=== PATIENT | male | born 1975 | race Caucasian/White ===

== ENCOUNTER 2024-12-04 11:08 | Emergency (ER) | payer OTHER, SELFPAY ==
[2024-12-04 11:09] VITALS: BP 130/118; PULSE 98; RESP 18; TEMP 36.8; O2SAT 98; BMI 34.1
--- NOTE | 2024-12-04 11:21 | CT_ITS ---
PROCEDURE: ABDOMEN/PELVIS W IV CONT ONLY 12/04/2024 REASON FOR EXAM: N/V GETTING WORSE LAST 3 WKS TECHNIQUE: Abdomen and pelvis CT with intravenous contrast. Coronal and Sagittal reconstruction series were provided. PATIENT PREPARATION: Per protocol ORAL CONTRAST TYPE: None. AMOUNT: mL CONTRAST: Omnipaque 350 VOLUME: 100 mL Not Provided Gauge IV One or more dose reduction techniques were used (e.g., Automated exposure control, adjustment of the mA and/or kV according to patient size, use of iterative reconstruction technique. COMPARISON: None FINDINGS: Lung bases: Please see the same-day CT of the abdomen and pelvis report. Liver: Normal size. No mass. Gallbladder: Unremarkable. Spleen: Splenomegaly, craniocaudal length 14.4 cm. 4 x 3.2 cm enhancing mass within the upper pole, (series 610 image 96, series 7 image 38). Pancreas: Normal size without evidence of mass surrounding inflammation or ductal dilation. Adrenals: Unremarkable. Kidneys: Delete bilateral nephrogram. Findings slightly worse on the right. Bilateral hydroureteronephrosis. Limited visualization of the distal ureter due to confluence with retroperitoneal mass. Bladder: Urinary bladder is unremarkable. Reproductive Organs: No pelvic mass. Bowel: No bowel dilation. Appendix: The appendix is not identified. There is no inflammatory process identified in the right lower quadrant to suggest appendicitis. Lymph nodes: Extensive retroperitoneal adenopathy, with areas of confluence masslike lymph nodes. For example (series 7, image 71). There is a 5.2 x 3.3 cm left para-aortic node and a 5.3 x 2.9 cm aortocaval node (series 7, image 70). Confluent soft-tissue mass nearly completely encases the IVC and aorta as well as bilateral common iliac arteries. Extensive adenopathy is noted throughout the abdomen and bilateral external iliac chains. Findings are highly suggestive of a lymphoproliferative process. Vasculature: Mild diffuse atherosclerotic calcifications are noted. Peritoneum / Retroperitoneum: Diffuse mesenteric soft tissue stranding and nodularity. No pneumoperitoneum. No ascites. Bones: No suspicious osseous lesions. Soft tissue: Diffuse subcutaneous soft tissue stranding. CT/Abdomen/Pelvis W IV Cont ONLY IMPRESSION: 1. Extensive and confluence retroperitoneal soft tissue mass as well as mesente madison adenopathy as described above, highly concerning for lymphoproliferative process, such as lymphoma. 2. Delayed bilateral nephrograms and bilateral hydroureteronephrosis secondary to obstruction of the distal ureters from mass effect of the retroperitoneal mass/node 3. Splenomegaly and a 4 x 3.2 cm upper pole enhancing mass, also likely seconda ry to lymphomatous involvement. Reading Location: [facility]
--- NOTE | 2024-12-04 11:21 | CT_ITS ---
PROCEDURE: SOFT TISSUE NECK WITH CONTRAST 12/04/2024 REASON FOR EXAM: LEFT NECK MASS TECHNIQUE: CT of the soft tissues of the neck from the orbits to the upper mediastinum with intravenous contrast. CONTRAST: Omnipaque 350 VOLUME: 100 mL Not Provided Gauge IV One or more dose reduction techniques were used (e.g., Automated exposure control, adjustment of the mA and/or kV according to patient size, use of iterative reconstruction technique). COMPARISON: None FINDINGS: Lymph nodes: Multiple prominent-mildly enlarged bilateral jugulodigastric, level 3-level 5 lymph nodes. For example 2.0 left and 2.1 cm right level 2A node. Multiple other enlarged nodes are noted within the neck. small nonspecific lymph nodes are scattered throughout the neck. Soft tissue: Within the left lower neck, at the level of the carotid space, there is a 5.5 x 7.7 x 7.3 cm soft tissue mass (series 6, image 35, series 608, image 55). The mass splays the left common carotid and the left ventricle retromandibular vein. There is mass effect on the adjacent internal jugular vein and left common carotid artery. The mass also anteriorly displaced the sternocleidomastoid muscle. Aerodigestive tract: The oral cavity is partially obscured by artifact from dental amalgam. The nasal cavities, naso-oropharynx, pharyngeal mucosal space, laryngeal structures and infraglottic trachea are within normal limits. Major salivary glands: Within normal limits. Thyroid gland: Within normal limits. Carotid space: Patent bilateral extracranial carotid and jugular systems. Intracranial contents: Imaged portions within normal limits. Paranasal sinuses, middle ears, mastoids: Clear. Orbits: Within normal limits. Bones: No suspicious osseous lesions in the imaged calvarium, skull base and spine. Normal cervicothoracic alignment. No significant spondylotic changes. Temporomandibular joints are maintained. Lungs: Partially imaged large right pleural effusion.. CT/Soft Tissue Neck WITH Contrast IMPRESSION: 5.5 x 7.7 x 7.3 cm left carotid space and inferior neck soft tissue mass spleen the left IJ, retromandibular vein as well as the common carotid artery, with mass effect as described above. Differential consi derations for this mass include a paraganglioma, metastatic mass or large adenopathy. Multiple prominent-mildly enlarged neck nodes, suspicious for metastasis. Reading Location: [facility]
--- NOTE | 2024-12-04 11:21 | CT_ITS ---
PROCEDURE: CHEST WITH CONTRAST 12/04/2024 REASON FOR EXAM: NECK MASS, N/V TECHNIQUE: Prone and supine chest CT with intravenous contrast, high resolution CT (HRCT) protocol. Coronal and Sagittal reconstruction series were provided. CONTRAST: Omnipaque 350 VOLUME: 100 mL Not Provided Gauge IV One or more dose reduction techniques were used (e.g., Automated exposure control, adjustment of the mA and/or kV according to patient size, use of iterative reconstruction technique). COMPARISON: None FINDINGS: Hardware: None Lymph nodes: Multiple enlarged predominantly mediastinal lymph nodes are noted. For example a 16 mm right upper paratracheal lymph node (series 5 image 43); multiple cluster of subcarinal node, with the largest measuring 16 mm. Heart and Vasculature: Normal heart size. No pericardial effusion. Thoracic aorta and pulmonary arteries are unremarkable. Lungs and Airways: Trachea is patent. There is abrupt cutoff of the right lower lobe bronchus, with resultant right lower lobe atelectasis. Large right pleural effusion. Scattered ground-glass opacities right upper lobe, likely infectious/inflammatory etiology. No suspicious pulmonary nodule. No pneumothorax. Upper Abdomen: Please see the same-day CT abdomen and pelvis. Bones: Bone windows are unremarkable. Chest wall and mediastinum: Thyroid gland is unremarkable. Partially imaged soft tissue mass left lower neck. Please see the same day CT neck report. Esophagus is nondilated. CT/Chest WITH Contrast IMPRESSION: Occlusion of the right lower lobe bronchus, suggestive of an underlying mass or mucous plugging. Evaluation is limited by large right pleural effusion. Recommend repeat CT after resolution/thoracentesis of the effusion. PET-CT may also be considered. Multiple enlarged mediastinal lymph nodes. Findings suggestive of a lymphoprol iferative process, or metastasis, given the partially imaged left lower neck soft tissue mass. Reading Location: [facility]
--- NOTE | 2024-12-04 11:23 | CT_ITS ---
PROCEDURE: BRAIN/HEAD WITHOUT CONTRAST 12/04/2024 REASON FOR EXAM: NECK MASS/ N/V TECHNIQUE: Head CT without intravenous contrast. Coronal and Sagittal reconstruction series were provided. One or more dose reduction techniques were used (e.g., Automated exposure control, adjustment of the mA and/or kV according to patient size, use of iterative reconstruction technique. RADIATION DOSE SUMMARY: DLP: 830 mGycm COMPARISON: none FINDINGS: There is no acute infarct, intracranial hemorrhage, or mass effect. There is no hydrocephalus or significant midline shift. No acute, depressed calvarial fractures. No large scalp hematomas. Retention cyst within the right maxillary sinus. CT/Brain/Head without Contrast IMPRESSION: No acute intracranial process. Reading Location: [id number]
--- NOTE | 2024-12-04 11:23 | EX.ED.DYSGE1 ---
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 Patient states that for the last 3 weeks she has had nausea vomiting and had been difficulty keeping food down. He states that he will eat and then few hours later he will immediately vomits. Patient denies any weight loss. He does complain of a lump on the left side of his neck he states that it has been there for a few weeks he states that originally was so small he followed up with a doctor and noted that this was likely a lymph node at that point in time. Patient states that he has not seen physician since it has increased in size. Patient's family member at bedside states that he has been extremely sleepy lately as well which is abnormal for him. Patient also noted that he is unsure of why he exactly developed blood clots in his legs and he states that he was seen at an outside facility for this. [facility] Medical History HTN (hypertension) DVT (deep venous thrombosis) Home Medications ?Medication ?Instructions ?Recorded ?Last Taken ?Type apixaban 5 mg tablet (Eliquis) 5 mg PO BID 12/04/24 12/04/24 History lisinopril 20 mg tablet 20 mg PO DAILY 12/04/24 12/04/24 History Allergy/AdvReac Type Severity Reaction Status Date / Time No Known Allergies Allergy Verified 12/04/24 11:11 Social History Smoking Status: Former smoker ROS ROS ED ROS Narrative Constitutional: Denies headache, lightness, disease confusion, chills Eyes: Denies change in vision double vision blurry vision Neck: Complains of masses noted above Cardiovascular: Denies chest pain or palpitations Respiratory: Denies cough wheezing shortness of breath Abdomen: Complains of nausea and vomiting : Denies urinary symptoms Neurological: Denies numbness, weakness, tingling Musculoskeletal: Denies back pain Skin: Denies rashes or lesions EXAM Physical Exam Narrative Exam Narrative: General: Patient lying in bed rest comfortably did not appear to be acute distress Head: Atraumatic, normocephalic Eyes: PERRL bilaterally, EOMI bilaterally, no conjunctival injection noted Neck: Soft, supple, trachea midline, patient does have a soft tissue mass noted just above his clavicle/lower neck region Cardiovascular: Regular rate and rhythm Respiratory: Clear to auscultation bilaterally Abdomen: Soft, nondistended, nontender to palpation Extremities: +5/5 strength noted in the bilateral upper and lower extremities Neurological: Patient following commands knew that he was at [facility] year is 2024 Skin: Warm, dry, intact no rashes or lesions noted Const Vital Signs: 12/04/24 11:09 12/04/24 13:09 12/04/24 15:00 Temperature 98.3 F Temperature Source Oral Pulse Rate 98 85 86 Respiratory Rate 18 14 14 Blood Pressure 130/118 H 150/78 H 157/88 H Blood Pressure Mean 122 102 111 Pulse Ox 98 94 96 Oxygen Delivery Method Room Air MDM MDM MDM Narrative Medical decision making narrative: Patient is a 49-year-old male who presented to the emergency department the chief complaint of nausea vomiting, soft tissue mass in the left side of his lower neck. On the differential diagnosis includes but not limited to hypothyroidism, thyroid cancer, cancer with metastases. Once workup is obtained reviewed he will be reevaluated. Patient be given Zofran for nausea. Patient's CBC was reviewed and showed a white blood count of 6.8, hemoglobin stable at 11, platelet count was noted to be 285. Patient sodium normal 133, potassium normal at 5, creatinine was elevated 2.27 indicating acute kidney injury, calcium elevated at 13.9 patient was given IV fluids. Patient TSH normal at 1.97, free T4 and T3 normal at 1.40 [address] head and brain without contrast was reviewed and showed no acute intracranial processes. Patient's CT soft tissue neck reviewed and showed a 5.5 x 7.7 x 7.3 cm left carotid space and inferior neck soft tissue mass. The mass encases the left common carotid and the left ventricle retromandibular vein. Mass effect on the adjacent internal jugular vein and the left common carotid artery. The mass also anteriorly displaced the sternocleidomastoid muscle. Multiple prominent mildly enlarged neck node suspicious for metastases noted. Patient CT chest was reviewed and showed occlusion of the right lower lobe bronchus suggestive of underlying mass or mucous plugging. Evaluation is limited by large right pleural effusion recommending repeat CT after resolution/thoracentesis of the effusion. PET?CT may also be considered. Multiple enlarged mediastinal lymph nodes. Patient CT abdomen pelvis with IV contrast showed extensive and confluence retroperitoneal soft tissue mass as well as mesenteric adenopathy highly concerning for a lymphoproliferative process such as lymphoma. Delayed bilateral nephrograms and bilateral hydroureteronephrosis secondary to obstruction of the distal ureters from mass effect of the retroperitoneal mass/node. Soft tissue mass nearly completely encases the IVC and aorta as well as bilateral common iliac arteries. Extensive adenopathy is noted throughout the abdomen and bilateral external iliac chains. Findings highly suggestive of lymphoproliferative process. At this point in time do not have urology on-call and do believe the patient will benefit from transfer. Patient would prefer to go to [facility]. Discussed the case with Dr. Perez from [facility] who accept patient for transfer admission. Patient and for members at bedside were notified are agreeable this plan all question concerns answered. He will be transferred in stable condition Lab Data Labs: Laboratory Results - last 24 hr 12/04/24 11:35 WBC 6.8 RBC 3.69 L Hgb 11.0 L Hct 33.5 L MCV 90.8 MCH 29.8 MCHC 32.8 RDW Std Deviation 47.6 H RDW Coeff of Sunil 14.3 Plt Count 285 MPV 9.5 Immature Gran % (Auto) 0.700 Neut % (Auto) 73.3 H Lymph % (Auto) 9.0 L Mcpherson % (Auto) 14.1 H Eos % (Auto) 1.9 Baso % (Auto) 1.0 Absolute Neuts (auto) 5.0 Absolute Lymphs (auto) 0.61 L Nucleated RBC % 0 Sodium 133 Potassium 5.0 Chloride 96 L Carbon Dioxide 23.7 Anion Gap 13 BUN 32 H Creatinine 2.27 H Estim Creat Clear Calc 54.57 Est GFR (MDRD) Non-Af 34 L BUN/Creatinine Ratio 14.3 Glucose 114 H Calcium 13.9 H* Total Bilirubin 0.85 AST 44 H ALT 26 Alkaline Phosphatase 65 Total Protein 6.7 Albumin 3.6 Globulin 3.1 Albumin/Globulin Ratio 1.1 Lipase 25 TSH 1.970 Free T4 1.40 Free T3 pg/dL 2.2 Radiography Diagnostic Testing: Clinical Impression(s) from Imaging Studies Abdomen/Pelvis CT 12/04/24 11:21 IMPRESSION: 1. Extensive and confluence retroperitoneal soft tissue mass as well as mesenteric adenopathy as described above, highly concerning for lymphoproliferative process, such as lymphoma. 2. Delayed bilateral nephrograms and bilateral hydroureteronephrosis secondary to obstruction of the distal ureters from mass effect of the retroperitoneal mass/node 3. Splenomegaly and a 4 x 3.2 cm upper pole enhancing mass, also likely secondary to lymphomatous involvement. Reading Location: [facility] Chest CT 12/04/24 11:21 IMPRESSION: Occlusion of the right lower lobe bronchus, suggestive of an underlying mass or mucous plugging. Evaluation is limited by large right pleural effusion. Recommend repeat CT after resolution/thoracentesis of the effusion. PET-CT may also be considered. Multiple enlarged mediastinal lymph nodes. Findings suggestive of a lymphoproliferative process, or metastasis, given the partially imaged left lower neck soft tissue mass. Reading Location: [facility] Soft Tissue Neck CT 12/04/24 11:21 IMPRESSION: 5.5 x 7.7 x 7.3 cm left carotid space and inferior neck soft tissue mass spleen the left IJ, retromandibular vein as well as the common carotid artery, with mass effect as described above. Differential considerations for this mass include a paraganglioma, metastatic mass or large adenopathy. Multiple prominent-mildly enlarged neck nodes, suspicious for metastasis. Reading Location: [facility] Brain CT 12/04/24 11:23 IMPRESSION: No acute intracranial process. Reading Location: [id number] Discharge Plan Triage Chief Complaint: Nausea/Vomiting ED Provider: Hayden Dutta Dx/Rx/DC Orders Clinical Impression: Pleural effusion, right, Mass in neck, Nausea & vomiting, Acute kidney injury, Abnormal computed tomography of abdomen and pelvis Prescriptions: No Action Eliquis 5 mg tablet 5 mg PO BID lisinopril 20 mg tablet 20 mg PO DAILY Primary Care Provider: CAM WEST Referrals: Bk Raphael MD [Med Staff - Active Staff] - Print Language: Sinhala Disposition Disposition: DC/Tx to Another Type of HCF
[2024-12-04 11:42] LABS: Absolute Lymphocyte Count 0.61 X10^3/uL (0.83-4.51); Basophil# 0.07 X10^3/uL; Eosinophil# 0.13 X10^3/uL; Eosinophils% 1.9 % (0-5); Hematocrit 33.5 % (40-54); Lymphocyte # 0.61 X10^3/ul (0.83-4.51); Mean Corp Hgb Conc 32.8 g/dL (32-36); Mean Corpuscular Hgb 29.8 pg (27.0-32.0); Mean Corpuscular Volume 90.8 fL (80-94); Mean Platelet Vol. 9.5 fl (6.2-12.0); Monocyte# 0.96 X10^3/uL; Monocyte% 14.1 % (0-10); NRBC Flagged by Analyzer 0 % (0-5); Neutrophil # 4.97 X10^3/uL (2.7-7.7); Neutrophil % 73.3 % (47-70); Platelet Count 285 K/mm3 (150-450); RBC Distribution Width CV 14.3 % (11.6-14.6); RBC Distribution Width SD 47.6 fl (35.1-43.9); Red Blood Count 3.69 M/mm3 (4.6-6.2); White Blood Count 6.8 K/mm3 (4.4-11.0)
[2024-12-04] MEDS: Ondansetron 4 MG/2 ML Vial IV (11:42)
[2024-12-04] MEDS: 0.9% Normal Saline (1000mL) 1,000 ML 999 ML IV (11:43)
[2024-12-04 12:11] LABS: Free T3 2.2 pg/mL (2.18-3.98); Lipase 25 U/L (13-75)
[2024-12-04 12:14] LABS: ALB/GLOB Ratio 1.1 RATIO (0.9-2.4); AST(SGOT) 44 U/L (<=37); Alanine Aminotransfer ALT/SGPT 26 U/L (<=46); Albumin, Serum 3.6 g/dL (3.5-5.0); Alkaline Phosphatase 65 U/L (40-129); Anion Gap 13 (5-15); BUN 32 mg/dL (4-19); BUN/Creat Ratio 14.3 RATIO (10-20); Calcium,Total 13.9 mg/dL (7.6-11.0); Carbon Dioxide 23.7 mmol/L (21.0-32.0); Chloride 96 mmol/L (98-108); Creatinine, Serum 2.27 mg/dL (0.70-1.20); EST Glomerular Filtration Rate 34 (>60); Estimated Creatinine Clearance 54.57 ml/min (50-250); Globulin 3.1 g/dL (2.2-4.2); Glucose 114 mg/dL (70-99); Protein, Total 6.7 g/dL (5.9-8.4); Sodium Level 133 mmol/L (133-145); Total Bilirubin 0.85 mg/dL (0.00-1.30)
[2024-12-04 13:09] VITALS: BP 150/78; PULSE 85; RESP 14; O2SAT 94
[2024-12-04 15:00] VITALS: BP 157/88; PULSE 86; RESP 14; O2SAT 96
--- NOTE | 2024-12-04 16:35 | PCA ---
CALLED [facility] @ [phone] SENT OVER FACE SHEET AND PUSHED IMAGES
[2024-12-04 17:00] VITALS: BP 151/77; PULSE 95; RESP 18; O2SAT 92
--- NOTE | 2024-12-04 17:14 | PCA ---
[facility] CALLED AT 1705. THEY HAD AN ACCEPTING DR AND SAID THERE SHOULD BE A BED TONIGHT.
--- NOTE | 2024-12-04 18:16 | PCA ---
AJITH CALLED @ 1806 WITH A BED. H5 RM 109 THE ETA IS 1999.
[2024-12-04 18:44] VITALS: BP 151/77; PULSE 95; RESP 18; O2SAT 92
== END 2024-12-04 19:03 | disposition other institution (70) ==
PROVIDERS: Emergency Provider Emergency Medicine; Visit Provider Emergency Medicine
DX: J90 Pleural effusion, not elsewhere classified (principal); N17.9 Acute kidney failure, unspecified; I10 Essential (primary) hypertension; R11.2 Nausea with vomiting, unspecified; Z87.891 Personal history of nicotine dependence; R19.09 Other intra-abdominal and pelvic swelling, mass and lump; Z86.718 Personal history of other venous thrombosis and embolism; Z79.01 Long term (current) use of anticoagulants; Z79.899 Other long term (current) drug therapy; N13.1 Hydronephrosis with ureteral stricture, not elsewhere classified
CPT/HCPCS: 70450; 70491; 71260; 74177; 80053; 83690; 84439; 84443; 84481; 85025; 96361; 96374; 99285; Q9967; A4216; J2405

== ENCOUNTER 2024-12-26 16:51 | Emergency (ER) | payer OTHER, SELFPAY ==
[2024-12-26 16:53] VITALS: BP 120/60; PULSE 77; RESP 18; TEMP 36.6; O2SAT 98
[2024-12-26 18:22] VITALS: RESP 22; O2SAT 100
[2024-12-26 18:23] VITALS: BP 101/84; PULSE 77; RESP 22; TEMP 36.6; O2SAT 100
[2024-12-26 18:24] VITALS: O2SAT 100
[2024-12-26 18:34] LABS: Hematocrit 27.7 % (40-54); Hemoglobin 9.3 g/dL (13.0-16.5); Mean Corp Hgb Conc 33.6 g/dL (32-36); Mean Corpuscular Hgb 29.2 pg (27.0-32.0); Mean Corpuscular Volume 87.1 fL (80-94); Mean Platelet Vol. 8.5 fl (6.2-12.0); POSITIVE COUNT YES; POSITIVE MORPHOLOGY YES; Platelet Count 477 K/mm3 (150-450); RBC Distribution Width CV 15.5 % (11.6-14.6); RBC Distribution Width SD 47.7 fl (35.1-43.9); Red Blood Count 3.18 M/mm3 (4.6-6.2); White Blood Count 16.4 K/mm3 (4.4-11.0)
--- NOTE | 2024-12-26 18:40 | RAD_ITS ---
PROCEDURE: CHEST 1 VIEW (PORTABLE) 12/26/2024 REASON FOR EXAM: SOB TECHNIQUE: Frontal view of the chest. COMPARISON: CT chest 12/04/2024 FINDINGS: Hardware: None Heart: Cardiac and mediastinal contours are stable. Lungs: Moderate to large right pleural effusion, similar to CT on 12/04/2024. Lung volumes are low and otherwise predominantly clear. Bones: The bones are unchanged. RAD/Chest 1 View (Portable) IMPRESSION: [id number] right pleural effusion, similar to recent CT. Reading Location: [id number]
--- NOTE | 2024-12-26 18:52 | EX.ED.DYSGE1 ---
HPI History of Present Illness Chief Complaint: Shortness of Breath Narrative Narrative: 49-year-old male presents with his mother because of drainage around the Pleurx catheter in his right posterior back. He relates history that around Mother's Day, approximately 3 to 4 weeks ago, he was at [facility] admitted for 11 days. He has history of blood clots on apixaban, he states he had a mass on his neck and they found a nodule or mass in his left lung, and he was found to have fluid on his right lung as well. Initially they drained his right blood which I assume was from thoracentesis and he states they got a liter off. They initially inserted tube, and reportedly were able to get 3 L of fluid off his lung. They put in a small catheter which they could draw fluid off of every so often. He states he last had it drained last Thursday where they only took 50 mL. The home health nurse was supposed to drain it again today, but she noticed purulent drainage on the dressing surrounding the catheter. Of note, he also has bilateral nephrostomy tubes. He and his mother states that he is supposed to be at [facility] tomorrow to get a Mediport placed. [facility] Medical History HTN (hypertension) DVT (deep venous thrombosis) Home Medications ?Medication ?Instructions ?Recorded ?Last Taken ?Type apixaban 5 mg tablet (Eliquis) 5 mg PO BID 12/04/24 12/04/24 History lisinopril 20 mg tablet 20 mg PO DAILY 12/04/24 12/04/24 History allopurinol 300 mg tablet PO 12/26/24 Unknown History prednisone 50 mg tablet PO 12/26/24 Unknown History Allergy/AdvReac Type Severity Reaction Status Date / Time No Known Allergies Allergy Verified 12/26/24 18:26 Social History Smoking Status: Former smoker ROS ROS ED ROS Narrative Review of systems positive for drainage around Pleurx catheter, purulent. No fevers or chills, no nausea or vomiting, no shortness of breath. EXAM Physical Exam Narrative Exam Narrative: Afebrile. Vital signs noted. Nontoxic-appearing. Cardiovascular examination reveals a regular rate and rhythm. Lungs are clear to auscultation bilaterally. The abdomen is soft and nontender with positive bowel sounds. Inspection of the nephrostomy tubes shows no evidence of surrounding erythema. There is a scant amount of purulent drainage around the right posterior Pleurx catheter. There is a larger lump more caudal to this which is the area he states he had prior drainage of the prior tube. Const Vital Signs: 12/26/24 16:53 12/26/24 16:53 12/26/24 18:22 Temperature 98 F Temperature Source Oral Oral Pulse Rate 77 Respiratory Rate 18 22 H Respiratory Effort Respiratory Depth Respiratory Pattern Blood Pressure 120/60 Blood Pressure Mean 80 Pulse Ox 98 100 Oxygen Delivery Method Room Air 12/26/24 18:23 12/26/24 18:24 12/26/24 19:08 Temperature 98 F Temperature Source Temporal Pulse Rate 77 98 Respiratory Rate 22 H 19 H Respiratory Effort Non-Labored Respiratory Depth Normal Respiratory Pattern Normal Blood Pressure 101/84 H Blood Pressure Mean 89 Pulse Ox 100 99 Oxygen Delivery Method Room Air 12/26/24 21:00 Temperature Temperature Source Pulse Rate 93 Respiratory Rate 21 H Respiratory Effort Respiratory Depth Respiratory Pattern Blood Pressure 116/72 Blood Pressure Mean 86 Pulse Ox 100 Oxygen Delivery Method MDM MDM MDM Narrative Medical decision making narrative: Differential diagnosis includes but not limited to infection of Pleurx catheter versus pneumonia versus lung abscess versus subcutaneous abscess with tracking. Initial laboratories have been entered per protocol. Although chest x-ray was obtained per protocol, I do feel he needs a CT of the chest with IV contrast. I reviewed his laboratory work and he has elevated white count of 16.4 with hemoglobin 9.3, platelet count slightly elevated at 477. Sodium is low at 131 with chloride 97, potassium 3.9. Glucose low at 122, lactic acid less than 1.0. I doubt sepsis. On my independent interpretation of the protocol of chest x-ray, there is a moderate to large pleural effusion on the right. Reviewed the radiology report of the CT of the chest with IV contrast and although it is decreased, there is a loculated pleural effusion, and there is a right lower lobe density noted as well. Concern would be for infectious process versus neoplastic. Given the amount of purulent drainage around the catheter on his Pleurx catheter, he was started on vancomycin and Zosyn because of the elevated white count as well. I do feel that he will require transfer. Patient initially discussed with the [facility] transfer [facility] and is pending acceptance and further discussion with the provider. If needed, patient will be signed out to the oncoming physician to ensure transfer. Patient is in stable condition. History & Record Review Discussion w/independent historian: Patient and Family (Mother) Lab Data Attestation: I reviewed the patient's lab results. Labs: Laboratory Results - last 24 hr 12/26/24 12/26/24 18:16 19:24 WBC 16.4 H RBC 3.18 L Hgb 9.3 L Hct 27.7 L MCV 87.1 MCH 29.2 MCHC 33.6 RDW Std Deviation 47.7 H RDW Coeff of Sunil 15.5 H Plt Count 477 H MPV 8.5 Neut % (Auto) Not Reportable Absolute Neuts (auto) 12.8 H Absolute Lymphs (auto) 0.49 L Total Counted 100 Neutrophils % (Manual) 77 H Band Neutrophils % 1 Lymphocytes % (Manual) 3 L Monocytes % (Manual) 5 Eosinophils % (Manual) 2 Metamyelocytes % 3 H Myelocytes % 5 H Promyelocytes % 1 H Blast Cells % 3 H* Diff Path Review May foll Platelet Estimate SLT INC Polychromasia 1+ Sodium 131 L Potassium 3.9 Chloride 97 L Carbon Dioxide 21.4 Anion Gap 13 BUN 12 Creatinine 1.05 Est GFR (MDRD) Non-Af 86 BUN/Creatinine Ratio 11.7 Glucose 122 H Lactic Acid < 1.0 Calcium 8.6 Radiography Chest X-Ray - ED: 1 View, Read by ED Physician and Read by Radiologist Diagnostic Testing: Clinical Impression(s) from Imaging Studies Chest X-Ray 12/26/24 18:40 IMPRESSION: [id number] right pleural effusion, similar to recent CT. Reading Location: [id number] Chest CT 12/26/24 19:15 IMPRESSION: Decreased right pleural effusion which is now loculated. Right lower lobe density likely representing some component of atelectasis but superimposed infection or neoplastic process can not be excluded. Decreased mediastinal lymphadenopathy. Reading Location: [id number] Discharge Plan Triage Chief Complaint: Shortness of Breath ED Provider: Alejandro Wilde Dx/Rx/DC Orders Clinical Impression: Infection associated with catheter, Pleural effusion, Large B-cell lymphoma Prescriptions: No Action Eliquis 5 mg tablet 5 mg PO BID lisinopril 20 mg tablet 20 mg PO DAILY prednisone 50 mg tablet PO allopurinol 300 mg tablet PO Primary Care Provider: Care Physician,Karla Primary Referrals: [facility] [Other] Print Language: Kinyarwanda Disposition Disposition: Acute Care Hospital Discharge Location: [facility]
[2024-12-26 18:57] LABS: Anion Gap 13 (5-15); BUN 12 mg/dL (4-19); BUN/Creat Ratio 11.7 RATIO (10-20); Calcium,Total 8.6 mg/dL (7.6-11.0); Carbon Dioxide 21.4 mmol/L (21.0-32.0); Chloride 97 mmol/L (98-108); Creatinine, Serum 1.05 mg/dL (0.70-1.20); EST Glomerular Filtration Rate 86 (>60); Glucose 122 mg/dL (70-99); Potassium 3.9 mmol/L (3.3-5.1); Sodium Level 131 mmol/L (133-145)
[2024-12-26] MEDS: 0.9% Normal Saline (1000mL) 1,000 ML 1000 ML IV (18:59)
[2024-12-26 19:08] VITALS: PULSE 98; RESP 19; O2SAT 99
[2024-12-26 19:15] LABS: Differential Indicated MANUAL DIFF
--- NOTE | 2024-12-26 19:15 | CT_ITS ---
PROCEDURE: CHEST WITH CONTRAST 12/26/2024 REASON FOR EXAM: ABSCESS, DRAINAGE AROUND PLEURX CATHETER, RIGHT TECHNIQUE: Prone and supine chest CT with intravenous contrast, high resolution CT (HRCT) protocol. Coronal and Sagittal reconstruction series were provided. CONTRAST: Isovue 370 VOLUME: 98 mL. One or more dose reduction techniques were used (e.g., Automated exposure control, adjustment of the mA and/or kV according to patient size, use of iterative reconstruction technique). RADIATION DOSE SUMMARY: CTDlvol: 13.30+ 17.90 mGy DLP: 570.33 mGycm COMPARISON: 12/04/2024. FINDINGS: Loculated right pleural fluid which is markedly decreased in size since the prior CT. Right lower lobe density with attenuation similar to paraspinal muscular some of which may represent atelectasis but the attenuation suggests some may be infected or represent a neoplastic process. Left lower lobe linear atelectasis. Intervally decreased size of mediastinal lymph nodes. Left lower neck soft tissue mass is not included in the volume of these images. Coronary artery calcifications. The peripheral soft tissues are unremarkable. No acute osseous abnormalities. CT/Chest WITH Contrast IMPRESSION: Decreased right pleural effusion which is now loculated. Right lower lobe density likely representing some component of atelectasis but superimposed infection or neoplastic process can not be excluded. Decreased mediastinal lymphadenopathy. Reading Location: [place] [id number]
[2024-12-26 19:25] LABS: Blast 3 % (0-0); Eosinophil 2 % (0-5); Lymphocyte 3 % (19-41); Metamyelocyte 3 % (0-1); Monocyte 5 % (0-10); Myelocyte 5 % (0-0); Neutrophil-Band 1 % (0-5); Neutrophil-Segmented 77 % (47-70); Promyelocyte 1 % (0-0); Total Cells Counted 100 (MANUAL DIFF)
[2024-12-26 19:28] LABS: Platelet Estimate SLT INC (ADEQ); Polychromasia 1+
[2024-12-26 19:29] LABS: Pathologist Review May foll
[2024-12-26 19:30] LABS: Absolute Lymphocyte Count 0.49 X10^3/uL (0.83-4.51); Absolute Neutrophil Count 12.8 X10^3/uL (2.0-7.7)
[2024-12-26 19:57] LABS: Lactic Acid < 1.0 mmol/L (0.0-2.0)
[2024-12-26 21:00] VITALS: BP 116/72; PULSE 93; RESP 21; O2SAT 100
[2024-12-26 23:00] VITALS: BMI 31.4
[2024-12-26] MEDS: fentaNYL 100 MCG/2 ML Ampul 50 MCG IV (23:11)
[2024-12-26] MEDS: Piperacil/Tazobactam 3.375 GM in 0.9% Normal Saline (50mL MB+) 50 ML IV (23:11)
[2024-12-27 00:30] VITALS: BP 104/63; PULSE 76; RESP 28; O2SAT 94
[2024-12-27] MEDS: Vancomycin HCl 1,750 MG in 0.9% Normal Saline (500mL Bag) 500 ML 250 MG IV (00:30)
[2024-12-27 02:00] VITALS: BP 126/71; PULSE 88; RESP 35; O2SAT 95
[2024-12-27 02:01] VITALS: BP 126/71; PULSE 86; RESP 35; TEMP 36.6; O2SAT 95
== END 2024-12-27 02:58 | disposition short-term general hospital (02) ==
PROVIDERS: Emergency Provider Emergency Medicine; Visit Provider Emergency Medicine
DX: T80.212A Local infection due to central venous catheter, initial encounter (principal); C85.10 Unspecified B-cell lymphoma, unspecified site; J90 Pleural effusion, not elsewhere classified; Z95.828 Presence of other vascular implants and grafts; I10 Essential (primary) hypertension; Z87.891 Personal history of nicotine dependence; Z86.718 Personal history of other venous thrombosis and embolism
CPT/HCPCS: 71045; 71260; 80048; 83605; 85025; 87040; 94760; 96361; 96365; 96366; 96367; 96375; 99285; Q9967; A4216

== ENCOUNTER 2025-01-10 23:58 | Emergency (ER) | payer OTHER, SELFPAY ==
[2025-01-11] VITALS (11 sets, daily range): BP systolic 85–128; BP diastolic 54–85; PULSE 67–118; RESP 18–24; TEMP 36.4–39.4; O2SAT 97–100; BMI 28.4
--- NOTE | 2025-01-11 00:08 | EKG12_ITS ---
Test Reason : NAUSEA N VOMIT Blood Pressure : */* mmHG Vent. Rate : 109 BPM Atrial Rate : 109 BPM P-R Int : 124 ms QRS Dur : 74 ms QT Int : 312 ms P-R-T Axes : 47 -1 37 degrees QTcB Int : 420 ms Sinus tachycardia Otherwise normal ECG Confirmed by JAMAAL VARGAS, HUSAM ([id number]), marketing editor ERIN MOSQUERA ([id number]) on 01/11/2025 8:30:06 AM Referred By: GERALD Confirmed By: HUSAM HINTON MD
--- NOTE | 2025-01-11 00:28 | CT_ITS ---
PROCEDURE: ABDOMEN/PELVIS W IV CONT ONLY 01/11/2025 REASON FOR EXAM: VOMITING TECHNIQUE: ABDOMEN/PELVIS W IV CONT ONLY. Coronal and Sagittal reconstruction series were provided. ORAL CONTRAST TYPE: None. AMOUNT: mL CONTRAST: Isovue-300 50 VOLUME: 100 mL One or more dose reduction techniques were used (e.g., Automated exposure control, adjustment of the mA and/or kV according to patient size, use of iterative reconstruction technique. RADIATION DOSE SUMMARY: CTDlvol: 19.9 mGy DLP: 1330 mGycm COMPARISON: 12/04/2024. FINDINGS: Significant decrease in right pleural effusion. Minimal residual right pleural effusion with passive atelectatic airspace disease of the right lower lobe. Mild residual atelectatic airspace disease of the left lower lobe. Diffuse thickening of the fluid-filled stomach suggestive of gastritis. Moderate amount of fecal residue in the large bowels suggestive of constipation. Left percutaneous nephrostomy tube is in good position with its tip in the left renal pelvis. The tip of the right percutaneous nephrostomy tube is in the right renal parenchyma. It needs to be advanced 2 cm. Decreased bilateral hydroureteronephrosis which remains slightly mild on the right side. Bilateral urothelial thickening suggestive of an ascending urinary tract infection. Diffusely thickened bladder suggestive of cystitis. Significant decrease of the previously described retroperitoneal lymphadenopathy. The largest lymph node on the current exam is a necrotic lymph node in the right iliac chain measuring 2.5 cm in its short axis. Decrease in the size of the previously described splenic mass measuring 1.5 cm. Decreased hepatomegaly. Improved compression of the right iliac vein. Fluid-filled proximal colon, probably secondary to diarrhea/enterocolitis. Normal gallbladder and extrahepatic biliary system. Normal pancreas. Normal bilateral adrenal glands. Normal size of the right kidney. There is no right renal mass. There are no right renal calculi. Normal size of the left kidney. There is no left renal mass. There are no left renal calculi. Normal small intestine. Normal abdominal aorta. Normal inferior vena cava. Moderate diffuse spondylosis. CT/Abdomen/Pelvis W IV Cont ONLY IMPRESSION: 1. Significant decrease in right pleural effusion. 2. Minimal residual right pleural effusion with passive atelectatic airspace di sease of the right lower lobe. 3. Mild residual atelectatic airspace disease of the left lower lobe. 4. Diffuse thickening of the fluid-filled stomach suggestive of gastritis. 5. Moderate amount of fecal residue in the large bowels suggestive of constipat ion. 6. Left percutaneous nephrostomy tube is in good position with its tip in the l eft renal pelvis. 7. The tip of the right percutaneous nephrostomy tube is in the right renal par enchyma. It needs to be advanced 2 cm. 8. Decreased bilateral hydroureteronephrosis which remains slightly mild on the right side. 9. Bilateral urothelial thickening suggestive of an ascending urinary tract inf ection. 10. Diffusely thickened bladder suggestive of cystitis. 11. Significant decrease of the previously described retroperitoneal lymphadeno francheska. 12. The largest lymph node on the current exam is a necrotic lymph node in the right iliac chain measuring 2.5 cm in its short axis. 13. Decrease in the size of the previously described splenic mass measuring 1.5 cm. 14. Decreased hepatomegaly. 15. Improved compression of the right iliac vein. 16. Fluid-filled proximal colon, probably secondary to diarrhea/enterocolitis. Reading Location: [facility]
[2025-01-11] MEDS: 0.9% Normal Saline (1000mL) 1,000 ML 999 ML IV (00:47)
[2025-01-11] MEDS: Metoclopramide 10 MG/2 ML Vial 5 MG IV (00:47)
[2025-01-11 00:49] LABS: Absolute Lymphocyte Count 0.06 X10^3/uL (0.83-4.51); Absolute Neutrophil Count 0.1 X10^3/uL (2.0-7.7); Basophil# 0.01 X10^3/uL; Basophil% 1.8 % (0-1); Hemoglobin 6.4 g/dL (13.0-16.5); Lymphocyte # 0.06 X10^3/ul (0.83-4.51); Lymphocyte % 10.9 % (19-41); Mean Corp Hgb Conc 35.6 g/dL (32-36); Mean Corpuscular Volume 81.4 fL (80-94); Mean Platelet Vol. 9.7 fl (6.2-12.0); Monocyte# 0.35 X10^3/uL; Monocyte% 63.6 % (0-10); NRBC Flagged by Analyzer 0 % (0-5); Neutrophil # 0.13 X10^3/uL (2.7-7.7); Neutrophil % 23.7 % (47-70); POSITIVE COUNT YES; POSITIVE DIFFERENTIAL YES; POSITIVE MORPHOLOGY YES; Platelet Count 126 K/mm3 (150-450); RBC Distribution Width CV 15.5 % (11.6-14.6); RBC Distribution Width SD 44.9 fl (35.1-43.9); Red Blood Count 2.21 M/mm3 (4.6-6.2)
--- OUTSIDE RECORDS SUMMARY | 2025-01-11 00:53 | XMS RPT_ITS | CCD ---
Author Organization [facility] Care Team Providers Care Manager [employer] Name Role Phone None Primary Care Physician Unavailab Dr. Hayden Russell DO Emergency Provider RODOLFO SMITH Primary Care Provider [phone] Gary uLcio MD Unavailable Lenora Chua RN Unavailable Dr. Hayden Doan DO Attending Provider [phone] Bernardino Burnette MD Emergency Provider Care Physician, No Primary Primary Care Provider Unavailable Gary Lucio MD Unavailable Cisco Garza Attending Unavailable Reji Oshea Attending Unavailable Cisco Garza Attending Unavailable Rodolfo Smith Attending Unavailable Cisco Garza Attending Unavailable Rodolfo Smith Attending Unavailable Bernardino Burnette Attending Unavailable Care Physician, No Primary Primary Care Unava ilable Hayden Dutta Attending Unavailable WILLIAM LOPEZ Primary Care Unavailable YUMIKO CASON Attending UnavailOUMOU Schuster Admitting Unavailable BERNARDINO BURNETTE Referring Unavailable HARINDER NEGRON Attending Unavailable HARDIK NOBLES Consulting Unavailable YUMIKO CASON Attending UnavailSHRUTHI Butler Admitting Unavailable GARY LUCIO Referring Unavailable LETICIA NAIDU Attending Unavailable GARY LUCIO Attending Unavailable GARY LUCIO Referring Unavailable GARY LUCIO Attending Unavailable GARY LUCIO Referring Unavailable GARY LUCIO Attending Unavailable Colten VARGAS, Gary Ray Unavailable Medications Current Medications Medication Drug Class(es) Dates Sig (Normalized) Sig (Original) ceFAZolin (6 sources) Cephalosporin Antibacterial Start: 12-30-2024 End: 01-24-2025 take 2 g intravenously every eight hours CEFAZOLIN SODIUM IV Infuse 2 g into a venous catheter every 8 hours. 12/30/2024 01/24/2025 Active Chlorhexidine (2 sources) Start: 12-31-2024 End: 12-30-2024 apply 1 dose topically once daily Topical, Daily, First dose on 12/31/24 at 1400 docusate sodium 50 mg / sennosides, halfway 8.6 mg oral tablet (16 sources) Start: 12-15-2024 End: 01-14-2025 take 1 tablet by mouth once daily in the evening senna-docusate sodium (Senokot-S) 8.6-50 MG tablet Take 1 tablet by mouth daily. 30 tablet 12/15/2024 4:52 PM EDT 12/15/2024 01/14/2025 Active lisinopril 20 mg oral tablet (4 sources) Angiotensin Converting Enzyme Inhibitor Start: 12-04-2024 take 1 tablet by mouth once daily Lisinopril 20 mg tablet Active 20 mg PO DAILY December 04, 2024 12:00am Start: 11-08-2024 take 1 tablet by vinicius th once daily for hypertension LISINOPRIL (ZESTRIL5 MG) 5 MG TAB Active 5 MG PO DAILY for Hypertension November 08, 2024 4:20pm ondansetron 8 mg oral tablet (14 sources) Serotonin-3 Receptor Antagonist Start: 12-15-2024 End: 01-14-2025 take 1 tablet by mouth twice daily as needed for nausea ondansetron (Zofran) 8 MG tablet Indications: 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 Maximum dose of acetaminophen is 4000 mg from all sources in 24 hours. 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 13 tablet 12/15/2024 4:52 PM EDT 12/16/2024 01/10/2025 Active apixaban 5 mg oral tablet (20 sources) Factor Xa Inhibitor Start: 12-04-2024 End: 12-30-2024 take 5 mg by mouth twice daily 5 mg, Oral, 2 times daily, First dose on Thu12/27/24 at 0900, Anticoagulant Start: 11-08-2024 Apixaban Base (ELIQUIS STARTER5 MG) 5 MG Tab Ther Pack Active 5 MG PO TWICE A DAY for DVT 56 November 08, 2024 4:16pm Take 10mg morning and evening for one week, then 5mg morning and evening ceFAZolin (Ancef) 2,000 mg in sodium chloride 0.9 % 100 mL IVPB (2 sources) Start: 12-30-2024 End: 12-30-2024 take 2000 mg intravenously every eight hours 2,000 mg, IntraVENous, at 200 mL/hr, Administer over 30 Minutes, Every 8 hours, First dose on Thu12/30/24 at 1400, Mini-Bag Plus bag, Suspected Indication (Select all that apply): Pneumonia (CAP) cyclophosphamide (Cytoxan) 1,800 mg in sodium chloride 0.9 % 250 mL chemo IVPB (2 sources) Start: 01-02-2025 End: 01-02-2025 1,800 mg (rounded from 1,807.5 mg = 750 mg/m2 2.41 m2 Treatment Plan BSA from Recorded weight), IntraVENous, at 518 mL/hr, Administer over 30 Minutes, Once, On Thu01/02/25 at 1215, For 1 dose, Hazardous Medication -- Refer to facility policy for handling and disposal. Dexamethasone (2 sources) Corticosteroid Start: 01-02-2025 End: 01-02-2025 12 mg, IntraVENous, at 150 mL/hr, Administer over 20 Minutes, Once, On Thu01/02/25 at 1115, For 1 dose, In sodium chloride 0.9% 50 ml IVPB. Over 20 minutes. premix bag diphenhydrAMINE (BENADryl) 50 mg, famotidine (Pepcid) 20 mg in sodium chloride 0.9 % 50 mL IVPB (2 sources) Start: 01-02-2025 End: 01-02-2025 IntraVENous, at 150 mL/hr, Administer over 20 Minutes, Once, On Thu01/02/25 at 1115, For 1 dose, Administer 30 minutes prior to treatment. 25 ml DOXOrubicin hydrochloride 2 mg/ml injection (2 sources) Anthracycline Topoisomerase Inhibitor Start: 01-02-2025 End: 01-02-2025 take 1 dose intravenously once 120 mg (rounded from 120.5 mg = 50 mg/m2 2.41 m2 Treatment Plan BSA from Recorded weight), IntraVENous, Administer over 5 Minutes, Once, On Thu01/02/25 at 1245, For 1 dose, Protect from light. Chemotherapy. Protect from light. VESICANT -administer IV push through side port of a freely flowing IV. Central venous access is preferred 2 ml fentaNYL 0.05 mg/ml injection (2 sources) Opioid Agonist Start: 12-28-2024 End: 12-28-2024 IntraVENous, As needed, Starting on Thu12/28/24 at 0830, Intraprocedure fosaprepitant (Emend) 150 mg in sodium chloride 0.9 % 250 mL IVPB (2 sources) Start: 01-02-2025 End: 01-02-2025 150 mg, IntraVENous, at 500 mL/hr, Administer over 30 Minutes, Once, On Thu01/02/25 at 1115, For 1 dose, Administer 30 minutes prior to chemotherapy. 3 ml heparin sodium, porcine 100 unt/ml prefilled syringe (2 sources) Unfractionated Heparin, Anti-coagulant Start: 01-02-2025 End: 01-02-2025 500 Units, IntraCATHeter, Once, On Thu01/02/25 at 1015, For 1 dose 1 ml HYDROmorphone hydrochloride 1 mg/ml cartridge (2 sources) Opioid Agonist Start: 12-27-2024 End: 12-30-2024 take 0.5 mg intravenously every four hours as needed for pain 0.5 mg, IntraVENous, Every 4 hours PRN, severe pain (7-10), 2nd line for breakthrough pain, Starting on Thu12/27/24 at 1340, If oral and IV narcotics ordered, use oral first and only use IV if oral is ineffective or cannot take oral. Do Not give oral and IV within 1 hour of each other unless specifically ordered. iopamidol (Isovue-370) 76 % injection 75 mL (2 sources) Start: 12-27-2024 End: 12-27-2024 take 75 mL intravenously once as needed 75 mL, IntraVENous, IMG once PRN, contrast, Starting on Thu12/27/24 at 1011, For 1 dose melatonin 3 mg oral tablet (2 sources) Start: 12-27-2024 End: 12-30-2024 1 ml midazolam 5 mg/ml cartridge (2 sources) Benzodiazepine Start: 12-28-2024 End: 12-28-2024 IntraVENous, As needed, Starting on Thu12/28/24 at 0830, Intraprocedure 1 ml naloxone hydrochloride 0.4 mg/ml injection (2 sources) Opioid Antagonist Start: 12-27-2024 End: 12-30-2024 0.4 mg, IntraVENous, Every 5 min PRN, opioid reversal, respiratory depression, Starting on Thu12/27/24 at 0546, +++ For RR ondansetron ODT (Zofran-ODT) disintegrating tablet 4 mg (2 sources) Start: 12-27-2024 End: 12-30-2024 take 1 tablet by mouth every eight hours as needed for nausea and vomiting ondansetron ODT (Zofran-ODT) disintegrating tablet 4 mg oxyCODONE (2 sources) Opioid Agonist Start: 12-27-2024 End: 12-30-2024 take 1 tablet by mouth every four hours as needed for pain oxyCODONE (Roxicodone) immediate release tablet 5 mg 5 ml palonosetron 0.05 mg/ml injection (2 sources) Serotonin-3 Receptor Antagonist Start: 01-02-2025 End: 01-02-2025 0.25 mg, IntraVENous, Once, On Thu01/02/25 at 1115, For 1 dose pegfilgrastim-apgf (Nyvepria) injection 6 mg (2 sources) Start: 01-03-2025 End: 01-03-2025 inject 6 mg by subcutaneous injection once 6 mg, SubCUTAneous, Once, On Thu01/03/25 at 1100, For 1 dose piperacillin-tazobac nicholson (Zosyn) 4,500 mg in sodium chloride 0.9 % 100 mL IVPB Mini-Bag Plus (2 sources) Start: 12-27-2024 End: 12-30-2024 take 4500 mg intravenously every six hours 4,500 mg, IntraVENous, at 33.3 mL/hr, Administer over 3 Hours, Every 6 hours, First dose on Thu12/27/24 at 0600, Mini-Bag Plus bag, Suspected Indication (Select all that apply): Pneumonia (HAP) polyethylene glycol 3350 89248 mg powder for oral solution (2 sources) Osmotic Laxative Start: 12-27-2024 End: 12-30-2024 take 17 g by mouth every twenty-four hours as needed for constipation riTUXimab-pvvr (Ruxience) 900 mg in sodium chloride 0.9 % 500 mL chemo IVPB (2 sources) Start: 01-02-2025 End: 01-02-2025 900 mg (rounded from 903.75 mg = 375 mg/m2 2.41 m2 Treatment Plan BSA from Recorded weight), IntraVENous, Once, On Thu01/02/25 at 1315, For 1 dose, Initial infusion: Start an infusion dose of 50 mg/hour; if there is no infusion reaction, increase the dose by 50 mg/hour increments every 30 minutes, to a maximum dose of 400 mg/hour. Subsequent infusions: If patient tolerated initial infusion, start at 100 mg/hour; if there is no infusion reaction, increase the dose by 100 mg/hour increments every 30 minutes, to a maximum dose of 400 mg/hour. Hazardous medication -- Refer to facility policy for handling and disposal. 5 ml sodium chloride 9 mg/ml injection (14 sources) Start: 01-02-2025 End: 01-02-2025 take 100 mL intravenously every hour, then take 20 mL intravenously every hour 5-250 mL/hr, IntraVENous, Once PRN, KVO, Starting on Thu01/02/25 at 1002, If patient receiving piggyback infusions and maintenance fluids are not ordered OR KVO fluids to protect IV site/ prevent frequent line interruptions/ long duration For piggyback infusion, administer at same rate as piggyback for a total of 25 mL. Enter 25 mL into dose field and piggyback rate into rate field of order. If piggyback is infusing at a rate less than 100 mL/hr, enter 25 mL into dose field and 100 mL/hr into rate field of order. For KVO fluids, enter rate of 20 mL/hr or less into rate field of order. Start: 01-02-2025 End: 01-02-2025 5-40 mL, IntraVENous, Once P RN, line care, Starting on Thu01/02/25 at 1002, If following IV push medication, administer flush at same rate as the IV push. Flush volume is determined by type of infusion therapy being given. For non-viscous solutions use: Peripheral IV = 5 mL Midline or Central Line = 10 mL/lumen For viscous solutions (i.e. blood components, parenteral nutrition, contrast media, or after obtaining blood sample) use: Peripheral IV = 10 mL Midline or Central Line = 20 mL/lumen Start: 12-30-2024 End: 12-30-2024 take 10 mL intraluminal route every twelve hours 10 mL, IntraCATHeter, Every 12 hours, First dose on Thu12/30/24 at 1300, Administer to each lumen. Line Care. Use 10 mL or larger syringe. Start: 12-30-2024 End: 12-30-2024 10 mL, IntraCATHeter, PRN, l ine care, before blood draws, before and after infusion or medication administration, Starting on Thu12/30/24 at 1258, Use 10 mL or larger syringe. Start: 12-27-2024 End: 12-30-2024 take 5-40 mL intravenously every twelve hours 5-40 mL, IntraVENous, Every 12 hours, First dose on Thu12/27/24 at 0600, For Line Patency: Peripheral IV = 5 mL; Midline or Central Line = 10 mL/lumen. If following IV push medication, administer flush at same rate as the IV push. Flush volume is determined by type of infusion therapy being given. For non-viscous solutions use: Peripheral IV = 5 mL Midline or Central Line = 10 mL/lumen For viscous solutions (i.e. blood components, parenteral nutrition, contrast media, or after obtaining blood sample) use: Peripheral IV = 10 mL Midline or Central Line = 20 mL/lumen Start: 12-27-2024 End: 12-30-2024 Start: 12-27-2024 End: 12-30-2024 vinCRIStine (Oncovin) 2 mg i n sodium chloride 0.9 % 50 mL chemo IVPB (2 sources) Start: 01-02-2025 End: 01-02-2025 2 mg, IntraVENous, at 312 mL /hr, Administer over 10 Minutes, Once, On Thu01/02/25 at 1315, For 1 dose Problems Problem Classification Problem Date Documented Da te Episodic/Chronic Acute and unspecified renal failure (2 sources) Acute renal failure syndrome; Translations: [Acute kidney failure, unspecified] 12-04-2024 Episodic Complication of device; implant or graft (1 source) Infection associated with catheter 12-26-2024 Episodic Essential hypertension (1 source) Essential (primary) hypertension; Translations: [ESSENTIAL (PRIMARY) HYPERTENSION] Onset: 11-29-2024 Chronic Nausea and vomiting (3 sources) Nausea and vomiting; Translations: [Nausea with vomiting, unspecified] Onset: 12-26-2024 12-04-2024 Episodic Non-Hodgkin`s lymphoma (20 sources) Diffuse non-Hodgkin's lymphoma, large cell (clinical); Translations: [Diffuse large B-cell lymphoma, lymph nodes of head, face, and neck] Onset: 12-04-2024 12-10-2024 Chronic Other aftercare (3 sources) Long-term current use of antibiotic; Translations: [senior living (current) use of antibiotics] Onset: 12-27-2024 12-30-2024 Episodic Other aftercare (1 source) senior living (current) use of anticoagulants; Translations: [LONG-TERM (CURRENT) USE OF ANTICOAGULANTS] Onset: 11-29-2024 Episodic Other aftercare (1 source) Other director long term care (current) drug therapy; Translations: [OTHER LONG-TERM (CURRENT) DRUG THERAPY] Onset: 11-08-2024 Episodic Other aftercare (1 source) intermediate frame tender (current) use of antibiotics; Translations: [senior living (current) use of antibiotics] Onset: 12-27-2024 Episodic Other connective tissue disease (1 source) Pain in right leg; Translations: [PAIN IN RIGHT LEG] Onset: 11-08-2024 Episodic Other liver diseases (1 source) Abnormal levels of other serum enzymes; Translations: [ABNORMAL LEVELS OF OTHER SERUM ENZYMES] Onset: 11-29-2024 Episodic Other lower respiratory disease (3 sources) Shortness of breath; Translations: [Shortness of breath] Onset: 12-04-2024 Episodic Other nutritional; endocrine; and metabolic disorders (14 sources) Hypercalcemia; Translations: [Hypercalcemia] Onset: 12-06-2024 12-06-2024 Chronic Other nutritional; endocrine; and metabolic disorders (1 source) Body mass index (BMI) 33.0-33.9, adult; Translations: [BODY MASS INDEX [BMI] 33.0-33.9, ADULT] Onset: 11-24-2024 Chronic Other nutritional; endocrine; and metabolic disorders (2 sources) Hypercalcemia; Translations: [Hypercalcemia] Onset: 12-04-2024 Chronic Other screening for suspected conditions (not mental disorders or infectious disease) (3 sources) CT of abdomen abnormal; Translations: [Abnormal findings on diagnostic imaging of other abdominal regions, including retroperitoneum] Onset: 11-29-2024 12-04-2024 Episodic Other skin disorders (16 sources) Mass of neck; Translations: [Localized swelling, mass and lump, neck] Onset: 12-04-2024 12-04-2024 Episodic Other skin disorders (3 sources) Localized swelling, mass and lump, neck; Translations: [LOCALIZED SWELLING, MASS AND LUMP, NECK] Onset: 12-04-2024 Episodic Phlebitis; thrombophlebitis and thromboembolism (6 sources) Acute embolism and thrombosis of unspecified deep veins of lower extremity, bilateral; Translations: [Acute embolism and thrombosis of left femoral vein] Onset: 11-08-2024 Episodic Pleurisy; pneumothorax; pulmonary collapse (9 sources) Pleural effusion; Translations: [Pleural effusion, not elsewhere classified] Onset: 12-27-2024 12-04-2024 Episodic Pneumonia (except that caused by tuberculosis or sexually transmitted disease) (18 sources) Disorder of thorax; Translations: [Pneumonia, unspecified organism] Onset: 12-27-2024 12-30-2024 Episodic Residual codes; unclassified (1 source) Localized edema; Translations: [LOCALIZED EDEMA] Onset: 11-29-2024 Episodic Residual codes; unclassified (1 source) Acquired absence of other specified parts of digestive tract; Translations: [ACQUIRED ABSENCE OF OTHER SPECIFIED PARTS OF DIGES] Onset: 11-08-2024 Episodic Residual codes; unclassified (2 sources) Other specified personal risk factors, not elsewhere classified; Translations: [Other specified personal risk factors, not elsewhere classified] Onset: 12-04-2024 Episodic Screening and history of mental health and substance abuse codes (1 source) Personal history of nicotine dependence; Translations: [PERSONAL HISTORY OF NICOTINE DEPENDENCE] Onset: 11-08-2024 Episodic Results Test Name Value Interpretation Reference Range Facility CBC W Auto Differential pane l (Bld)on 01-10-2025 Basophils (Bld) [#/Vol] 64 10*3/uL [facility] Basophils/100 WBC (Bld) 8 % [facility] Eosinophils (Bld) [#/Vol] 160 10*3/uL [facility] Eosinophils/100 WBC (Bld) 20 % [facility] Erythrocyte distribution width (RBC) [Ratio] 15.6 % High 11.0 - 15.0 % [facility] Hematocrit (Bld) [Volume fraction] 24.6 % Low 38.5 - 50.0 % [facility] Hemoglobin (Bld) [Mass/Vol] 8.1 g/dL Low 13.2 - 17.1 g/dL [facility] Lymphocytes (Bld) [#/Vol] 336 10*3/uL Low [facility] Lymphocytes/100 WBC (Bld) 42 % [facility] MCH (RBC) [Entitic mass] 28.3 pg 27.0 - 33.[address] [facility] MCHC (RBC) [Mass/Vol] 32.9 g/dL 32.0 - 36.0 g/dL [facility] Comment on above: For adults, a slight decrease in the calculated MCHC value (in the range of 30 to 32 g/dL) is most likely not clinically significant; however, it should be interpreted with caution in correlation with other red cell parameters and the patient's clinical condition. MCV (RBC) [Entitic vol] 86 fL 80.0 - 100.[address] [facility] Monocytes (Bld) [#/Vol] 96 10*3/uL Low [facility] Monocytes/100 WBC (Bld) 12 % [facility] Neutrophils (Bld) [#/Vol] 144 10*3/uL Critically low [facility] Neutrophils/100 WBC (Bld) 18 % [facility] Platelet mean volume (Bld) [Entitic vol] 9.9 fL 7.5 - 12.[address] [facility] Platelets (Bld) [#/Vol] 224 10*3/uL [facility] RBC (Bld) [#/Vol] 2.86 10*6/uL Low [facility] comment (Unsp spec) [Interp] [facility] Comment on above: Hypochromasia 2 + Polychromasia 1 + Elliptocytes 2 + The smear has been manually reviewed and the manual differential has been reported. Your request to have a duplicate copy faxed has been acknowledged. Queued to: [id number] Queued to: [id number] Queued to: [id number] WBC (Bld) [#/Vol] 0.8 10*3/uL Low [facility] Comment on above: Verified by repeat a nalysis. Comprehensive metabolic 1998 panelon 01-10-2025 Albumin [Mass/Vol] 3.3 g/dL Low 3.6 - 5.1 g/dL [facility] Albumin/Globulin [Mass ratio] 1.3 {ratio} [facility] ALP [Catalytic activity/Vol] 137 U/L 35 - 144 U/L [facility] ALT [Catalytic activity/Vol] U/L Low 9 - 46 U/L [facility] AST [Catalytic activity/Vol] 10 U/L 10 - 35 U/L [facility] Bilirubin [Mass/Vol] 0.3 mg/dL 0.2 - 1 .2 mg/dL [facility] Calcium [Mass/Vol] 7.5 mg/dL Low 8.6 - 10. 3 mg/dL [facility] Chloride [Moles/Vol] 98 mmol/L 98 - 11 0 mmol/L [facility] CO2 [Moles/Vol] 23 mmol/L 20 - 32 mmol/L [facility] Creatinine [Mass/Vol] 0.98 mg/dL 0.70 - 1.30 mg/dL [facility] GFR/1.73 sq M.predicted among non-blacks MDRD (S/P/Bld) [Vol rate/Area] 93 mL/min/{1.73_m2} > OR = 60 mL/min/1.7 3m2 [facility] Globulin (S) [Mass/Vol] 2.6 g/dL [facility] Glucose [Mass/Vol] 106 mg/dL High 65 - 99 mg/dL [facility] Comment on above: Fasting reference interval For someone without known diabetes, a glucose value between 100 and 125 mg/dL is consistent with prediabetes and should be confirmed with a follow-up test. Potassium [Moles/Vol] 4.9 mmol/L 3.5 - 5.3 mmol/L [facility] Protein [Mass/Vol] 5.9 g/dL Low 6.1 - 8.1 g/dL [facility] Sodium [Moles/Vol] 131 mmol/L Low 135 - 146 mmol/L [facility] Urea nitrogen [Mass/Vol] 16 mg/dL 7 - 25 mg/dL [facility] Urea nitrogen/Creatinine [Mass ratio] SEE NOTE: [facility] Comment on above: Not Reported: BUN an d Creatinine are within reference range. No Panel Informationon 01-10 Interpretation and review of laboratory results Abnormal [facility] 36on 01-09-2025 36 Patient appointment has been made with patient for 01/24/25 at 11:00 am Normal [facility] 36 Normal [facility] CBC W/Diff, Automatedon 12-25 PATH REV Reviewed Normal [facility] Comment on above: Result Comment: SEE REPORT IN PATIENT'S EMR AMENDED REPORT 01/06/25 [id number] PATH REV previously reported as: November Performed By: #### L 500.2500, L100.0100 ####[facility] [id number] [place], [address] 36on 01-05-2025 36 Normal [facility] Progress Noteon 01-05-2025 Progress Note Normal [facility] 36on 01-04-2025 36 Normal [facility] 36on 01-03-2025 36 Normal [facility] Progress Noteon 01-03-2025 Progress Note Normal [facility] 36on 01-02-2025 36 Patient discharged h ome with [facility]/gilda HUNT faxed to [facility], no follow up need by ID picc can be removed. Spoke to Sherrell at [facility] to verify all orders. Normal [facility] 36 Per , verify pt has prednisone 100mg PO daily, days 1-5 at home for each remaining treatment cycle. Attempted to call rehabilitation aide Dory, no answer. Secure chat sent to Dory JOY. 1345-Per Dory JOY pt is taking prednisone as ordered. Normal [facility] CBC W Auto Differential pane l (Bld)Ordered By: Alexandra Prado on 01-02-2025 Erythrocyte distribution width (RBC) [Ratio] 16.2 % High 11.5 - 15.0 % [facility] Hematocrit (Bld) [Volume fraction] 30.7 % Low 40.0 - 52.0 % [facility] Hemoglobin (Bld) [Mass/Vol] 10.1 g/dL Low 13.0 - 18.0 g/dL [facility] Interpretation and review of laboratory results Abnormal [facility] MCH (RBC) [Entitic mass] 28.8 pg 26.0 - 34.[address] [facility] MCHC (RBC) [Mass/Vol] 32.9 % 30.5 - 36.0 % [facility] MCV (RBC) [Entitic vol] 87.5 fL 77.0 - 99.[address] [facility] Platelet mean volume (Bld) [Entitic vol] 8.6 fL Low 9.0 - 12.[address] [facility] Platelets (Bld) [#/Vol] 679 10*3/uL High 140 - 440 10*3/uL [facility] RBC (Bld) [#/Vol] 3.51 10*6/uL Low 4.40 - 5.90 10*6/uL [facility] WBC (Bld) [#/Vol] 26.8 10*3/uL High 3.6 - 10.7 10*3/uL [facility] CBC WITH AUTO DIFFERENTIALon 01-02-2025 Erythrocyte distribution width (RBC) [Ratio] 16.2 % High 11.5-15.[address] [facility] Comment on above: Performed By: #### L [id number], [id number] ####Navy Diver: ROS JIMENEZ ([phone])[address] Hematocrit (Bld) [Volume fraction] 30.7 % Low 40.0-52.[address] [facility] Comment on above: Performed By: #### L [id number], [id number] ####Navy Diver: ROS JIMENEZ ([phone])[facility] ([facility])[address] [place] [address] Hemoglobin (Bld) [Mass/Vol] 10.1 g/dL Low 13.0-18.[address] [facility] Comment on above: Performed By: #### L [id number], [id number] ####Navy Diver: ROS JIMENEZ ([phone])[facility])[address] [place] [address] MCH (RBC) [Entitic mass] 28.8 pg Normal 26.0-34.[address] [facility] Comment on above: Performed By: #### L [id number], [id number] ####Navy Diver: ROS JIMENEZ ([phone])[facility])[address] [place] [address] MCHC 32.9 % Normal 30.5-36.[address] [facility] Comment on above: Performed By: #### L [id number], [id number] ####Navy Diver: ROS JIMENEZ ([phone])[facility])[address] [place] [address] MCV (RBC) [Entitic vol] 87.5 fL Normal 77.0-99.[address] [facility] Comment on above: Performed By: #### L [id number], [id number] ####Navy Diver: ROS JIMENEZ ([phone])[facility])[address] [place] [address] Platelet mean volume (Bld) [Entitic vol] 8.6 fL Low 9.0-12.[address] [facility] Comment on above: Performed By: #### L [id number], [id number] ####Navy Diver: ROS JIMENEZ ([phone])[facility])[address] [place] [address] Platelets (Bld) [#/Vol] 679 10*3/uL High 140-[address] [facility] Comment on above: Performed By: #### L [id number], [id number] ####Navy Diver: ROS JIMENEZ ([phone])[facility])[address] [place] [address] RBC (Bld) [#/Vol] 3.51 10*6/uL Low 4.40-5.[address] [facility] Comment on above: Performed By: #### L [id number], [id number] ####Navy Diver: ROS JIMENEZ ([phone])[facility])[address] [place] [address] WBC (Bld) [#/Vol] 26.8 10*3/uL High 3.6-10.[address] [facility] Comment on above: Performed By: #### L [id number], [id number] ####Navy Diver: ROS JIMENEZ ([phone])[facility])[address] [place] [address] COMPREHENSIVE METABOLIC PANE Tree 01-02-2025 Albumin [Mass/Vol] 2.7 g/dL Low 3.5-5.[address] [facility] Comment on above: Performed By: #### L [id number] ####Navy Diver: ROS JIMENEZ ([phone])[facility] ([facility])[address] [place] [address] ALP [Catalytic activity/Vol] 111 U/L Normal 40-[address] [facility] Comment on above: Performed By: #### L AB17 ####Navy Diver: ROS JIMENEZ ([phone])[facility] ([facility])[address] [place] [address] ALT [Catalytic activity/Vol] U/L Normal <[address] [facility] Comment on above: Performed By: #### L AB17 ####Navy Diver: ROS JIMENEZ ([phone])[facility] ([facility])[address] [place] [address] Anion gap [Moles/Vol] 7 mmol/L Normal 3-13 [facility] Comment on above: Performed By: #### L [id number] ####Navy Diver: ROS JIMENEZ ([phone])[facility] ([facility])[address] [place] [address] AST [Catalytic activity/Vol] 17 U/L Normal <[address] [facility] Comment on above: Performed By: #### L [id number] ####Navy Diver: ROS JIMENEZ ([phone])[facility])[address] [place] [address] Bilirubin [Mass/Vol] 0.2 mg/dL Normal <1.2 [facility] Comment on above: Performed By: #### L [id number] ####Navy Diver: ROS JIMENEZ ([phone])[facility])[address] [place] [address] [place] Calcium [Mass/Vol] 8.1 mg/dL Low 8.4-10.2 [facility] Comment on above: Performed By: #### L [id number] ####Navy Diver: ROS JIMENEZ ([phone])[facility] [place] [address] Chloride [Moles/Vol] 105 mmol/L Normal 98-107 [facility] Comment on above: Performed By: #### L [id number] ####Navy Diver: ROS JIMENEZ ([phone])[facility] [place] [address] CO2 [Moles/Vol] 24 mmol/L Normal 22-29 [facility] Comment on above: Performed By: #### L [id number] ####Navy Diver: ROS JIMENEZ ([phone])[facility] ([facility])[address] [place] [address] Creatinine [Mass/Vol] 0.89 mg/dL Normal 0.72-1.25 [facility] Comment on above: Performed By: #### L AB17 ####Navy Diver: ROS JIMENEZ ([phone])[facility] ([facility])[address] [place] [address] GLOMERULAR FILTRATION RATE ML/MIN/1.73 SQ M.PREDICTED >90.0 Normal >60.0 [facility] Comment on above: Result Comment: Calc ulation based on the Chronic Kidney Disease Epidemiology Collaboration (CKD-EPI) equation refit without adjustment for race Performed By: #### L [id number] ####Navy Diver: ROS JIMENEZ ([phone])[facility] ([facility])[address] [place] [address] [place] Glucose [Mass/Vol] 103 mg/dL High 74-100 [facility] Comment on above: Performed By: #### L [id number] ####Navy Diver: ROS JIMENEZ ([phone])[facility] ([facility])[address] [place] [address] Potassium [Moles/Vol] 3.8 mmol/L Normal 3.5-5.1 [facility] Comment on above: Result Comment: [facility] potassium values may be up to 0.5 mmol/L lower than serum values. Performed By: #### L AB17 ####Navy Diver: ROS JIMENEZ ([phone])[facility] ([facility])[address] [place] [address] Protein [Mass/Vol] 6.6 g/dL Normal 6.4-8.3 [facility] Comment on above: Performed By: #### L [id number] ####Navy Diver: ROS JIMENEZ ([phone])[facility] ([facility])[address] [place] [address] Sodium [Moles/Vol] 136 mmol/L Normal 136-145 [facility] Comment on above: Performed By: #### L [id number] ####Navy Diver: ROS JIMENEZ ([phone])[facility] ([facility])[address] [place] [address] Urea nitrogen [Mass/Vol] 9 mg/dL Normal 9-23 [facility] Comment on above: Performed By: #### L [id number] ####Navy Diver: ROS JIMENEZ ([phone])[facility])[address] [place] [address] Comprehensive metabolic 1998 panelon 01-02-2025 Albumin [Mass/Vol] 2.7 g/dL Low 3.5 - 5.0 g/dL [facility] ALP [Catalytic activity/Vol] 111 U/L 40 - 150 U/L [facility] ALT [Catalytic activity/Vol] U/L NINF - 40 U/L [facility] Anion gap [Moles/Vol] 7 mmol/L 3 - 13 mmol/L [facility] AST [Catalytic activity/Vol] 17 U/L NINF - 34 U/L [facility] Bilirubin [Mass/Vol] 0.2 mg/dL NINF - 1.2 mg/dL [facility] Calcium [Mass/Vol] 8.1 mg/dL Low 8.4 - 10. 2 mg/dL [facility] Chloride [Moles/Vol] 105 mmol/L 98 - 10 7 mmol/L [facility] CO2 [Moles/Vol] 24 mmol/L 22 - 29 mmol/L [facility] Creatinine [Mass/Vol] 0.89 mg/dL 0.72 - 1.25 mg/dL [facility] GFR/1.73 sq M.predicted (S/P/Bld) [Vol rate/Area] - PINF [facility] Comment on above: Calculation based on the Chronic Kidney Disease Epidemiology Collaboration (CKD-EPI) equation refit without adjustment for race Glucose [Mass/Vol] 103 mg/dL High 74 - 100 mg/dL [facility] Interpretation and review of laboratory results Abnormal [facility] Potassium [Moles/Vol] 3.8 mmol/L 3.5 - 5.1 mmol/L [facility] Comment on above: Plasma potassium ulises ues may be up to 0.5 mmol/L lower than serum values. Protein [Mass/Vol] 6.6 g/dL 6.4 - 8.3 g/dL [facility] Sodium [Moles/Vol] 136 mmol/L 136 - 145 mmol/L [facility] Urea nitrogen [Mass/Vol] 9 mg/dL 9 - 23 mg/dL [facility] Laboratory - Hematology and Cell countson 01-02-2025 Anisocytosis Ql (Bld) Slight Abnormal (none) [facility] Band form neutrophils (Bld) [#/Vol] 1.3 10*3/uL High NINF - 0.0 10*3/uL [facility] Band form neutrophils/100 WBC (Bld) 5 % High NINF - 0 % [facility] Basophils (Bld) [#/Vol] 0.3 10*3/uL High 0.0 - 0.2 10*3/uL [facility] Basophils/100 WBC (Bld) 1 % 0 - 2 % [facility] [place] cells LM Ql (Bld) Slight Abnormal (none) [facility] Eosinophils (Bld) [#/Vol] 1.1 10*3/uL High 0.0 - 0.5 10*3/uL [facility] Eosinophils/100 WBC (Bld) 4 % 0 - 6 % [facility] Lymphocytes (Bld) [#/Vol] 0.8 10*3/uL Low 1.0 - 4.3 10*3/uL [facility] Lymphocytes/100 WBC (Bld) 3 % Low 15 - 45 % [facility] Macrocytes Ql (Bld) Slight Abnormal (none) [facility] Monocytes (Bld) [#/Vol] 0.5 10*3/uL 0.0 - 0.9 10*3/uL [facility] Monocytes/100 WBC (Bld) 2 % Low 5 - 13 % [facility] Neutrophils (Bld) [#/Vol] 23.9 10*3/uL High 1.8 - 7.5 10*3/uL [facility] Poikilocytosis LM Ql (Bld) Slight Abnormal (none) [facility] Polychromasia LM Ql (Bld) Slight Abnormal (none) [facility] RBC morphology finding Nom (Bld) abnormal [facility] Segmented neutrophils/100 WBC (Bld) 84 % High 38 - 82 % [facility] Variant lymphocytes (Bld) [#/Vol] 0.3 10*3/uL High NINF - 0.0 10*3/uL [facility] Variant lymphocytes/100 WBC (Bld) 1 % High NINF - 0 % [facility] MANUAL DIFFERENTIAL (CELLAVI MISSAEL)on 01-02-2025 ANISOCYTOSIS PRESENCE IN BLOOD BY LIGHT MICROSCOPY Slight Abnormal (none) [facility] Comment on above: Performed By: #### Kayla [id number], [id number] ####Navy Diver: ROS [id number])[address] BAND NEUTROPHILS TOTAL PER COUNTED LEUKOCYTES BY MANUAL COUNT [address] [facility] Comment on above: Performed By: #### Kayla [id number], [id number] ####Navy Diver: ROS JIMENEZ ([phone])[facility])[address] [place] [address] [place] BANDS (10*3/UL) IN BLOOD-CELLAVISION 1.3 10*3/uL High <=0.[address] [facility] Comment on above: Performed By: #### L [id number], [id number] ####Navy Diver: ROS JIMENEZ ([phone])[facility])[address] [place] [address] [place] BASOPHILS (10*3/UL) IN BLOOD-CELLAVISION 0.3 10*3/uL High 0.0-0.[address] [facility] Comment on above: Performed By: #### L [id number], [id number] ####Navy Diver: ROS JIMENEZ ([phone])[facility] ([facility])[address] [place] [address] [place] BASOPHILS TOTAL PER COUNTED LEUKOCYTES BY MANUAL COUNT [address] [facility] Comment on above: Performed By: #### L [id number], [id number] ####Navy Diver: ROS JIMENEZ ([phone])[facility] ([facility])[address] [place] [address] [place] BASOPHILS/100 LEUKOCYTES IN BLOOD-CELLAVISION 1 % Normal 0-[address] [facility] Comment on above: Performed By: #### L [id number], [id number] ####Navy Diver: ROS JIMENEZ ([phone])[facility] ([facility])[address] [place] [address] [place] BLASTS TOTAL PER COUNTED LEUKOCYTES BY MANUAL COUNT Normal [facility] Comment on above: Performed By: #### L [id number], [id number] ####Navy Diver: ROS JIMENEZ ([phone])[facility] ([facility])[address] [place] [address] [place] JANES CELLS PRESENCE IN BLOOD BY LIGHT MICROSCOPY Slight Abnormal (none) [facility] Comment on above: Performed By: #### L [id number], [id number] ####Navy Diver: ROS JIMENEZ ([phone])[facility] ([facility])[address] [place] [address] [place] EOSINOPHILS (10*3/UL) IN BLOOD-CELLAVISION 1.1 10*3/uL High 0.0-0.5 [facility] Comment on above: Performed By: #### L [id number], [id number] ####Navy Diver: ROS JIMENEZ ([phone])[facility] ([facility])[address] [place] [address] [place] EOSINOPHILS TOTAL PER COUNTED LEUKOCYTES BY MANUAL COUNT 4 High 0-[address] [facility] Comment on above: Performed By: #### L [id number], [id number] ####Navy Diver: ROS JIMENEZ ([phone])[facility] ([facility])[address] [place] [address] [place] EOSINOPHILS/100 LEUKOCYTES IN BLOOD-CELLAVISION 4 % Normal 0-[address] [facility] Comment on above: Performed By: #### L [id number], [id number] ####Navy Diver: ROS JIMENEZ ([phone])[facility] ([facility])[address] [place] [address] [place] LYMPHOCYTE VARIANT/100 LEUKOCYTES IN BLOOD- CELLAVISION 1 % High <=[address] [facility] Comment on above: Performed By: #### Kayla [id number], [id number] ####Navy Diver: ROS JIMENEZ ([phone])[facility] ([facility])[address] [place] [address] [place] LYMPHOCYTES (10*3/UL) IN BLOOD-CELLAVISION 0.8 10*3/uL Low 1.0-4.3 [facility] Comment on above: Performed By: #### Kayla [id number], [id number] ####Navy Diver: ROS JIMENEZ ([phone])[facility] ([facility])[address] [place] [address] [place] LYMPHOCYTES TOTAL PER COUNTED LEUKOCYTES BY MANUAL COUNT [address] [facility] Comment on above: Performed By: #### Kayla [id number], [id number] ####Navy Diver: ROS JIMENEZ ([phone])[facility] ([facility])[address] [place] [address] [place] LYMPHOCYTES/100 LEUKOCYTES IN BLOOD-CELLAVISION 3 % Low 15-[address] [facility] Comment on above: Performed By: #### Kayla [id number], [id number] ####Navy Diver: ROS JIMENEZ ([phone])[facility])[address] [place] [address] [place] MACROCYTES (PRESENCE) IN BLOOD BY LIGHT MICROSCOPY Slight Abnormal (none) [facility] Comment on above: Performed By: #### L [id number], [id number] ####Navy Diver: ROS [id number])[facility] ([facility])[address] [place] [address] [place] METAMYELOCYTES TOTAL PER COUNTED LEUKOCYTES BY MANUAL COUNT Normal [facility] Comment on above: Performed By: #### L [id number], [id number] ####Navy Diver: ROS JIMENEZ ([phone])[facility] [place] [address] [place] MONOCYTES (10*3/UL) IN BLOOD-CELLAVISION 0.5 10*3/uL Normal 0.0-0.[address] [facility] Comment on above: Performed By: #### L [id number], [id number] ####Navy Diver: ROS JIMENEZ ([phone])[facility] ([facility])[address] [place] [address] [place] MONOCYTES TOTAL PER COUNTED LEUKOCYTES BY MANUAL COUNT [address] [facility] Comment on above: Performed By: #### L [id number], [id number] ####Navy Diver: ROS JIMENEZ ([phone])[facility] [place] [address] [place] MONOCYTES/100 LEUKOCYTES IN BLOOD-EDUARDO 2 % Low 5-[address] [facility] Comment on above: Performed By: #### L [id number], [id number] ####Navy Diver: ROS JIMENEZ ([phone])[facility] ([facility])[address] [place] [address] [place] MYELOCYTES COUNTED BY MANUAL COUNT Normal [facility] Comment on above: Performed By: #### L [id number], [id number] ####Navy Diver: ROS JIMENEZ ([phone])[facility] ([facility])[address] [place] [address] [place] NEUTROPHILS BAND FORM/100 LEUKOCYTES IN BLOOD-CELLAVISI 5 % High <=[address] [facility] Comment on above: Performed By: #### L [id number], [id number] ####Navy Diver: ROS JIMENEZ ([phone])[facility] ([facility])[address] [place] [address] [place] NEUTROPHILS TOTAL PER COUNTED LEUKOCYTES BY MANUAL COUNT [address] [facility] Comment on above: Performed By: #### L [id number], [id number] ####Navy Diver: ROS JIMENEZ ([phone])[facility] ([facility])[address] [place] [address] POIKILOCYTOSIS (PRESENCE) IN BLOOD BY LIGHT MICROSCOPY Slight Abnormal (none) [facility] Comment on above: Performed By: #### L [id number], [id number] ####Navy Diver: ROS JIMENEZ ([phone])[facility] ([facility])[address] [place] [address] POLYCHROMASIA IN BLOOD BY LIGHT MICROSCOPY Slight Abnormal (none) [facility] Comment on above: Performed By: #### L [id number], [id number] ####Navy Diver: ROS JIMENEZ ([phone])[facility] ([facility])[address] [place] [address] PROMYELOCYTES TOTAL PER COUNTED LEUKOCYTES BY MANUAL COUNT Normal [facility] Comment on above: Performed By: #### L [id number], [id number] ####Navy Diver: ROS JIMENEZ ([phone])[facility] ([facility])[address] [place] [address] RBC MORPHOLOGY IN BLOOD abnormal Normal [facility] Comment on above: Performed By: #### L [id number], [id number] ####Navy Diver: ROS JIMENEZ ([phone])[facility] ([facility])[address] [place] [address] [place] SEGMENTED NEUTROPHILS (10*3/UL) IN BLOOD-CELLAVISION 23.9 10*3/uL High 1.8-7.[address] [facility] Comment on above: Performed By: #### L [id number], [id number] ####Navy Diver: ROS JIMENEZ ([phone])[facility] ([facility])[address] [place] [address] [place] SEGMENTED NEUTROPHILS/100 LEUKOCYTES-CE 84 % High 38-[address] [facility] Comment on above: Performed By: #### L [id number], [id number] ####Navy Diver: ROS JIMENEZ ([phone])[facility] ([facility])[address] [place] [address] UNCLASSIFIED CELLS TOTAL PER COUNTED LEUKOCYTES BY MANUAL COUNT Normal [facility] Comment on above: Performed By: #### L [id number], [id number] ####Navy Diver: ROS JIMENEZ ([phone])[facility] ([facility])[address] [place] [address] VARIANT LYMPHOCYTES (10*3/UL) IN BLOOD-CELLAVISION 0.3 10*3/uL High <=0.0 [facility] Comment on above: Performed By: #### L [id number], [id number] ####Navy Diver: ROS JIMENEZ ([phone])[facility] [place] [address] VARIANT LYMPHOCYTES TOTAL PER COUNTED LEUKOCYTES BY MANUAL COUNT 1 Normal [facility] Comment on above: Performed By: #### L [id number], [id number] ####Navy Diver: ROS JIMENEZ ([phone])[facility] ([facility])[address] [place] [address] No Panel Informationon 01-02 Atypical Lymphocytes Manual 1 [facility] Bands Manual 5 [facility] Bas[facility] 1 [facility] Blasts [facility] Eosinophils Manual 4 High 0 - 1 [facility] Interpretation and review of laboratory results Abnormal [facility] Lymphocytes Manual 3 [facility] Metamyelocytes Manual [facility] Monocytes Manual 2 [facility] Myelocytes Manual [facility] Neutrophils Manual 84 [facility] Promyelocytes Manual [facility] Unclassified Cells, Manual [facility] Progress Noteon 01-02-2025 Progress Note Normal [facility] Progress Note [facility] Progress Note Body surface area is 2.[address]. [address] [facility] System [facility] Progress Note [facility] Progress Note Message received per to add polatuzumab vedotin 1.8mg/kg to treatment and pt will receive polatuzumab vedotin-RCHP (vincristine d/c'd). Montz sheet updated. Message sent to Nina Hammond and [employer] in billing. Normal [facility] Culture, Blood (WB)on 2024 CUB Blood cultures x2, f rom two different sites No growth in 5 days. Normal [facility] Comment on above: Performed By: #### M 200.1000 #### [facility] [address] [place], [address] 30on 12-30-2024 30 OPAT on epic Planned for discharged today or tomorrow ID will sign off Please reconsult with questions Hardik Nobles MD 12/30/2024 1:52 PM Normal [facility] 30 [facility] 30 [facility] [id number] 12-30-2024 [id number] Normal [facility] [id number] [facility] Bacteria identified Cx Nom ( Catheter tip)Ordered By: Adeel Richey on 12-30-2024 Interpretation and review of laboratory results Abnormal [facility] PBP2A Negative [facility] - Drug toxicology on 12-30-2024 Vancomycin [Mass/Vol] 21.5 ug/mL [facility] - Microbiology an d Antimicrobial susceptibilityOrdered By: Adeel Richey on 12-30-2024 Bacteria identified Cx Nom (Catheter tip) >15 CFU Staphylococcus aureus Abnormal [facility] No Panel Informationon 12-30 Robson Burch MD 12/30/2024 12:58 PM PICC Insertion/Replacement Date/Time: 12/30/2024 12:04 PM Performed by: Sharlene Perry MD Authorized by: Sharlene Perry MD Consent: The indications, risks, benefits, alternatives to the procedure were explained to the patient/surrogate decision maker and their questions answered. Consent was obtained to proceed with the procedure. Timeout: Completed immediately prior to the start of the procedure which included verification of the correct patient, correct site and agreement on the procedure to be done. Indications: Indications: Long-term antibiotics and other (see comment) Indications comment: Infected pleural fluid Anesthetic: Local anesthetic used: lidocaine without epinephrine Procedure details: Preparation: Skin prepped with chlorhexidine Skin prep agent dried: Skin prep agent completely dried prior to procedure Sterile barriers: All five maximal sterile barriers used - gloves, gown, cap, mask and large sterile sheet Hand hygiene: Hand hygiene performed prior to central venous catheter insertion Sterile technique: Sterile technique maintained throughout procedure. Site prior to insertion: Benign Procedure type: Insertion Orientation: left Location: Brachial Catheter type: Double lumen Catheter size: 5 Fr Lot #: [id number] Trimmed at (cm): 49 Inserted at (cm): 49 Ultrasound guidance: Yes Post-procedure: Post-procedure: Antimicrobial dressing applied and securement device Description/Findings: Flushes easily and blood returned Estimated blood loss: < 5 mL Specify complication(s): No apparent complications Follow-up chest x-ray: Ordered General Comments: Mild rash, BUE, see photo - no evidence infectious component [facility] Toxicity is seen at concentrations >80-100 ug/mL Therapeutic (Peak) range: 20-40 Therapeutic (Trough) range: 5-10 [facility] No Panel InformationOrdered By: Robson Burch on 12-30-2024 [facility] Work Phone: Nursing Noteon 12-30-2024 Nursing Note Normal [facility] Progress Noteon 12-30-2024 Progress Note Vancomycin therapy h as been discontinued by Hardik Nobles MD on 12/30/24. Thank you for the consult. Pharmacy signing off for vancomycin dosing. Gabriela Shannon, PharmD Date: 12/30/24 Time: 1:42 PM Normal [facility] Progress Note Normal [facility] Progress Note Normal [facility] Progress [facility] Progress Note Normal [facility] VANCOMYCIN, RANDOMon 025 VANCOMYCIN 21.5 ug/mL Normal [facility] Comment on above: Result Comment: ORDE R COMMENTS:@@ With morning labs, can be drawn anytime EXCEPT within 2 hours of completed dose. @@Toxicity is seen at concentrations >80-100 ug/mLTherapeutic (Peak) range: 20-40Therapeutic (Trough) range: 5-10 Performed By: #### L AB40 ####Navy Diver: ROS JIMENEZ ([id number])[facility] ([address] XR CHEST 1 VIEWon 12-30-2024 XR CHEST 1 VIEW Normal [facility] XR Chest Single viewon 12-30 Satisfactory PICC li ne position. Increased right basilar consolidation compared with the prior chest x-ray. Small pleural effusion. Report Dictated on Electronically Signed By: Oumou Stapleton MD Electronically Signed Date/Time: 12/30/2024 12:[address] [facility] Name[facility]ISCO PHAM [facility] 1975 [id number] Exam Date/Time: 12/30/2024 12:14 Procedure: XR CHEST 1 VIEW Ordering Provider: PERRY GWENDOLYN Reason For Exam: LUE PICC placement AP CHEST X-RAY CLINICAL INDICATION: LUE PICC placement TECHNIQUE: AP portable x-ray of the chest. COMPARISON: 12/15/2024 FINDINGS: Lines/Devices: Left upper extremity PICC line with tip at the level of the SVC/right atrial junction. Previous right chest tube and right IJ central line have been removed. Heart/Mediastinum: Cardiac silhouette is prominent, similar in size to the prior study. Lungs: Reduced lung volumes. Increased right basilar airspace opacities. Streaky opacities in the left lung base are unchanged. There is no pneumothorax. Small right pleural effusion. Bones: Unremarkable [facility] Oumou Stapleton M D - 12/30/2024 Patient Name: CISCO CARPENTER : 1975 [id number] Exam Date/Time: 12/30/2024 12:14 Procedure: XR CHEST 1 VIEW Ordering Provider: PERRY GWENDOLYN Reason For Exam: LUE PICC placement AP CHEST X-RAY CLINICAL INDICATION: LUE PICC placement TECHNIQUE: AP portable x-ray of the chest. COMPARISON: 12/15/2024 FINDINGS: Lines/Devices: Left upper extremity PICC line with tip at the level of the SVC/right atrial junction. Previous right chest tube and right IJ central line have been removed. Heart/Mediastinum: Cardiac silhouette is prominent, similar in size to the prior study. Lungs: Reduced lung volumes. Increased right basilar airspace opacities. Streaky opacities in the left lung base are unchanged. There is no pneumothorax. Small right pleural effusion. Bones: Unremarkable IMPRESSION: Satisfactory PICC line position. Increased right basilar consolidation compared with the prior chest x-ray. Small pleural effusion. Report Dictated on Electronically Signed By: Oumou Stapleton MD Electronically Signed Date/Time: 12/30/2024 12:[address] [facility] Radiology Study observation (narrative) [facility] XR Chest Single viewOrdered By: Oumou Stapleton on 12-30-2024 [facility] Work Phone: 30on 12-29-2024 30 Normal [facility] 30 Normal [facility] [id number] 12-29-2024 [id number] Patient Choice Patient Name: CISCO CARPENTER Date of : 1975 Normal [facility] CBC (HEMOGRAM)on 12-29-2024 Erythrocyte distribution width (RBC) [Ratio] 15.9 % High 11.5-15.0 [facility] Comment on above: Performed By: #### L [id number] ####Navy Diver: ROS JIMENEZ ([id number])[address] Hematocrit (Bld) [Volume fraction] 22.3 % Low 40.0-52.0 [facility] Comment on above: Performed By: #### L [id number] ####Navy Diver: ROS JIMENEZ ([id number])[facility])[address] [place] [address] Hemoglobin (Bld) [Mass/Vol] 7.7 g/dL Low 13.0-18.0 [facility] Comment on above: Performed By: #### L [id number] ####Navy Diver: ROS JIMENEZ ([id number])[facility])[address] [place] [address] MCH (RBC) [Entitic mass] 29.4 pg Normal 26.0-34.[address] [facility] Comment on above: Performed By: #### L [id number] ####Navy Diver: ROS JIMENEZ ([id number])[facility])[address] [place] [address] MCHC 34.5 % Normal 30.5-36.[address] [facility] Comment on above: Performed By: #### L [id number] ####Navy Diver: ROS JIMENEZ ([id number])[facility])[address] [place] [address] MCV (RBC) [Entitic vol] 85.1 fL Normal 77.0-99.[address] [facility] Comment on above: Performed By: #### L [id number] ####Navy Diver: ROS JIMENEZ ([id number])[facility])[address] [place] [address] Platelet mean volume (Bld) [Entitic vol] 8.5 fL Low 9.0-12.[address] [facility] Comment on above: Performed By: #### L [id number] ####Navy Diver: ROS JIMENEZ ([id number])[facility])[address] [place] [address] Platelets (Bld) [#/Vol] 450 10*3/uL High 140-[address] [facility] Comment on above: Performed By: #### L [id number] ####Navy Diver: ROS JIMENEZ ([id number])[facility])[address] [place] [address] RBC (Bld) [#/Vol] 2.62 10*6/uL Low 4.40-5.[address] [facility] Comment on above: Performed By: #### L [id number] ####Navy Diver: ROS JIMENEZ ([id number])[facility])[address] [place] [address] WBC (Bld) [#/Vol] 14.8 10*3/uL High 3.6-10.[address] [facility] Comment on above: Performed By: #### L [id number] ####Navy Diver: ROS JIMENEZ ([id number])[facility] ([facility])[address] [place] [address] CBC panel Auto (Bld)on 12-29 Erythrocyte distribution width (RBC) [Ratio] 15.9 % High 11.5 - 15.0 % [facility] Hematocrit (Bld) [Volume fraction] 22.3 % Low 40.0 - 52.0 % [facility] Hemoglobin (Bld) [Mass/Vol] 7.7 g/dL Low 13.0 - 18.0 g/dL [facility] Interpretation and review of laboratory results Abnormal [facility] MCH (RBC) [Entitic mass] 29.4 pg 26.0 - 34.[address] [facility] MCHC (RBC) [Mass/Vol] 34.5 % 30.5 - 36.0 % [facility] MCV (RBC) [Entitic vol] 85.1 fL 77.0 - 99.[address] [facility] Platelet mean volume (Bld) [Entitic vol] 8.5 fL Low 9.0 - 12.[address] [facility] Platelets (Bld) [#/Vol] 450 10*3/uL High 140 - 440 10*3/uL [facility] RBC (Bld) [#/Vol] 2.62 10*6/uL Low 4.40 - 5.90 10*6/uL [facility] WBC (Bld) [#/Vol] 14.8 10*3/uL High 3.6 - 10.7 10*3/uL [facility] COMPREHENSIVE METABOLIC PANE Tree 12-29-2024 Albumin [Mass/Vol] 2.0 g/dL Low 3.5-5.0 [facility] Comment on above: Performed By: #### L [id number] ####Navy Diver: ROS JIMENEZ ([id number])[facility] ([facility])[address] [place] [address] ALP [Catalytic activity/Vol] 92 U/L Normal 40-[address] [facility] Comment on above: Performed By: #### L AB17 ####Navy Diver: ROS JIMENEZ ([id number])[facility] ([facility])[address] [place] [address] ALT [Catalytic activity/Vol] U/L Normal <[address] [facility] Comment on above: Performed By: #### L AB17 ####Navy Diver: ROS JIMENEZ ([id number])[facility] ([facility])[address] [place] [address] Anion gap [Moles/Vol] 6 mmol/L Normal 3-13 [facility] Comment on above: Performed By: #### L AB17 ####Navy Diver: ROS JIMENEZ ([id number])[facility] ([facility])[address] [place] [address] AST [Catalytic activity/Vol] 13 U/L Normal <[address] [facility] Comment on above: Performed By: #### L AB17 ####Navy Diver: ROS JIMENEZ ([id number])[facility] ([facility])[address] [place] [address] Bilirubin [Mass/Vol] 0.3 mg/dL Normal <1.2 [facility] Comment on above: Performed By: #### L [id number] ####Navy Diver: ROS JIMENEZ ([id number])[facility] ([facility])[address] [place] [address] Calcium [Mass/Vol] 7.6 mg/dL Low 8.4-10.[address] [facility] Comment on above: Performed By: #### L [id number] ####Navy Diver: ROS JIMENEZ ([id number])[facility] ([facility])[address] [place] [address] [place] Chloride [Moles/Vol] 105 mmol/L Normal 98-107 [facility] Comment on above: Performed By: #### L AB17 ####Navy Diver: ROS JIMENEZ ([id number])[facility] ([facility])[address] [place] [address] [place] CO2 [Moles/Vol] 21 mmol/L Low 22-29 [facility] Comment on above: Performed By: #### L AB17 ####Navy Diver: ROS JIMENEZ ([id number])[facility])[address] [place] [address] Creatinine [Mass/Vol] 0.93 mg/dL Normal 0.72-1.25 [facility] Comment on above: Performed By: #### L AB17 ####Navy Diver: ROS JIMENEZ ([id number])[facility] ([facility])[address] [place] [address] GLOMERULAR FILTRATION RATE ML/MIN/1.73 SQ M.PREDICTED >90.0 Normal >60.0 [facility] Comment on above: Result Comment: Calc ulation based on the Chronic Kidney Disease Epidemiology Collaboration (CKD-EPI) equation refit without adjustment for race Performed By: #### L AB17 ####Navy Diver: ROS JIMENEZ ([id number])[facility])[address] [place] [address] Glucose [Mass/Vol] 114 mg/dL High 74-100 [facility] Comment on above: Performed By: #### L AB17 ####Navy Diver: ROS JIMENEZ ([id number])[facility])[address] [place] [address] Potassium [Moles/Vol] 3.6 mmol/L Normal 3.5-5.1 [facility] Comment on above: Result Comment: [facility] potassium values may be up to 0.5 mmol/L lower than serum values. Performed By: #### L AB17 ####Navy Diver: ROS JIMENEZ ([id number])[facility] ([facility])[address] [place] [address] Protein [Mass/Vol] 5.6 g/dL Low 6.4-8.3 [facility] Comment on above: Performed By: #### L AB17 ####Navy Diver: ROS [id number])[facility])[address] [place] [address] Sodium [Moles/Vol] 132 mmol/L Low 136-145 [facility] Comment on above: Performed By: #### L AB17 ####Navy Diver: ROS [id number])[facility] [place] [address] Urea nitrogen [Mass/Vol] 7 mg/dL Low 9-23 [facility] Comment on above: Performed By: #### L AB17 ####Navy Diver: ROS JIMENEZ ([id number])[facility] [place] [address] Comprehensive metabolic 1998 panelon 12-29-2024 Albumin [Mass/Vol] 2 g/dL Low 3.5 - 5.0 g/dL [facility] ALP [Catalytic activity/Vol] 92 U/L 40 - 150 U/L [facility] ALT [Catalytic activity/Vol] U/L NINF - 40 U/L [facility] Anion gap [Moles/Vol] 6 mmol/L 3 - 13 mmol/L [facility] AST [Catalytic activity/Vol] 13 U/L NINF - 34 U/L [facility] Bilirubin [Mass/Vol] 0.3 mg/dL NINF - 1.2 mg/dL [facility] Calcium [Mass/Vol] 7.6 mg/dL Low 8.4 - 10. 2 mg/dL [facility] Chloride [Moles/Vol] 105 mmol/L 98 - 10 7 mmol/L [facility] CO2 [Moles/Vol] 21 mmol/L Low 22 - 29 mmol/L [facility] Creatinine [Mass/Vol] 0.93 mg/dL 0.72 - 1.25 mg/dL [facility] GFR/1.73 sq M.predicted (S/P/Bld) [Vol rate/Area] - PINF [facility] Comment on above: Calculation based on the Chronic Kidney Disease Epidemiology Collaboration (CKD-EPI) equation refit without adjustment for race Glucose [Mass/Vol] 114 mg/dL High 74 - 100 mg/dL [facility] Interpretation and review of laboratory results Abnormal [facility] Potassium [Moles/Vol] 3.6 mmol/L 3.5 - 5.1 mmol/L [facility] Comment on above: Plasma potassium ulises ues may be up to 0.5 mmol/L lower than serum values. Protein [Mass/Vol] 5.6 g/dL Low 6.4 - 8.3 g/dL [facility] Sodium [Moles/Vol] 132 mmol/L Low 136 - 145 mmol/L [facility] Urea nitrogen [Mass/Vol] 7 mg/dL Low 9 - 23 mg/dL [facility] Progress Noteon 12-29-2024 Progress Note Nutrition rescreen completed. Chart reviewed. Patient to be monitored and followed by the diet hydroelectric production technician. YUE Hendrix Normal [facility] Progress Note Normal [facility] Note Normal [facility] Progress Note Normal [facility] Progress Note Normal [facility] 30on 12-28-2024 30 Normal [facility] CBC (HEMOGRAM)on 12-28-2024 Erythrocyte distribution width (RBC) [Ratio] 15.9 % High 11.5-15.0 [facility] Comment on above: Performed By: #### L [id number] ####Navy Diver: ROS JIMENEZ ([id number])[address] Hematocrit (Bld) [Volume fraction] 22.8 % Low 40.0-52.0 [facility] Comment on above: Performed By: #### L [id number] ####Navy Diver: ROS JIMENEZ ([id number])[address] Hemoglobin (Bld) [Mass/Vol] 7.9 g/dL Low 13.0-18.0 [facility] Comment on above: Performed By: #### L [id number] ####Navy Diver: ROS JIMENEZ ([id number])[address] MCH (RBC) [Entitic mass] 29.5 pg Normal 26.0-34.0 [facility] Comment on above: Performed By: #### L [id number] ####Navy Diver: ROS JIMENEZ ([id number])[address] MCHC 34.6 % Normal 30.5-36.0 [facility] Comment on above: Performed By: #### L [id number] ####Navy Diver: ROS [id number])[facility] ([facility])[address] [place] [address] MCV (RBC) [Entitic vol] 85.1 fL Normal 77.0-99.0 [facility] Comment on above: Performed By: #### L [id number] ####Navy Diver: ROS JIMENEZ ([id number])[facility])[address] [place] [address] Platelet mean volume (Bld) [Entitic vol] 8.4 fL Low 9.0-12.7 [facility] Comment on above: Performed By: #### L [id number] ####Navy Diver: ROS JIMENEZ ([id number])[facility])[address] [place] [address] Platelets (Bld) [#/Vol] 390 10*3/uL Normal 140-440 [facility] Comment on above: Performed By: #### L [id number] ####Navy Diver: ROS JIMENEZ ([id number])[facility])[address] [place] [address] RBC (Bld) [#/Vol] 2.68 10*6/uL Low 4.40-5.90 [facility] Comment on above: Performed By: #### L [id number] ####Navy Diver: ROS JIMENEZ ([id number])[facility])[address] [place] [address] WBC (Bld) [#/Vol] 12.2 10*3/uL High 3.6-10.7 [facility] Comment on above: Performed By: #### L [id number] ####Navy Diver: ROS JIMENEZ ([id number])[facility])[address] [place] [address] CBC panel Auto (Bld)on 12-28 Erythrocyte distribution width (RBC) [Ratio] 15.9 % High 11.5 - 15.0 % [facility] Hematocrit (Bld) [Volume fraction] 22.8 % Low 40.0 - 52.0 % [facility] Hemoglobin (Bld) [Mass/Vol] 7.9 g/dL Low 13.0 - 18.0 g/dL [facility] Interpretation and review of laboratory results Abnormal [facility] MCH (RBC) [Entitic mass] 29.5 pg 26.0 - 34.[address] [facility] MCHC (RBC) [Mass/Vol] 34.6 % 30.5 - 36.0 % [facility] MCV (RBC) [Entitic vol] 85.1 fL 77.0 - 99.[address] [facility] Platelet mean volume (Bld) [Entitic vol] 8.4 fL Low 9.0 - 12.[address] [facility] Platelets (Bld) [#/Vol] 390 10*3/uL 140 - 440 10*3/uL [facility] RBC (Bld) [#/Vol] 2.68 10*6/uL Low 4.40 - 5.90 10*6/uL [facility] WBC (Bld) [#/Vol] 12.2 10*3/uL High 3.6 - 10.7 10*3/uL [facility] COMPREHENSIVE METABOLIC PANE Tree 12-28-2024 Albumin [Mass/Vol] 2.1 g/dL Low 3.5-5.[address] [facility] Comment on above: Performed By: #### L AB17 ####Navy Diver: ROS JIMENEZ ([id number])[address] ALP [Catalytic activity/Vol] 99 U/L Normal 40-150 [facility] Comment on above: Performed By: #### L AB17 ####Navy Diver: ROS JIMENEZ ([id number])[facility] ([facility])[address] [place] [address] ALT [Catalytic activity/Vol] 7 U/L Normal <40 [facility] Comment on above: Performed By: #### L AB17 ####Navy Diver: ROS JIMENEZ ([id number])[facility])[address] [place] [address] Anion gap [Moles/Vol] 4 mmol/L Normal 3-13 [facility] Comment on above: Performed By: #### L AB17 ####Navy Diver: ROS JIMENEZ ([id number])[facility] ([facility])[address] [place] [address] AST [Catalytic activity/Vol] 15 U/L Normal <34 [facility] Comment on above: Performed By: #### L AB17 ####Navy Diver: ROS JIMENEZ ([id number])[facility] [place] [address] Bilirubin [Mass/Vol] 0.3 mg/dL Normal <1.2 [facility] Comment on above: Performed By: #### L AB17 ####Navy Diver: ROS JIMENEZ ([id number])[facility] ([facility])[address] [place] [address] Calcium [Mass/Vol] 7.8 mg/dL Low 8.4-10.2 [facility] Comment on above: Performed By: #### L AB17 ####Navy Diver: ROS JIMENEZ ([id number])[facility] [place] [address] [place] Chloride [Moles/Vol] 105 mmol/L Normal 98-107 [facility] Comment on above: Performed By: #### L AB17 ####Navy Diver: ROS JIMENEZ ([id number])[facility] ([facility])[address] [place] [address] [place] CO2 [Moles/Vol] 23 mmol/L Normal 22-29 [facility] Comment on above: Performed By: #### L AB17 ####Navy Diver: ROS JIMENEZ ([id number])[facility] ([facility])[address] [place] [address] [place] Creatinine [Mass/Vol] 0.93 mg/dL Normal 0.72-1.25 [facility] Comment on above: Performed By: #### L AB17 ####Navy Diver: ROS JIMENEZ ([phone])[facility] ([facility])[address] [place] [address] [place] GLOMERULAR FILTRATION RATE ML/MIN/1.73 SQ M.PREDICTED >90.0 Normal >60.0 [facility] Comment on above: Result Comment: Calc ulation based on the Chronic Kidney Disease Epidemiology Collaboration (CKD-EPI) equation refit without adjustment for race Performed By: #### L AB17 ####Navy Diver: ROS JIMENEZ ([id number])[facility])[address] [place] [address] Glucose [Mass/Vol] 99 mg/dL Normal 74-100 [facility] Comment on above: Performed By: #### L AB17 ####Navy Diver: ROS JIMENEZ ([id number])[facility])[address] [place] [address] Potassium [Moles/Vol] 3.6 mmol/L Normal 3.5-5.1 [facility] Comment on above: Result Comment: [facility] potassium values may be up to 0.5 mmol/L lower than serum values. Performed By: #### L AB17 ####Navy Diver: ROS JIMENEZ ([id number])[facility])[address] [place] [address] [place] Protein [Mass/Vol] 5.7 g/dL Low 6.4-8.3 [facility] Comment on above: Performed By: #### L AB17 ####Navy Diver: ROS JIMENEZ ([id number])[facility])[address] [place] [address] [place] Sodium [Moles/Vol] 132 mmol/L Low 136-145 [facility] Comment on above: Performed By: #### L AB17 ####Navy Diver: ROS JIMENEZ ([id number])[facility])[address] [place] [address] [place] Urea nitrogen [Mass/Vol] 8 mg/dL Low 9-23 [facility] Comment on above: Performed By: #### L AB17 ####Navy Diver: ROS JIMENEZ ([id number])[facility])[address] [place] [address] [place] CULTURE, CATH TIPon 06-04-20 25 CULTURE, CATH TIP Normal [facility] Comment on above: Performed By: #### L [id number] ####Navy Diver: ROS JIMENEZ ([id number])[facility] ([facility])[address] [place] [address] Comprehensive metabolic 1998 panelon 12-28-2024 Albumin [Mass/Vol] 2.1 g/dL Low 3.5 - 5.0 g/dL [facility] ALP [Catalytic activity/Vol] 99 U/L 40 - 150 U/L [facility] ALT [Catalytic activity/Vol] 7 U/L NINF - 40 U/L [facility] Anion gap [Moles/Vol] 4 mmol/L 3 - 13 mmol/L [facility] AST [Catalytic activity/Vol] 15 U/L NINF - 34 U/L [facility] Bilirubin [Mass/Vol] 0.3 mg/dL NINF - 1.2 mg/dL [facility] Calcium [Mass/Vol] 7.8 mg/dL Low 8.4 - 10. 2 mg/dL [facility] Chloride [Moles/Vol] 105 mmol/L 98 - 10 7 mmol/L [facility] CO2 [Moles/Vol] 23 mmol/L 22 - 29 mmol/L [facility] Creatinine [Mass/Vol] 0.93 mg/dL 0.72 - 1.25 mg/dL [facility] GFR/1.73 sq M.predicted (S/P/Bld) [Vol rate/Area] - PINF [facility] Comment on above: Calculation based on the Chronic Kidney Disease Epidemiology Collaboration (CKD-EPI) equation refit without adjustment for race Glucose [Mass/Vol] 99 mg/dL 74 - 100 mg/dL [facility] Interpretation and review of laboratory results Abnormal [facility] Potassium [Moles/Vol] 3.6 mmol/L 3.5 - 5.1 mmol/L [facility] Comment on above: Plasma potassium ulises ues may be up to 0.5 mmol/L lower than serum values. Protein [Mass/Vol] 5.7 g/dL Low 6.4 - 8.3 g/dL [facility] Sodium [Moles/Vol] 132 mmol/L Low 136 - 145 mmol/L [facility] Urea nitrogen [Mass/Vol] 8 mg/dL Low 9 - 23 mg/dL [facility] Consulton 12-28-2024 Consult Normal [facility] Consult Normal [facility] - Coagulationon 0 12-28-2024 PT Coag (Bld) [Time] 11.5 s 9.0 - [address] [facility] - Drug toxicology on 12-28-2024 Vancomycin trough [Mass/Vol] 25.4 ug/mL [facility] No Panel Informationon 12-28 Successful removal of an intact right-sided Pleurx catheter. Report Dictated on Electronically Signed By: Gary Figueroa MD Electronically Signed Date/Time: 12/28/2024 10:54 AM [facility] Patient Name: CISCO PHAM : 1975 [id number] Exam Date/Time: 12/28/2024 08:30 Procedure: IR BODY DRAIN REMOVAL Ordering Provider: NEGRON STEPHEN Reason For Exam: likely infected catheter, purulence around insertion, overlying fluid collection CLINICAL HISTORY: Concern for infected Pleurx catheter PROCEDURES: 1. Right Pleurx catheter removal. PHYSICIAN: Dr. Figueroa MEDICATIONS: Local lidocaine EBL: Minimal. CONTRAST: None SPECIMEN SENT: Pleurx catheter tip COMPLICATIONS: None FLUOROSCOPY TIME: Less than 0.1 minutes. ANGIOGRAPHIC RUNS: 0 FLUOROSCOPIC SPOT IMAGES: 0 Fluoroscopy dose: Ka,r = 1.58 mGy Fluoroscopic saved images were obtained. These images do NOT add additional exposure to ionizing radiation and were captured electronically from the imaging chain. PROCEDURAL DETAILS: Prior to the procedure red rules were performed which included patient name, date of , and procedure type. All of the risk, benefits, and alternative treatments were explained to the patient and informed consent was obtained and documented. The patient was brought into the angiography placed in the supine position. A forestry worker image was obtained, showing residual pleural effusion. The patient's indwelling tube and surrounding skin was prepped and draped with Betadine. Local lidocaine was administered. Using blunt dissection, the catheter cuff was liberated from the skin. The catheter was then removed upon full inspiration and Xeroform occlusive dressing was applied. A post removal fluoroscopic image was saved. The patient tolerated the procedure well without immediate complication. FINDINGS: Supervisor Compressed Yeast imaging of the chest shows loculated pleural effusion with indwelling right-sided Pleurx catheter at the base. Successful removal of an intact right-sided Pleurx catheter. [facility] aGry Figueroa MD - 12/28/2024 Patient Name: CISCO CARPENTER : 1975 Exam Date/Time: 12/28/2024 08:30 Procedure: IR BODY DRAIN REMOVAL Ordering Provider: NEGRON STEPHEN Reason For Exam: likely infected catheter, purulence around insertion, overlying fluid collection CLINICAL HISTORY: Concern for infected Pleurx catheter PROCEDURES: 1. Right Pleurx catheter removal. PHYSICIAN: Dr. Figueroa MEDICATIONS: Local lidocaine EBL: Minimal. CONTRAST: None SPECIMEN SENT: Pleurx catheter tip COMPLICATIONS: None FLUOROSCOPY TIME: Less than 0.1 minutes. ANGIOGRAPHIC RUNS: 0 FLUOROSCOPIC SPOT IMAGES: 0 Fluoroscopy dose: Ka,r = 1.58 mGy Fluoroscopic saved images were obtained. These images do NOT add additional exposure to ionizing radiation and were captured electronically from the imaging chain. PROCEDURAL DETAILS: Prior to the procedure red rules were performed which included patient name, date of , and procedure type. All of the risk, benefits, and alternative treatments were explained to the patient and informed consent was obtained and documented. The patient was brought into the angiography placed in the supine position. A forestry worker image was obtained, showing residual pleural effusion. The patient's indwelling tube and surrounding skin was prepped and draped with Betadine. Local lidocaine was administered. Using blunt dissection, the catheter cuff was liberated from the skin. The catheter was then removed upon full inspiration and Xeroform occlusive dressing was applied. A post removal fluoroscopic image was saved. The patient tolerated the procedure well without immediate complication. FINDINGS: Supervisor Compressed Yeast imaging of the chest shows loculated pleural effusion with indwelling right-sided Pleurx catheter at the base. Successful removal of an intact right-sided Pleurx catheter. IMPRESSION: Successful removal of an intact right-sided Pleurx catheter. Report Dictated on Electronically Signed By: Gary Figueroa MD Electronically Signed Date/Time: 12/28/2024 10:[address] [facility] There is no interpretation needed for this exam. IMAGING Radiology Study observation (narrative) [facility] No Panel InformationOrdered By: Gary Figueroa on 12-28-2024 [facility] Work Phone: Nursing Noteon 12-28-2024 Nursing Note Normal [facility] Nursing Note Bilateral nephrostom y dressings changed per order. Sites benign. Transfer pt to H6. Normal [facility] Nursing Note Normal [facility] PROTHROMBIN TIMEon INR Coag (PPP) [Relative time] 1.1 {INR} Normal 0.9-1.1 [facility] Comment on above: Result Comment: Fernando mmended Anticoagulant Therapy: SEE BELOW----- INR of 2.0 - 3.0 : - Prophylaxis of Venous Thrombosis (high-risk surgery) - Treatment of Venous Thrombosis - Treatment of Pulmonary Embolism (Includes tissue heart valves, Acute Myocardial Infarction to prevent systemic embolism, Valvular Heart Disease, and Atrial Fibrillation)----- INR of 2.5 - 3.5 : - Mechanical Prosthetic Valves (high risk) - If oral anticoagulant therapy is used to prevent Myocardial Infarction Performed By: #### Kayla [id number] ####Navy Diver: ROS JIMENEZ ([id number])[address] PT Coag (PPP) [Time] 11.5 s Normal 9.0-12.0 [facility] Comment on above: Performed By: #### L [id number] ####Navy Diver: ROS JIMENEZ ([phone])[address] PT Coag (Bld) [Time]on 12-28 INR Coag (PPP) [Relative time] 1.1 {INR} 0.9 - 1.1 [facility] Comment on above: Recommended Anticoag ulant Therapy: SEE BELOW ----- INR of 2.0 - 3.0 : - Prophylaxis of Venous Thrombosis (high-risk surgery) - Treatment of Venous Thrombosis - Treatment of Pulmonary Embolism (Includes tissue heart valves, Acute Myocardial Infarction to prevent systemic embolism, Valvular Heart Disease, and Atrial Fibrillation) ----- INR of 2.5 - 3.5 : - Mechanical Prosthetic Valves (high risk) - If oral anticoagulant therapy is used to prevent Myocardial Infarction Interpretation and review of laboratory results Normal [facility] Progress Noteon 12-28-2024 Progress Note Normal [facility] Progress Note Normal [facility] Progress Note Normal [facility] US GUIDED PUNCTURE ASPIRATIO N OF ABSCESS, HEMATOMA, CYSTon 12-28-2024 US GUIDED PUNCTURE ASPIRATION OF ABSCESS, HEMATOMA, CYST Normal [facility] US Guidance for fluid aspira tion of Unspecified body regionon 12-28-2024 Percutaneous aspiration of right posterior chest. Small area of hypoechogenicity was accessed via needle, however no fluid was able to be aspirated. No large or obvious fluid collections under the area of concern. PROCEDURE SUMMARY: - Aspiration of right posterior chest under ultrasound guidance - Additional procedure(s): None PROCEDURE DETAILS: Pre-procedure Consent: Informed consent for the procedure including risks, benefits and alternatives was obtained and time-out was performed prior to the procedure. Preparation: The site was prepared and draped using maximal sterile barrier technique including cutaneous antisepsis. Anesthesia/sedation Level of anesthesia/sedation: No sedation Fluid collection aspiration The patient was positioned left lateral decubitus. Initial imaging was performed. Local anesthesia was administered. The suspected fluid collection was accessed using a 20-gauge spinal needle. Position within the fluid collection was confirmed, and aspiration was performed, yielding no fluid. All instruments were then removed. - Initial imaging findings: Area of hypoechogenicity in the prior Pleurx catheter tract. No large or significant fluid collections. - Aspiration needle/catheter: 20-gauge spinal needle - Post-aspiration imaging findings: No change Contrast Contrast agent: None Contrast volume (mL): 0 Additional Details Additional description of procedure: None Equipment details: None Specimens removed: None Estimated blood loss (mL): Less than 10 Report Dictated on Electronically Signed By: Lavon Gibson MD Electronically Signed Date/Time: 12/28/2024 12:23 PM EDT [facility] Patient Name: CISCO PHAM : 1975 Exam Date/Time: 12/28/2024 10:57 Procedure: US GUIDED PUNCTURE ASPIRATION OF ABSCESS, HEMATOMA, CYST Ordering Provider: NEGRON STEPHEN Reason For Exam: fluctuance and fluid collection above pleurx catheter insertion site, R side PROCEDURE: Fluid collection aspiration Procedural Personnel Physician Head Stock Transfer Clerk: Susanne Santos PA-C Attending physician(s): Lavon Gibson M.D. Attending physician was available in the department if needed. Indication: Suspected fluid collection status post right Pleurx catheter removal Additional clinical history: None Complications: No immediate complications. [facility] Lavon Gibson MD - 12/28/2024 Patient Name: CISCO CARPENTER : 1975 Exam Date/Time: 12/28/2024 10:57 Procedure: US GUIDED PUNCTURE ASPIRATION OF ABSCESS, HEMATOMA, CYST Ordering Provider: NEGRON STEPHEN Reason For Exam: fluctuance and fluid collection above pleurx catheter insertion site, R side PROCEDURE: Fluid collection aspiration Procedural Personnel Physician Head Stock Transfer Clerk: Susanne Santos PA-C Attending physician(s): Lavon Gibson M.D. Attending physician was available in the department if needed. Indication: Suspected fluid collection status post right Pleurx catheter removal Additional clinical history: None Complications: No immediate complications. IMPRESSION: Percutaneous aspiration of right posterior chest. Small area of hypoechogenicity was accessed via needle, however no fluid was able to be aspirated. No large or obvious fluid collections under the area of concern. PROCEDURE SUMMARY: - Aspiration of right posterior chest under ultrasound guidance - Additional procedure(s): None PROCEDURE DETAILS: Pre-procedure Consent: Informed consent for the procedure including risks, benefits and alternatives was obtained and time-out was performed prior to the procedure. Preparation: The site was prepared and draped using maximal sterile barrier technique including cutaneous antisepsis. Anesthesia/sedation Level of anesthesia/sedation: No sedation Fluid collection aspiration The patient was positioned left lateral decubitus. Initial imaging was performed. Local anesthesia was administered. The suspected fluid collection was accessed using a 20-gauge spinal needle. Position within the fluid collection was confirmed, and aspiration was performed, yielding no fluid. All instruments were then removed. - Initial imaging findings: Area of hypoechogenicity in the prior Pleurx catheter tract. No large or significant fluid collections. - Aspiration needle/catheter: 20-gauge spinal needle - Post-aspiration imaging findings: No change Contrast Contrast agent: None Contrast volume (mL): 0 Additional Details Additional description of procedure: None Equipment details: None Specimens removed: None Estimated blood loss (mL): Less than 10 Report Dictated on Electronically Signed By: Lavon Gibson MD Electronically Signed Date/Time: 12/28/2024 12:[address] [facility] Radiology Study observation (narrative) [facility] US Guidance for fluid aspira tion of Unspecified body regionOrdered By: Lavon Gibson on 12-28-2024 [facility] Work Phone: VANCOMYCIN, AUC TIMED DOSING on 12-28-2024 VANCOMYCIN, AUC 25.4 ug/mL Normal [facility] Comment on above: Result Comment: EDUARDO Streeter COMMENTS:Please draw random level at least >2 hours after the end of the last vancomycin infusion, or 30-minutes before next infusion.Toxicity is seen at concentrations >80-100 ug/mLTherapeutic (Peak) range: 20-40Therapeutic (Trough) range: 5-10 Performed By: #### L AB39 ####Navy Diver: ROS JIMENEZ ([phone])[facility] ([facility])[address] [place] [address] Vancomycin trough [Mass/Vol] on 12-28-2024 Toxicity is seen at concentrations >80-100 ug/mL Therapeutic (Peak) range: 20-40 Therapeutic (Trough) range: 5-10 [facility] 30on 12-27-2024 30 Fluid sent to lab fr om Pleural tube. ID being consulted. More labs and test ordered. Possible may need a new chest tube. Normal [facility] [id number] 12-27-2024 [id number] Normal [facility] CBC (HEMOGRAM)on 12-27-2024 Erythrocyte distribution width (RBC) [Ratio] 15.8 % High 11.5-15.0 [facility] Comment on above: Performed By: #### L [id number] ####Navy Diver: ROS JIMENEZ ([phone])[facility])[address] [place] [address] Hematocrit (Bld) [Volume fraction] 22.8 % Low 40.0-52.0 [facility] Comment on above: Performed By: #### L AB294 ####Navy Diver: ROS JIMENEZ ([id number])[facility])[address] [place] [address] Hemoglobin (Bld) [Mass/Vol] 7.7 g/dL Low 13.0-18.0 [facility] Comment on above: Performed By: #### L AB294 ####Navy Diver: ROS JIMENEZ ([id number])[facility])[address] [place] [address] MCH (RBC) [Entitic mass] 29.1 pg Normal 26.0-34.0 [facility] Comment on above: Performed By: #### L AB294 ####Navy Diver: ROS JIMENEZ ([id number])[facility])[address] [place] [address] MCHC 33.8 % Normal 30.5-36.0 [facility] Comment on above: Performed By: #### L AB294 ####Navy Diver: ROS JIMENEZ ([phone])[facility])[address] [place] [address] MCV (RBC) [Entitic vol] 86.0 fL Normal 77.0-99.0 [facility] Comment on above: Performed By: #### L AB294 ####Navy Diver: ROS JIMENEZ ([phone])[facility])[address] [place] [address] Platelet mean volume (Bld) [Entitic vol] 8.6 fL Low 9.0-12.7 [facility] Comment on above: Performed By: #### L [id number] ####Navy Diver: ROS JIMENEZ ([id number])[facility] ([facility])[address] [place] [address] Platelets (Bld) [#/Vol] 402 10*3/uL Normal 140-440 [facility] Comment on above: Performed By: #### L AB294 ####Navy Diver: ROS JIMENEZ ([id number])[facility] ([facility])[address] [place] [address] RBC (Bld) [#/Vol] 2.65 10*6/uL Low 4.40-5.90 [facility] Comment on above: Performed By: #### L AB294 ####Navy Diver: ROS JIMENEZ ([id number])[facility])[address] [place] [address] WBC (Bld) [#/Vol] 14.4 10*3/uL High 3.6-10.7 [facility] Comment on above: Performed By: #### L [id number] ####Navy Diver: ROS JIMENEZ ([id number])[facility])[address] [place] [address] CBC panel Auto (Bld)on 12-27 Erythrocyte distribution width (RBC) [Ratio] 15.8 % High 11.5 - 15.0 % [facility] Hematocrit (Bld) [Volume fraction] 22.8 % Low 40.0 - 52.0 % [facility] Hemoglobin (Bld) [Mass/Vol] 7.7 g/dL Low 13.0 - 18.0 g/dL [facility] Interpretation and review of laboratory results Abnormal [facility] MCH (RBC) [Entitic mass] 29.1 pg 26.0 - 34.[address] [facility] MCHC (RBC) [Mass/Vol] 33.8 % 30.5 - 36.0 % [facility] MCV (RBC) [Entitic vol] 86 fL 77.0 - 99.[address] [facility] Platelet mean volume (Bld) [Entitic vol] 8.6 fL Low 9.0 - 12.[address] [facility] Platelets (Bld) [#/Vol] 402 10*3/uL 140 - 440 10*3/uL [facility] RBC (Bld) [#/Vol] 2.65 10*6/uL Low 4.40 - 5.90 10*6/uL [facility] WBC (Bld) [#/Vol] 14.4 10*3/uL High 3.6 - 10.7 10*3/uL [facility] COMPREHENSIVE METABOLIC PANE Tree 12-27-2024 Albumin [Mass/Vol] 2.2 g/dL Low 3.5-5.[address] [facility] Comment on above: Performed By: #### L AB17, [id number] ####Navy Diver: ROS JIMENEZ ([id number])[facility] ([facility])[address] [place] [address] ALP [Catalytic activity/Vol] 91 U/L Normal 40-[address] [facility] Comment on above: Performed By: #### L AB17, [id number] ####Navy Diver: ROS JIMENEZ ([id number])[facility] ([facility])[address] [place] [address] ALT [Catalytic activity/Vol] 7 U/L Normal <[address] [facility] Comment on above: Performed By: #### L AB17, [id number] ####Navy Diver: ROS JIMENEZ ([id number])[facility] ([facility])[address] [place] [address] Anion gap [Moles/Vol] 6 mmol/L Normal 3-13 [facility] Comment on above: Performed By: #### L AB17, [id number] ####Navy Diver: ROS JIMENEZ ([id number])[facility] ([facility])[address] [place] [address] [place] AST [Catalytic activity/Vol] 17 U/L Normal <34 [facility] Comment on above: Performed By: #### L AB17, [id number] ####Navy Diver: ROS JIMENEZ ([id number])[facility])[address] [place] [address] Bilirubin [Mass/Vol] 0.3 mg/dL Normal <1.2 [facility] Comment on above: Performed By: #### L AB17, [id number] ####Navy Diver: ROS JIMENEZ ([phone])[facility])[address] [place] [address] Calcium [Mass/Vol] 7.6 mg/dL Low 8.4-10.2 [facility] Comment on above: Performed By: #### L AB17, [id number] ####Navy Diver: ROS JIMENEZ ([id number])[facility])[address] [place] [address] [place] Chloride [Moles/Vol] 104 mmol/L Normal 98-107 [facility] Comment on above: Performed By: #### L AB17, [id number] ####Navy Diver: ROS JIMENEZ ([id number])[facility] ([facility])[address] [place] [address] [place] CO2 [Moles/Vol] 22 mmol/L Normal 22-29 [facility] Comment on above: Performed By: #### L AB17, [id number] ####Navy Diver: ROS JIMENEZ ([id number])[facility])[address] [place] [address] [place] Creatinine [Mass/Vol] 0.84 mg/dL Normal 0.72-1.25 [facility] Comment on above: Performed By: #### L AB17, [id number] ####Navy Diver: ROS JIMENEZ ([id number])[facility])[address] [place] [address] [place] GLOMERULAR FILTRATION RATE ML/MIN/1.73 SQ M.PREDICTED >90.0 Normal >60.0 [facility] Comment on above: Result Comment: Calc ulation based on the Chronic Kidney Disease Epidemiology Collaboration (CKD-EPI) equation refit without adjustment for race Performed By: #### L AB17, [id number] ####Navy Diver: ROS JIMENEZ ([id number])[facility])[address] [place] [address] Glucose [Mass/Vol] 112 mg/dL High 74-100 [facility] Comment on above: Performed By: #### L AB17, [id number] ####Navy Diver: ROS JIMENEZ ([id number])[facility])[address] [place] [address] Potassium [Moles/Vol] 3.7 mmol/L Normal 3.5-5.1 [facility] Comment on above: Result Comment: [facility] potassium values may be up to 0.5 mmol/L lower than serum values. Performed By: #### L AB17, [id number] ####Navy Diver: ROS JIMENEZ ([id number])[facility])[address] [place] [address] Protein [Mass/Vol] 5.4 g/dL Low 6.4-8.3 [facility] Comment on above: Performed By: #### L AB17, [id number] ####Navy Diver: ROS JIMENEZ ([id number])[facility])[address] [place] [address] Sodium [Moles/Vol] 132 mmol/L Low 136-145 [facility] Comment on above: Performed By: #### L AB17, [id number] ####Navy Diver: ROS JIMENEZ ([id number])[facility])[address] [place] [address] Urea nitrogen [Mass/Vol] 10 mg/dL Normal 9-23 [facility] Comment on above: Performed By: #### L AB17, [id number] ####Navy Diver: ROS JIMENEZ ([id number])[facility])[address] [place] [address] CT CHEST W IV CONTRASTon CT CHEST W IV CONTRAST Normal [facility] CT Chest W contrast Sylvia Patient Name: CISCO PHAM : 1975 Exam Date/Time: 12/27/2024 10:10 Procedure: CT CHEST W IV CONTRAST Ordering Provider: NEGRON STEPHEN Reason For Exam: c/f pleurx infection, fluid collection Examination: CT chest with contrast Indication: c/f pleur infection, fluid collection Technique: Axial CT images of the chest were obtained from the thoracic inlet through the lung bases at 1 mm intervals with IV contrast (75 mL Isovue-370). Dose reduction was employed with automatic exposure control. Coronal and sagittal reconstructions were also provided for review. Findings: The aorta and pulmonary artery are grossly of normal caliber. Moderate to severe diffuse coronary artery calcification present left greater than right. Heart size is borderline. No significant adenopathy is demonstrated. Moderate size right-sided pleural effusion present with consolidation/infiltrate of the right mid and lower lung. Atelectasis and/or infiltrate present within the left lower lung. Mild to moderate emphysematous changes of the right midlung there is a small caliber chest tube within the right lower hemithorax. There is a hypodense lesion within the midportion of the spleen measuring 2.5 cm and 53 Hounsfield units The bones are grossly unremarkable. Impression Consolidation/infiltrate of the right lung with right-sided pleural effusion and small caliber chest tube on the right. Left basilar atelectasis and/or mild infiltrate. Diffuse coronary artery disease. Indeterminate low-attenuation lesion, centrally within the spleen, described on prior CT abdomen Report Dictated on Electronically Signed By: Noe Kraft MD Electronically Signed Date/Time: 12/27/2024 10:30 AM [facility] Noe Kraft MD - 12/27/2024 Patient Name: CISCO CARPENTER : 1975 Exam Date/Time: 12/27/2024 10:10 Procedure: CT CHEST W IV CONTRAST Ordering Provider: NEGRON STEPHEN Reason For Exam: c/f pleurx infection, fluid collection Examination: CT chest with contrast Indication: c/f pleur infection, fluid collection Technique: Axial CT images of the chest were obtained from the thoracic inlet through the lung bases at 1 mm intervals with IV contrast (75 mL Isovue-370). Dose reduction was employed with automatic exposure control. Coronal and sagittal reconstructions were also provided for review. Findings: The aorta and pulmonary artery are grossly of normal caliber. Moderate to severe diffuse coronary artery calcification present left greater than right. Heart size is borderline. No significant adenopathy is demonstrated. Moderate size right-sided pleural effusion present with consolidation/infiltrate of the right mid and lower lung. Atelectasis and/or infiltrate present within the left lower lung. Mild to moderate emphysematous changes of the right midlung there is a small caliber chest tube within the right lower hemithorax. There is a hypodense lesion within the midportion of the spleen measuring 2.5 cm and 53 Hounsfield units The bones are grossly unremarkable. Impression Consolidation/infiltrate of the right lung with right-sided pleural effusion and small caliber chest tube on the right. Left basilar atelectasis and/or mild infiltrate. Diffuse coronary artery disease. Indeterminate low-attenuation lesion, centrally within the spleen, described on prior CT abdomen Report Dictated on Electronically Signed By: Noe Kraft MD Electronically Signed Date/Time: 12/27/2024 10:[address] [facility] Radiology Study observation (narrative) [facility] CT Chest W contrast IVOrdere d By: Noe Kraft on 12-27-2024 [facility] [employer] Work Phone: CULTURE ANAEROBICon 12-28-19 25 CULTURE ANAEROBIC Normal [facility] Comment on above: Order Comment: Drain age via Pleurx Performed By: #### L [id number] ####Navy Diver: ROS JIMENEZ ([id number])[facility] ([address] CULTURE, AEROBIC BACTERIA WI TH GRAM STAINon 12-27-2024 CULTURE, AEROBIC BACTERIA WITH GRAM STAIN Normal [facility] Comment on above: Order Comment: Drain age via Pleurx Performed By: #### L [id number] ####Navy Diver: ROS JIMENEZ ([phone])[facility] ([facility])[address] [place] [address] Comprehensive metabolic 1998 panelon 12-27-2024 Albumin [Mass/Vol] 2.2 g/dL Low 3.5 - 5.0 g/dL [facility] ALP [Catalytic activity/Vol] 91 U/L 40 - 150 U/L [facility] ALT [Catalytic activity/Vol] 7 U/L NINF - 40 U/L [facility] Anion gap [Moles/Vol] 6 mmol/L 3 - 13 mmol/L [facility] AST [Catalytic activity/Vol] 17 [facility] Bilirubin [Mass/Vol] 0.3 mg/dL NINF - 1.2 mg/dL [facility] Calcium [Mass/Vol] 7.6 mg/dL Low 8.4 - 10. 2 mg/dL [facility] Chloride [Moles/Vol] 104 mmol/L 98 - 10 7 mmol/L [facility] CO2 [Moles/Vol] 22 mmol/L 22 - 29 mmol/L [facility] Creatinine [Mass/Vol] 0.84 mg/dL 0.72 - 1.25 mg/dL [facility] GFR/1.73 sq M.predicted (S/P/Bld) [Vol rate/Area] - PINF [facility] Comment on above: Calculation based on the Chronic Kidney Disease Epidemiology Collaboration (CKD-EPI) equation refit without adjustment for race Glucose [Mass/Vol] 112 mg/dL High 74 - 100 mg/dL [facility] Interpretation and review of laboratory results Abnormal [facility] Potassium [Moles/Vol] 3.7 mmol/L 3.5 - 5.1 mmol/L [facility] Comment on above: Plasma potassium ulises ues may be up to 0.5 mmol/L lower than serum values. Protein [Mass/Vol] 5.4 g/dL Low 6.4 - 8.3 g/dL [facility] Sodium [Moles/Vol] 132 mmol/L Low 136 - 145 mmol/L [facility] Urea nitrogen [Mass/Vol] 10 mg/dL 9 - 23 mg/dL [facility] Consulton 12-27-2024 Consult Normal [facility] LACTATE DEHYDROGENASE, BODY FLUIDon 12-27-2024 LACTATE DEHYDROGENASE, BODY FLUID BY LAC->PYR 444 U/L Normal [facility] Comment on above: Performed By: #### L AB188 ####Navy Diver: ROS JIMENEZ ([phone])[facility] [place] [address] TYPE OF BODY FLUID Pleural Fluid Normal [facility] Comment on above: Result Comment: EDUARDO Streeter COMMENTS:This test was developed and its performance characteristics determined by [employer]. It has not been cleared or approved by the US Food and Drug Administration. This test was performed in a CLIA certified laboratory and is intended for clinical purposes.Exudates are defined as meeting one of the following criteria: (a) Pleural yqxzp-dp-dwagj protein ratio of >0.5, (b) pleural acaji-cm-itmtl LDH ratio of >0.6, or (c)a pleural fluid LDH activity that is >2/3 the upper limit of a normal serum LDH activity (Light???s criteria). Performed By: #### L AB188 ####Navy Diver: ROS JIMENEZ ([phone])[facility] [place] [address] LaboratoryOrdered By: Shelly velazquez on 12-27-2024 Fluid Nom (Body fld) Pleural Fluid S [facility] Laboratoryon 12-27-2024 Fluid Nom (Body fld) Pleural Fluid S [facility] Laboratory - Chemistry and C hemistry - challengeOrdered By: Shelly Manzano on 12-27-2024 LDH (Body fld) [Catalytic activity/Vol] 444 U/L [facility] Laboratory - Chemistry and C hemistry - challengeon 12-27-2024 Protein (Body fld) [Mass/Vol] 3.5 g/dL [facility] Magnesium [Mass/Vol] 1.7 mg/dL 1.6 - 2 .6 mg/dL [facility] MAGNESIUMon 12-27-2024 Magnesium [Mass/Vol] 1.7 mg/dL Normal 1.6-2.6 [facility] Comment on above: Result Comment: EDUARDO Streeter COMMENTS:Higher values can be expected in females during menses. Performed By: #### L AB17, [id number] ####Navy Diver: ROS JIMENEZ ([phone])[facility] ([facility])[address] [place] [address] [place] Magnesium [Mass/Vol]on 12-27 Interpretation and review of laboratory results Normal [facility] Higher values can be expected in females during menses. [facility] No Panel InformationOrdered By: Shelly Manzano on 12-27-2024 This test was develo ped and its performance characteristics determined by [employer]. It has not been cleared or approved by the US Food and Drug Administration. This test was performed in a CLIA certified laboratory and is intended for clinical purposes. Exudates are defined as meeting one of the following criteria: (a) Pleural jwrpy-lq-zdzdt protein ratio of >0.5, (b) pleural foijw-ur-qjenn LDH ratio of >0.6, or (c)a pleural fluid LDH activity that is >2/3 the upper limit of a normal serum LDH activity (Light s criteria). [facility] [employer] No Panel Informationon 12-27 This test was develo ped and its performance characteristics determined by [employer]. It has not been cleared or approved by the US Food and Drug Administration. This test was performed in a CLIA certified laboratory and is intended for clinical purposes. Pleural pyyxw-yj-qgarq protein ratio of >0.5 is one of Light s criteria for an exudate. Heart failure associated misclassifications (by Light s criteria) may be differentiated as transudative effusions by subsequently evaluating a skebp-up-ozfqhhk albumin gradient (>1.2 g/dL) and/or a tbdyr-ky-daxho protein gradient (>3.1 g/dL). [facility] [employer] PROTEIN BODY FLUIDon 025 PROTEIN, BODY FLUID 3.5 g/dL Normal [facility] Comment on above: Performed By: #### L AB196 ####Navy Diver: ROS JIMENEZ ([phone])[facility] ([facility])[address] [place] [address] TYPE OF BODY FLUID Pleural Fluid Normal [facility] Comment on above: Result Comment: EDUARDO Streeter COMMENTS:This test was developed and its performance characteristics determined by [employer]. It has not been cleared or approved by the US Food and Drug Administration. This test was performed in a CLIA certified laboratory and is intended for clinical purposes.Pleural vipwq-he-ukuov protein ratio of >0.5 is one of Light???s criteria for an exudate. Heart failure associated misclassifications (by Light???s criteria) may be differentiated as transudative effusions by subsequently evaluating a vquwz-zc-wxxgovg albumin gradient (>1.2 g/dL) and/or a ebfdz-jq-pulqp protein gradient (>3.1 g/dL). Performed By: #### L AB196 ####Navy Diver: ROS JIMENEZ ([phone])[address] Progress Noteon 12-27-2024 Progress Note [facility] Progress [facility] Normal [facility] Progress Note Normal [facility] Absolute lymphocyte countOrd ered By: Bernardino Burnette on 12-26-2024 Lymphocytes Auto (Unsp spec) [#/Vol] 0.49 10*3/uL Low 0.83-4.51 [facility] Absolute neutrophil countOrd ered By: Bernardino Burnette on 12-26-2024 Neutrophils (Bld) [#/Vol] 12.8 10*3/uL High 2.0-7.7 [facility] Anion gap in Serum or Plasma Ordered By: Bernardino Burnette on 12-26-2024 Anion gap [Moles/Vol] 13 mmol/L - [facility] BUN/creatinine ratioOrdered By: Bernardino Burnette on 12-26-2024 Urea nitrogen/Creatinine [Mass ratio] 11.7 mg/mg - [facility] Basic Metabolic Profile (BMP )on 12-26-2024 BUN/CRE 11.7 RATIO Normal - [facility] Comment on above: Performed By: #### L 500.2500, L100.0100 ####[facility] [address] [place], [place], [id number] Calcium [Mass/Vol] 8.6 mg/dL Normal 7.6-11.0 [facility] Comment on above: Performed By: #### L 500.2500, L100.0100 ####[facility] [address] [place], [address] Chloride [Moles/Vol] 97 mmol/L Low 98-108 [facility] Comment on above: Performed By: #### L 500.2500, L100.0100 ####[facility] [address] [place], [address] CO2 [Moles/Vol] 21.4 mmol/L Normal 21.0-32.0 [facility] Comment on above: Performed By: #### L 500.2500, L100.0100 ####[facility] [address] [place], [address] Creatinine [Mass/Vol] 1.05 mg/dL Normal 0.70-1.20 [facility] Comment on above: Performed By: #### L 500.2500, L100.0100 ####[facility] [address] [place], [address] GAP 13 Normal 5-15 [facility] Comment on above: Performed By: #### L 500.2500, L100.0100 ####[facility] [address] [place], [address] GFR/1.73 sq M.predicted among non-blacks MDRD (S/P/Bld) [Vol rate/Area] 86 mL/min/{1.73_m2} Normal >60 [facility] Comment on above: Result Comment: mL/m in/1.73m2 CKD-EPI Creatinine Equation (2020) Performed By: #### L 500.2500, L100.0100 ####[facility] [address] [place], [address] Glucose [Mass/Vol] 122 mg/dL High 70-99 [facility] Comment on above: Performed By: #### L 500.2500, L100.0100 ####[facility] [address] [place], [address] Potassium [Moles/Vol] 3.9 mmol/L Normal 3.3-5.1 [facility] Comment on above: Performed By: #### L 500.2500, L100.0100 ####[facility] [address] [place], [address] Sodium [Moles/Vol] 131 mmol/L Low 133-145 [facility] Comment on above: Performed By: #### L 500.2500, L100.0100 ####[facility] [address] [place], [address] Urea nitrogen [Mass/Vol] 12 mg/dL Normal 4-19 [facility] Comment on above: Performed By: #### L 500.2500, L100.0100 ####[facility] [address] [place], [address] Blood band neutrophil count as percentage of total leukocytesOrdered By: Bernardino Remarilyna on 12-26-2024 Band form neutrophils/100 WBC (Bld) 1 % 0-5 [facility] Blood blasts/100 leukocytesO rdered By: Bernardino Reodica on 12-26-2024 Blasts/100 WBC (Bld) 3 % High 0-0 [facility] Blood eosinophils/100 leukoc ytesOrdered By: Bernardino Reodica on 12-26-2024 Eosinophils/100 WBC (Bld) 2 % 0-5 [facility] Blood lymphocytes/100 leukoc ytesOrdered By: Bernardino Reodica on 12-26-2024 Lymphocytes/100 WBC (Bld) 3 % Low 19-41 [facility] Blood metamyelocytes/100 walker kocytesOrdered By: Bernardino Reodica on 12-26-2024 Metamyelocytes/100 WBC (Bld) 3 % High 0-1 [facility] Blood monocytes/100 leukocyt esOrdered By: Bernardino Reodica on 12-26-2024 Monocytes/100 WBC (Bld) 5 % 0-10 [facility] Blood polychromasia detectio n by light microscopyOrdered By: Bernardino Burnette on 12-26-2024 Polychromasia LM Ql (Bld) 1+ [facility] Blood promyelocytes/100 leuk ocytesOrdered By: Bernardino Burnette on 12-26-2024 Promyelocytes/100 WBC (Bld) 1 % High 0-0 [facility] Blood segmented neutrophils/ 100 leukocytesOrdered By: Bernardino Burnette on 12-26-2024 Segmented neutrophils/100 WBC (Bld) 77 % High 47-70 [facility] CBC W/Diff, Automatedon Absolute Neut Normal 2.0-7.7 [facility] Comment on above: Result Comment: Canc elled via OM: MD Ordered Performed By: #### L 500.4050, L503.6005, L100.0100 ####[facility] [address] [place], [address] HCT Normal 40-54 [facility] Comment on above: Result Comment: Canc elled via OM: MD Ordered Performed By: #### L 500.4050, L503.6005, L100.0100 ####[facility] [address] [place], [address] HGB Normal 13.0-16.5 [facility] Comment on above: Result Comment: Canc elled via OM: MD Ordered Performed By: #### L 500.4050, L503.6005, L100.0100 ####[facility] [address] [place], [address] MCH Normal 27.0-32.0 [facility] Comment on above: Result Comment: Canc elled via OM: MD Ordered Performed By: #### L 500.4050, L503.6005, L100.0100 ####[facility] [address] [place], [address] MCHC Normal 32-36 [facility] Comment on above: Result Comment: Canc elled via OM: MD Ordered Performed By: #### L 500.4050, L503.6005, L100.0100 ####[facility] [address] [place], [address] MCV Normal 80-94 [facility] Comment on above: Result Comment: Canc elled via OM: MD Ordered Performed By: #### L 500.4050, L503.6005, L100.0100 ####[facility] [address] [place], [address] NEUT% Normal 47-70 [facility] Comment on above: Result Comment: Canc elled via OM: MD Ordered Performed By: #### L 500.4050, L503.6005, L100.0100 ####[facility] [address] [place], [address] PLT Normal 150-450 [facility] Comment on above: Result Comment: Canc elled via OM: MD Ordered Performed By: #### L 500.4050, L503.6005, L100.0100 ####[facility] [address] [place], [address] RBC Normal 4.6-6.2 [facility] Comment on above: Result Comment: Canc elled via OM: MD Ordered Performed By: #### L 500.4050, L503.6005, L100.0100 ####[facility] [address] [place], [address] RDW CV Normal 11.6-14.6 [facility] Comment on above: Result Comment: Canc elled via OM: MD Ordered Performed By: #### L 500.4050, L503.6005, L100.0100 ####[facility] [address] [place], [address] RDW SD Normal 35.1-43.9 [facility] Comment on above: Result Comment: Canc elled via OM: MD Ordered Performed By: #### L 500.4050, L503.6005, L100.0100 ####[facility] [address] [place], [address] WBC Normal 4.4-11.0 [facility] Comment on above: Result Comment: Canc elled via OM: MD Ordered Performed By: #### L 500.4050, L503.6005, L100.0100 ####[facility] [address] [place], [address] Carbon dioxide, total [Moles /volume] in Central venous bloodOrdered By: Bernardino Burnette on 12-26-2024 CO2 [Moles/Vol] 21.4 mmol/L 21.0-32.0 [facility] Chest 1 View (Portable)on Chest 1 View (Portable) [facility] [address] [place] [address] Chest 1 View (Portable) MR#: [id number] Acct: [id number] Name: CISCO CARPENTER Rep #: [id number] : 1975 M 49 From: Zaki Sanchez MD PCP: Care Physician,No Primary Status: REG ER Study: Chest 1 View (Portable) Date of Exam: 12/26/24 Exam# [id number] Ordering Dr: Bernardino Burnette MD PROCEDURE: CHEST 1 VIEW (PORTABLE) 12/26/2024 REASON FOR EXAM: SOB TECHNIQUE: Frontal view of the chest. COMPARISON: CT chest 12/04/2024 FINDINGS: Hardware: None Heart: Cardiac and mediastinal contours are stable. Lungs: Moderate to large right pleural effusion, similar to CT on 12/04/2024. Lung volumes are low and otherwise predominantly clear. Bones: The bones are unchanged. RAD/Chest 1 View (Portable) IMPRESSION: Jbmvrewe-ci-bikvq right pleural effusion, similar to recent CT. Reading Location: [id number] CC: Dr. Bernardino Burnette MD; No Primary Care Physician Level Vial Marker: Signed Normal [facility] Chest WITH Contraston 2024 Chest WITH Contrast [facility] [address] [place] [address] Chest WITH Contrast MR#: [id number] Acct: [id number] Name: CISCO CARPENTER Rep #: [id number] : 1975 M 49 From: Shan Ko MD PCP: Care Physician,No Primary Status: REG ER Study: Chest WITH Contrast Date of Exam: 12/26/24 Exam# [id number] Ordering Dr: Bernardino Burnette MD PROCEDURE: CHEST WITH CONTRAST 12/26/2024 REASON FOR EXAM: ABSCESS, DRAINAGE AROUND PLEURX CATHETER, RIGHT TECHNIQUE: Prone and supine chest CT with intravenous contrast, high resolution CT (HRCT) protocol. Coronal and Sagittal reconstruction series were provided. CONTRAST: Isovue 370 VOLUME: 98 mL. One or more dose reduction techniques were used (e.g., Automated exposure control, adjustment of the mA and/or kV according to patient size, use of iterative reconstruction technique). RADIATION DOSE SUMMARY: CTDlvol: 13.30+ 17.90 mGy DLP: 570.33 mGycm COMPARISON: 12/04/2024. FINDINGS: Loculated right pleural fluid which is markedly decreased in size since the prior CT. Right lower lobe density with attenuation similar to paraspinal muscular some of which may represent atelectasis but the attenuation suggests some may be infected or represent a neoplastic process. Left lower lobe linear atelectasis. Intervally decreased size of mediastinal lymph nodes. Left lower neck soft tissue mass is not included in the volume of these images. Coronary artery calcifications. The peripheral soft tissues are unremarkable. No acute osseous abnormalities. CT/Chest WITH Contrast IMPRESSION: Decreased right pleural effusion which is now loculated. Right lower lobe density likely representing some component of atelectasis but superimposed infection or neoplastic process can not be excluded. Decreased mediastinal lymphadenopathy. Reading Location: [place] [address] CC: Dr. Bernardino Burnette MD; No Primary Care Physician Level Vial Marker: Signed Normal [facility] Chloride assayOrdered By: Robert Burnette on 12-26-2024 Chloride [Moles/Vol] 97 mmol/L Low 98-108 [facility] Comprehensive Metabolic Prof ilon 12-26-2024 ALB Normal 3.5-5.0 [facility] Comment on above: Result Comment: Canc elled via OM: MD Ordered Performed By: #### L 500.4050, L503.6005, L100.0100 ####[facility] [address] [place], [address] ALK PHOS Normal 40-129 [facility] Comment on above: Result Comment: Canc elled via OM: MD Ordered Performed By: #### L 500.4050, L503.6005, L100.0100 ####[facility] [address] [place], [address] ALT Normal <=46 [facility] Comment on above: Result Comment: Canc elled via OM: MD Ordered Performed By: #### L 500.4050, L503.6005, L100.0100 ####[facility] [address] [place], [address] AST Normal <=37 [facility] Comment on above: Result Comment: Canc elled via OM: MD Ordered Performed By: #### L 500.4050, L503.6005, L100.0100 ####[facility] [address] [place], [address] BUN Normal 4-19 [facility] Comment on above: Result Comment: Canc elled via OM: MD Ordered Performed By: #### L 500.4050, L503.6005, L100.0100 ####[facility] [address] [place], [address] BUN/CRE Normal 10-20 [facility] Comment on above: Result Comment: Canc elled via OM: MD Ordered Performed By: #### L 500.4050, L503.6005, L100.0100 ####[facility] [address] [place], [address] Calcium Normal 7.6-11.0 [facility] Comment on above: Result Comment: Canc elled via OM: MD Ordered Performed By: #### L 500.4050, L503.6005, L100.0100 ####[facility] [address] [place], [address] CL Normal 98-108 [facility] Comment on above: Result Comment: Canc elled via OM: MD Ordered Performed By: #### L 500.4050, L503.6005, L100.0100 ####[facility] [address] [place], [address] CO2 Normal 21.0-32.0 [facility] Comment on above: Result Comment: Canc elled via OM: MD Ordered Performed By: #### L 500.4050, L503.6005, L100.0100 ####[facility] [address] [place], [address] CREAT,SERUM Normal 0.70-1.20 [facility] Comment on above: Result Comment: Canc elled via OM: MD Ordered Performed By: #### L 500.4050, L503.6005, L100.0100 ####[facility] [address] [place], [address] eGFR Normal >60 [facility] Comment on above: Result Comment: Canc elled via OM: MD Ordered Performed By: #### L 500.4050, L503.6005, L100.0100 ####[facility] [address] [place], [address] GAP Normal 5-15 [facility] Comment on above: Result Comment: Canc elled via OM: MD Ordered Performed By: #### L 500.4050, L503.6005, L100.0100 ####[facility] [address] [place], [address] GLU Normal 70-99 [facility] Comment on above: Result Comment: Canc elled via OM: MD Ordered Performed By: #### L 500.4050, L503.6005, L100.0100 ####[facility] [address] [place], [address] Potassium Normal 3.3-5.1 [facility] Comment on above: Result Comment: Canc elled via OM: MD Ordered Performed By: #### L 500.4050, L503.6005, L100.0100 ####[facility] [address] [place], [address] T BILI Normal 0.00-1.30 [facility] Comment on above: Result Comment: Canc elled via OM: MD Ordered Performed By: #### L 500.4050, L503.6005, L100.0100 ####[facility] [address] [place], [address] T PROT Normal 5.9-8.4 [facility] Comment on above: Result Comment: Canc elled via OM: MD Ordered Performed By: #### L 500.4050, L503.6005, L100.0100 ####[facility] [address] [place], [address] Comprehensive Metabolic Profil Normal 133-145 [facility] Comment on above: Result Comment: Canc elled via OM: MD Ordered Performed By: #### L 500.4050, L503.6005, L100.0100 ####[facility] [address] [place], [address] Emergency Department Summary on 12-26-2024 Emergency Department Summary [facility] Medical Records Department [address] [place] [address] Emergency Department Summary 12/26/24 MR#: [id number] Acct: [id number] Name: CISCO CARPENTER Rep #: [id number] : 1975 49 From: Bernardino Burnette MD PCP: Care Physician,No Primary Status:REG ER Location: ED HPI History of Present Illness Chief Complaint: Shortness of Breath Narrative Narrative: 49-year-old male presents with his mother because of drainage around the Pleurx catheter in his right posterior back. He relates history that around Mother's Day, approximately 3 to 4 weeks ago, he was at [facility] admitted for 11 days. He has history of blood clots on apixaban, he states he had a mass on his neck and they found a nodule or mass in his left lung, and he was found to have fluid on his right lung as well. Initially they drained his right blood which I assume was from thoracentesis and he states they got a liter off. They initially inserted tube, and reportedly were able to get 3 L of fluid off his lung. They put in a small catheter which they could draw fluid off of every so often. He states he last had it drained last Thursday where they only took 50 mL. The home health nurse was supposed to drain it again today, but she noticed purulent drainage on the dressing surrounding the catheter. Of note, he also has bilateral nephrostomy tubes. He and his mother states that he is supposed to be at [facility] tomorrow to get a Mediport placed. [facility] Medical History HTN (hypertension) DVT (deep venous thrombosis) Home Medications ???Medication ???Instructions ???Recorded ???Last Taken ???Type apixaban 5 mg tablet (Eliquis) 5 mg PO BID 12/04/24 12/04/24 Hist ory lisinopril 20 mg tablet 20 mg PO DAILY 12/04/24 12/04/24 H istory allopurinol 300 mg tablet PO 12/26/24 Unknown History prednisone 50 mg tablet PO 12/26/24 Unknown History Allergy/AdvReac Type Severity Reaction Status Date / Time No Known Allergies Allergy Verified 12/26/24 18:26 Social History Smoking Status: Former smoker ROS ROS ED ROS Narrative Review of systems positive for drainage around Pleurx catheter, purulent. No fevers or chills, no nausea or vomiting, no shortness of breath. EXAM Physical Exam Narrative Exam Narrative: Afebrile. Vital signs noted. Nontoxic-appearing. Cardiovascular examination reveals a regular rate and rhythm. Lungs are clear to auscultation bilaterally. The abdomen is soft and nontender with positive bowel sounds. Inspection of the nephrostomy tubes shows no evidence of surrounding erythema. There is a scant amount of purulent drainage around the right posterior Pleurx catheter. There is a larger lump more caudal to this which is the area he states he had prior drainage of the prior tube. Const Vital Signs: 12/26/24 16:53 12/26/24 16:53 12/26/24 18:22 Temperature 98 F Temperature Source Oral Oral Pulse Rate 77 Respiratory Rate 18 22 H Respiratory Effort Respiratory Depth Respiratory Pattern Blood Pressure 120/60 Blood Pressure Mean 80 Pulse Ox 98 100 Oxygen Delivery Method Room Air 12/26/24 18:23 12/26/24 18:24 12/26/24 19:08 Temperature 98 F Temperature Source Temporal Pulse Rate 77 98 Respiratory Rate 22 H 19 H Respiratory Effort Non-Labored Respiratory Depth Normal Respiratory Pattern Normal Blood Pressure 101/84 H Blood Pressure Mean 89 Pulse Ox 100 99 Oxygen Delivery Method Room Air 12/26/24 21:00 Temperature Temperature Source Pulse Rate 93 Respiratory Rate 21 H Respiratory Effort Respiratory Depth Respiratory Pattern Blood Pressure 116/72 Blood Pressure Mean 86 Pulse Ox 100 Oxygen Delivery Method MDM MDM MDM Narrative Medical decision making narrative: Differential diagnosis includes but not limited to infection of Pleurx catheter versus pneumonia versus lung abscess versus subcutaneous abscess with tracking. Initial laboratories have been entered per protocol. Although chest x-ray was obtained per protocol, I do feel he needs a CT of the chest with IV contrast. I reviewed his laboratory work and he has elevated white count of 16.4 with hemoglobin 9.3, platelet count slightly elevated at 477. Sodium is low at 131 with chloride 97, potassium 3.9. Glucose low at 122, lactic acid less than 1.0. I doubt sepsis. On my independent interpretation of the protocol of chest x-ray, there is a moderate to large pleural effusion on the right. Reviewed the radiology report of the CT of the chest with IV contrast and although it is decreased, there is a loculated pleural effusion, and there is a right lower lo (more content not included)... Normal [facility] Erythrocyte distribution wid th ratioOrdered By: Bernardino Burnette on 12-26-2024 Erythrocyte distribution width (RBC) [Ratio] 15.5 % High 11.6-14.6 [facility] Erythrocyte distribution wid th standard deviationOrdered By: Bernardino Burnette on 12-26-2024 Erythrocyte distribution width (RBC) [Ratio] 47.7 fl High 35.1-43.9 [facility] Glomerular filtration rate ( GFR) estimation/1.73 sq m using serum, plasma, or whole bOrdered By: Bernardino Burnette on 12-26-2024 GFR/1.73 sq M.predicted among non-blacks MDRD (S/P/Bld) [Vol rate/Area] 86 mL/min/{1.73_m2} >60 [facility] Comment on above: mL/min/1.73m2 CKD-EP I Creatinine Equation (2020) Hematocrit Auto (Bld) [Volum e fraction]Ordered By: Bernardino Burnette on 12-26-2024 Hematocrit (Bld) [Volume fraction] 27.7 % Low 40-54 [facility] Hemoglobin measurementOrdere d By: Bernardino Burnette on 12-26-2024 Hemoglobin (Bld) [Mass/Vol] 9.3 g/dL Low 13.0-16.5 [facility] Lactic Acidon 12-26-2024 Lactate [Moles/Vol] mmol/L Normal 0.0-2.0 [facility] Comment on above: Order Comment: Y Performed By: #### L 500.4050, L503.6005, L100.0100 ####[facility] [id number] [place], [address] Lactic acid measurementOrder ed By: Bernardino Burnette on 12-26-2024 Lactate [Moles/Vol] mmol/L 0.0-2.0 [facility] MCV (mean corpuscular volume ) determinationOrdered By: Bernardino Burnette on 12-26-2024 MCV (RBC) [Entitic vol] 87.1 fL 80-94 [facility] Mean corpuscular hemoglobin (MCH) determinationOrdered By: Bernardino Burnette on 12-26-2024 MCH (RBC) [Entitic mass] 29.2 pg 27.0-32.0 [facility] Mean corpuscular hemoglobin concentration (MCHC) determinationOrdered By: Bernardino Burnette on 12-26-2024 MCHC (RBC) [Mass/Vol] 33.6 g/dL 32-36 [facility] Mean platelet volume determi nationOrdered By: Bernardino Burnette on 12-26-2024 Platelet mean volume (Bld) [Entitic vol] 8.5 fL 6.2-12.0 [facility] Myelocyte %Ordered By: Bernardino Burnette on 12-26-2024 Myelocytes/100 WBC (Bld) 5 % High 0-0 [facility] Platelet countOrdered By: Robert Burnette on 12-26-2024 Platelets (Bld) [#/Vol] 477 10*3/uL High 150-450 [facility] Platelet estimateOrdered By: Bernardino Burnette on 12-26-2024 Platelets LM Ql (Bld) SLT INC ADEQ [facility] Potassium measurement (mass/ volume)Ordered By: Bernardino Burnette on 12-26-2024 Potassium (Unsp spec) [Mass/Vol] 3.9 mmol/L 3.3-5.1 [facility] RBC Auto (Bld) [#/Vol]Ordere d By: Bernardino Burnette on 12-26-2024 RBC (Bld) [#/Vol] 3.18 10*6/uL Low 4.6-6.2 [facility] Review by pathologistOrdered By: Bernardino Burnette on 12-26-2024 Pathologist review Marino (Unsp spec) [Interp] May foll [facility] Serum creatinine measurement (mass/volume)Ordered By: Bernardino Burnette on 12-26-2024 Creatinine [Mass/Vol] 1.05 mg/dL 0.70-1.20 [facility] Serum glucose measurement (m ass/volume)Ordered By: Bernardino Burnette on 12-26-2024 Glucose [Mass/Vol] 122 mg/dL High 70-99 [facility] Serum or plasma calcium kamron urement (mass/volume)Ordered By: Bernardino Burnette on 12-26-2024 Calcium [Mass/Vol] 8.6 mg/dL 7.6-11.0 [facility] Serum or plasma urea nitroge n measurement (mass/volume)Ordered By: Bernardino Burnette on 12-26-2024 Urea nitrogen [Mass/Vol] 12 mg/dL 4-19 [facility] Sodium levelOrdered By: Bernardino Burnette on 12-26-2024 Sodium [Moles/Vol] 131 mmol/L Low 133-145 [facility] Total cell countOrdered By: Bernardino Burnette on 12-26-2024 Cells counted Molgen (Bld/Tiss) [#] 100 MANUAL DIFF [facility] White blood cell (WBC) count Ordered By: Bernardino Burnette on 12-26-2024 WBC (Bld) [#/Vol] 16.4 10*3/uL High 4.4-11.0 [facility] Progress Noteon 12-22-2024 Progress Note Normal [facility] 3612-21-2024 36 Normal [facility] Progress Noteon 12-21-2024 Progress Note Normal [facility] 36on 12-20-2024 36 Normal [facility] [id number] 12-16-2024 [id number] [facility] 30on 12-15-2024 30 Normal [facility] [id number] 12-15-2024 [id number] [facility] scheduled fo r 12/27. Follow up with Dr. Lucio will be that same day at 1PM. Provided the mother and patient with an updated treatment calendar. Roxane Grajeda, BILLET CHECKER - AUTOMOTIVE SERVICE TECHNICIAN [facility] [phone] [facility] CALCIUM, IONIZEDon CALCIUM IONIZED 4.30 mg/dL Normal 4.30-5.20 [facility] Comment on above: Performed By: #### L [id number] ####[employer]y Diver: ROS JIMENEZ ([phone])[facility] ([address] PH, IONIZED CALCIUM 7.39 Normal 7.31-7.46 [facility] Comment on above: Performed By: #### L [id number] ####[employer]y Diver: ROS JIMENEZ ([phone])[facility])[address] [place] [address] CBC WITH AUTO DIFFERENTIALon 12-15-2024 Erythrocyte distribution width (RBC) [Ratio] 15.3 % High 11.5-15.[address] [facility] Comment on above: Performed By: #### L [id number], [id number] ####[employer] Diver: ROS JIMENEZ ([phone])[facility])[address] [place] [address] Hematocrit (Bld) [Volume fraction] 24.3 % Low 40.0-52.[address] [facility] Comment on above: Performed By: #### L [id number], [id number] ####[employer]: ROS JIMENEZ ([id number])[address] Hemoglobin (Bld) [Mass/Vol] 7.9 g/dL Low 13.0-18.[address] [facility] Comment on above: Performed By: #### L [id number], [id number] ####[employer] Diver: ROS JIMENEZ ([id number])[address] MCH (RBC) [Entitic mass] 29.8 pg Normal 26.0-34.[address] [facility] Comment on above: Performed By: #### L [id number], [id number] ####[employer] Diver: ROS JIMENEZ ([id number])[address] MCHC 32.5 % Normal 30.5-36.[address] [facility] Comment on above: Performed By: #### L [id number], [id number] ####[employer] Diver: ROS JIMENEZ ([phone])[address] MCV (RBC) [Entitic vol] 91.7 fL Normal 77.0-99.[address] [facility] Comment on above: Performed By: #### L [id number], [id number] ####Nav[employer] Diver: ROS JIMENEZ ([phone])[facility] ([facility])[address] [place] [address] Platelet mean volume (Bld) [Entitic vol] 9.4 fL Normal 9.0-12.7 [facility] Comment on above: Performed By: #### L [id number], [id number] ####Nav[employer] Diver: ROS JIMENEZ ([id number])[facility] ([facility])[address] [place] [address] Platelets (Bld) [#/Vol] 237 10*3/uL Normal 140-440 [facility] Comment on above: Performed By: #### L [id number], [id number] ####Nav[employer] Diver: ROS JIMENEZ ([phone])[facility] ([facility])[address] [place] [address] RBC (Bld) [#/Vol] 2.65 10*6/uL Low 4.40-5.90 [facility] Comment on above: Performed By: #### L [id number], [id number] ####Nav[employer] Diver: ROS JIMENEZ ([phone])[facility])[address] [place] [address] WBC (Bld) [#/Vol] 24.3 10*3/uL High 3.6-10.7 [facility] Comment on above: Performed By: #### L [id number], [id number] ####Nav[employer] Diver: ROS JIMENEZ ([phone])[facility] ([facility])[address] [place] [address] Consulton 12-15-2024 Consult Normal [facility] LACTATE DEHYDROGENASEon 11-25 LDH [Catalytic activity/Vol] 278 U/L High 125-220 [facility] Comment on above: Performed By: #### L AB103, LAB96, [id number], LAB19 ####Nav[employer] Diver: ROS JIMENEZ ([phone])[facility] ([facility])[address] [place] [address] MAGNESIUMon 12-15-2024 Magnesium [Mass/Vol] 1.9 mg/dL Normal 1.6-2.6 [facility] Comment on above: Result Comment: EDUARDO R COMMENTS:Higher values can be expected in females during menses. Performed By: #### L AB103, LAB96, [id number], LAB19 ####Nav[employer] Diver: ROS JIMENEZ ([phone])[facility] ([facility])[address] [place] [address] MANUAL DIFFERENTIAL (CELLAVI MISSAEL)on 12-15-2024 BAND NEUTROPHILS TOTAL PER COUNTED LEUKOCYTES BY MANUAL COUNT 1 Normal [facility] Comment on above: Performed By: #### L [id number], [id number] ####Nav[employer] Diver: ROS JIMENEZ ([phone])[facility] ([facility])[address] [place] [address] BANDS (10*3/UL) IN BLOOD-CELLAVISION 0.2 10*3/uL High <=0.0 [facility] Comment on above: Performed By: #### L [id number], [id number] ####Nav[employer] Diver: ROS JIMENEZ ([phone])[facility])[address] [place] [address] BASOPHILS TOTAL PER COUNTED LEUKOCYTES BY MANUAL COUNT Normal [facility] Comment on above: Performed By: #### L [id number], [id number] ####Navy Diver: ROS JIMENEZ ([phone])[facility])[address] [place] [address] BLASTS TOTAL PER COUNTED LEUKOCYTES BY MANUAL COUNT [facility] Comment on above: Performed By: #### L [id number], [id number] ####Nav[employer] Diver: ROS JIMENEZ ([phone])[facility])[address] [place] [address] [place] EOSINOPHILS (10*3/UL) IN BLOOD-CELLAVISION 0.2 10*3/uL Normal 0.0-0.5 [facility] Comment on above: Performed By: #### L [id number], [id number] ####Nav[employer] Diver: ROS JIMENEZ ([phone])[facility] ([facility])[address] [place] [address] [place] EOSINOPHILS TOTAL PER COUNTED LEUKOCYTES BY MANUAL COUNT 1 Normal 0-[address] [facility] Comment on above: Performed By: #### L [id number], [id number] ####Nav[employer] Diver: ROS JIMENEZ ([phone])[facility] [place] [address] [place] EOSINOPHILS/100 LEUKOCYTES IN BLOOD-CELLAVISION 1 % Normal 0-[address] [facility] Comment on above: Performed By: #### L [id number], [id number] ####Nav[employer] Diver: ROS JIMENEZ ([phone])[facility])[address] [place] [address] [place] LYMPHOCYTES (10*3/UL) IN BLOOD-CELLAVISION 0.2 10*3/uL Low 1.0-4.3 [facility] Comment on above: Performed By: #### L [id number], [id number] ####Nav[employer] Diver: ROS JIMENEZ ([phone])[facility] [place] [address] [place] LYMPHOCYTES TOTAL PER COUNTED LEUKOCYTES BY MANUAL COUNT [address] [facility] Comment on above: Performed By: #### L [id number], [id number] ####Nav[employer] Diver: ROS JIMENEZ ([phone])[facility])[address] [place] [address] [place] LYMPHOCYTES/100 LEUKOCYTES IN BLOOD-CELLAVISION 1 % Low 15-[address] [facility] Comment on above: Performed By: #### L [id number], [id number] ####Nav[employer] Diver: ROS JIMENEZ ([phone])[facility] ([facility])[address] [place] [address] [place] METAMYELOCYTES TOTAL PER COUNTED LEUKOCYTES BY MANUAL COUNT Normal [facility] Comment on above: Performed By: #### L [id number], [id number] ####Nav[employer] Diver: ROS JIMENEZ ([id number])[facility] ([facility])[address] [place] [address] [place] MONOCYTES (10*3/UL) IN BLOOD-CELLAVISION 0.0 10*3/uL Normal 0.0-0.[address] [facility] Comment on above: Performed By: #### L [id number], [id number] ####Nav[employer] Diver: ROS JIMENEZ ([id number])[facility] [place] [address] [place] MONOCYTES TOTAL PER COUNTED LEUKOCYTES BY MANUAL COUNT [address] [facility] Comment on above: Performed By: #### L [id number], [id number] ####Nav[employer] Diver: ROS JIMENEZ ([id number])[facility] ([facility])[address] [place] [address] [place] MONOCYTES/100 LEUKOCYTES IN BLOOD-EDUARDO 0 % Low 5-[address] [facility] Comment on above: Performed By: #### L [id number], [id number] ####Nav[employer] Diver: ROS JIMENEZ ([phone])[facility] ([facility])[address] [place] [address] [place] MYELOCYTES COUNTED BY MANUAL COUNT Normal [facility] Comment on above: Performed By: #### L [id number], [id number] ####Nav[employer] Diver: ROS JIMENEZ ([phone])[facility] ([facility])[address] [place] [address] [place] NEUTROPHILS BAND FORM/100 LEUKOCYTES IN BLOOD-CELLAVISI 1 % High <=[address] [facility] Comment on above: Performed By: #### L [id number], [id number] ####Navy Diver: ROS JIMENEZ ([phone])[facility] ([facility])[address] [place] [address] [place] NEUTROPHILS TOTAL PER COUNTED LEUKOCYTES BY MANUAL COUNT [address] [facility] Comment on above: Performed By: #### L [id number], [id number] ####Navy Diver: ROS JIMENEZ ([id number])[facility] ([facility])[address] [place] [address] [place] PROMYELOCYTES TOTAL PER COUNTED LEUKOCYTES BY MANUAL COUNT Normal [facility] Comment on above: Performed By: #### L [id number], [id number] ####Navy Diver: ROS JIMENEZ ([phone])[facility])[address] [place] [address] RBC MORPHOLOGY IN BLOOD Normal Normal [facility] Comment on above: Performed By: #### L [id number], [id number] ####Navy Diver: ROS JIMENEZ ([id number])[facility] ([facility])[address] [place] [address] SEGMENTED NEUTROPHILS (10*3/UL) IN BLOOD-CELLAVISION 23.8 10*3/uL High 1.8-7.5 [facility] Comment on above: Performed By: #### L [id number], [id number] ####Navy Diver: ROS JIMENEZ ([phone])[facility] ([facility])[address] [place] [address] SEGMENTED NEUTROPHILS/100 LEUKOCYTES-CE 97 % High 38-82 [facility] Comment on above: Performed By: #### L [id number], [id number] ####Navy Diver: ROS JIMENEZ ([phone])[facility] ([facility])[address] [place] [address] UNCLASSIFIED CELLS TOTAL PER COUNTED LEUKOCYTES BY MANUAL COUNT [facility] Comment on above: Performed By: #### L [id number], [id number] ####Navy Diver: ROS JIMENEZ ([id number])[facility])[address] [place] [address] VARIANT LYMPHOCYTES TOTAL PER COUNTED LEUKOCYTES BY MANUAL COUNT Normal [facility] Comment on above: Performed By: #### L [id number], [id number] ####Navy Diver: ROS JIMENEZ ([phone])[facility])[address] [place] [address] Progress Noteon 12-15-2024 Progress Note [facility] Progress [facility] RENAL FUNCTION PANELon 12-15 Albumin [Mass/Vol] 2.1 g/dL Low 3.5-5.0 [facility] Comment on above: Performed By: #### L AB103, LAB96, [id number], LAB19 ####Navy Diver: ROS JIMENEZ ([phone])[facility] ([facility])[address] [place] [address] Anion gap [Moles/Vol] 5 mmol/L Normal 3-13 [facility] Comment on above: Performed By: #### L AB103, LAB96, [id number], LAB19 ####Navy Diver: ROS JIMENEZ ([phone])[facility] [place] [address] Calcium [Mass/Vol] 7.6 mg/dL Low 8.4-10.2 [facility] Comment on above: Performed By: #### L AB103, LAB96, [id number], LAB19 ####Navy Diver: ROS JIMENEZ ([phone])[facility] ([facility])[address] [place] [address] Chloride [Moles/Vol] 107 mmol/L Normal 98-107 [facility] Comment on above: Performed By: #### L AB103, LAB96, [id number], LAB19 ####Navy Diver: ROS JIMENEZ ([phone])[facility] [place] [address] CO2 [Moles/Vol] 22 mmol/L Normal 22-29 [facility] Comment on above: Performed By: #### L AB103, LAB96, [id number], LAB19 ####Navy Diver: ROS JIMENEZ ([phone])[facility] [place] [address] Creatinine [Mass/Vol] 0.79 mg/dL Normal 0.72-1.25 [facility] Comment on above: Performed By: #### L AB103, LAB96, [id number], LAB19 ####Navy Diver: ROS JIMENEZ ([phone])[facility] ([facility])[address] [place] [address] GLOMERULAR FILTRATION RATE ML/MIN/1.73 SQ M.PREDICTED >90.0 Normal >60.0 [facility] Comment on above: Result Comment: Calc ulation based on the Chronic Kidney Disease Epidemiology Collaboration (CKD-EPI) equation refit without adjustment for race Performed By: #### L AB103, LAB96, [id number], LAB19 ####Navy Diver: ROS JIMENEZ ([id number])[facility] ([facility])[address] [place] [address] Glucose [Mass/Vol] 88 mg/dL Normal 74-100 [facility] Comment on above: Performed By: #### L AB103, LAB96, [id number], LAB19 ####Navy Diver: ROS JIMENEZ ([phone])[facility])[address] [place] [address] Phosphate [Mass/Vol] 2.6 mg/dL Normal 2.3-4.7 [facility] Comment on above: Performed By: #### L AB103, LAB96, [id number], LAB19 ####Navy Diver: ROS JIMENEZ ([id number])[facility] ([facility])[address] [place] [address] Potassium [Moles/Vol] 3.9 mmol/L Normal 3.5-5.1 [facility] Comment on above: Result Comment: [facility] potassium values may be up to 0.5 mmol/L lower than serum values. Performed By: #### L AB103, LAB96, [id number], LAB19 ####Navy Diver: ROS JIMENEZ ([phone])[facility] ([facility])[address] [place] [address] [place] Sodium [Moles/Vol] 134 mmol/L Low 136-145 [facility] Comment on above: Performed By: #### L AB103, LAB96, [id number], LAB19 ####Navy Diver: ROS JIMENEZ ([phone])[facility])[address] [place] [address] [place] Urea nitrogen [Mass/Vol] 19 mg/dL Normal 9-23 [facility] Comment on above: Performed By: #### L AB103, LAB96, [id number], LAB19 ####Navy Diver: ROS JIMENEZ ([id number])[facility] ([facility])[address] [place] [address] URIC ACIDon 12-15-2024 Urate [Mass/Vol] 2.0 mg/dL Low 3.7-7.7 [facility] Comment on above: Performed By: #### L AB103, LAB96, [id number], LAB19 ####Navy Diver: ROS JIMENEZ ([phone])[facility] ([facility])[address] [place] [address] XR CHEST 1 VIEWon 12-15-2024 XR CHEST 1 VIEW Normal [facility] 30on 12-14-2024 30 Normal [facility] [id number] 12-14-2024 [id number] Spoke with PT, johnny davies from past few days, plan to change CT out for plurex drain today. Home care is on board to care for drains while he is at his mothers at [place]. Normal [facility] CBC WITH AUTO DIFFERENTIALon 12-14-2024 Erythrocyte distribution width (RBC) [Ratio] 15.4 % High 11.5-15.0 [facility] Comment on above: Performed By: #### L [id number], [id number] ####Navy Diver: ROS JIMENEZ ([phone])[facility] ([facility])[address] [place] [address] Hematocrit (Bld) [Volume fraction] 25.4 % Low 40.0-52.0 [facility] Comment on above: Performed By: #### L [id number], [id number] ####Navy Diver: ROS JIMENEZ ([phone])[facility])[address] [place] [address] Hemoglobin (Bld) [Mass/Vol] 8.3 g/dL Low 13.0-18.0 [facility] Comment on above: Performed By: #### L [id number], [id number] ####Navy Diver: ROS JIMENEZ ([phone])[facility] ([facility])[address] [place] [address] MCH (RBC) [Entitic mass] 29.7 pg Normal 26.0-34.[address] [facility] Comment on above: Performed By: #### L [id number], [id number] ####Navy Diver: ROS JIMENEZ ([id number])[facility])[address] [place] [address] MCHC 32.7 % Normal 30.5-36.[address] [facility] Comment on above: Performed By: #### L [id number], [id number] ####Navy Diver: ROS JIMENEZ ([phone])[facility])[address] [place] [address] MCV (RBC) [Entitic vol] 91.0 fL Normal 77.0-99.[address] [facility] Comment on above: Performed By: #### L [id number], [id number] ####Navy Diver: ROS JIMENEZ ([phone])[facility] ([facility])[address] [place] [address] Platelet mean volume (Bld) [Entitic vol] 9.5 fL Normal 9.0-12.[address] [facility] Comment on above: Performed By: #### L [id number], [id number] ####Navy Diver: ROS JIMENEZ ([phone])[facility])[address] [place] [address] Platelets (Bld) [#/Vol] 246 10*3/uL Normal 140-[address] [facility] Comment on above: Performed By: #### L [id number], [id number] ####[employer] D[employer]: ROS JIMENEZ ([id number])[facility])[address] [place] [address] RBC (Bld) [#/Vol] 2.79 10*6/uL Low 4.40-5.[address] [facility] Comment on above: Performed By: #### L [id number], [id number] ####[employer]: ROS JIMENEZ ([phone])[facility] ([facility])[address] [place] [address] WBC (Bld) [#/Vol] 26.5 10*3/uL High 3.6-10.7 [facility] Comment on above: Performed By: #### L [id number], [id number] ####Navy Diver: ROS JIMENEZ ([phone])[facility])[address] [place] [address] LACTATE DEHYDROGENASEon - LDH [Catalytic activity/Vol] 325 U/L High 125-220 [facility] Comment on above: Performed By: #### L AB96, LAB19, [id number], [id number] ####Navy Diver: ROS JIMENEZ ([phone])[facility])[address] [place] [address] MAGNESIUMon 12-14-2024 Magnesium [Mass/Vol] 2.0 mg/dL Normal 1.6-2.6 [facility] Comment on above: Result Comment: EDUARDO Streeter COMMENTS:Higher values can be expected in females during menses. Performed By: #### L AB96, LAB19, [id number], [id number] ####Navy Diver: ROS JIMENEZ ([phone])[facility] ([facility])[address] [place] [address] MANUAL DIFFERENTIAL (CELLAVI MISSAEL)on 12-14-2024 ANISOCYTOSIS PRESENCE IN BLOOD BY LIGHT MICROSCOPY Slight Abnormal (none) [facility] Comment on above: Performed By: #### L [id number], [id number] ####Navy Diver: ROS JIMENEZ ([phone])[facility])[address] [place] [address] BAND NEUTROPHILS TOTAL PER COUNTED LEUKOCYTES BY MANUAL COUNT 4 Normal [facility] Comment on above: Performed By: #### L [id number], [id number] ####Navy Diver: ROS JIMENEZ ([phone])[facility])[address] [place] [address] BANDS (10*3/UL) IN BLOOD-CELLAVISION 1.1 10*3/uL High <=0.[address] [facility] Comment on above: Performed By: #### L [id number], [id number] ####Navy Diver: ROS JIMENEZ ([phone])[facility] [place] [address] [place] BASOPHILS TOTAL PER COUNTED LEUKOCYTES BY MANUAL COUNT Normal [facility] Comment on above: Performed By: #### L [id number], [id number] ####Navy Diver: ROS JIMENEZ ([phone])[facility] [place] [address] [place] BLASTS TOTAL PER COUNTED LEUKOCYTES BY MANUAL COUNT [facility] Comment on above: Performed By: #### L [id number], [id number] ####Navy Diver: ROS JIMENEZ ([phone])[facility] [place] [address] [place] EOSINOPHILS TOTAL PER COUNTED LEUKOCYTES BY MANUAL COUNT [facility] Comment on above: Performed By: #### L [id number], [id number] ####Navy Diver: ROS JIMENEZ ([phone])[facility] [place] [address] [place] LYMPHOCYTES (10*3/UL) IN BLOOD-CELLAVISION 0.5 10*3/uL Low 1.0-4.3 [facility] Comment on above: Performed By: #### L [id number], [id number] ####Navy Diver: ROS JIMENEZ ([phone])[facility] [place] [address] [place] LYMPHOCYTES TOTAL PER COUNTED LEUKOCYTES BY MANUAL COUNT 2 [facility] Comment on above: Performed By: #### L [id number], [id number] ####Navy Diver: ROS JIMENEZ ([phone])[facility])[address] [place] [address] [place] LYMPHOCYTES/100 LEUKOCYTES IN BLOOD-CELLAVISION 2 % Low 15-[address] [facility] Comment on above: Performed By: #### L [id number], [id number] ####Navy Diver: ROS JIMENEZ ([phone])[facility] ([facility])[address] [place] [address] MACROCYTES (PRESENCE) IN BLOOD BY LIGHT MICROSCOPY Slight Abnormal (none) [facility] Comment on above: Performed By: #### L [id number], [id number] ####Navy Diver: ROS JIMENEZ ([phone])[facility] ([facility])[address] [place] [address] METAMYELOCYTES TOTAL PER COUNTED LEUKOCYTES BY MANUAL COUNT Normal [facility] Comment on above: Performed By: #### L [id number], [id number] ####Navy Diver: ROS JIMENEZ ([phone])[facility])[address] [place] [address] MONOCYTES (10*3/UL) IN BLOOD-CELLAVISION 0.5 10*3/uL Normal 0.0-0.[address] [facility] Comment on above: Performed By: #### L [id number], [id number] ####Navy Diver: ROS JIMENEZ ([phone])[facility] ([facility])[address] [place] [address] [place] MONOCYTES TOTAL PER COUNTED LEUKOCYTES BY MANUAL COUNT [address] [facility] Comment on above: Performed By: #### L [id number], [id number] ####Navy Diver: ROS JIMENEZ ([phone])[facility] ([facility])[address] [place] [address] [place] MONOCYTES/100 LEUKOCYTES IN BLOOD-EDUARDO 2 % Low 5-[address] [facility] Comment on above: Performed By: #### L [id number], [id number] ####Navy Diver: ROS JIMENEZ ([phone])[facility])[address] [place] [address] [place] MYELOCYTES COUNTED BY MANUAL COUNT Normal [facility] Comment on above: Performed By: #### L [id number], [id number] ####Navy Diver: ROS JIMENEZ ([phone])[facility])[address] [place] [address] [place] NEUTROPHILS BAND FORM/100 LEUKOCYTES IN BLOOD-CELLAVISI 4 % High <=[address] [facility] Comment on above: Performed By: #### L [id number], [id number] ####Navy Diver: ROS JIMENEZ ([phone])[facility])[address] [place] [address] [place] NEUTROPHILS TOTAL PER COUNTED LEUKOCYTES BY MANUAL COUNT [address] [facility] Comment on above: Performed By: #### L [id number], [id number] ####Navy Diver: ROS JIMENEZ ([phone])[facility] ([facility])[address] [place] [address] [place] PROMYELOCYTES TOTAL PER COUNTED LEUKOCYTES BY MANUAL COUNT Normal [facility] Comment on above: Performed By: #### L [id number], [id number] ####Navy Diver: ROS JIMENEZ ([phone])[facility] ([facility])[address] [place] [address] [place] RBC MORPHOLOGY IN BLOOD abnormal Normal [facility] Comment on above: Performed By: #### L [id number], [id number] ####Navy Diver: ROS JIMENEZ ([phone])[facility] ([facility])[address] [place] [address] [place] SEGMENTED NEUTROPHILS (10*3/UL) IN BLOOD-CELLAVISION 25.4 10*3/uL High 1.8-7.[address] [facility] Comment on above: Performed By: #### L [id number], [id number] ####Navy Diver: ROS JIMENEZ ([phone])[facility])[address] [place] [address] [place] SEGMENTED NEUTROPHILS/100 LEUKOCYTES-CE 92 % High 38-[address] [facility] Comment on above: Performed By: #### L [id number], [id number] ####Navy Diver: ROS JIMENEZ ([phone])[facility] ([facility])[address] [place] [address] [place] UNCLASSIFIED CELLS TOTAL PER COUNTED LEUKOCYTES BY MANUAL COUNT Normal [facility] Comment on above: Performed By: #### L [id number], [id number] ####Navy Diver: ROS JIMENEZ ([phone])[facility])[address] [place] [address] VARIANT LYMPHOCYTES TOTAL PER COUNTED LEUKOCYTES BY MANUAL COUNT Normal [facility] Comment on above: Performed By: #### L [id number], [id number] ####Navy Diver: ROS JIMENEZ ([phone])[facility])[address] [place] [address] Nursing Noteon 12-14-2024 Nursing Note Normal [facility] Progress Noteon 12-14-2024 Progress Note Normal [facility] Progress Note Normal [facility] RENAL FUNCTION PANELon 12-14 Albumin [Mass/Vol] 2.3 g/dL Low 3.5-5.0 [facility] Comment on above: Performed By: #### L AB96, LAB19, KGP237, LVY135 ####Navy Diver: ROS JIMENEZ ([phone])[facility] ([facility])[address] [place] [address] Anion gap [Moles/Vol] 5 mmol/L Normal 3-13 [facility] Comment on above: Performed By: #### L AB96, LAB19, BAW550, ZUW549 ####Navy Diver: ROS JIMENEZ ([phone])[address] Calcium [Mass/Vol] 7.8 mg/dL Low 8.4-10.2 [facility] Comment on above: Performed By: #### L AB96, LAB19, AXG100, VWA189 ####Navy Diver: ROS JIMENEZ ([phone])[facility])[address] [place] [address] Chloride [Moles/Vol] 108 mmol/L High 98-107 [facility] Comment on above: Performed By: #### L AB96, LAB19, AIH170, WLP404 ####Navy Diver: ROS JIMENEZ ([phone])[facility])[address] [place] [address] [place] CO2 [Moles/Vol] 22 mmol/L Normal 22-29 [facility] Comment on above: Performed By: #### L AB96, LAB19, BXI105, ECV038 ####Navy Diver: ORS JIMENEZ ([phone])[facility] ([facility])[address] [place] [address] Creatinine [Mass/Vol] 0.88 mg/dL Normal 0.72-1.25 [facility] Comment on above: Performed By: #### L AB96, LAB19, GHW494, UIS195 ####Navy Diver: ROS JIMENEZ ([phone])[facility])[address] [place] [address] GLOMERULAR FILTRATION RATE ML/MIN/1.73 SQ M.PREDICTED >90.0 Normal >60.0 [facility] Comment on above: Result Comment: Calc ulation based on the Chronic Kidney Disease Epidemiology Collaboration (CKD-EPI) equation refit without adjustment for race Performed By: #### L AB96, LAB19, WIC801, YOH756 ####Navy Diver: ROS JIMENEZ ([phone])[facility] ([facility])[address] [place] [address] Glucose [Mass/Vol] 91 mg/dL Normal 74-100 [facility] Comment on above: Performed By: #### L AB96, LAB19, BCR843, RIW286 ####Navy Diver: ROS JIMENEZ ([phone])[facility] ([facility])[address] [place] [address] [place] Phosphate [Mass/Vol] 3.0 mg/dL Normal 2.3-4.7 [facility] Comment on above: Performed By: #### L AB96, LAB19, RRK131, TFV762 ####Navy Diver: ROS JIMENEZ ([phone])[facility])[address] [place] [address] [place] Potassium [Moles/Vol] 3.9 mmol/L Normal 3.5-5.1 [facility] Comment on above: Result Comment: Plas ma potassium values may be up to 0.5 mmol/L lower than serum values. Performed By: #### L AB96, LAB19, BDE585, [id number] ####Navy Diver: ROS JIMENEZ ([phone])[facility] ([facility])[address] [place] [address] Sodium [Moles/Vol] 135 mmol/L Low 136-145 [facility] Comment on above: Performed By: #### L AB96, LAB19, GHV797, WQM360 ####Navy Diver: ROS JIMENEZ ([phone])[facility] ([facility])[address] [place] [address] Urea nitrogen [Mass/Vol] 23 mg/dL Normal - [facility] Comment on above: Performed By: #### L AB96, LAB19, XSA693, COZ169 ####Navy Diver: ROS JIMENEZ ([phone])[facility] ([facility])[address] [place] [address] URIC ACIDon 12-14-2024 Urate [Mass/Vol] 2.0 mg/dL Low 3.7-7.7 [facility] Comment on above: Performed By: #### L AB96, LAB19, MLV475, IDI304 ####Navy Diver: ROS JIMENEZ ([phone])[facility])[address] [place] [address] XR CHEST 1 VIEWon 12-14-2024 XR CHEST 1 VIEW Normal [facility] 30on 12-13-2024 30 Normal [facility] 30 Continue to assess p ain, chest tube, neph tubes. Normal [facility] [id number] 12-13-2024 [id number] [facility] paperwork fille d out and faxed to the patient's employer. Forms returned to the patient. Will provide calendar with upcoming appointments. Roxane Grajeda, BILLET CHECKER - AUTOMOTIVE SERVICE TECHNICIAN Normal [facility] [phone] Normal [facility] CBC WITH AUTO DIFFERENTIALon 12-13-2024 Erythrocyte distribution width (RBC) [Ratio] 15.7 % High 11.5-15.[address] [facility] Comment on above: Performed By: #### L [id number], [id number] ####Navy Diver: ROS JIMENEZ ([phone])[facility])[address] [place] [address] Hematocrit (Bld) [Volume fraction] 26.0 % Low 40.0-52.0 [facility] Comment on above: Performed By: #### Kayla [id number], [id number] ####Navy Diver: ROS JIMENEZ ([phone])[facility] ([facility])[address] [place] [address] Hemoglobin (Bld) [Mass/Vol] 8.6 g/dL Low 13.0-18.0 [facility] Comment on above: Performed By: #### Kayla [id number], [id number] ####Navy Diver: ROS JIMENEZ ([phone])[facility] ([facility])[address] [place] [address] MCH (RBC) [Entitic mass] 29.9 pg Normal 26.0-34.[address] [facility] Comment on above: Performed By: #### Kayla TYLER, [id number] ####Navy Diver: ROS JIMENEZ ([phone])[facility])[address] [place] [address] MCHC 33.1 % Normal 30.5-36.[address] [facility] Comment on above: Performed By: #### Kayla [id number], [id number] ####Navy Diver: ROS JIMENEZ ([phone])[facility] ([facility])[address] [place] [address] MCV (RBC) [Entitic vol] 90.3 fL Normal 77.0-99.[address] [facility] Comment on above: Performed By: #### L [id number], [id number] ####Navy Diver: ROS JIMENEZ ([id number])[facility])[address] [place] [address] Platelet mean volume (Bld) [Entitic vol] 9.7 fL Normal 9.0-12.7 [facility] Comment on above: Performed By: #### L KA2751, [id number] ####Navy Diver: ROS JIMENEZ ([phone])[facility])[address] [place] [address] Platelets (Bld) [#/Vol] 263 10*3/uL Normal 140-440 [facility] Comment on above: Performed By: #### Kayla HZ2414, [id number] ####Navy Diver: ROS JIMENEZ ([phone])[facility] ([facility])[address] [place] [address] RBC (Bld) [#/Vol] 2.88 10*6/uL Low 4.40-5.90 [facility] Comment on above: Performed By: #### Kayla GH6995, [id number] ####Navy Diver: ROS JIMENEZ ([phone])[facility])[address] [place] [address] WBC (Bld) [#/Vol] 23.9 10*3/uL High 3.6-10.7 [facility] Comment on above: Performed By: #### Kayla [id number], [id number] ####Navy Diver: ROS JIMENEZ ([phone])[facility])[address] [place] [address] LACTATE DEHYDROGENASEon 11-25 0 LDH [Catalytic activity/Vol] 429 U/L High 125-220 [facility] Comment on above: Performed By: #### L AB103, LAB96, LAB19, [id number] ####Navy Diver: ROS JIMENEZ ([phone])[facility])[address] [place] [address] MAGNESIUMon 12-13-2024 Magnesium [Mass/Vol] 2.1 mg/dL Normal 1.6-2.6 [facility] Comment on above: Result Comment: EDUARDO R COMMENTS:Higher values can be expected in females during menses. Performed By: #### L AB103, LAB96, LAB19, UDT225 ####Navy Diver: ROS JIMENEZ ([phone])[facility])[address] [place] [address] MANUAL DIFFERENTIAL (CELLAVI MISSAEL)on 12-13-2024 BAND NEUTROPHILS TOTAL PER COUNTED LEUKOCYTES BY MANUAL COUNT 2 [facility] Comment on above: Performed By: #### L [id number], [id number] ####Navy Diver: ROS JIMENEZ ([phone])[facility] ([facility])[address] [place] [address] BANDS (10*3/UL) IN BLOOD-CELLAVISION 0.5 10*3/uL High <=0.[address] [facility] Comment on above: Performed By: #### L [id number], [id number] ####Navy Diver: ROS JIMENEZ ([phone])[facility] ([facility])[address] [place] [address] BASOPHILS TOTAL PER COUNTED LEUKOCYTES BY MANUAL COUNT [facility] Comment on above: Performed By: #### L [id number], [id number] ####Navy Diver: ROS JIMENEZ ([phone])[facility] ([facility])[address] [place] [address] BLASTS TOTAL PER COUNTED LEUKOCYTES BY MANUAL COUNT [facility] Comment on above: Performed By: #### L [id number], [id number] ####Navy Diver: ROS JIMENEZ ([phone])[facility] ([facility])[address] [place] [address] EOSINOPHILS TOTAL PER COUNTED LEUKOCYTES BY MANUAL COUNT [facility] Comment on above: Performed By: #### L [id number], [id number] ####Navy Diver: ROS JIMENEZ ([phone])[facility] ([facility])[address] [place] [address] [place] LYMPHOCYTES (10*3/UL) IN BLOOD-CELLAVISION 0.0 10*3/uL Low 1.0-4.3 [facility] Comment on above: Performed By: #### L [id number], [id number] ####Navy Diver: ROS JIMENEZ ([phone])[facility] ([facility])[address] [place] [address] [place] LYMPHOCYTES TOTAL PER COUNTED LEUKOCYTES BY MANUAL COUNT [address] [facility] Comment on above: Performed By: #### L [id number], [id number] ####Navy Diver: ROS JIMENEZ ([phone])[facility] [place] [address] [place] LYMPHOCYTES/100 LEUKOCYTES IN BLOOD-CELLAVISION 0 % Low 15-[address] [facility] Comment on above: Performed By: #### L [id number], [id number] ####Navy Diver: ROS JIMENEZ ([phone])[facility] ([facility])[address] [place] [address] METAMYELOCYTES TOTAL PER COUNTED LEUKOCYTES BY MANUAL COUNT Normal [facility] Comment on above: Performed By: #### L [id number], [id number] ####Navy Diver: ROS JIMENEZ ([phone])[facility] [place] [address] [place] MONOCYTES (10*3/UL) IN BLOOD-CELLAVISION 0.7 10*3/uL Normal 0.0-0.[address] [facility] Comment on above: Performed By: #### L [id number], [id number] ####Navy Diver: ROS JIMENEZ ([phone])[facility] ([facility])[address] [place] [address] [place] MONOCYTES TOTAL PER COUNTED LEUKOCYTES BY MANUAL COUNT [address] [facility] Comment on above: Performed By: #### L [id number], [id number] ####Navy Diver: ROS JIMENEZ ([phone])[facility] [place] [address] [place] MONOCYTES/100 LEUKOCYTES IN BLOOD-EDUARDO 3 % Low 5-[address] [facility] Comment on above: Performed By: #### L [id number], [id number] ####Navy Diver: ROS JIMENEZ ([phone])[facility] ([facility])[address] [place] [address] [place] MYELOCYTES COUNTED BY MANUAL COUNT Normal [facility] Comment on above: Performed By: #### L [id number], [id number] ####Navy Diver: ROS JIMENEZ ([phone])[facility])[address] [place] [address] NEUTROPHILS BAND FORM/100 LEUKOCYTES IN BLOOD-CELLAVISI 2 % High <=0 [facility] Comment on above: Performed By: #### L [id number], [id number] ####Navy Diver: ROS JIMENEZ ([phone])[facility] ([facility])[address] [place] [address] NEUTROPHILS TOTAL PER COUNTED LEUKOCYTES BY MANUAL COUNT 97 [facility] Comment on above: Performed By: #### L [id number], [id number] ####Navy Diver: ROS JIMENEZ ([phone])[facility] ([facility])[address] [place] [address] PROMYELOCYTES TOTAL PER COUNTED LEUKOCYTES BY MANUAL COUNT [facility] Comment on above: Performed By: #### L [id number], [id number] ####Navy Diver: ROS JIMENEZ ([phone])[facility] ([facility])[address] [place] [address] RBC MORPHOLOGY IN BLOOD Normal [facility] Comment on above: Performed By: #### L [id number], [id number] ####Navy Diver: ROS JIMENEZ ([phone])[facility])[address] [place] [address] [place] SEGMENTED NEUTROPHILS (10*3/UL) IN BLOOD-CELLAVISION 23.2 10*3/uL High 1.8-7.5 [facility] Comment on above: Performed By: #### L [id number], [id number] ####Navy Diver: ROS JIMENEZ ([phone])[facility])[address] [place] [address] [place] SEGMENTED NEUTROPHILS/100 LEUKOCYTES-CE 95 % High 38-82 [facility] Comment on above: Performed By: #### L [id number], [id number] ####Navy Diver: ROS JIMENEZ ([phone])[facility] ([facility])[address] [place] [address] UNCLASSIFIED CELLS TOTAL PER COUNTED LEUKOCYTES BY MANUAL COUNT [facility] Comment on above: Performed By: #### L [id number], [id number] ####Navy Diver: ROS JIMENEZ ([phone])[facility] ([facility])[address] [place] [address] VARIANT LYMPHOCYTES TOTAL PER COUNTED LEUKOCYTES BY MANUAL COUNT [facility] Comment on above: Performed By: #### L [id number], [id number] ####Navy Diver: ROS JIMENEZ ([phone])[facility] ([facility])[address] [place] [address] Progress Noteon 12-13-2024 Progress Note [facility] Progress Note [facility] Progress [facility] RENAL FUNCTION PANELon 12-13 Albumin [Mass/Vol] 2.4 g/dL Low 3.5-5.0 [facility] Comment on above: Performed By: #### L AB103, LAB96, LAB19, [id number] ####Navy Diver: ROS JIMENEZ ([id number])[facility] ([facility])[address] [place] [address] Anion gap [Moles/Vol] 7 mmol/L Normal 3-13 [facility] Comment on above: Performed By: #### L AB103, LAB96, LAB19, [id number] ####[employer] Diver: ROS JIMENEZ ([id number])[facility] ([facility])[address] [place] [address] Calcium [Mass/Vol] 7.9 mg/dL Low 8.4-10.2 [facility] Comment on above: Performed By: #### L AB103, LAB96, LAB19, [id number] ####[employer] Diver: ROS JIMENEZ ([id number])[facility] ([facility])[address] [place] [address] Chloride [Moles/Vol] 106 mmol/L Normal 98-107 [facility] Comment on above: Performed By: #### L AB103, LAB96, LAB19, [id number] ####Nav[employer] Diver: ROS JIMENEZ ([id number])[facility] ([facility])[address] [place] [address] CO2 [Moles/Vol] 21 mmol/L Low 22-29 [facility] Comment on above: Performed By: #### L AB103, LAB96, LAB19, [id number] ####Nav[employer] Diver: ROS JIMENEZ ([id number])[facility] ([facility])[address] [place] [address] Creatinine [Mass/Vol] 1.19 mg/dL Normal 0.72-1.25 [facility] Comment on above: Performed By: #### L AB103, LAB96, LAB19, [id number] ####Nav[employer] Diver: ROS JIMENEZ ([phone])[facility] ([facility])[address] [place] [address] GLOMERULAR FILTRATION RATE ML/MIN/1.73 SQ M.PREDICTED 74.0 mL/min/1.73m*2 Normal >60.0 [facility] Comment on above: Result Comment: Calc ulation based on the Chronic Kidney Disease Epidemiology Collaboration (CKD-EPI) equation refit without adjustment for race Performed By: #### L AB103, LAB96, LAB19, [id number] ####[employer]: ROS JIMENEZ ([phone])[facility] [facility])[address] [place] [address] [place] Glucose [Mass/Vol] 135 mg/dL High 74-100 [facility] Comment on above: Performed By: #### L AB103, LAB96, LAB19, ALM705 ####Navy Diver: ROS JIMENEZ ([phone])[facility])[address] [place] [address] Phosphate [Mass/Vol] 4.1 mg/dL Normal 2.3-4.7 [facility] Comment on above: Performed By: #### L AB103, LAB96, LAB19, [id number] ####Navy Diver: ROS JIMENEZ ([phone])[facility] ([facility])[address] [place] [address] Potassium [Moles/Vol] 4.0 mmol/L Normal 3.5-5.1 [facility] Comment on above: Result Comment: [facility] potassium values may be up to 0.5 mmol/L lower than serum values. Performed By: #### L AB103, LAB96, LAB19, [id number] ####Navy Diver: ROS JIMENEZ ([phone])[facility] ([facility])[address] [place] [address] Sodium [Moles/Vol] 134 mmol/L Low 136-145 [facility] Comment on above: Performed By: #### L AB103, LAB96, LAB19, [id number] ####Navy Diver: ROS JIMENEZ ([phone])[facility] ([facility])[address] [place] [address] Urea nitrogen [Mass/Vol] 30 mg/dL High 9-23 [facility] Comment on above: Performed By: #### L AB103, LAB96, LAB19, [id number] ####Navy Diver: ROS JIMENEZ ([phone])[facility] ([facility])[address] [place] [address] URIC ACIDon 12-13-2024 Urate [Mass/Vol] 5.0 mg/dL Normal 3.7-7.7 [facility] Comment on above: Performed By: #### L AB103, LAB96, LAB19, [id number] ####Navy Diver: ROS JIMENEZ ([phone])[facility] ([facility])[address] [place] [address] [place] XR CHEST 1 VIEWon 12-13-2024 XR CHEST 1 VIEW Normal [facility] [id number] 12-12-2024 [id number] Normal [facility] [id number] Normal [facility] [id number] 12-12-2024 [id number] Normal [facility] [id number] Normal [facility] CBC WITH AUTO DIFFERENTIALon 12-12-2024 Basophils (Bld) [#/Vol] 0.0 10*3/uL Normal 0.0-0.2 [facility] Comment on above: Performed By: #### L [id number] ####Navy Diver: ROS JIMENEZ ([phone])[facility])[address] [place] [address] Basophils/100 WBC (Bld) 0.2 % Normal 0.0-2.0 [facility] Comment on above: Performed By: #### L [id number] ####Navy Diver: ROS JIMENEZ ([id number])[facility])[address] [place] [address] Eosinophils (Bld) [#/Vol] 0.0 10*3/uL Normal 0.0-0.[address] [facility] Comment on above: Performed By: #### L [id number] ####Navy Diver: ROS JIMENEZ ([phone])[facility])[address] [place] [address] Eosinophils/100 WBC (Bld) 0.0 % Normal 0.0-6.[address] [facility] Comment on above: Performed By: #### L [id number] ####Navy Diver: ROS JIMENEZ ([phone])[facility])[address] [place] [address] Erythrocyte distribution width (RBC) [Ratio] 15.5 % High 11.5-15.0 [facility] Comment on above: Performed By: #### L [id number] ####Navy Diver: ROS JIMENEZ ([phone])[facility])[address] [place] [address] Hematocrit (Bld) [Volume fraction] 25.9 % Low 40.0-52.[address] [facility] Comment on above: Performed By: #### L [id number] ####Navy Diver: ROS JIMENEZ ([phone])[facility])[address] [place] [address] Hemoglobin (Bld) [Mass/Vol] 8.5 g/dL Low 13.0-18.[address] [facility] Comment on above: Performed By: #### L [id number] ####Navy Diver: ROS JIMENEZ ([phone])[facility])[address] [place] [address] IMMATURE GRANS % 1.8 % Normal 0.0-2.0 [facility] Comment on above: Performed By: #### L [id number] ####Navy Diver: ROS JIMENEZ ([id number])[facility])[address] [place] [address] IMMATURE GRANS ABSOLUTE 0.2 10*3/uL High <0.[address] [facility] Comment on above: Performed By: #### L [id number] ####Navy Diver: ROS JIMENEZ ([phone])[address] Lymphocytes (Bld) [#/Vol] 0.4 10*3/uL Low 1.0-4.[address] [facility] Comment on above: Performed By: #### L [id number] ####Navy Diver: ROS JIMENEZ ([id number])[address] Lymphocytes/100 WBC (Bld) 4.1 % Low 15.0-45.[address] [facility] Comment on above: Performed By: #### L [id number] ####Navy Diver: ROS JIMENEZ ([id number])[address] MCH (RBC) [Entitic mass] 29.5 pg Normal 26.0-34.[address] [facility] Comment on above: Performed By: #### L [id number] ####Navy Diver: ROS JIMENEZ ([phone])[address] MCHC 32.8 % Normal 30.5-36.[address] [facility] Comment on above: Performed By: #### L [id number] ####Navy Diver: ROS [id number])[facility] ([facility])[address] [place] [address] MCV (RBC) [Entitic vol] 89.9 fL Normal 77.0-99.[address] [facility] Comment on above: Performed By: #### L [id number] ####Navy Diver: ROS JIMENEZ ([phone])[facility] ([facility])[address] [place] [address] Monocytes (Bld) [#/Vol] 0.5 10*3/uL Normal 0.0-0.[address] [facility] Comment on above: Performed By: #### L [id number] ####Navy Diver: ROS JIMENEZ ([id number])[facility] ([facility])[address] [place] [address] Monocytes/100 WBC (Bld) 5.9 % Normal 5.0-13.[address] [facility] Comment on above: Performed By: #### L [id number] ####Navy Diver: ROS JIMENEZ ([phone])[facility] ([facility])[address] [place] [address] NEUTROPHILS ABSOLUTE 7.9 10*3/uL High 1.8-7.5 [facility] Comment on above: Performed By: #### L [id number] ####Navy Diver: ROS JIMENEZ ([phone])[facility] ([facility])[address] [place] [address] Neutrophils/100 WBC (Bld) 88.0 % High 38.0-82.[address] [facility] Comment on above: Performed By: #### L [id number] ####Navy Diver: ROS JIMENEZ ([phone])[facility] ([facility])[address] [place] [address] NRBC 0.0 /100 WBCs Normal 0.0-2.0 [facility] Comment on above: Performed By: #### L [id number] ####Navy Diver: ROS JIMENEZ ([phone])[facility] ([facility])[address] [place] [address] Platelet mean volume (Bld) [Entitic vol] 10.1 fL Normal 9.0-12.7 [facility] Comment on above: Performed By: #### L [id number] ####Navy Diver: ROS JIMENEZ ([id number])[facility] ([facility])[address] [place] [address] Platelets (Bld) [#/Vol] 233 10*3/uL Normal 140-440 [facility] Comment on above: Performed By: #### L [id number] ####Navy Diver: ROS JIMENEZ ([phone])[facility] ([facility])[address] [place] [address] RBC (Bld) [#/Vol] 2.88 10*6/uL Low 4.40-5.90 [facility] Comment on above: Performed By: #### L [id number] ####Navy Diver: ROS JIMENEZ ([phone])[facility] ([facility])[address] [place] [address] WBC (Bld) [#/Vol] 9.0 10*3/uL Normal 3.6-10.7 [facility] Comment on above: Performed By: #### L [id number] ####Navy Diver: ROS JIMENEZ ([id number])[facility] ([facility])[address] [place] [address] CT GUIDED CHEST TUBE PLACEME NTon 12-12-2024 CT GUIDED CHEST TUBE PLACEMENT Normal [facility] MAGNESIUMon 12-12-2024 Magnesium [Mass/Vol] 1.9 mg/dL Normal 1.6-2.6 [facility] Comment on above: Result Comment: ORDE R COMMENTS:Higher values can be expected in females during menses. Performed By: #### L AB19, SZY450, LZP504 ####Navy Diver: ROS JIMENEZ ([phone])[facility])[address] [place] [address] Nursing Noteon 12-12-2024 Nursing Note Normal [facility] Progress Noteon 12-12-2024 Progress Note Normal [facility] Progress Note Normal [facility] Progress Note Normal [facility] Progress Note Normal [facility] RENAL FUNCTION PANELon 12-12 Albumin [Mass/Vol] 2.5 g/dL Low 3.5-5.[address] [facility] Comment on above: Performed By: #### L AB19, MPV312, YGZ745 ####Navy Diver: ROS JIMENEZ ([phone])[facility] ([facility])[address] [place] [address] Anion gap [Moles/Vol] 9 mmol/L Normal 3-13 [facility] Comment on above: Performed By: #### L AB19, ASD098, JMB034 ####Navy Diver: ROS JIMENEZ ([phone])[facility] ([facility])[address] [place] [address] Calcium [Mass/Vol] 8.2 mg/dL Low 8.4-10.[address] [facility] Comment on above: Performed By: #### L AB19, UWT586, HPY442 ####Navy Diver: ROS JIMENEZ ([phone])[facility] ([facility])[address] [place] [address] Chloride [Moles/Vol] 102 mmol/L Normal 98-107 [facility] Comment on above: Performed By: #### L AB19, SRQ077, MFW686 ####Navy Diver: ROS JIMENEZ ([phone])[facility] ([facility])[address] [place] [address] [place] CO2 [Moles/Vol] 20 mmol/L Low 22-29 [facility] Comment on above: Performed By: #### L AB19, AAU205, PVZ624 ####Navy Diver: ROS JIMENEZ ([phone])[facility])[address] [place] [address] Creatinine [Mass/Vol] 1.37 mg/dL High 0.72-1.25 [facility] Comment on above: Performed By: #### L AB19, PHK290, IMJ123 ####Navy Diver: ROS JIMENEZ ([phone])[facility])[address] [place] [address] [place] GLOMERULAR FILTRATION RATE ML/MIN/1.73 SQ M.PREDICTED 62.5 mL/min/1.73m*2 Normal >60.0 [facility] Comment on above: Result Comment: Calc ulation based on the Chronic Kidney Disease Epidemiology Collaboration (CKD-EPI) equation refit without adjustment for race Performed By: #### L AB19, YMR946, ETM444 ####Navy Diver: ROS JIMENEZ ([phone])[facility] ([facility])[address] [place] [address] Glucose [Mass/Vol] 153 mg/dL High 74-100 [facility] Comment on above: Performed By: #### L AB19, NPH058, URV128 ####Navy Diver: ROS JIMENEZ ([phone])[facility])[address] [place] [address] Phosphate [Mass/Vol] 4.1 mg/dL Normal 2.3-4.7 [facility] Comment on above: Performed By: #### L AB19, YHV762, EFQ292 ####Navy Diver: ROS JIMENEZ ([phone])[facility])[address] [place] [address] Potassium [Moles/Vol] 4.3 mmol/L Normal 3.5-5.1 [facility] Comment on above: Result Comment: [facility] potassium values may be up to 0.5 mmol/L lower than serum values. Performed By: #### L AB19, BAN947, QTI637 ####Navy Diver: ROS JIMENEZ ([id number])[facility])[address] [place] [address] [place] Sodium [Moles/Vol] 131 mmol/L Low 136-145 [facility] Comment on above: Performed By: #### L AB19, LUF854, ZEM415 ####Navy Diver: ROS JIMENEZ ([phone])[facility])[address] [place] [address] [place] Urea nitrogen [Mass/Vol] 33 mg/dL High 9-23 [facility] Comment on above: Performed By: #### L AB19, FZO280, XEZ452 ####Navy Diver: ROS JIMENEZ ([phone])[facility] ([facility])[address] [place] [address] URIC ACIDon 12-12-2024 Urate [Mass/Vol] 11.0 mg/dL High 3.7-7.7 [facility] Comment on above: Performed By: #### L AB19, RZD614, HTG417 ####Navy Diver: ROS JIMENEZ ([phone])[facility] ([facility])[address] [place] [address] XR CHEST 1 VIEWon 12-12-2024 XR CHEST 1 VIEW Normal [facility] 30on 12-11-2024 30 Normal [facility] BILIRUBIN, DIRECTon 12-12-19 25 Bilirubin.indirect [Mass/Vol] 0.5 mg/dL High <0.5 [facility] Comment on above: Performed By: #### L AB141, LAB19, LAB52, YTN427 ####Navy Diver: ROS JIMENEZ ([phone])[facility] ([facility])[address] [place] [address] CBC WITH AUTO DIFFERENTIALon 12-11-2024 Basophils (Bld) [#/Vol] 0.1 10*3/uL Normal 0.0-0.2 [facility] Comment on above: Performed By: #### L [id number] ####Navy Diver: ROS JIMENEZ ([id number])[facility] ([facility])[address] [place] [address] Basophils/100 WBC (Bld) 1.1 % Normal 0.0-2.0 [facility] Comment on above: Performed By: #### L [id number] ####Navy Diver: ROS JIMENEZ ([phone])[facility])[address] [place] [address] Eosinophils (Bld) [#/Vol] 0.2 10*3/uL Normal 0.0-0.[address] [facility] Comment on above: Performed By: #### L [id number] ####Navy Diver: ROS JIMENEZ ([phone])[address] Eosinophils/100 WBC (Bld) 2.2 % Normal 0.0-6.[address] [facility] Comment on above: Performed By: #### L [id number] ####Navy Diver: ROS JIMENEZ ([phone])[facility])[address] [place] [address] Erythrocyte distribution width (RBC) [Ratio] 15.7 % High 11.5-15.[address] [facility] Comment on above: Performed By: #### L [id number] ####Navy Diver: ROS JIMENEZ ([phone])[address] Hematocrit (Bld) [Volume fraction] 28.9 % Low 40.0-52.[address] [facility] Comment on above: Performed By: #### L [id number] ####Navy Diver: ROS JIMENEZ ([phone])[address] Hemoglobin (Bld) [Mass/Vol] 9.4 g/dL Low 13.0-18.[address] [facility] Comment on above: Performed By: #### L [id number] ####Navy Diver: ROS JIMENEZ ([phone])[address] IMMATURE GRANS % 2.2 % High 0.0-2.0 [facility] Comment on above: Performed By: #### L [id number] ####Navy Diver: ROS JIMENEZ ([id number])[address] IMMATURE GRANS ABSOLUTE 0.2 10*3/uL High <0.[address] [facility] Comment on above: Performed By: #### L [id number] ####Navy Diver: ROS JIMENEZ ([phone])[facility])[address] [place] [address] Lymphocytes (Bld) [#/Vol] 0.5 10*3/uL Low 1.0-4.[address] [facility] Comment on above: Performed By: #### L [id number] ####Navy Diver: ROS JIMENEZ ([phone])[facility])[address] [place] [address] Lymphocytes/100 WBC (Bld) 5.5 % Low 15.0-45.[address] [facility] Comment on above: Performed By: #### L [id number] ####Navy Diver: ROS JIMENEZ ([id number])[facility])[address] [place] [address] MCH (RBC) [Entitic mass] 29.7 pg Normal 26.0-34.[address] [facility] Comment on above: Performed By: #### L [id number] ####Navy Diver: ROS JIMENEZ ([phone])[facility])[address] [place] [address] MCHC 32.5 % Normal 30.5-36.[address] [facility] Comment on above: Performed By: #### L [id number] ####Navy Diver: ROS JIMENEZ ([phone])[facility])[address] [place] [address] MCV (RBC) [Entitic vol] 91.2 fL Normal 77.0-99.[address] [facility] Comment on above: Performed By: #### L [id number] ####Navy Diver: ROS JIMENEZ ([phone])[facility])[address] [place] [address] Monocytes (Bld) [#/Vol] 1.1 10*3/uL High 0.0-0.[address] [facility] Comment on above: Performed By: #### L [id number] ####Navy Diver: ROS JIMENEZ ([phone])[facility])[address] [place] [address] Monocytes/100 WBC (Bld) 13.1 % High 5.0-13.0 [facility] Comment on above: Performed By: #### L [id number] ####Navy Diver: ROS JIMENEZ ([phone])[facility] ([facility])[address] [place] [address] NEUTROPHILS ABSOLUTE 6.2 10*3/uL Normal 1.8-7.5 [facility] Comment on above: Performed By: #### L [id number] ####Navy Diver: ROS JIMENEZ ([phone])[facility] ([facility])[address] [place] [address] Neutrophils/100 WBC (Bld) 75.9 % Normal 38.0-82.0 [facility] Comment on above: Performed By: #### L [id number] ####Navy Diver: ROS JIMENEZ ([phone])[facility] ([facility])[address] [place] [address] NRBC 0.0 /100 WBCs Normal 0.0-2.0 [facility] Comment on above: Performed By: #### L [id number] ####Navy Diver: ROS JIMENEZ ([id number])[facility] ([facility])[address] [place] [address] Platelet mean volume (Bld) [Entitic vol] 9.9 fL Normal 9.0-12.[address] [facility] Comment on above: Performed By: #### L [id number] ####Navy Diver: ROS JIMENEZ ([phone])[facility] ([facility])[address] [place] [address] Platelets (Bld) [#/Vol] 253 10*3/uL Normal 140-[address] [facility] Comment on above: Performed By: #### L [id number] ####Navy Diver: ROS JIMENEZ ([phone])[facility] ([facility])[address] [place] [address] RBC (Bld) [#/Vol] 3.17 10*6/uL Low 4.40-5.90 [facility] Comment on above: Performed By: #### L [id number] ####Navy Diver: ROS JIMENEZ ([phone])[facility])[address] [place] [address] WBC (Bld) [#/Vol] 8.1 10*3/uL Normal 3.6-10.7 [facility] Comment on above: Performed By: #### L [id number] ####Navy Diver: ROS JIMENEZ ([phone])[facility])[address] [place] [address] MAGNESIUMon 12-11-2024 Magnesium [Mass/Vol] 1.7 mg/dL Normal 1.6-2.6 [facility] Comment on above: Result Comment: EDUARDO R COMMENTS:Higher values can be expected in females during menses. Performed By: #### L AB141, LAB19, LAB52, VME887 ####Navy Diver: ROS JIMENEZ ([phone])[facility])[address] [place] [address] Nursing Noteon 12-11-2024 Nursing Note Normal [facility] Nursing Note Normal [facility] Progress Noteon 12-11-2024 Progress Note Normal [facility] Progress Note Normal [facility] Progress Note Normal [facility] RENAL FUNCTION PANELon 12-11 Albumin [Mass/Vol] 2.7 g/dL Low 3.5-5.0 [facility] Comment on above: Performed By: #### L AB141, LAB19, LAB52, WMD385 ####Navy Diver: ROS JIMENEZ ([phone])[facility])[address] [place] [address] Anion gap [Moles/Vol] 12 mmol/L Normal 3-13 [facility] Comment on above: Performed By: #### L AB141, LAB19, LAB52, OEO573 ####Navy Diver: ROS JIMENEZ ([phone])[facility])[address] [place] [address] Calcium [Mass/Vol] 9.2 mg/dL Normal 8.4-10.2 [facility] Comment on above: Performed By: #### L AB141, LAB19, LAB52, QHW620 ####Navy Diver: ROS JIMENEZ ([phone])[facility] ([facility])[address] [place] [address] Chloride [Moles/Vol] 99 mmol/L Normal 98-107 [facility] Comment on above: Performed By: #### L AB141, LAB19, LAB52, YJU940 ####Navy Diver: ROS JIMENEZ ([phone])[facility] ([facility])[address] [place] [address] CO2 [Moles/Vol] 20 mmol/L Low 22-29 [facility] Comment on above: Performed By: #### L AB141, LAB19, LAB52, GSM801 ####Navy Diver: ROS JIMENEZ ([id number])[facility] ([facility])[address] [place] [address] Creatinine [Mass/Vol] 1.59 mg/dL High 0.72-1.25 [facility] Comment on above: Performed By: #### L AB141, LAB19, LAB52, RYG158 ####Nav[employer] Diver: ROS JIMENEZ ([phone])[facility] ([facility])[address] [place] [address] GLOMERULAR FILTRATION RATE ML/MIN/1.73 SQ M.PREDICTED 52.2 mL/min/1.73m*2 Low >60.0 [facility] Comment on above: Result Comment: Calc ulation based on the Chronic Kidney Disease Epidemiology Collaboration (CKD-EPI) equation refit without adjustment for race Performed By: #### L AB141, LAB19, LAB52, JUB197 ####Nav[employer] Diver: ROS JIMENEZ ([id number])[facility])[address] [place] [address] Glucose [Mass/Vol] 77 mg/dL Normal 74-100 [facility] Comment on above: Performed By: #### L AB141, LAB19, LAB52, ZEC862 ####Nav[employer] Diver: ROS JIMENEZ ([id number])[facility] ([facility])[address] [place] [address] Phosphate [Mass/Vol] 2.1 mg/dL Low 2.3-4.7 [facility] Comment on above: Performed By: #### L AB141, LAB19, LAB52, OFL152 ####Navy Diver: ROS JIMENEZ ([phone])[facility])[address] [place] [address] Potassium [Moles/Vol] 4.2 mmol/L Normal 3.5-5.1 [facility] Comment on above: Result Comment: [facility] potassium values may be up to 0.5 mmol/L lower than serum values. Performed By: #### L AB141, LAB19, LAB52, [id number] ####[employer] Diver: ROS JIMENEZ ([phone])[facility] ([facility])[address] [place] [address] Sodium [Moles/Vol] 131 mmol/L Low 136-145 [facility] Comment on above: Performed By: #### L AB141, LAB19, LAB52, YES017 ####[employer] Diver: ROS JIMENEZ ([phone])[facility] ([facility])[address] [place] [address] Urea nitrogen [Mass/Vol] 26 mg/dL High 9-23 [facility] Comment on above: Performed By: #### L AB141, LAB19, LAB52, [id number] ####[employer] D[employer]: ROS JIMENEZ ([phone])[facility] ([facility])[address] [place] [address] [place] URIC ACIDon 12-11-2024 Urate [Mass/Vol] 6.0 mg/dL Normal 3.7-7.7 [facility] Comment on above: Performed By: #### L AB141, LAB19, LAB52, YES528 ####[employer] D[employer]: ROS JIMENEZ ([id number])[facility])[address] [place] [address] XR CHEST 1 VIEWon 12-11-2024 XR CHEST 1 VIEW Normal [facility] 30on 12-10-2024 [address] [facility] [address] [facility] [id number] 12-10-2024 [id number] Normal [facility] AFB CULTUREon 12-10-2024 AFB CULTURE Normal [facility] Comment on above: Performed By: #### L [id number] ####[employer] D[employer]: ROS JIMENEZ ([phone])[facility])[address] [place] [address] APTTon 12-10-2024 aPTT Coag (Bld) [Time] 47.4 s High 20.0-30.5 [facility] Comment on above: Result Comment: EDUARDO Streeter COMMENTS:NOTE: The therapeutic time for Heparin anticoagulation, based on Xa activity inhibition, is an APTT of 46-80 seconds. Performed By: #### L AB325 ####[employer]: ROS JIMENEZ ([phone])[facility])[address] [place] [address] CBC WITH AUTO DIFFERENTIALon 12-10-2024 Basophils (Bld) [#/Vol] 0.1 10*3/uL Normal 0.0-0.2 [facility] Comment on above: Performed By: #### L [id number] ####[employer] D[employer]: ROS JIMENEZ ([id number])[address] Basophils/100 WBC (Bld) 1.2 % Normal 0.0-2.0 [facility] Comment on above: Performed By: #### L [id number] ####Navy Diver: ROS JIMENEZ ([id number])[facility])[address] [place] [address] Eosinophils (Bld) [#/Vol] 0.3 10*3/uL Normal 0.0-0.5 [facility] Comment on above: Performed By: #### L [id number] ####Navy Diver: ROS [id number])[facility] [address] Eosinophils/100 WBC (Bld) 3.2 % Normal 0.0-6.[address] [facility] Comment on above: Performed By: #### L [id number] ####Navy Diver: ROS JIMENEZ ([phone])[facility])[address] [place] [address] Erythrocyte distribution width (RBC) [Ratio] 15.5 % High 11.5-15.[address] [facility] Comment on above: Performed By: #### L [id number] ####Navy Diver: ROS JIMENEZ ([phone])[facility])[address] [place] [address] Hematocrit (Bld) [Volume fraction] 31.0 % Low 40.0-52.[address] [facility] Comment on above: Performed By: #### L [id number] ####Navy Diver: ROS JIMENEZ ([phone])[facility])[address] [place] [address] Hemoglobin (Bld) [Mass/Vol] 9.8 g/dL Low 13.0-18.[address] [facility] Comment on above: Performed By: #### L [id number] ####Navy Diver: ROS JIMENEZ ([phone])[facility])[address] [place] [address] IMMATURE GRANS % 2.7 % High 0.0-2.0 [facility] Comment on above: Performed By: #### L [id number] ####Navy Diver: ROS JIMENEZ ([id number])[facility])[address] [place] [address] IMMATURE GRANS ABSOLUTE 0.2 10*3/uL High <0.[address] [facility] Comment on above: Performed By: #### L [id number] ####Navy Diver: ROS JIMENEZ ([phone])[facility])[address] [place] [address] Lymphocytes (Bld) [#/Vol] 0.7 10*3/uL Low 1.0-4.[address] [facility] Comment on above: Performed By: #### L [id number] ####Navy Diver: ROS JIMENEZ ([id number])[facility])[address] [place] [address] Lymphocytes/100 WBC (Bld) 7.3 % Low 15.0-45.[address] [facility] Comment on above: Performed By: #### L [id number] ####Navy Diver: ROS JIMENEZ ([phone])[facility])[address] [place] [address] MCH (RBC) [Entitic mass] 29.0 pg Normal 26.0-34.[address] [facility] Comment on above: Performed By: #### L [id number] ####Navy Diver: ROS JIMENEZ ([phone])[facility])[address] [place] [address] MCHC 31.6 % Normal 30.5-36.[address] [facility] Comment on above: Performed By: #### L [id number] ####Navy Diver: ROS JIMENEZ ([phone])[facility])[address] [place] [address] MCV (RBC) [Entitic vol] 91.7 fL Normal 77.0-99.[address] [facility] Comment on above: Performed By: #### L [id number] ####Navy Diver: ROS JIMENEZ ([phone])[facility])[address] [place] [address] Monocytes (Bld) [#/Vol] 0.9 10*3/uL Normal 0.0-0.[address] [facility] Comment on above: Performed By: #### L [id number] ####Navy Diver: ROS JIMENEZ ([id number])[facility])[address] [place] [address] Monocytes/100 WBC (Bld) 9.9 % Normal 5.0-13.[address] [facility] Comment on above: Performed By: #### L [id number] ####Navy Diver: ROS JIMENEZ ([id number])[facility] ([facility])[address] [place] [address] NEUTROPHILS ABSOLUTE 6.8 10*3/uL Normal 1.8-7.5 [facility] Comment on above: Performed By: #### L [id number] ####Navy Diver: ROS JIMENEZ ([id number])[facility] ([facility])[address] [place] [address] Neutrophils/100 WBC (Bld) 75.7 % Normal 38.0-82.0 [facility] Comment on above: Performed By: #### L [id number] ####Navy Diver: ROS JIMENEZ ([id number])[facility])[address] [place] [address] NRBC 0.0 /100 WBCs Normal 0.0-2.0 [facility] Comment on above: Performed By: #### L [id number] ####Navy Diver: ROS JIMENEZ ([id number])[facility] ([facility])[address] [place] [address] Platelet mean volume (Bld) [Entitic vol] 10.0 fL Normal 9.0-12.7 [facility] Comment on above: Performed By: #### L [id number] ####Navy Diver: ROS JIMENEZ ([id number])[facility] ([facility])[address] [place] [address] Platelets (Bld) [#/Vol] 275 10*3/uL Normal 140-[address] [facility] Comment on above: Performed By: #### L [id number] ####Navy Diver: ROS JIMENEZ ([phone])[facility] ([facility])[address] [place] [address] RBC (Bld) [#/Vol] 3.38 10*6/uL Low 4.40-5.[address] [facility] Comment on above: Performed By: #### L [id number] ####Navy Diver: ROS JIMENEZ ([phone])[facility] ([facility])[address] [place] [address] WBC (Bld) [#/Vol] 9.0 10*3/uL Normal 3.6-10.7 [facility] Comment on above: Performed By: #### L [id number] ####Navy Diver: ROS JIMENEZ ([phone])[facility] ([facility])[address] [place] [address] CULTURE ANAEROBICon 12-11-19 CULTURE ANAEROBIC Normal [facility] Comment on above: Performed By: #### L AB233 ####Navy Diver: ROS JIMENEZ ([id number])[facility] ([facility])[address] [place] [address] CULTURE, AEROBIC BACTERIA WI TH GRAM STAINon 12-10-2024 CULTURE, AEROBIC BACTERIA WITH GRAM STAIN Normal [facility] Comment on above: Performed By: #### L [id number] ####Navy Diver: ROS JIMENEZ ([id number])[facility] ([facility])[address] [place] [address] Consulton 12-10-2024 Consult Normal [facility] HEPATIC FUNCTION PANELon Albumin [Mass/Vol] 2.8 g/dL Low 3.5-5.0 [facility] Comment on above: Performed By: #### L AB20, LAB19, CSC820, UXK405 ####Navy Diver: ROS JIMENEZ ([phone])[facility] ([facility])[address] [place] [address] ALP [Catalytic activity/Vol] 90 U/L Normal 40-150 [facility] Comment on above: Performed By: #### L AB20, LAB19, EEL589, JKX465 ####Navy Diver: ROS JIMENEZ ([phone])[facility] ([facility])[address] [place] [address] ALT [Catalytic activity/Vol] 53 U/L High <40 [facility] Comment on above: Performed By: #### L AB20, LAB19, GSA442, XAL252 ####Navy Diver: ROS JIMENEZ ([id number])[facility])[address] [place] [address] AST [Catalytic activity/Vol] 126 U/L High <[address] [facility] Comment on above: Performed By: #### L AB20, LAB19, ZRB051, LUN287 ####Navy Diver: ROS JIMENEZ ([id number])[facility])[address] [place] [address] Bilirubin [Mass/Vol] 0.7 mg/dL Normal <1.2 [facility] Comment on above: Performed By: #### L AB20, LAB19, KLF743, QZI867 ####Navy Diver: ROS JIMENEZ ([id number])[address] Bilirubin.indirect [Mass/Vol] 0.3 mg/dL Normal <0.5 [facility] Comment on above: Performed By: #### L AB20, LAB19, JRM271, YNE744 ####Navy Diver: ROS JIMENEZ ([id number])[facility])[address] [place] [address] Protein [Mass/Vol] 5.9 g/dL Low 6.4-8.3 [facility] Comment on above: Result Comment: Seru m protein values are higher than plasma values. Samples from recumbent persons are lower by up to 0.5 g/dL as compared to ambulatory persons. After 60 years values are lower by up to 0.2 g/dL. Performed By: #### L AB20, LAB19, NCG738, ZCU663 ####Navy Diver: ROS JIMENEZ ([phone])[facility])[address] [place] [address] [place] LACTATE DEHYDROGENASE, BODY FLUIDon 12-10-2024 LACTATE DEHYDROGENASE, BODY FLUID BY LAC->PYR 626 U/L Normal [facility] Comment on above: Performed By: #### L AB110, WGF537, TZG626 ####Navy Diver: ROS JIMENEZ ([id number])[facility])[address] [place] [address] MAGNESIUMon 12-10-2024 Magnesium [Mass/Vol] 1.7 mg/dL Normal 1.6-2.6 [facility] Comment on above: Result Comment: EDUARDO Streeter COMMENTS:Higher values can be expected in females during menses. Performed By: #### L AB20, LAB19, RXA643, DYN080 ####Navy Diver: ROS JIMENEZ ([phone])[facility] ([facility])[address] [place] [address] PH, BODY FLUIDon 12-10-2024 pH (Body fld) 7.351 [pH] Normal [facility] Comment on above: Performed By: #### L AB110, FBX575, AFS239 ####Navy Diver: ROS JIMENEZ ([id number])[facility] ([facility])[address] [place] [address] TYPE OF BODY FLUID Pleural Fluid Normal [facility] Comment on above: Result Comment: EDUARDO Streeter COMMENTS:This test was developed and its performance characteristics determined by [employer]. It has not been cleared or approved by the [place] Food and Drug Administration. This test was performed in a CLIA certified laboratory and is intended for clinical purposes. Performed By: #### L AB110, VLL702, CCA009 ####Navy Diver: ROS JIMENEZ ([id number])[facility] ([facility])[address] [place] [address] Result Comment: EDUARDO Streeter COMMENTS:This test was developed and its performance characteristics determined by [employer]. It has not been cleared or approved by the [place] Food and Drug Administration. This test was performed in a CLIA certified laboratory and is intended for clinical purposes.Pleural csvhj-uk-etuqg protein ratio of >0.5 is one of Light???s criteria for an exudate. Heart failure associated misclassifications (by Light???s criteria) may be differentiated as transudative effusions by subsequently evaluating a xhuiw-mg-flpevpk albumin gradient (>1.2 g/dL) and/or a duitv-uu-srppc protein gradient (>3.1 g/dL). Result Comment: EDUARDO Streeter COMMENTS:This test was developed and its performance characteristics determined by [employer]. It has not been cleared or approved by the [place] Food and Drug Administration. This test was performed in a CLIA certified laboratory and is intended for clinical purposes.Exudates are defined as meeting one of the following criteria: (a) Pleural tsoua-pa-yclyc protein ratio of >0.5, (b) pleural kfgyk-zs-qfgga LDH ratio of >0.6, or (c)a pleural fluid LDH activity that is >2/3 the upper limit of a normal serum LDH activity (Light???s criteria). PROTEIN BODY FLUIDon 025 PROTEIN, BODY FLUID 3.6 g/dL Normal [facility] Comment on above: Performed By: #### L AB110, HOI522, IVS503 ####Navy Diver: ROS JIMENEZ ([phone])[facility])[address] [place] [address] Progress Noteon 12-10-2024 Progress Note Normal [facility] Progress Note Normal [facility] RENAL FUNCTION PANELon 12-10 Albumin [Mass/Vol] 2.6 g/dL Low 3.5-5.0 [facility] Comment on above: Performed By: #### L AB20, LAB19, LZB315, EBT122 ####Navy Diver: ROS JIMENEZ ([phone])[facility])[address] [place] [address] Anion gap [Moles/Vol] 11 mmol/L Normal 3-13 [facility] Comment on above: Performed By: #### L AB20, LAB19, JDH294, LNR514 ####Navy Diver: ROS JIMENEZ ([id number])[facility])[address] [place] [address] Calcium [Mass/Vol] 9.7 mg/dL Normal 8.4-10.2 [facility] Comment on above: Performed By: #### L AB20, LAB19, WVD703, BBI146 ####Navy Diver: ROS JIMENEZ ([id number])[facility])[address] [place] [address] Chloride [Moles/Vol] 101 mmol/L Normal 98-107 [facility] Comment on above: Performed By: #### L AB20, LAB19, TJF873, AIH225 ####Navy Diver: ROS JIMENEZ ([id number])[facility])[address] [place] [address] CO2 [Moles/Vol] 20 mmol/L Low 22-29 [facility] Comment on above: Performed By: #### L AB20, LAB19, TVG105, QGZ167 ####Navy Diver: ROS JIMENEZ ([id number])[facility])[address] [place] [address] Creatinine [Mass/Vol] 1.72 mg/dL High 0.72-1.25 [facility] Comment on above: Performed By: #### L AB20, LAB19, FLQ827, TBY104 ####Navy Diver: ROS JIMENEZ ([id number])[facility])[address] [place] [address] GLOMERULAR FILTRATION RATE ML/MIN/1.73 SQ M.PREDICTED 47.5 mL/min/1.73m*2 Low >60.0 [facility] Comment on above: Result Comment: Calc ulation based on the Chronic Kidney Disease Epidemiology Collaboration (CKD-EPI) equation refit without adjustment for race Performed By: #### L AB20, LAB19, GDU741, XHE976 ####Navy Diver: ROS JIMENEZ ([id number])[facility])[address] [place] [address] Glucose [Mass/Vol] 96 mg/dL Normal 74-100 [facility] Comment on above: Performed By: #### L AB20, LAB19, CIX033, GIK804 ####Navy Diver: ROS JIMENEZ ([id number])[facility])[address] [place] [address] Phosphate [Mass/Vol] 1.8 mg/dL Low 2.3-4.7 [facility] Comment on above: Performed By: #### L AB20, LAB19, HQN736, ILU569 ####Navy Diver: ROS [id number])[facility])[address] [place] [address] Potassium [Moles/Vol] 4.2 mmol/L Normal 3.5-5.1 [facility] Comment on above: Result Comment: [facility] potassium values may be up to 0.5 mmol/L lower than serum values. Performed By: #### L AB20, LAB19, KAJ218, CBG954 ####Navy Diver: ROS JIMENEZ ([id number])[facility] ([facility])[address] [place] [address] Sodium [Moles/Vol] 132 mmol/L Low 136-145 [facility] Comment on above: Performed By: #### L AB20, LAB19, AKS331, GOI655 ####Navy Diver: ROS JIMENEZ ([phone])[facility] ([facility])[address] [place] [address] Urea nitrogen [Mass/Vol] 27 mg/dL High 9-23 [facility] Comment on above: Performed By: #### L AB20, LAB19, KMG537, VBH690 ####Navy Diver: ROS JIMENEZ ([phone])[facility] ([facility])[address] [place] [address] URIC ACIDon 12-10-2024 Urate [Mass/Vol] 5.0 mg/dL Normal 3.7-7.7 [facility] Comment on above: Performed By: #### L AB20, LAB19, VTG038, GEB150 ####Navy Diver: ROS JIMENEZ ([id number])[facility] ([facility])[address] [place] [address] US GUIDED THORACENTESISon US GUIDED THORACENTESIS Normal [facility] XR CHEST 1 VIEWon 12-10-2024 XR CHEST 1 VIEW Normal [facility] 30on 12-09-2024 30 Normal [facility] 30 Normal [facility] [id number] 12-09-2024 [id number] Normal [facility] APTTon 12-09-2024 aPTT Coag (Bld) [Time] 60.1 s High 20.0-30.5 [facility] Comment on above: Result Comment: EDUARDO Streeter COMMENTS:NOTE: The therapeutic time for Heparin anticoagulation, based on Xa activity inhibition, is an APTT of 46-80 seconds. Performed By: #### L AB325 ####Navy Diver: ROS JIMENEZ ([phone])[facility])[address] [place] [address] aPTT Coag (Bld) [Time] 50.1 s High 20.0-30.5 [facility] Comment on above: Result Comment: EDUARDO Streeter COMMENTS:NOTE: The therapeutic time for Heparin anticoagulation, based on Xa activity inhibition, is an APTT of 46-80 seconds. Performed By: #### L AB325 ####Navy Diver: ROS JIMENEZ ([phone])[facility] ([facility])[address] [place] [address] CBC WITH AUTO DIFFERENTIALon 12-09-2024 Basophils (Bld) [#/Vol] 0.1 10*3/uL Normal 0.0-0.2 [facility] Comment on above: Performed By: #### L [id number] ####Navy Diver: ROS JIMENEZ ([phone])[facility])[address] [place] [address] Basophils/100 WBC (Bld) 0.6 % Normal 0.0-2.0 [facility] Comment on above: Performed By: #### L [id number] ####Navy Diver: ROS JIMENEZ ([id number])[facility])[address] [place] [address] Eosinophils (Bld) [#/Vol] 0.2 10*3/uL Normal 0.0-0.[address] [facility] Comment on above: Performed By: #### L [id number] ####Navy Diver: ROS JIMENEZ ([id number])[facility] ([facility])[address] [place] [address] Eosinophils/100 WBC (Bld) 2.4 % Normal 0.0-6.[address] [facility] Comment on above: Performed By: #### L [id number] ####Navy Diver: ROS JIMENEZ ([phone])[address] Erythrocyte distribution width (RBC) [Ratio] 15.2 % High 11.5-15.[address] [facility] Comment on above: Performed By: #### L [id number] ####Navy Diver: ROS JIMENEZ ([id number])[address] Hematocrit (Bld) [Volume fraction] 29.7 % Low 40.0-52.[address] [facility] Comment on above: Performed By: #### L [id number] ####Navy Diver: ROS JIMENEZ ([id number])[address] Hemoglobin (Bld) [Mass/Vol] 9.7 g/dL Low 13.0-18.[address] [facility] Comment on above: Performed By: #### L [id number] ####Navy Diver: ROS JIMENEZ ([phone])[address] IMMATURE GRANS % 1.5 % Normal 0.0-2.0 [facility] Comment on above: Performed By: #### L [id number] ####Navy Diver: ROS JIMENEZ ([id number])[address] IMMATURE GRANS ABSOLUTE 0.1 10*3/uL High <0.[address] [facility] Comment on above: Performed By: #### L [id number] ####Navy Diver: ROS JIMENEZ ([id number])[address] Lymphocytes (Bld) [#/Vol] 0.6 10*3/uL Low 1.0-4.[address] [facility] Comment on above: Performed By: #### L [id number] ####Navy Diver: ROS [id number])[facility])[address] [place] [address] Lymphocytes/100 WBC (Bld) 6.8 % Low 15.0-45.[address] [facility] Comment on above: Performed By: #### L [id number] ####Navy Diver: ROS JIMENEZ ([id number])[facility])[address] [place] [address] MCH (RBC) [Entitic mass] 30.0 pg Normal 26.0-34.[address] [facility] Comment on above: Performed By: #### L [id number] ####Navy Diver: ROS JIMENEZ ([id number])[facility])[address] [place] [address] MCHC 32.7 % Normal 30.5-36.[address] [facility] Comment on above: Performed By: #### L [id number] ####Navy Diver: ORS JIMENEZ ([phone])[facility])[address] [place] [address] MCV (RBC) [Entitic vol] 92.0 fL Normal 77.0-99.[address] [facility] Comment on above: Performed By: #### L [id number] ####Navy Diver: ROS JIMENEZ ([id number])[facility])[address] [place] [address] Monocytes (Bld) [#/Vol] 1.0 10*3/uL High 0.0-0.[address] [facility] Comment on above: Performed By: #### L [id number] ####Navy Diver: ROS JIMENEZ ([phone])[facility])[address] [place] [address] Monocytes/100 WBC (Bld) 10.2 % Normal 5.0-13.[address] [facility] Comment on above: Performed By: #### L [id number] ####Navy Diver: ROS JIMENEZ ([phone])[facility])[address] [place] [address] NEUTROPHILS ABSOLUTE 7.4 10*3/uL Normal 1.8-7.5 [facility] Comment on above: Performed By: #### L [id number] ####Navy Diver: ROS JIMENEZ ([phone])[facility] ([facility])[address] [place] [address] Neutrophils/100 WBC (Bld) 78.5 % Normal 38.0-82.0 [facility] Comment on above: Performed By: #### L [id number] ####Navy Diver: ROS JIMENEZ ([id number])[facility] ([facility])[address] [place] [address] NRBC 0.0 /100 WBCs Normal 0.0-2.0 [facility] Comment on above: Performed By: #### L [id number] ####Navy Diver: ROS JIMENEZ ([phone])[facility] ([facility])[address] [place] [address] Platelet mean volume (Bld) [Entitic vol] 9.9 fL Normal 9.0-12.7 [facility] Comment on above: Performed By: #### L [id number] ####Navy Diver: ROS JIMENEZ ([phone])[facility] ([facility])[address] [place] [address] [place] Platelets (Bld) [#/Vol] 262 10*3/uL Normal 140-440 [facility] Comment on above: Performed By: #### L [id number] ####Navy Diver: ROS JIMENEZ ([phone])[facility] ([facility])[address] [place] [address] [place] RBC (Bld) [#/Vol] 3.23 10*6/uL Low 4.40-5.90 [facility] Comment on above: Performed By: #### L [id number] ####Navy Diver: ROS JIMENEZ ([id number])[facility] ([facility])[address] [place] [address] [place] WBC (Bld) [#/Vol] 9.4 10*3/uL Normal 3.6-10.7 [facility] Comment on above: Performed By: #### L [id number] ####Navy Diver: ROS JIMENEZ ([id number])[facility])[address] [place] [address] MAGNESIUMon 12-09-2024 Magnesium [Mass/Vol] 1.7 mg/dL Normal 1.6-2.6 [facility] Comment on above: Result Comment: EDUARDO R COMMENTS:Higher values can be expected in females during menses. Performed By: #### L AB141, WPS108, LAB19 ####Navy Diver: ROS JIMENEZ ([phone])[facility] ([facility])[address] [place] [address] Progress Noteon 12-09-2024 Progress Note Normal [facility] Progress Note Normal [facility] Progress Note Normal [facility] Progress Note Normal [facility] RENAL FUNCTION PANELon 12-09 Albumin [Mass/Vol] 2.7 g/dL Low 3.5-5.0 [facility] Comment on above: Performed By: #### L AB141, UDC080, LAB19 ####Navy Diver: ROS JIMENEZ ([phone])[facility] ([facility])[address] [place] [address] Anion gap [Moles/Vol] 8 mmol/L Normal 3-13 [facility] Comment on above: Performed By: #### L AB141, WYS693, LAB19 ####Navy Diver: ROS JIMENEZ ([phone])[facility] ([facility])[address] [place] [address] Calcium [Mass/Vol] 10.1 mg/dL Normal 8.4-10.2 [facility] Comment on above: Performed By: #### L [id number], [id number], LAB19 ####[employer] Diver: ROS JIMENEZ ([id number])[facility])[address] [place] [address] Chloride [Moles/Vol] 102 mmol/L Normal 98-107 [facility] Comment on above: Performed By: #### L AB141, [id number], LAB19 ####[employer] Diver: ORS JIMENEZ ([id number])[facility] ([facility])[address] [place] [address] CO2 [Moles/Vol] 24 mmol/L Normal 22-29 [facility] Comment on above: Performed By: #### L AB141, [id number], LAB19 ####Nav[employer] Diver: ROS JIMENEZ ([phone])[facility] ([facility])[address] [place] [address] Creatinine [Mass/Vol] 1.66 mg/dL High 0.72-1.25 [facility] Comment on above: Performed By: #### L AB141, [id number], LAB19 ####Nav[employer] Diver: ROS JIMENEZ ([id number])[facility] ([facility])[address] [place] [address] GLOMERULAR FILTRATION RATE ML/MIN/1.73 SQ M.PREDICTED 49.6 mL/min/1.73m*2 Low >60.0 [facility] Comment on above: Result Comment: Calc ulation based on the Chronic Kidney Disease Epidemiology Collaboration (CKD-EPI) equation refit without adjustment for race Performed By: #### L AB141, [id number], LAB19 ####[employer]: ROS JIMENEZ ([phone])[facility] ([facility])[address] [place] [address] [place] Glucose [Mass/Vol] 94 mg/dL Normal 74-100 [facility] Comment on above: Performed By: #### L AB141, SUQ545, LAB19 ####Navy Diver: ROS JIMENEZ ([phone])[facility] ([facility])[address] [place] [address] [place] Phosphate [Mass/Vol] 2.2 mg/dL Low 2.3-4.7 [facility] Comment on above: Performed By: #### L AB141, ZFF309, LAB19 ####Navy Diver: ROS JIMENEZ ([phone])[facility] ([facility])[address] [place] [address] [place] Potassium [Moles/Vol] 4.0 mmol/L Normal 3.5-5.1 [facility] Comment on above: Result Comment: [facility] potassium values may be up to 0.5 mmol/L lower than serum values. Performed By: #### L AB141, UBC715, LAB19 ####Navy Diver: ROS JIMENEZ ([phone])[facility] ([facility])[address] [place] [address] Sodium [Moles/Vol] 134 mmol/L Low 136-145 [facility] Comment on above: Performed By: #### L AB141, THA282, LAB19 ####Navy Diver: ROS JIMENEZ ([id number])[facility] ([facility])[address] [place] [address] Urea nitrogen [Mass/Vol] 26 mg/dL High 9-23 [facility] Comment on above: Performed By: #### L AB141, KAD306, LAB19 ####Navy Diver: ROS JIMENEZ ([phone])[facility] ([facility])[address] [place] [address] URIC ACIDon 12-09-2024 Urate [Mass/Vol] 5.0 mg/dL Normal 3.7-7.7 [facility] Comment on above: Performed By: #### L AB141, HOO658, LAB19 ####Navy Diver: ROS JIMENEZ ([phone])[facility] ([facility])[address] [place] [address] [id number] 12-08-[address]24 [id number] [facility] 30on 12-08-2024 30 Normal [facility] 30 Normal [facility] APTTon 12-08-2024 aPTT Coag (Bld) [Time] 49.3 s High 20.0-30.5 [facility] Comment on above: Result Comment: EDUARDO Streeter COMMENTS:NOTE: The therapeutic time for Heparin anticoagulation, based on Xa activity inhibition, is an APTT of 46-80 seconds. Performed By: #### L AB325 ####Navy Diver: ROS JIMENEZ ([phone])[facility] [address] aPTT Coag (Bld) [Time] 53.0 s High 20.0-30.5 [facility] Comment on above: Result Comment: EDUARDO Streeter COMMENTS:NOTE: The therapeutic time for Heparin anticoagulation, based on Xa activity inhibition, is an APTT of 46-80 seconds. Performed By: #### L AB325 ####Navy Diver: ROS JIMENEZ ([phone])[facility])[address] [place] [address] Anesthesia Noteon 12-08-2024 Anesthesia Note Normal [facility] Anesthesia Note Normal [facility] MAGNESIUMon 12-08-2024 Magnesium [Mass/Vol] 1.6 mg/dL Normal 1.6-2.6 [facility] Comment on above: Result Comment: EDUARDO Streeter COMMENTS:Higher values can be expected in females during menses. Performed By: #### L AB19, UEY394, UZB165 ####Navy Diver: ROS JIMENEZ ([phone])[facility])[address] [place] [address] Op Noteon 12-08-2024 Op Note Normal [facility] Progress Noteon 12-08-2024 Progress Note Normal [facility] RENAL FUNCTION PANELon 12-08 Albumin [Mass/Vol] 2.8 g/dL Low 3.5-5.0 [facility] Comment on above: Performed By: #### L AB19, GKJ798, QGB889 ####Navy Diver: ROS JIMENEZ ([phone])[facility])[address] [place] [address] Anion gap [Moles/Vol] 10 mmol/L Normal 3-13 [facility] Comment on above: Performed By: #### L AB19, EEN500, ITV748 ####Navy Diver: ROS JIMENEZ ([phone])[address] Calcium [Mass/Vol] 11.4 mg/dL High 8.4-10.2 [facility] Comment on above: Performed By: #### L AB19, CRN662, MJP442 ####Navy Diver: ROS JIMENEZ ([phone])[facility])[address] [place] [address] Chloride [Moles/Vol] 102 mmol/L Normal 98-107 [facility] Comment on above: Performed By: #### L AB19, UVV050, WOK335 ####Navy Diver: ROS JIMENEZ ([id number])[facility] ([facility])[address] [place] [address] CO2 [Moles/Vol] 22 mmol/L Normal 22-29 [facility] Comment on above: Performed By: #### L AB19, OVL912, IXG978 ####Navy Diver: ROS JIMENEZ ([phone])[facility])[address] [place] [address] Creatinine [Mass/Vol] 1.84 mg/dL High 0.72-1.25 [facility] Comment on above: Performed By: #### L AB19, AYJ327, XUE154 ####Navy Diver: ROS JIMENEZ ([phone])[facility])[address] [place] [address] GLOMERULAR FILTRATION RATE ML/MIN/1.73 SQ M.PREDICTED 43.8 mL/min/1.73m*2 Low >60.0 [facility] Comment on above: Result Comment: Calc ulation based on the Chronic Kidney Disease Epidemiology Collaboration (CKD-EPI) equation refit without adjustment for race Performed By: #### L AB19, KLO883, PNW798 ####Navy Diver: ROS JIMENEZ ([phone])[facility] ([facility])[address] [place] [address] [place] Glucose [Mass/Vol] 93 mg/dL Normal 74-100 [facility] Comment on above: Performed By: #### L AB19, KTM990, ZAF570 ####Navy Diver: ROS JIMENEZ ([phone])[facility])[address] [place] [address] [place] Phosphate [Mass/Vol] 2.1 mg/dL Low 2.3-4.7 [facility] Comment on above: Performed By: #### L AB19, RMF272, YCQ068 ####Navy Diver: ROS JIMENEZ ([id number])[facility] ([facility])[address] [place] [address] Potassium [Moles/Vol] 4.2 mmol/L Normal 3.5-5.1 [facility] Comment on above: Performed By: #### L AB19, WPY071, LQK286 ####Navy Diver: ROS JIMENEZ ([id number])[facility] ([facility])[address] [place] [address] Sodium [Moles/Vol] 134 mmol/L Low 136-145 [facility] Comment on above: Performed By: #### L AB19, OAF471, WHH633 ####Navy Diver: ROS JIMENEZ ([phone])[facility] ([facility])[address] [place] [address] Urea nitrogen [Mass/Vol] 25 mg/dL High 9-23 [facility] Comment on above: Performed By: #### L AB19, LQV947, RZC095 ####Navy Diver: ROS JIMENEZ ([phone])[facility] ([facility])[address] [place] [address] URIC ACIDon 12-08-2024 Urate [Mass/Vol] 9.0 mg/dL High 3.7-7.7 [facility] Comment on above: Performed By: #### L AB19, EZL365, GOD933 ####Navy Diver: ROS JIMENEZ ([phone])[facility] ([facility])[address] [place] [address] 1,25 DIHYDROXY VITAMIN D (BK R QUEST)on 12-07-2024 QUEST VITAMIN D, 1,25 (OH)2, TOTAL 138 pg/mL High 18-72 [facility] Comment on above: Performed By: #### L AB536 ####[facility] ([facility])[address] [place], [place] QUEST VITAMIN D2, 1,25 (OH)2 <8 Normal [facility] Comment on above: Result Comment: Shannan min D3, 1,25(OH)2 indicates both endogenousproduction and supplementation. Vitamin D2, 1,25(OH)2is an indicator of exogenous sources, such as diet orsupplementation. Interpretation and therapy are basedon measurement of Vitamin D,1,25(OH)2, Total.This test was developed and its analyticalperformance characteristics have been determinedby [place]It has not been cleared or approved by the FDA. Thisassay has been validated pursuant to the CLIAregulations and is used for clinical purposes.Test Performed by [facility],[address] [place] [id number] Cruz M.D., Ph.D., Director of [phone], CLIA [id number] Performed By: #### L AB536 ####[facility] ([facility])[address] [place] [address] [facility] QUEST VITAMIN D3, 1,25 (OH)2 138 pg/mL Normal [facility] Comment on above: Performed By: #### L AB536 ####[facility] ([facility])[address] [place] [address] [facility] 30on 12-07-2024 [address] [facility] 30 Normal [facility] APTTon 12-07-2024 aPTT Coag (Bld) [Time] 86.0 s High 20.0-30.5 [facility] Comment on above: Result Comment: EDUARDO Streeter COMMENTS:NOTE: The therapeutic time for Heparin anticoagulation, based on Xa activity inhibition, is an APTT of 46-80 seconds. Performed By: #### L AB325 ####Navy Diver: ROS JIMENEZ ([phone])[facility] ([address] aPTT Coag (Bld) [Time] 42.4 s High 20.0-30.5 [facility] Comment on above: Result Comment: EDUARDO Streeter COMMENTS:NOTE: The therapeutic time for Heparin anticoagulation, based on Xa activity inhibition, is an APTT of 46-80 seconds. Performed By: #### L AB325 ####Navy Diver: ROS JIMENEZ ([phone])[facility])[address] [place] [address] aPTT Coag (Bld) [Time] 61.8 s High 20.0-30.5 [facility] Comment on above: Result Comment: EDUARDO Streeter COMMENTS:NOTE: The therapeutic time for Heparin anticoagulation, based on Xa activity inhibition, is an APTT of 46-80 seconds. Performed By: #### L AB325 ####Navy Diver: ROS JIMENEZ ([phone])[facility])[address] [place] [address] aPTT Coag (Bld) [Time] 31.7 s High 20.0-30.5 [facility] Comment on above: Result Comment: EDUARDO Streeter COMMENTS:NOTE: The therapeutic time for Heparin anticoagulation, based on Xa activity inhibition, is an APTT of 46-80 seconds. Performed By: #### L AB325 ####Navy Diver: ROS JIMENEZ ([phone])[facility])[address] [place] [address] CBC WITH AUTO DIFFERENTIALon 12-07-2024 Basophils (Bld) [#/Vol] 0.1 10*3/uL Normal 0.0-0.2 [facility] Comment on above: Performed By: #### L [id number] ####Navy Diver: ROS JIMENEZ ([phone])[facility])[address] [place] [address] Basophils/100 WBC (Bld) 1.3 % Normal 0.0-2.0 [facility] Comment on above: Performed By: #### L [id number] ####Navy Diver: ROS [id number])[facility])[address] [place] [address] Eosinophils (Bld) [#/Vol] 0.3 10*3/uL Normal 0.0-0.5 [facility] Comment on above: Performed By: #### L [id number] ####Navy Diver: ROS JIMENEZ ([id number])[facility])[address] [place] [address] Eosinophils/100 WBC (Bld) 4.0 % Normal 0.0-6.[address] [facility] Comment on above: Performed By: #### L [id number] ####Navy Diver: ROS JIMENEZ ([phone])[facility])[address] [place] [address] Erythrocyte distribution width (RBC) [Ratio] 14.8 % Normal 11.5-15.[address] [facility] Comment on above: Performed By: #### L [id number] ####Navy Diver: ROS JIMENEZ ([phone])[address] Hematocrit (Bld) [Volume fraction] 29.8 % Low 40.0-52.[address] [facility] Comment on above: Performed By: #### L [id number] ####Navy Diver: ROS JIMENEZ ([id number])[address] Hemoglobin (Bld) [Mass/Vol] 9.7 g/dL Low 13.0-18.[address] [facility] Comment on above: Performed By: #### L [id number] ####Navy Diver: ROS JIMENEZ ([phone])[facility])[address] [place] [address] IMMATURE GRANS % 1.1 % Normal 0.0-2.0 [facility] Comment on above: Performed By: #### L [id number] ####Navy Diver: ROS JIMENEZ ([id number])[address] IMMATURE GRANS ABSOLUTE 0.1 10*3/uL High <0.[address] [facility] Comment on above: Performed By: #### L [id number] ####Navy Diver: ROS [id number])[facility])[address] [place] [address] Lymphocytes (Bld) [#/Vol] 0.6 10*3/uL Low 1.0-4.[address] [facility] Comment on above: Performed By: #### L [id number] ####Navy Diver: ROS JIMENEZ ([id number])[facility])[address] [place] [address] Lymphocytes/100 WBC (Bld) 7.5 % Low 15.0-45.[address] [facility] Comment on above: Performed By: #### L [id number] ####Navy Diver: ROS JIMENEZ ([id number])[facility])[address] [place] [address] MCH (RBC) [Entitic mass] 29.6 pg Normal 26.0-34.[address] [facility] Comment on above: Performed By: #### L [id number] ####Navy Diver: ROS JIMENEZ ([id number])[facility])[address] [place] [address] MCHC 32.6 % Normal 30.5-36.[address] [facility] Comment on above: Performed By: #### L [id number] ####Navy Diver: ROS JIMENEZ ([phone])[facility])[address] [place] [address] MCV (RBC) [Entitic vol] 90.9 fL Normal 77.0-99.[address] [facility] Comment on above: Performed By: #### L [id number] ####Navy Diver: RSO JIMENEZ ([phone])[facility])[address] [place] [address] Monocytes (Bld) [#/Vol] 1.0 10*3/uL High 0.0-0.[address] [facility] Comment on above: Performed By: #### L [id number] ####Navy Diver: ROS JIMENEZ ([phone])[facility])[address] [place] [address] Monocytes/100 WBC (Bld) 12.9 % Normal 5.0-13.[address] [facility] Comment on above: Performed By: #### L [id number] ####Navy Diver: ROS JIMENEZ ([id number])[facility] ([facility])[address] [place] [address] NEUTROPHILS ABSOLUTE 5.7 10*3/uL Normal 1.8-7.5 [facility] Comment on above: Performed By: #### L [id number] ####Navy Diver: ROS JIMENEZ ([phone])[facility] ([facility])[address] [place] [address] Neutrophils/100 WBC (Bld) 73.2 % Normal 38.0-82.0 [facility] Comment on above: Performed By: #### L [id number] ####Navy Diver: ROS JIMENEZ ([id number])[facility] ([facility])[address] [place] [address] NRBC 0.0 /100 WBCs Normal 0.0-2.0 [facility] Comment on above: Performed By: #### L [id number] ####Navy Diver: ROS JIMENEZ ([phone])[facility] ([facility])[address] [place] [address] Platelet mean volume (Bld) [Entitic vol] 9.8 fL Normal 9.0-12.[address] [facility] Comment on above: Performed By: #### L [id number] ####Navy Diver: ROS JIMENEZ ([id number])[facility] ([facility])[address] [place] [address] Platelets (Bld) [#/Vol] 281 10*3/uL Normal 140-[address] [facility] Comment on above: Performed By: #### L [id number] ####Navy Diver: ROS JIMENEZ ([phone])[facility] ([facility])[address] [place] [address] RBC (Bld) [#/Vol] 3.28 10*6/uL Low 4.40-5.90 [facility] Comment on above: Performed By: #### L [id number] ####Navy Diver: ROS JIMENEZ ([phone])[facility] ([facility])[address] [place] [address] WBC (Bld) [#/Vol] 7.8 10*3/uL Normal 3.6-10.[address] [facility] Comment on above: Performed By: #### L [id number] ####Navy Diver: ROS JIMENEZ ([phone])[facility] ([facility])[address] [place] [address] CKon 12-07-2024 CK [Catalytic activity/Vol] 16 U/L Low 30-[address] [facility] Comment on above: Performed By: #### L AB113, ZZO925, YFW954, LAB17, YMF837, LAB96, LAB62 ####Navy Diver: ROS JIMENEZ ([phone])[facility] ([facility])[address] [place] [address] COMPREHENSIVE METABOLIC PANE Tree 12-07-2024 Albumin [Mass/Vol] 2.9 g/dL Low 3.5-5.[address] [facility] Comment on above: Performed By: #### L AB113, XYY183, XSJ280, LAB17, HPN966, LAB96, LAB62 ####Navy Diver: ROS JIMENEZ ([phone])[facility] ([facility])[address] [place] [address] ALP [Catalytic activity/Vol] 53 U/L Normal 40-[address] [facility] Comment on above: Performed By: #### L AB113, JOB240, OAZ816, LAB17, XZK415, LAB96, LAB62 ####Navy Diver: ROS JIMENEZ ([phone])[facility])[address] [place] [address] ALT [Catalytic activity/Vol] 30 U/L Normal <[address] [facility] Comment on above: Performed By: #### L AB113, OKO384, BSU282, LAB17, QHI622, LAB96, LAB62 ####Navy Diver: ROS JIMENEZ ([id number])[facility] [place] [address] Anion gap [Moles/Vol] 11 mmol/L Normal 3-13 [facility] Comment on above: Performed By: #### L AB113, PDB432, XSS073, LAB17, WIV356, LAB96, LAB62 ####Navy Diver: ROS JIMENEZ ([id number])[facility] ([facility])[address] [place] [address] AST [Catalytic activity/Vol] 54 U/L High <34 [facility] Comment on above: Performed By: #### L AB113, MKO749, EXF562, LAB17, RLQ267, LAB96, LAB62 ####Navy Diver: ROS JIMENEZ ([id number])[facility] ([facility])[address] [place] [address] Bilirubin [Mass/Vol] 0.7 mg/dL Normal <1.2 [facility] Comment on above: Performed By: #### L AB113, OHA895, QEE144, LAB17, POY526, LAB96, LAB62 ####Navy Diver: ROS JIMENEZ ([phone])[facility] ([facility])[address] [place] [address] Calcium [Mass/Vol] 12.8 mg/dL High 8.4-10.2 [facility] Comment on above: Performed By: #### L AB113, VIX233, OFW920, LAB17, LJD323, LAB96, LAB62 ####Navy Diver: ROS JIMENEZ ([phone])[facility] ([facility])[address] [place] [address] [place] Chloride [Moles/Vol] 103 mmol/L Normal 98-107 [facility] Comment on above: Performed By: #### L AB113, TUT304, MSH421, LAB17, UPE287, LAB96, LAB62 ####Navy Diver: ROS JIMENEZ ([phone])[facility] ([facility])[address] [place] [address] [place] CO2 [Moles/Vol] 21 mmol/L Low 22-29 [facility] Comment on above: Performed By: #### L AB113, XCP493, HCM191, LAB17, MJM797, LAB96, LAB62 ####Navy Diver: ROS JIMENEZ ([phone])[facility])[address] [place] [address] Creatinine [Mass/Vol] 2.20 mg/dL High 0.72-1.25 [facility] Comment on above: Performed By: #### L AB113, FQN601, MWU773, LAB17, QMS207, LAB96, LAB62 ####Navy Diver: ROS JIMENEZ ([id number])[facility])[address] [place] [address] GLOMERULAR FILTRATION RATE ML/MIN/1.73 SQ M.PREDICTED 35.4 mL/min/1.73m*2 Low >60.0 [facility] Comment on above: Result Comment: Calc ulation based on the Chronic Kidney Disease Epidemiology Collaboration (CKD-EPI) equation refit without adjustment for race Performed By: #### L AB113, BRK620, UWG932, LAB17, SQS185, LAB96, LAB62 ####Navy Diver: ROS JIMENEZ ([phone])[address] Glucose [Mass/Vol] 104 mg/dL High 74-100 [facility] Comment on above: Performed By: #### L AB113, ZJD482, IUG012, LAB17, SJV291, LAB96, LAB62 ####Navy Diver: ROS JIMENEZ ([phone])[facility])[address] [place] [address] Potassium [Moles/Vol] 4.4 mmol/L Normal 3.5-5.1 [facility] Comment on above: Result Comment: [facility] potassium values may be up to 0.5 mmol/L lower than serum values. Performed By: #### L AB113, EPV980, QJI228, LAB17, IYJ214, LAB96, LAB62 ####Navy Diver: ROS JIMENEZ ([id number])[facility])[address] [place] [address] Protein [Mass/Vol] 6.1 g/dL Low 6.4-8.3 [facility] Comment on above: Performed By: #### L AB113, NGX800, TUJ185, LAB17, MYO643, LAB96, LAB62 ####Navy Diver: ROS JIMENEZ ([id number])[facility] ([facility])[address] [place] [address] Sodium [Moles/Vol] 135 mmol/L Low 136-145 [facility] Comment on above: Performed By: #### L AB113, GIN873, LTO332, LAB17, WGC658, LAB96, LAB62 ####Navy Diver: ROS JIMENEZ ([id number])[facility] ([facility])[address] [place] [address] Urea nitrogen [Mass/Vol] 30 mg/dL High 9-23 [facility] Comment on above: Performed By: #### L AB113, OJZ618, WSK987, LAB17, ALU924, LAB96, LAB62 ####Navy Diver: ROS JIMENEZ ([phone])[facility] ([facility])[address] [place] [address] [place] [address] CHEST WO IV CONTRASTon CT CHEST WO IV CONTRAST Normal [facility] Consulton 12-07-2024 Consult Normal [facility] GLUCOSE 6 PHOSPHATE DEHYDROG ENASE (BKR [facility])on 12-07-2024 [facility] GNPIOXI-3-EEJAJRPXL DEHYDROGENASE 25.0 U/g Hgb High 7.0-20.5 [facility] Comment on above: Result Comment: Test Performed by Lucho Ballard,[facility],[address] [place] [id number] Cruz M.D., Ph.D., Director of [phone], CLIA [id number] Performed By: #### L AB571 ####[facility] ([facility])[address] [place] [address] [place] IG CONCENTRATION, BLOOD (IMM UNOFIXATION ELECTROPHORESIS)on 12-07-2024 IGA, BLOOD 256 mg/dL Normal 65-450 [facility] Comment on above: Performed By: #### L AB535, [id number] ####Navy Diver: ROS JIMENEZ ([id number])[facility] ([facility])[address] [place] [address] IGG, BLOOD 1046 mg/dL Normal 540-1722 [facility] Comment on above: Performed By: #### L AB535, [id number] ####Navy Diver: ROS JIMENEZ ([id number])[facility] ([facility])[address] [place] [address] IGM, BLOOD 113 mg/dL Normal 25-265 [facility] Comment on above: Performed By: #### L AB535, [id number] ####Navy Diver: ROS JIMENEZ ([id number])[facility] ([facility])[address] [place] [address] IMMUNOFIXATION ELECTROPHORES Kaci 12-07-2024 IMMUNOFIXATION ELECTROPHORESIS Normal Pattern Normal [facility] Comment on above: Performed By: #### L [id number], [id number] ####Navy Diver: ROS JIMENEZ ([phone])[facility] ([facility])[address] [place] [address] LACTATE DEHYDROGENASEon 11-24 LDH [Catalytic activity/Vol] 372 U/L High 125-220 [facility] Comment on above: Performed By: #### L [id number], [id number], [id number], LAB17, LMI460, LAB96, LAB62 ####Navy Diver: ROS JIMENEZ ([phone])[facility] ([facility])[address] [place] [address] MAGNESIUMon 12-07-2024 Magnesium [Mass/Vol] 1.7 mg/dL Normal 1.6-2.6 [facility] Comment on above: Result Comment: EDUARDO Streeter COMMENTS:Higher values can be expected in females during menses. Performed By: #### L [id number], [id number], [id number], LAB17, OZA670, LAB96, LAB62 ####Navy Diver: ROS JIMENEZ ([phone])[facility] ([facility])[address] [place] [address] [place] PHOSPHORUSon 12-07-2024 Phosphate [Mass/Vol] 3.3 mg/dL Normal 2.3-4.7 [facility] Comment on above: Performed By: #### L AB113, [id number], [id number], LAB17, VIU102, LAB96, LAB62 ####Navy Diver: ROS JIMENEZ ([phone])[facility] ([facility])[address] [place] [address] PTH INTACTon 12-07-2024 PTH, INTACT <4.0 Low 22.6-120.3 [facility] Comment on above: Performed By: #### L AB113, [id number], VMI269, LAB17, QUJ258, LAB96, LAB62 ####Navy Diver: ROS JIMENEZ ([phone])[facility] ([facility])[address] [place], [place] [address] PTH-RELATED PEPTIDE (BKR QUE ST)on 12-07-2024 [employer] PTH-RP 9 pg/mL Low 11-20 [facility] Comment on above: Result Comment: This is a C-terminal PTH-RP assay. PTH-RP isuseful in the differential diagnosis ofhypercalcemia and levels may be elevated inpatients with tumor-associated hypercalcemia.Elevated results may also be observed in patientswith renal disease.This test was developed and its analyticalperformance characteristics have been determinedby [employer]. It has not been cleared orapproved by the FDA. This assay has been validatedpursuant to the CLIA regulations and is used forclinical purposes.Test performed by [employer] I/O [address] [place] [address] Rcnfpja Director: Ines Delgado MD,PHD,MBATest Reported by [facility],[employer] [place],[address] [place] [id number] Cruz M.D., Ph.D., Director of [phone], CLIA [id number] Performed By: #### L [id number] ####[employer] (AMDBEAKER)[id number] [place], [place] [facility] Progress Noteon 12-07-2024 Progress Note Normal [facility] Progress [facility] SERUM ELECTROPHORESISon 11-24 Albumin [Mass/Vol] 3.2 g/dL Normal 3.1-4.8 [facility] Comment on above: Performed By: #### L [id number], [id number] ####Navy Diver: ROS JIMENEZ ([id number])[facility])[address] [place] [address] ALPHA 1 0.4 g/dL Normal 0.2-0.4 [facility] Comment on above: Performed By: #### L [id number], [id number] ####Navy Diver: ROS JIMENEZ ([id number])[facility])[address] [place] [address] ALPHA 2 0.7 g/dL Normal 0.6-1.0 [facility] Comment on above: Performed By: #### L [id number], [id number] ####Navy Diver: ROS JIMENEZ ([id number])[facility])[address] [place] [address] [place] BETA 1 0.4 g/dl Normal 0.3-0.6 [facility] Comment on above: Performed By: #### L [id number], [id number] ####Navy Diver: ROS JIMENEZ ([id number])[facility])[address] [place] [address] [place] BETA 2 0.4 g/dl Normal 0.3-0.5 [facility] Comment on above: Performed By: #### L [id number], [id number] ####Navy Diver: ROS JIMENEZ ([id number])[facility])[address] [place] [address] [place] GAMMA GLOBULIN 1.0 g/dL Normal 0.4-1.4 [facility] Comment on above: Performed By: #### L [id number], [id number] ####Navy Diver: ROS [id number])[facility])[address] [place] [address] PROTEIN FRACTION (INTERPRETATION) IN SER/PLAS BY ELECTROPHORESIS See Below [facility] Comment on above: Result Comment: Low total protein. See GAUTAM for additional information. Performed By: #### L [id number], [id number] ####Navy Diver: ROS JIMENEZ ([phone])[facility])[address] [place] [address] RELEASED BY Ros Jimenez M.D. [facility] Comment on above: Result Comment: This is an appended report. These results have been appended to a previously preliminary verified report. Performed By: #### L [id number], [id number] ####Navy Diver: ROS JIMENEZ ([id number])[facility])[address] [place] [address] REVIEWED BY Delaney VerdugoBJia, Ph.D. [facility] Comment on above: Performed By: #### L [id number], [id number] ####Navy Diver: ROS JIMENEZ ([id number])[address] TOTAL PROTEIN (SERUM PROTEIN ELECTROPHORESIS)on 12-07-2024 Protein [Mass/Vol] 5.7 g/dL Low 6.4-8.3 [facility] Comment on above: Result Comment: Seru m protein values are higher than plasma values. Samples from recumbent persons are lower by up to 0.5 g/dL as compared to ambulatory persons. After 60 years values are lower by up to 0.2 g/dL. Performed By: #### L [id number] ####Navy Diver: ROS JIMENEZ ([id number])[facility])[address] [place] [address] URIC ACIDon 12-07-2024 Urate [Mass/Vol] 17.0 mg/dL High 3.7-7.7 [facility] Comment on above: Performed By: #### L [id number], [id number], [id number], LAB17, USR499, LAB96, LAB62 ####Navy Diver: ROS JIMENEZ ([id number])[facility])[address] [place] [address] VITAMIN D DEFICIENCY SCREENI NG (VIT D 25)on 12-07-2024 VIT D 25-OH, TOTAL 15 ng/mL Low See comment [facility] Comment on above: Result Comment: EDUARDO Streeter COMMENTS:Target concentration: 30 - 40 ng/mL; toxicity seen at concentrations >100 ng/mLLess than 20 ng/mL: Indicative of Vit D deficiencyTest performed by [employer], measuring Total Vitamin D, not individual fractions. Performed By: #### L [id number], [id number] ####Navy Diver: ROS JIMENEZ ([id number])[address] 30on 12-06-2024 [address] [facility] 30 Normal [facility] 30 Normal [facility] [id number] 12-06-2024 [id number] Normal [facility] APTTon 12-06-2024 aPTT Coag (Bld) [Time] 37.9 s High 20.0-30.5 [facility] Comment on above: Result Comment: EDUARDO Streeter COMMENTS:NOTE: The therapeutic time for Heparin anticoagulation, based on Xa activity inhibition, is an APTT of 46-80 seconds. Performed By: #### L [id number] ####Navy Diver: ROS JIMENEZ ([id number])[address] aPTT Coag (Bld) [Time] 24.2 s Normal 20.0-30.5 [facility] Comment on above: Result Comment: EDUARDO Streeter COMMENTS:NOTE: The therapeutic time for Heparin anticoagulation, based on Xa activity inhibition, is an APTT of 46-80 seconds. Performed By: #### L [id number] ####Navy Diver: ROS JIMENEZ ([id number])[facility])[address] [place] [address] CBC WITH AUTO DIFFERENTIALon 12-06-2024 Basophils (Bld) [#/Vol] 0.1 10*3/uL Normal 0.0-0.[address] [facility] Comment on above: Performed By: #### L [id number] ####Navy Diver: ROS JIMENEZ ([id number])[facility] ([facility])[address] [place] [address] Basophils/100 WBC (Bld) 1.6 % Normal 0.0-2.[address] [facility] Comment on above: Performed By: #### L [id number] ####Navy Diver: ROS JIMENEZ ([id number])[facility])[address] [place] [address] Eosinophils (Bld) [#/Vol] 0.3 10*3/uL Normal 0.0-0.[address] [facility] Comment on above: Performed By: #### L [id number] ####Navy Diver: ROS JIMENEZ ([id number])[facility])[address] [place] [address] Eosinophils/100 WBC (Bld) 4.2 % Normal 0.0-6.[address] [facility] Comment on above: Performed By: #### L [id number] ####Navy Diver: ROS JIMENEZ ([phone])[facility])[address] [place] [address] Erythrocyte distribution width (RBC) [Ratio] 14.8 % Normal 11.5-15.[address] [facility] Comment on above: Performed By: #### L [id number] ####Navy Diver: ROS JIMENEZ ([id number])[facility])[address] [place] [address] Hematocrit (Bld) [Volume fraction] 31.4 % Low 40.0-52.[address] [facility] Comment on above: Performed By: #### L [id number] ####Navy Diver: ROS JIMENEZ ([phone])[facility])[address] [place] [address] Hemoglobin (Bld) [Mass/Vol] 10.2 g/dL Low 13.0-18.[address] [facility] Comment on above: Performed By: #### L [id number] ####Navy Diver: ROS JIMENEZ ([id number])[facility])[address] [place] [address] IMMATURE GRANS % 1.0 % Normal 0.0-2.0 [facility] Comment on above: Performed By: #### L [id number] ####Navy Diver: ROS JIMENEZ ([id number])[facility])[address] [place] [address] IMMATURE GRANS ABSOLUTE 0.1 10*3/uL High <0.[address] [facility] Comment on above: Performed By: #### L [id number] ####Navy Diver: ROS JIMENEZ ([id number])[address] Lymphocytes (Bld) [#/Vol] 0.5 10*3/uL Low 1.0-4.[address] [facility] Comment on above: Performed By: #### L [id number] ####Navy Diver: ROS JIMENEZ ([id number])[address] Lymphocytes/100 WBC (Bld) 7.7 % Low 15.0-45.[address] [facility] Comment on above: Performed By: #### L [id number] ####Navy Diver: ROS JIMENEZ ([id number])[address] MCH (RBC) [Entitic mass] 29.6 pg Normal 26.0-34.[address] [facility] Comment on above: Performed By: #### L [id number] ####Navy Diver: ROS JIMENEZ ([id number])[address] MCHC 32.5 % Normal 30.5-36.[address] [facility] Comment on above: Performed By: #### L [id number] ####Navy Diver: ROS [id number])[facility] ([facility])[address] [place] [address] MCV (RBC) [Entitic vol] 91.0 fL Normal 77.0-99.[address] [facility] Comment on above: Performed By: #### L [id number] ####Navy Diver: ROS JIMENEZ ([id number])[facility] ([facility])[address] [place] [address] Monocytes (Bld) [#/Vol] 1.0 10*3/uL High 0.0-0.[address] [facility] Comment on above: Performed By: #### L [id number] ####Navy Diver: ROS JIMENEZ ([id number])[facility] ([facility])[address] [place] [address] Monocytes/100 WBC (Bld) 14.7 % High 5.0-13.[address] [facility] Comment on above: Performed By: #### L [id number] ####Navy Diver: ROS JIMENEZ ([id number])[facility] ([facility])[address] [place] [address] NEUTROPHILS ABSOLUTE 4.8 10*3/uL Normal 1.8-7.5 [facility] Comment on above: Performed By: #### L [id number] ####Navy Diver: ROS JIMENEZ ([id number])[facility] ([facility])[address] [place] [address] Neutrophils/100 WBC (Bld) 70.8 % Normal 38.0-82.[address] [facility] Comment on above: Performed By: #### L [id number] ####Navy Diver: ROS JIMENEZ ([id number])[facility] ([facility])[address] [place] [address] NRBC 0.0 /100 WBCs Normal 0.0-2.0 [facility] Comment on above: Performed By: #### L [id number] ####Navy Diver: ROS JIMENEZ ([id number])[facility] ([facility])[address] [place] [address] Platelet mean volume (Bld) [Entitic vol] 9.8 fL Normal 9.0-12.[address] [facility] Comment on above: Performed By: #### L [id number] ####Navy Diver: ROS JIMENEZ ([id number])[facility] ([facility])[address] [place] [address] Platelets (Bld) [#/Vol] 267 10*3/uL Normal 140-[address] [facility] Comment on above: Performed By: #### L [id number] ####Navy Diver: ROS JIMENEZ ([id number])[facility] ([facility])[address] [place] [address] RBC (Bld) [#/Vol] 3.45 10*6/uL Low 4.40-5.[address] [facility] Comment on above: Performed By: #### L [id number] ####Navy Diver: ROS JIMENEZ ([id number])[facility] ([facility])[address] [place] [address] WBC (Bld) [#/Vol] 6.7 10*3/uL Normal 3.6-10.[address] [facility] Comment on above: Performed By: #### L [id number] ####Navy Diver: ROS JIMENEZ ([id number])[facility] ([facility])[address] [place] [address] COMPREHENSIVE METABOLIC PANE Tree 12-06-2024 Albumin [Mass/Vol] 3.0 g/dL Low 3.5-5.[address] [facility] Comment on above: Performed By: #### L [id number] ####Navy Diver: ROS JIMENEZ ([id number])[facility] ([facility])[address] [place] [address] ALP [Catalytic activity/Vol] 57 U/L Normal 40-[address] [facility] Comment on above: Performed By: #### L AB17 ####Navy Diver: ROS JIMENEZ ([id number])[facility] ([facility])[address] [place] [address] ALT [Catalytic activity/Vol] 29 U/L Normal <[address] [facility] Comment on above: Performed By: #### L AB17 ####Navy Diver: ROS JIMENEZ ([id number])[facility] ([facility])[address] [place] [address] Anion gap [Moles/Vol] 11 mmol/L Normal 3-13 [facility] Comment on above: Performed By: #### L AB17 ####Navy Diver: ROS JIMENEZ ([id number])[facility] ([facility])[address] [place] [address] AST [Catalytic activity/Vol] 53 U/L High <[address] [facility] Comment on above: Performed By: #### L AB17 ####Navy Diver: ROS JIMENEZ ([id number])[facility] ([facility])[address] [place] [address] Bilirubin [Mass/Vol] 1.1 mg/dL Normal <1.2 [facility] Comment on above: Performed By: #### L AB17 ####Navy Diver: ROS JIMENEZ ([id number])[facility] ([facility])[address] [place] [address] Calcium [Mass/Vol] 13.2 mg/dL High 8.4-10.[address] [facility] Comment on above: Performed By: #### L [id number] ####Navy Diver: ROS JIMENEZ ([phone])[facility] ([facility])[address] [place] [address] [place] Chloride [Moles/Vol] 99 mmol/L Normal 98-107 [facility] Comment on above: Performed By: #### L AB17 ####Navy Diver: ROS JIMENEZ ([id number])[facility] ([facility])[address] [place] [address] [place] CO2 [Moles/Vol] 23 mmol/L Normal 22-29 [facility] Comment on above: Performed By: #### L AB17 ####Navy Diver: ROS JIMENEZ ([id number])[facility] ([facility])[address] [place] [address] [place] Creatinine [Mass/Vol] 2.20 mg/dL High 0.72-1.25 [facility] Comment on above: Performed By: #### L AB17 ####Navy Diver: ROS JIMENEZ ([id number])[address] GLOMERULAR FILTRATION RATE ML/MIN/1.73 SQ M.PREDICTED 35.4 mL/min/1.73m*2 Low >60.0 [facility] Comment on above: Result Comment: Calc ulation based on the Chronic Kidney Disease Epidemiology Collaboration (CKD-EPI) equation refit without adjustment for race Performed By: #### L AB17 ####Navy Diver: ROS JIMENEZ ([id number])[facility])[address] [place] [address] Glucose [Mass/Vol] 99 mg/dL Normal 74-100 [facility] Comment on above: Performed By: #### L AB17 ####Navy Diver: ROS JIMENEZ ([id number])[address] Potassium [Moles/Vol] 4.9 mmol/L Normal 3.5-5.1 [facility] Comment on above: Result Comment: [facility] potassium values may be up to 0.5 mmol/L lower than serum values. Performed By: #### L AB17 ####Navy Diver: ROS JIMENEZ ([id number])[address] Protein [Mass/Vol] 5.9 g/dL Low 6.4-8.3 [facility] Comment on above: Performed By: #### L AB17 ####Navy Diver: ROS [id number])[address] Sodium [Moles/Vol] 133 mmol/L Low 136-145 [facility] Comment on above: Performed By: #### L AB17 ####Navy Diver: ROS [id number])[facility] Urea nitrogen [Mass/Vol] 31 mg/dL High 9-23 [facility] Comment on above: Performed By: #### L AB17 ####Navy Diver: ROS JIMENEZ ([id number])[facility] ([facility])[address] [place] [address] Consulton 12-06-2024 Consult Normal [facility] Consult Normal [facility] FACTOR V LEIDEN MUTATIONon 0 12-06-2024 Factor V Leiden Mutation Heterozygous Abnormal () [facility] Comment on above: Result Comment: Courtney cation for testing: Assess genetic risk for thrombosis. HETEROZYGOUS: One copy of the factor V Leiden variant, c.1601G>A; p.Eck597Wio, was detected. This is associated with activated protein C resistance and a four to eight fold increased risk for venous thrombosis in comparison to individuals without this variant. Genetic consultation is recommended. This result has been reviewed and approved by Randa Ashford M.D. BACKGROUND INFORMATION: Factor V Leiden (F5) R506Q Mutation CHARACTERISTICS: Venous thromboembolism (VTE) is multifactorial caused by a combination of genetic and environmental factors. The Factor V Leiden (FVL) variant is the most common cause of inherited VTEs, accounting for over 90 percent of activated protein C (APC) resistance. Because the FVL variant eliminates the APC cleavage site, factor V is inactivated slower, thus persisting longer in blood circulation, leading to more thrombin production. Other genetic risk factors for VTE include, male sex and variants in antithrombin, protein C, protein S, or factor XIII. Non-genetic risk factors include, age, smoking, prolonged immobilization, malignant neoplasms, surgery, , oral contraceptives, estrogen replacement therapy, tamoxifen and raloxifene therapy. INCIDENCE OF FACTOR V LEIDEN VARIANT: Approximately 5 percent of Caucasians, 2 percent of Hispanics, 1 percent of Americans and 0.5 percent of Asians are heterozygous; homozygosity occurs in 1 in 1500 Caucasians. INHERITANCE: Semi-dominant; both heterozygotes and homozygotes are at increased risk for VTE. PENETRANCE: Lifetime risk of VTE is 10 percent for heterozygotes and 80 percent of homozygotes. 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 Legacy nomenclature: R506Q (1691G>A) CLINICAL SENSITIVITY: 20-50 percent of individuals with an isolated VTE have the FVL variant. METHODOLOGY: Polymerase chain reaction and fluorescence monitoring. ANALYTICAL SENSITIVITY AND SPECIFICITY: 99 percent. LIMITATIONS: Diagnostic errors can occur due to rare sequence variations. F5 gene mutations, other than p.Bmp540Fzy, will not be detected. This test was developed and its performance characteristics determined by [facility]. It has not been cleared or approved by the [place] Food and Drug Administration. This test was performed in a CLIA certified laboratory and is intended for clinical purposes. Counseling and informed consent are recommended for genetic testing. Consent forms are available online. Performed By: [facility] [address] [place] [address] Cop Breaker: Keron Tyler MD, PhD [facility] Number: [id number] Performed By: #### F IIM, FVM, PROTCF, PROTSF, ATIII ####[facility] [place] [address] FACV Specimen Whole Blood Normal () [facility] Comment on above: Performed By: #### F IIM, FVM, PROTCF, PROTSF, ATIII ####[facility] [address] [place] [address] [id number] HEPATITIS PANEL, ACUTEon HCV Ab IA Ql Not detected Normal Not Detected [facility] Comment on above: Result Comment: Nereida ents with DETECTED Hepatitis C Ab results should have a new specimen submitted for supplemental testing with a Hepatitis C Quantitative RNA assay (viral load), if clinically indicated. Performed By: #### L AB551 ####Navy Diver: ROS JIMENEZ ([phone])[facility])[address] [place] [address] HEPATITIS A VIRUS AB, IGM Not detected Normal Not Detected [facility] Comment on above: Performed By: #### L AB551 ####Navy Diver: ROS JIMENEZ ([id number])[facility])[address] [place] [address] HEPATITIS B VIRUS CORE IGM AB Not detected Normal Not Detected [facility] Comment on above: Performed By: #### L AB551 ####Navy Diver: ROS JIMENEZ ([id number])[address] HEPATITIS B VIRUS SURFACE AG Not detected Normal Not Detected [facility] Comment on above: Performed By: #### L AB551 ####Navy Diver: ROS JIMENEZ ([id number])[facility])[address] [place] [address] Nursing Noteon 12-06-[address] [facility] Progress Noteon 12-06-2024 Progress Note Normal [facility] Progress [facility] Progress Note Normal [facility] 30on 12-05-2024 [address] [facility] [address] [facility] APTTon 12-05-2024 aPTT Coag (Bld) [Time] 38.8 s High 20.0-30.5 [facility] Comment on above: Result Comment: EDUARDO Streeter COMMENTS:NOTE: The therapeutic time for Heparin anticoagulation, based on Xa activity inhibition, is an APTT of 46-80 seconds. Performed By: #### L [id number] ####Navy Diver: ROS JIMENEZ ([id number])[address] CBC WITH AUTO DIFFERENTIALon 12-05-2024 Erythrocyte distribution width (RBC) [Ratio] 14.5 % Normal 11.5-15.0 [facility] Comment on above: Performed By: #### L [id number], [id number] ####Navy Diver: ROS JIMENEZ ([id number])[address] Hematocrit (Bld) [Volume fraction] 31.2 % Low 40.0-52.0 [facility] Comment on above: Performed By: #### L [id number], [id number] ####Navy Diver: ROS JIMENEZ ([id number])[address] Hemoglobin (Bld) [Mass/Vol] 9.9 g/dL Low 13.0-18.[address] [facility] Comment on above: Performed By: #### L [id number], [id number] ####Navy Diver: ROS JIMENEZ ([id number])[facility] ([facility])[address] [place] [address] MCH (RBC) [Entitic mass] 28.9 pg Normal 26.0-34.[address] [facility] Comment on above: Performed By: #### L [id number], [id number] ####Navy Diver: ROS JIMENEZ ([id number])[facility])[address] [place] [address] MCHC 31.7 % Normal 30.5-36.[address] [facility] Comment on above: Performed By: #### L [id number], [id number] ####Navy Diver: ROS JIMENEZ ([id number])[facility] ([facility])[address] [place] [address] MCV (RBC) [Entitic vol] 91.2 fL Normal 77.0-99.[address] [facility] Comment on above: Performed By: #### L [id number], [id number] ####Navy Diver: ROS JIMENEZ ([id number])[facility])[address] [place] [address] Platelet mean volume (Bld) [Entitic vol] 10.0 fL Normal 9.0-12.[address] [facility] Comment on above: Performed By: #### L [id number], [id number] ####Navy Diver: ROS JIMENEZ ([id number])[facility])[address] [place] [address] Platelets (Bld) [#/Vol] 283 10*3/uL Normal 140-[address] [facility] Comment on above: Performed By: #### L [id number], [id number] ####Navy Diver: ROS JIMENEZ ([id number])[facility])[address] [place] [address] RBC (Bld) [#/Vol] 3.42 10*6/uL Low 4.40-5.[address] [facility] Comment on above: Performed By: #### L [id number], [id number] ####Navy Diver: ROS JIMENEZ ([id number])[facility] ([facility])[address] [place] [address] WBC (Bld) [#/Vol] 7.0 10*3/uL Normal 3.6-10.[address] [facility] Comment on above: Performed By: #### L [id number], [id number] ####Navy Diver: ROS JIMENEZ ([id number])[facility] ([facility])[address] [place] [address] COMPLETE URINALYSIS WITH REF IVAN TO CULTUREon 12-05-2024 BACTERIA (#/HPF) IN URINE Negative Normal Negative [facility] Comment on above: Performed By: #### L [id number] ####Navy Diver: ROS JIMENEZ ([id number])[facility] ([facility])[address] [place] [address] BILIRUBIN, TOTAL PRESENCE IN URINE Negative Normal Negative [facility] Comment on above: Performed By: #### L [id number] ####Navy Diver: ROS JIMENEZ ([id number])[facility] ([facility])[address] [place] [address] Clarity (U) Clear Normal Clear [facility] [facility] Comment on above: Performed By: #### L [id number] ####Navy Diver: ROS JIMENEZ ([phone])[facility] ([facility])[address] [place] [address] Color (U) Light Yellow Normal Lt. Yellow [facility] Comment on above: Performed By: #### L [id number] ####Navy Diver: ROS JIMENEZ ([phone])[facility] [place] [address] GLUCOSE (MG/DL) IN URINE Normal Normal Normal (<70) [facility] Comment on above: Performed By: #### L [id number] ####Navy Diver: ROS JIMENEZ ([phone])[facility] ([facility])[address] [place] [address] HEMOGLOBIN PRESENCE IN URINE Negative Normal Negative [facility] Comment on above: Performed By: #### L [id number] ####Navy Diver: ROS JIMENEZ ([phone])[facility] ([facility])[address] [place] [address] HYALINE CASTS (#/LPF) IN URINE SEDIMENT BY MICROSCOPY Negative Normal Negative [facility] Comment on above: Performed By: #### L [id number] ####Navy Diver: ROS JIMENEZ ([phone])[facility] ([facility])[address] [place] [address] Ketones Ql (U) Negative Normal Negative [facility] Comment on above: Performed By: #### L [id number] ####Navy Diver: ROS JIMENEZ ([phone])[facility] ([facility])[address] [place] [address] LEUKOCYTE ESTERASE PRESENCE IN URINE BY TEST STRIP Negative Normal Negative [facility] Comment on above: Performed By: #### L [id number] ####Navy Diver: ROS JIMENEZ ([phone])[facility] ([facility])[address] [place] [address] NITRITE PRESENCE IN URINE Negative Normal Negative [facility] Comment on above: Performed By: #### L [id number] ####Navy Diver: ROS JIMENEZ ([phone])[facility] ([facility])[address] [place] [address] pH (U) 5.0 [pH] Normal 5.0-8.[address] [facility] Comment on above: Performed By: #### L [id number] ####Navy Diver: ROS JIMENEZ ([phone])[facility] ([facility])[address] [place] [address] Protein (U) [Mass/Vol] Negative Normal Negative [facility] Comment on above: Performed By: #### L [id number] ####Navy Diver: ROS JIMENEZ ([phone])[facility] ([facility])[address] [place] [address] RBC (#/HPF) IN URINE SEDIMENT 0-2 Normal 0-[address] [facility] Comment on above: Performed By: #### L [id number] ####Navy Diver: ROS JIMENEZ ([phone])[facility] ([facility])[address] [place] [address] Specific gravity (U) [Rel density] 1.037 High 1.005-1.[address] [facility] Comment on above: Result Comment: EDUARDO R COMMENTS:A specimen with <=10 WBC is not consistent with inflammation. This specimen will not reflex to a urine culture. Performed By: #### L [id number] ####Navy Diver: ROS JIMENEZ ([phone])[facility] ([facility])[address] [place] [address] SPERMATOZOA (#/HPF) IN URINE SEDIMENT Few Abnormal Negative [facility] Comment on above: Performed By: #### L [id number] ####Navy Diver: ROS JIMENEZ ([phone])[facility] ([facility])[address] [place] [address] SQUAMOUS EPITHELIAL CELLS (#/HPF) IN URINE SEDIMENT Negative Normal 3-[address] [facility] Comment on above: Performed By: #### L [id number] ####Navy Diver: ROS JIMENEZ ([phone])[facility] ([facility])[address] [place] [address] UROBILINOGEN (MG/DL) IN URINE Normal Normal Normal (0-1) [facility] Comment on above: Performed By: #### L [id number] ####Navy Diver: ROS JIMENEZ ([phone])[facility] ([facility])[address] [place] [address] WBC (LEUKOCYTE) (#/HPF) IN URINE SEDIMENT 3-5 Normal 0-[address] [facility] Comment on above: Performed By: #### L [id number] ####Navy Diver: ROS [id number])[facility] ([facility])[address] [place] [address] COMPREHENSIVE METABOLIC PANE Tree 12-05-2024 Albumin [Mass/Vol] 2.9 g/dL Low 3.5-5.[address] [facility] Comment on above: Performed By: #### L [id number], [id number], [id number], LAB17 ####Navy Diver: ROS JIMENEZ ([phone])[facility] ([facility])[address] [place] [address] ALP [Catalytic activity/Vol] 53 U/L Normal 40-[address] [facility] Comment on above: Performed By: #### L [id number], [id number], [id number], LAB17 ####Navy Diver: ROS JIMENEZ ([phone])[facility] ([facility])[address] [place] [address] ALT [Catalytic activity/Vol] 23 U/L Normal <[address] [facility] Comment on above: Performed By: #### L [id number], [id number], [id number], LAB17 ####Navy Diver: ROS JIMENEZ ([phone])[facility] ([facility])[address] [place] [address] Anion gap [Moles/Vol] 11 mmol/L Normal 3-13 [facility] Comment on above: Performed By: #### L [id number], [id number], [id number], LAB17 ####Navy Diver: ROS JIMENEZ ([phone])[facility] ([facility])[address] [place] [address] AST [Catalytic activity/Vol] 45 U/L High <[address] [facility] Comment on above: Performed By: #### L [id number], [id number], [id number], LAB17 ####Navy Diver: ROS JIMENEZ ([phone])[facility])[address] [place] [address] Bilirubin [Mass/Vol] 1.0 mg/dL Normal <1.2 [facility] Comment on above: Performed By: #### L AB113, [id number], [id number], LAB17 ####Navy Diver: ROS JIMENEZ ([phone])[facility])[address] [place] [address] Calcium [Mass/Vol] 13.1 mg/dL High 8.4-10.2 [facility] Comment on above: Performed By: #### L AB113, [id number], [id number], LAB17 ####Navy Diver: ROS JIMENEZ ([phone])[facility])[address] [place] [address] Chloride [Moles/Vol] 100 mmol/L Normal 98-107 [facility] Comment on above: Performed By: #### L AB113, [id number], [id number], LAB17 ####Navy Diver: ROS JIMENEZ ([phone])[facility])[address] [place] [address] CO2 [Moles/Vol] 21 mmol/L Low 22-29 [facility] Comment on above: Performed By: #### L AB113, [id number], [id number], LAB17 ####Navy Diver: ROS JIMENEZ ([phone])[facility])[address] [place] [address] Creatinine [Mass/Vol] 2.23 mg/dL High 0.72-1.25 [facility] Comment on above: Performed By: #### L AB113, [id number], RHR118, LAB17 ####Navy Diver: ROS JIMENEZ ([phone])[facility] ([facility])[address] [place] [address] [place] GLOMERULAR FILTRATION RATE ML/MIN/1.73 SQ M.PREDICTED 34.8 mL/min/1.73m*2 Low >60.0 [facility] Comment on above: Result Comment: Calc ulation based on the Chronic Kidney Disease Epidemiology Collaboration (CKD-EPI) equation refit without adjustment for race Performed By: #### L AB113, [id number], [id number], LAB17 ####Navy Diver: ROS JIMENEZ ([phone])[facility])[address] [place] [address] [place] Glucose [Mass/Vol] 92 mg/dL Normal 74-100 [facility] Comment on above: Performed By: #### L AB113, [id number], [id number], LAB17 ####Navy Diver: ROS JIMENEZ ([phone])[facility])[address] [place] [address] Potassium [Moles/Vol] 4.9 mmol/L Normal 3.5-5.1 [facility] Comment on above: Result Comment: [facility] potassium values may be up to 0.5 mmol/L lower than serum values. Performed By: #### L AB113, [id number], MKK123, LAB17 ####Navy Diver: ROS JIMENEZ ([phone])[facility] ([facility])[address] [place] [address] Protein [Mass/Vol] 5.7 g/dL Low 6.4-8.3 [facility] Comment on above: Performed By: #### L AB113, [id number], PCP723, LAB17 ####Navy Diver: ROS JIMENEZ ([phone])[facility] ([facility])[address] [place] [address] Sodium [Moles/Vol] 132 mmol/L Low 136-145 [facility] Comment on above: Performed By: #### L AB113, [id number], ADF012, LAB17 ####Navy Diver: ROS JIMENEZ ([phone])[facility] ([facility])[address] [place] [address] Urea nitrogen [Mass/Vol] 32 mg/dL High 9-23 [facility] Comment on above: Performed By: #### L AB113, [id number], [id number], LAB17 ####Navy Diver: ROS JIMENEZ ([phone])[facility])[address] [place] [address] Consulton 12-05-2024 Consult Normal [facility] Consult Normal [facility] DRUGS OF ABUSEon 12-05-2024 AMPHETAMINE SCREEN Negative Normal [facility] Comment on above: Performed By: #### L [id number] ####Navy Diver: ROS JIMENEZ ([phone])[facility] ([facility])[address] [place] [address] BARBITURATES SCREEN Negative Normal [facility] Comment on above: Performed By: #### L [id number] ####Navy Diver: ROS JIMENEZ ([phone])[facility] ([facility])[address] [place] [address] BENZODIAZEPINE SCREEN Negative Normal [facility] Comment on above: Performed By: #### L [id number] ####Navy Diver: ROS JIMENEZ ([phone])[facility] ([facility])[address] [place] [address] COCAINE METAB. SCREEN Negative Normal [facility] Comment on above: Performed By: #### L [id number] ####Navy Diver: ROS JIMENEZ ([phone])[facility])[address] [place] [address] FENTANYL SCREEN, UR QUAL Negative Normal [facility] Comment on above: Result Comment: EDUARDO Streeter COMMENTS:The expected value for all of the drugs listed above is Negative.The following drugs or drug groups have been screened for by Immunoassay at the following thresholds:Amphetamine class (1000 ng/mL)Barbiturates (200 ng/mL)Benzodiazepines (200 ng/mL)Cocaine (300 ng/mL)Methadone (300 ng/mL)Opiates (300 ng/mL)Oxycodone (100 ng/mL)PCP (25 ng/mL)Fentanyl (1.0 ng/ml)NOTE: These results are for medical treatment only. Analysis performed using non-forensic procedures. POSITIVE results are NOT confirmed by a more specificalternative method unless requested. If confirmation is needed, request confirmation under separate order. Performed By: #### L [id number] ####Navy Diver: ROS JIMENEZ ([phone])[facility] ([facility])[address] [place] [address] METHADONE SCREEN Negative Normal [facility] Comment on above: Performed By: #### L [id number] ####Navy Diver: ROS JIMENEZ ([phone])[facility] ([facility])[address] [place] [address] OPIATES SCREEN Negative Normal [facility] Comment on above: Performed By: #### L [id number] ####Navy Diver: ROS JIMENEZ ([phone])[facility] ([facility])[address] [place] [address] OXYCODONE SCREEN Negative Normal [facility] Comment on above: Performed By: #### L [id number] ####Navy Diver: ROS JIMENEZ ([phone])[facility] ([facility])[address] [place] [address] PHENCYCLIDINE SCREEN Negative Normal [facility] Comment on above: Performed By: #### L [id number] ####Navy Diver: ROS JIMENEZ ([phone])[facility] ([facility])[address] [place] [address] ECG 12-LEADon 12-05-2024 ECG 12-LEAD IMPRESSION: Sinus rhythm Electronically Signed On 12-05-2024 08:10:46 EDT by Geovanna Solis Normal [facility] MAGNESIUMon 12-05-2024 Magnesium [Mass/Vol] 1.8 mg/dL Normal 1.6-2.6 [facility] Comment on above: Result Comment: EDUARDO Streeter COMMENTS:Higher values can be expected in females during menses. Performed By: #### L AB113, [id number], [id number], LAB17 ####Navy Diver: ROS JIMENEZ ([phone])[facility] ([facility])[address] [place] [address] MANUAL DIFFERENTIAL (CELLAVI MISSAEL)on 12-05-2024 BAND NEUTROPHILS TOTAL PER COUNTED LEUKOCYTES BY MANUAL COUNT Normal [facility] Comment on above: Performed By: #### L [id number], [id number] ####Navy Diver: ROS JIMENEZ ([phone])[facility] ([facility])[address] [place] [address] BASOPHILS (10*3/UL) IN BLOOD-CELLAVISION 0.1 10*3/uL Normal 0.0-0.2 [facility] Comment on above: Performed By: #### L [id number], [id number] ####Navy Diver: ROS JIMENEZ ([phone])[facility] ([facility])[address] [place] [address] [place] BASOPHILS TOTAL PER COUNTED LEUKOCYTES BY MANUAL COUNT [address] [facility] Comment on above: Performed By: #### L [id number], [id number] ####Navy Diver: ROS JIMENEZ ([phone])[facility] ([facility])[address] [place] [address] [place] BASOPHILS/100 LEUKOCYTES IN BLOOD-CELLAVISION 2 % Normal 0-[address] [facility] Comment on above: Performed By: #### L [id number], [id number] ####Navy Diver: ROS JIMENEZ ([phone])[facility] ([facility])[address] [place] [address] [place] BLASTS TOTAL PER COUNTED LEUKOCYTES BY MANUAL COUNT Normal [facility] Comment on above: Performed By: #### L [id number], [id number] ####Navy Diver: ROS JIMENEZ ([phone])[facility] ([facility])[address] [place] [address] [place] EOSINOPHILS (10*3/UL) IN BLOOD-CELLAVISION 0.4 10*3/uL Normal 0.0-0.5 [facility] Comment on above: Performed By: #### L [id number], [id number] ####Navy Diver: ROS JIMENEZ ([phone])[facility] ([facility])[address] [place] [address] [place] EOSINOPHILS TOTAL PER COUNTED LEUKOCYTES BY MANUAL COUNT 5 High 0-[address] [facility] Comment on above: Performed By: #### L [id number], [id number] ####Navy Diver: ROS JIMENEZ ([phone])[facility] ([facility])[address] [place] [address] [place] EOSINOPHILS/100 LEUKOCYTES IN BLOOD-CELLAVISION 5 % Normal 0-[address] [facility] Comment on above: Performed By: #### L [id number], [id number] ####Navy Diver: ROS JIMENEZ ([phone])[facility] ([facility])[address] [place] [address] [place] LYMPHOCYTES (10*3/UL) IN BLOOD-CELLAVISION 0.1 10*3/uL Low 1.0-4.3 [facility] Comment on above: Performed By: #### L [id number], [id number] ####Navy Diver: ROS JIMENEZ ([phone])[facility] ([facility])[address] [place] [address] LYMPHOCYTES TOTAL PER COUNTED LEUKOCYTES BY MANUAL COUNT [address] [facility] Comment on above: Performed By: #### L [id number], [id number] ####Navy Diver: ROS JIMENEZ ([phone])[facility])[address] [place] [address] LYMPHOCYTES/100 LEUKOCYTES IN BLOOD-CELLAVISION 2 % Low 15-[address] [facility] Comment on above: Performed By: #### L [id number], [id number] ####Navy Diver: ROS JIMENEZ ([phone])[facility] ([facility])[address] [place] [address] METAMYELOCYTES TOTAL PER COUNTED LEUKOCYTES BY MANUAL COUNT [facility] Comment on above: Performed By: #### L [id number], [id number] ####Navy Diver: ROS JIMENEZ ([phone])[facility] ([facility])[address] [place] [address] MONOCYTES (10*3/UL) IN BLOOD-CELLAVISION 0.6 10*3/uL Normal 0.0-0.[address] [facility] Comment on above: Performed By: #### L [id number], [id number] ####Navy Diver: ROS JIMENEZ ([phone])[facility])[address] [place] [address] [place] MONOCYTES TOTAL PER COUNTED LEUKOCYTES BY MANUAL COUNT 9 Normal [facility] Comment on above: Performed By: #### L [id number], [id number] ####Navy Diver: ROS JIMENEZ ([phone])[facility])[address] [place] [address] [place] MONOCYTES/100 LEUKOCYTES IN BLOOD-EDUARDO 9 % Normal 5-[address] [facility] Comment on above: Performed By: #### L [id number], [id number] ####Navy Diver: ROS JIMENEZ ([phone])[facility] [place] [address] [place] MYELOCYTES COUNTED BY MANUAL COUNT Normal [facility] Comment on above: Performed By: #### L [id number], [id number] ####Navy Diver: ROS JIMENEZ ([phone])[facility] ([facility])[address] [place] [address] [place] NEUTROPHILS TOTAL PER COUNTED LEUKOCYTES BY MANUAL COUNT 83 Normal [facility] Comment on above: Performed By: #### L [id number], [id number] ####Navy Diver: ROS JIMENEZ ([phone])[facility] ([facility])[address] [place] [address] [place] PROMYELOCYTES TOTAL PER COUNTED LEUKOCYTES BY MANUAL COUNT Normal [facility] Comment on above: Performed By: #### L [id number], [id number] ####Navy Diver: ROS JIMENEZ ([phone])[facility] ([facility])[address] [place] [address] [place] RBC MORPHOLOGY IN BLOOD Normal Normal [facility] Comment on above: Performed By: #### L [id number], [id number] ####Navy Diver: ROS JIMENEZ ([phone])[facility] ([facility])[address] [place] [address] [place] SEGMENTED NEUTROPHILS (10*3/UL) IN BLOOD-CELLAVISION 5.7 10*3/uL Normal 1.8-7.[address] [facility] Comment on above: Performed By: #### L [id number], [id number] ####Navy Diver: ROS JIMENEZ ([phone])[facility] ([facility])[address] [place] [address] [place] SEGMENTED NEUTROPHILS/100 LEUKOCYTES-CE 82 % Normal 38-[address] [facility] Comment on above: Performed By: #### L [id number], [id number] ####Navy Diver: ROS JIMENEZ ([phone])[facility])[address] [place] [address] UNCLASSIFIED CELLS TOTAL PER COUNTED LEUKOCYTES BY MANUAL COUNT [facility] Comment on above: Performed By: #### L [id number], [id number] ####Navy Diver: ROS JIMENEZ ([phone])[facility])[address] [place] [address] VARIANT LYMPHOCYTES TOTAL PER COUNTED LEUKOCYTES BY MANUAL COUNT [facility] Comment on above: Performed By: #### L [id number], [id number] ####Navy Diver: ROS JIMENEZ ([phone])[facility])[address] [place] [address] PHOSPHORUSon 12-05-2024 Phosphate [Mass/Vol] 3.9 mg/dL Normal 2.3-4.7 [facility] Comment on above: Performed By: #### L [id number], [id number], [id number], LAB17 ####Navy Diver: ROS JIMENEZ ([phone])[facility])[address] [place] [address] PROTIME AND APTTon aPTT Coag (Bld) [Time] 52.5 s High 20.0-30.5 [facility] Comment on above: Performed By: #### L [id number] ####Navy Diver: ROS JIMENEZ ([phone])[facility])[address] [place] [address] INR Coag (PPP) [Relative time] 1.1 {INR} Normal 0.9-1.1 [facility] Comment on above: Result Comment: Fernando mmended Anticoagulant Therapy: SEE BELOW----- INR of 2.0 - 3.0 : - Prophylaxis of Venous Thrombosis (high-risk surgery) - Treatment of Venous Thrombosis - Treatment of Pulmonary Embolism (Includes tissue heart valves, Acute Myocardial Infarction to prevent systemic embolism, Valvular Heart Disease, and Atrial Fibrillation)----- INR of 2.5 - 3.5 : - Mechanical Prosthetic Valves (high risk) - If oral anticoagulant therapy is used to prevent Myocardial Infarction Performed By: #### L [id number] ####Navy Diver: ROS JIMENEZ ([phone])[facility])[address] [place] [address] PT Coag (PPP) [Time] 11.3 s Normal 9.0-12.0 [facility] Comment on above: Performed By: #### L [id number] ####Navy Diver: ROS JIMENEZ ([phone])[facility] ([facility])[address] [place] [address] aPTT Coag (Bld) [Time] 24.3 s Normal 20.0-30.5 [facility] Comment on above: Performed By: #### L [id number] ####Navy Diver: ROS JIMENEZ ([phone])[facility] ([facility])[address] [place] [address] INR Coag (PPP) [Relative time] 1.1 {INR} Normal 0.9-1.1 [facility] Comment on above: Result Comment: Fernando mmended Anticoagulant Therapy: SEE BELOW----- INR of 2.0 - 3.0 : - Prophylaxis of Venous Thrombosis (high-risk surgery) - Treatment of Venous Thrombosis - Treatment of Pulmonary Embolism (Includes tissue heart valves, Acute Myocardial Infarction to prevent systemic embolism, Valvular Heart Disease, and Atrial Fibrillation)----- INR of 2.5 - 3.5 : - Mechanical Prosthetic Valves (high risk) - If oral anticoagulant therapy is used to prevent Myocardial Infarction Performed By: #### L [id number] ####Navy Diver: ROS JIMENEZ ([phone])[facility] ([facility])[address] [place] [address] PT Coag (PPP) [Time] 11.5 s Normal 9.0-12.0 [facility] Comment on above: Performed By: #### L [id number] ####Navy Diver: ROS JIMENEZ ([phone])[facility] ([facility])[address] [place] [address] Progress Noteon 12-05-2024 Progress Note Normal [facility] Progress Note Normal [facility] Progress [facility] THYROID STIMULATING HORMONEo n 12-05-2024 THYROID STIMULATING HORMONE 1.53 uIU/mL Normal 0.35-4.[address] [facility] Comment on above: Performed By: #### L [id number], [id number], ILL034, LAB17 ####[employer]: ROS JIMENEZ ([phone])[facility] ([facility])[address] [place] [id number] [facility] Abdomen/Pelvis W IV Cont ONL Yon 12-04-2024 Abdomen/Pelvis W IV Cont ONLY [facility] Imaging Services [address] [place] [id number] Abdomen/Pelvis W IV Cont ONLY MR#: [id number] Acct: [id number] Name: CISCO CARPENTER Rep #: [id number] : 1975 M 49 From: Héctor paulino MD PCP: RODOLFO SMITH Status: REG ER Study: Abdomen/Pelvis W IV Cont ONLY Date of Exam: Exam# [id number] Ordering Dr: Hayden Dutta DO PROCEDURE: ABDOMEN/PELVIS W IV CONT ONLY 12/04/2024 REASON FOR EXAM: N/V GETTING WORSE LAST 3 WKS TECHNIQUE: Abdomen and pelvis CT with intravenous contrast. Coronal and Sagittal reconstruction series were provided. PATIENT PREPARATION: Per protocol ORAL CONTRAST TYPE: None. AMOUNT: mL CONTRAST: Omnipaque 350 VOLUME: 100 mL Not Provided Gauge IV One or more dose reduction techniques were used (e.g., Automated exposure control, adjustment of the mA and/or kV according to patient size, use of iterative reconstruction technique. COMPARISON: None FINDINGS: Lung bases: Please see the same-day CT of the abdomen and pelvis report. Liver: Normal size. No mass. Gallbladder: Unremarkable. Spleen: Splenomegaly, craniocaudal length 14.4 cm. 4 x 3.2 cm enhancing mass within the upper pole, (series 610 image 96, series 7 image 38). Pancreas: Normal size without evidence of mass surrounding inflammation or ductal dilation. Adrenals: Unremarkable. Kidneys: Delete bilateral nephrogram. Findings slightly worse on the right. Bilateral hydroureteronephrosis. Limited visualization of the distal ureter due to confluence with retroperitoneal mass. Bladder: Urinary bladder is unremarkable. Reproductive Organs: No pelvic mass. Bowel: No bowel dilation. Appendix: The appendix is not identified. There is no inflammatory process identified in the right lower quadrant to suggest appendicitis. Lymph nodes: Extensive retroperitoneal adenopathy, with areas of confluence masslike lymph nodes. For example (series 7, image 71). There is a 5.2 x 3.3 cm left para-aortic node and a 5.3 x 2.9 cm aortocaval node (series 7, image 70). Confluent soft-tissue mass nearly completely encases the IVC and aorta as well as bilateral common iliac arteries. Extensive adenopathy is noted throughout the abdomen and bilateral external iliac chains. Findings are highly suggestive of a lymphoproliferative process. Vasculature: Mild diffuse atherosclerotic calcifications are noted. Peritoneum / Retroperitoneum: Diffuse mesenteric soft tissue stranding and nodularity. No pneumoperitoneum. No ascites. Bones: No suspicious osseous lesions. Soft tissue: Diffuse subcutaneous soft tissue stranding. CT/Abdomen/Pelvis W IV Cont ONLY IMPRESSION: 1. Extensive and confluence retroperitoneal soft tissue mass as well as mesenteric adenopathy as described above, highly concerning for lymphoproliferative process, such as lymphoma. 2. Delayed bilateral nephrograms and bilateral hydroureteronephrosis secondary to obstruction of the distal ureters from mass effect of the retroperitoneal mass/node 3. Splenomegaly and a 4 x 3.2 cm upper pole enhancing mass, also likely secondary to lymphomatous involvement. [facility] CC: RODOLFO SMITH; Dr. Hayden Dutta DO Level Vial Marker: Signed Normal [facility] Absolute lymphocyte countOrd ered By: Hayden Dutta on 12-04-2024 Lymphocytes Auto (Unsp spec) [#/Vol] 0.61 10*3/uL Low 0.83-4.51 [facility] Absolute neutrophil countOrd ered By: Hayden Dutta on 12-04-2024 Neutrophils (Bld) [#/Vol] 5.0 10*3/uL 2.0-7.7 [facility] Anion gap in Serum or Plasma Ordered By: Hayden Dutta on 12-04-2024 Anion gap [Moles/Vol] 13 mmol/L 5-15 [facility] Automated lymphocyte count a s percentage of total leukocytesOrdered By: Hayden Dutta on 12-04-2024 Lymphocytes/100 WBC Auto (Unsp spec) 9.0 % Low 19-41 [facility] BUN/creatinine ratioOrdered By: Hayden Dutta on 12-04-2024 Urea nitrogen/Creatinine [Mass ratio] 14.3 mg/mg 10-20 [facility] Basophil percentageOrdered B y: Hayden Dutta on 12-04-2024 Basophils/100 WBC (Bld) 1.0 % 0-1 [facility] Bilirubin, totalOrdered By: Hayden Dutta on 12-04-2024 Bilirubin [Mass/Vol] 0.85 mg/dL 0.00-1.30 [facility] Brain/Head without Contrasto n 12-04-2024 Brain/Head without Contrast [facility] Imaging Services [address] [place] [address] [id number] Brain/Head without Contrast MR#: [id number] Acct: [id number] Name: CISCO CARPENETR Rep #: [id number] : 1975 M 49 From: Malachi Llanes PCP: RODOLFO SMITH Status: REG ER Study: Brain/Head without Contrast Date of Exam: 11/24 08/20 Exam# [id number] Ordering Dr: Hayden Dutta DO PROCEDURE: BRAIN/HEAD WITHOUT CONTRAST 12/04/2024 REASON FOR EXAM: NECK MASS/ N/V TECHNIQUE: Head CT without intravenous contrast. Coronal and Sagittal reconstruction series were provided. One or more dose reduction techniques were used (e.g., Automated exposure control, adjustment of the mA and/or kV according to patient size, use of iterative reconstruction technique. RADIATION DOSE SUMMARY: DLP: 830 mGycm COMPARISON: none FINDINGS: There is no acute infarct, intracranial hemorrhage, or mass effect. There is no hydrocephalus or significant midline shift. No acute, depressed calvarial fractures. No large scalp hematomas. Retention cyst within the right maxillary sinus. CT/Brain/Head without Contrast IMPRESSION: No acute intracranial process. Reading Location: [facility] CC: RODOLFO SMITH; Dr. Hayden Dutta, Level Vial Marker: Signed Normal [facility] CBC W/Diff, Automatedon 11-24 Absolute Lymph 0.61 X10 3/uL Low 0.83-4.51 [facility] Comment on above: Performed By: #### L 500.4050, L506.0400, L501.2450, L501.9520, L501.77697, L100.0100 #### [facility] [address] [place], [address] Absolute Neut 5.0 X10 3/uL Normal 2.0-7.7 [facility] Comment on above: Performed By: #### L 500.4050, L506.0400, L501.2450, L501.9520, L501.79141, L100.0100 #### [facility] [address] [place], [address] Basophils/100 WBC (Bld) 1.0 % Normal 0-1 [facility] Comment on above: Performed By: #### L 500.4050, L506.0400, L501.2450, L501.9520, L501.98337, L100.0100 #### [facility] [address] [place], [address] Eosinophils/100 WBC (Bld) 1.9 % Normal 0-5 [facility] Comment on above: Performed By: #### L 500.4050, L506.0400, L501.2450, L501.9520, L501.01305, L100.0100 #### [facility] [address] [place], [address] Erythrocyte distribution width (RBC) [Ratio] 14.3 % Normal 11.6-14.6 [facility] Comment on above: Performed By: #### L 500.4050, L506.0400, L501.2450, L501.9520, L501.90098, L100.0100 #### [facility] [address] [place], [address] Hematocrit (Bld) [Volume fraction] 33.5 % Low 40-54 [facility] Comment on above: Performed By: #### L 500.4050, L506.0400, L501.2450, L501.9520, L501.25824, L100.0100 #### [facility] [address] [place], [address] Hemoglobin (Bld) [Mass/Vol] 11.0 g/dL Low 13.0-16.5 [facility] Comment on above: Performed By: #### L 500.4050, L506.0400, L501.2450, L501.9520, L501.25672, L100.0100 #### [facility] [address] [place], [address] IG% 0.700 Normal 0.0-0.9 [facility] Comment on above: Result Comment: IG% - Immature Granulocytes (promyelocytes, myelocytes and metamyelocytes) > 1% indicates that a LEFT SHIFT is Present. Performed By: #### L 500.4050, L506.0400, L501.2450, L501.9520, L501.39145, L100.0100 #### [facility] [address] [place], [address] Lymphocytes/100 WBC (Bld) 9.0 % Low 19-41 [facility] Comment on above: Performed By: #### L 500.4050, L506.0400, L501.2450, L501.9520, L501.57687, L100.0100 #### [facility] [address] [place], [address] MCH (RBC) [Entitic mass] 29.8 pg Normal 27.0-32.0 [facility] Comment on above: Performed By: #### L 500.4050, L506.0400, L501.2450, L501.9520, L501.21428, L100.0100 #### [facility] [address] [place], [address] MCHC (RBC) [Mass/Vol] 32.8 g/dL Normal 32-36 [facility] Comment on above: Performed By: #### L 500.4050, L506.0400, L501.2450, L501.9520, L501.14099, L100.0100 #### [facility] [address] [place], [address] MCV (RBC) [Entitic vol] 90.8 fL Normal 80-94 [facility] Comment on above: Performed By: #### L 500.4050, L506.0400, L501.2450, L501.9520, L501.24914, L100.0100 #### [facility] [address] [place], [address] Monocytes/100 WBC (Bld) 14.1 % High 0-10 [facility] Comment on above: Performed By: #### L 500.4050, L506.0400, L501.2450, L501.9520, L501.73778, L100.0100 #### [facility] [address] [place], [address] Neutrophils/100 WBC (Bld) 73.3 % High 47-70 [facility] Comment on above: Performed By: #### L 500.4050, L506.0400, L501.2450, L501.9520, L501.01822, L100.0100 #### [facility] [address] [place], [address] Nucleated RBC (Bld) [#/Vol] 0 10*3/uL Normal 0-5 [facility] Comment on above: Performed By: #### L 500.4050, L506.0400, L501.2450, L501.9520, L501.89312, L100.0100 #### [facility] [address] [place], [address] Platelet mean volume (Bld) [Entitic vol] 9.5 fL Normal 6.2-12.0 [facility] Comment on above: Performed By: #### L 500.4050, L506.0400, L501.2450, L501.9520, L501.52085, L100.0100 #### [facility] [address] [place], [address] Platelets (Bld) [#/Vol] 285 10*3/uL Normal 150-450 [facility] Comment on above: Performed By: #### L 500.4050, L506.0400, L501.2450, L501.9520, L501.98598, L100.0100 #### [facility] [address] [place], [address] RBC (Bld) [#/Vol] 3.69 10*6/uL Low 4.6-6.2 [facility] Comment on above: Performed By: #### L 500.4050, L506.0400, L501.2450, L501.9520, L501.03814, L100.0100 #### [facility] [address] [place], [address] RDW SD 47.6 fl High 35.1-43.9 [facility] Comment on above: Performed By: #### L 500.4050, L506.0400, L501.2450, L501.9520, L501.59344, L100.0100 #### [facility] [address] [place], [address] WBC (Bld) [#/Vol] 6.8 10*3/uL Normal 4.4-11.0 [facility] Comment on above: Performed By: #### L 500.4050, L506.0400, L501.2450, L501.9520, L501.90242, L100.0100 #### [facility] [address] [place], [address] CT ABDOMEN PELVIS W CONTRAST on 12-04-2024 CT ABDOMEN PELVIS W CONTRAST Normal [facility] Carbon dioxide, total [Moles /volume] in Central venous bloodOrdered By: Hayden Dutta on 12-04-2024 CO2 [Moles/Vol] 23.7 mmol/L 21.0-32.0 [facility] Chest WITH Contraston 2024 Chest WITH Contrast [facility] Imaging Services [address] [place] [address] Chest WITH Contrast MR#: [id number] Acct: [id number] Name: CISCO CARPENTER Rep #: [id number] : 1975 M 49 From: Héctor paulino MD PCP: RODOLFO SMITH Status: REG ER Study: Chest WITH Contrast Date of Exam: 12/04/24 Exam# [id number] Ordering Dr: Hayden Dutta DO PROCEDURE: CHEST WITH CONTRAST 12/04/2024 REASON FOR EXAM: NECK MASS, N/V TECHNIQUE: Prone and supine chest CT with intravenous contrast, high resolution CT (HRCT) protocol. Coronal and Sagittal reconstruction series were provided. CONTRAST: Omnipaque 350 VOLUME: 100 mL Not Provided Gauge IV One or more dose reduction techniques were used (e.g., Automated exposure control, adjustment of the mA and/or kV according to patient size, use of iterative reconstruction technique). COMPARISON: None FINDINGS: Hardware: None Lymph nodes: Multiple enlarged predominantly mediastinal lymph nodes are noted. For example a 16 mm right upper paratracheal lymph node (series 5 image 43); multiple cluster of subcarinal node, with the largest measuring 16 mm. Heart and Vasculature: Normal heart size. No pericardial effusion. Thoracic aorta and pulmonary arteries are unremarkable. Lungs and Airways: Trachea is patent. There is abrupt cutoff of the right lower lobe bronchus, with resultant right lower lobe atelectasis. Large right pleural effusion. Scattered ground-glass opacities right upper lobe, likely infectious/inflammatory etiology. No suspicious pulmonary nodule. No pneumothorax. Upper Abdomen: Please see the same-day CT abdomen and pelvis. Bones: Bone windows are unremarkable. Chest wall and mediastinum: Thyroid gland is unremarkable. Partially imaged soft tissue mass left lower neck. Please see the same day CT neck report. Esophagus is nondilated. CT/Chest WITH Contrast IMPRESSION: Occlusion of the right lower lobe bronchus, suggestive of an underlying mass or mucous plugging. Evaluation is limited by large right pleural effusion. Recommend repeat CT after resolution/thoracentesis of the effusion. PET-CT may also be considered. Multiple enlarged mediastinal lymph nodes. Findings suggestive of a lymphoproliferative process, or metastasis, given the partially imaged left lower neck soft tissue mass. Reading [facility] CC: RODOLFO SMITH; Dr. Hayden Dutta, Level Vial Marker: Signed Normal [facility] Chloride assayOrdered By: Melchor Dutta on 12-04-2024 Chloride [Moles/Vol] 96 mmol/L Low 98-108 [facility] Comprehensive Metabolic Prof ilon 12-04-2024 Albumin [Mass/Vol] 3.6 g/dL Normal 3.5-5.0 [facility] Comment on above: Performed By: #### L 500.4050, L506.0400, L501.2450, L501.9520, L501.43867, L100.0100 ####[facility] [address] [place], [place], [id number] Albumin/Globulin [Mass ratio] 1.1 {ratio} Normal 0.9-2.4 [facility] Comment on above: Performed By: #### L 500.4050, L506.0400, L501.2450, L501.9520, L501.57421, L100.0100 ####[facility] [address] [place], [address] ALK PHOS 65 U/L Normal 40-129 [facility] Comment on above: Performed By: #### L 500.4050, L506.0400, L501.2450, L501.9520, L501.34673, L100.0100 ####[facility] [address] [place], [address] ALT [Catalytic activity/Vol] 26 U/L Normal <=46 [facility] Comment on above: Performed By: #### L 500.4050, L506.0400, L501.2450, L501.9520, L501.23604, L100.0100 ####[facility] [address] [place], [address] AST [Catalytic activity/Vol] 44 U/L High <=37 [facility] Comment on above: Performed By: #### L 500.4050, L506.0400, L501.2450, L501.9520, L501.95719, L100.0100 ####[facility] [address] [place], [address] Bilirubin [Mass/Vol] 0.85 mg/dL Normal 0.00-1.30 [facility] Comment on above: Performed By: #### L 500.4050, L506.0400, L501.2450, L501.9520, L501.67317, L100.0100 ####[facility] [address] [place], [address] BUN/CRE 14.3 RATIO Normal 10-20 [facility] Comment on above: Performed By: #### L 500.4050, L506.0400, L501.2450, L501.9520, L501.73539, L100.0100 ####[facility] [address] [place], [address] Calcium [Mass/Vol] 13.9 mg/dL Invalid Interpretation Code 7.6-11.0 [facility] Comment on above: Result Comment: Crit ical Result(s) Called to Roxanna JOY (ER): by Trudi:??Results read back by same. Performed By: #### L 500.4050, L506.0400, L501.2450, L501.9520, L501.53861, L100.0100 ####[facility] [address] [place], [address] Chloride [Moles/Vol] 96 mmol/L Low 98-108 [facility] Comment on above: Performed By: #### L 500.4050, L506.0400, L501.2450, L501.9520, L501.87925, L100.0100 ####[facility] [address] [place], [address] CO2 [Moles/Vol] 23.7 mmol/L Normal 21.0-32.0 [facility] Comment on above: Performed By: #### L 500.4050, L506.0400, L501.2450, L501.9520, L501.91973, L100.0100 ####[facility] [address] [place], [address] Creatinine [Mass/Vol] 2.27 mg/dL High 0.70-1.20 [facility] Comment on above: Performed By: #### L 500.4050, L506.0400, L501.2450, L501.9520, L501.13032, L100.0100 ####[facility] [address] [place], [address] ECRCL 54.57 ml/min Normal 50-250 [facility] Comment on above: Performed By: #### L 500.4050, L506.0400, L501.2450, L501.9520, L501.56433, L100.0100 ####[facility] [address] [place], [address] GAP 13 Normal 5-15 [facility] Comment on above: Performed By: #### L 500.4050, L506.0400, L501.2450, L501.9520, L501.63085, L100.0100 ####[facility] [address] [place], [address] GFR/1.73 sq M.predicted among non-blacks MDRD (S/P/Bld) [Vol rate/Area] 34 mL/min/{1.73_m2} Low >60 [facility] Comment on above: Result Comment: mL/m in/1.73m2 CKD-EPI Creatinine Equation (2020) Performed By: #### L 500.4050, L506.0400, L501.2450, L501.9520, L501.38050, L100.0100 ####[facility] [address] [place], [address] Globulin (S) [Mass/Vol] 3.1 g/dL Normal 2.2-4.2 [facility] Comment on above: Performed By: #### L 500.4050, L506.0400, L501.2450, L501.9520, L501.00137, L100.0100 ####[facility] [address] [place], [address] Glucose [Mass/Vol] 114 mg/dL High 70-99 [facility] Comment on above: Performed By: #### L 500.4050, L506.0400, L501.2450, L501.9520, L501.94380, L100.0100 ####[facility] [address] [place], [address] Potassium [Moles/Vol] 5.0 mmol/L Normal 3.3-5.1 [facility] Comment on above: Performed By: #### L 500.4050, L506.0400, L501.2450, L501.9520, L501.18994, L100.0100 ####[facility] [address] [place], [address] Sodium [Moles/Vol] 133 mmol/L Normal 133-145 [facility] Comment on above: Performed By: #### L 500.4050, L506.0400, L501.2450, L501.9520, L501.83811, L100.0100 ####[facility] [address] [place], [address] T PROT 6.7 g/dL Normal 5.9-8.4 [facility] Comment on above: Performed By: #### L 500.4050, L506.0400, L501.2450, L501.9520, L501.59902, L100.0100 ####[facility] [address] [place], [address] Urea nitrogen [Mass/Vol] 32 mg/dL High 4-19 [facility] Comment on above: Performed By: #### L 500.4050, L506.0400, L501.2450, L501.9520, L501.75995, L100.0100 ####[facility] [address] 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 Patient states that for the last 3 weeks she has had nausea vomiting and had been difficulty keeping food down. He states that he will eat and then few hours later he will immediately vomits. Patient denies any weight loss. He does complain of a lump on the left side of his neck he states that it has been there for a few weeks he states that originally was so small he followed up with a doctor and noted that this was likely a lymph node at that point in time. Patient states that he has not seen physician since it has increased in size. Patient's family member at bedside states that he has been extremely sleepy lately as well which is abnormal for him. Patient also noted that he is unsure of why he exactly developed blood clots in his legs and he states that he was seen at an outside facility for this. [facility] Medical History HTN (hypertension) DVT (deep venous thrombosis) Home Medications ???Medication ???Instructions ???Recorded ???Last Taken ???Type apixaban 5 mg tablet (Eliquis) 5 mg PO BID 12/04/24 12/04/24 Hist ory lisinopril 20 mg tablet 20 mg PO DAILY 12/04/24 12/04/24 H istory Allergy/AdvReac Type Severity Reaction Status Date / Time No Known Allergies Allergy Verified 12/04/24 11:11 Social History Smoking Status: Former smoker ROS ROS ED ROS Narrative Constitutional: Denies headache, lightness, disease confusion, chills Eyes: Denies change in vision double vision blurry vision Neck: Complains of masses noted above Cardiovascular: Denies chest pain or palpitations Respiratory: Denies cough wheezing shortness of breath Abdomen: Complains of nausea and vomiting : Denies urinary symptoms Neurological: Denies numbness, weakness, tingling Musculoskeletal: Denies back pain Skin: Denies rashes or lesions EXAM Physical Exam Narrative Exam Narrative: General: Patient lying in bed rest comfortably did not appear to be acute distress Head: Atraumatic, normocephalic Eyes: PERRL bilaterally, EOMI bilaterally, no conjunctival injection noted Neck: Soft, supple, trachea midline, patient does have a soft tissue mass noted just above his clavicle/lower neck region Cardiovascular: Regular rate and rhythm Respiratory: Clear to auscultation bilaterally Abdomen: Soft, nondistended, nontender to palpation Extremities: +5/5 strength noted in the bilateral upper and lower extremities Neurological: Patient following commands knew that he was at [facility] year is 2024 Skin: Warm, dry, intact no rashes or lesions noted Const Vital Signs: 12/04/24 11:09 12/04/24 13:09 12/04/24 15:00 Temperature 98.3 F Temperature Source Oral Pulse Rate 98 85 86 Respiratory Rate 18 14 14 Blood Pressure 130/118 H 150/78 H 157/88 H Blood Pressure Mean 122 102 111 Pulse Ox 98 94 96 Oxygen Delivery Method Room Air MDM MDM MDM Narrative Medical decision making narrative: Patient is a 49-year-old male who presented to the emergency department the chief complaint of nausea vomiting, soft tissue mass in the left side of his lower neck. On the differential diagnosis includes but not limited to hypothyroidism, thyroid cancer, cancer with metastases. Once workup is obtained reviewed he will be reevaluated. Patient be given Zofran for nausea. Patient's CBC was reviewed and showed a white blood count of 6.8, hemoglobin stable at 11, platelet count was noted to be 285. Patient sodium normal 133, potassium normal at 5, creatinine was elevated 2.27 indicating acute kidney injury, calcium elevated at 13.9 patient was given IV fluids. Patient TSH normal at 1.97, free T4 and T3 normal at 1.40 [address] head and brain without contrast was reviewed and showed no acute intracranial processes. Patient's CT soft tissue neck reviewed and showed a 5.5 x 7.7 x 7.3 cm left carotid space and inferior neck soft tissue mass. The mass encases the left common carotid and the left ventricle retromandibular vein. Mass effect on the adjacent internal jugular vein and the left common carotid artery. The mass also anter (more content not included)... Normal [facility] Eosinophil percentageOrdered By: Hayden Dutta on 12-04-2024 Eosinophils/100 WBC (Bld) 1.9 % 0-5 [facility] Erythrocyte distribution wid th ratioOrdered By: Hayden Dutta on 12-04-2024 Erythrocyte distribution width (RBC) [Ratio] 14.3 % 11.6-14.6 [facility] Erythrocyte distribution wid th standard deviationOrdered By: Hayden Dutta on 12-04-2024 Erythrocyte distribution width (RBC) [Ratio] 47.6 fl High 35.1-43.9 [facility] F2 PROTHROMBIN [id number] MUTAT Ion 12-04-2024 Factor II Gene Mutation Negative Normal () [facility] Comment on above: Result Comment: Courtney cation for testing: Assess genetic risk for thrombosis. NEGATIVE: The Factor II, prothrombin [id number] mutation, was not detected. Other causes of elevated prothrombin levels and hereditary forms of venous thrombosis have not been excluded. Recommendations: If clinically indicated, testing for other inherited or acquired thrombophilic disorders is recommended including DNA testing for the factor V Leiden mutation, measurement of total plasma homocysteine concentration, serological assays for anticardiolipin antibodies, multiple phospholipid-dependent coagulation assays for lupus inhibitor, protein C activity, protein S activity or free protein S antigen, and antithrombin activity. This result has been reviewed and approved by Emily Keane M.D., Ph.D. 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 The expression of Factor II thrombophilia is impacted by coexisting genetic thrombophilic disorders, acquired thrombophilic disorders (eg, malignancy, hyperhomocysteinemia, high factor VIII levels), and circumstances including: , oral contraceptive use, hormone replacement therapy, selective estrogen receptor modulators, travel, central venous catheters, surgery, and organ transplantation. INCIDENCE: Approximately 2 percent of Caucasians and 0.3 percent of Americans are heterozygous; homozygosity occurs in 1 in 10,000 individuals. INHERITANCE: Incomplete autosomal dominant. PENETRANCE: The risk of thrombosis is increased 2-4 fold for heterozygotes and further increased for homozygotes. CAUSE: Homozygosity or heterozygosity for F2 c.*97G>A (J93877O). PATHOGENIC VARIANT TESTED: F2 c.*97G>A (D91480G). CLINICAL SENSITIVITY FOR VENOUS THROMBOSIS: Approximately 10 percent. METHODOLOGY: Polymerase chain reaction and fluorescence monitoring. ANALYTICAL SENSITIVITY AND SPECIFICITY: 99 percent. LIMITATIONS: Diagnostic errors can occur due to rare sequence variations. F2 gene variants, other than c.*97G>A (W84023W), will not be detected. This test was developed and its performance characteristics determined by [facility]. It has not been cleared or approved by the US Food and Drug Administration. This test was performed in a CLIA certified laboratory and is intended for clinical purposes. Counseling and informed consent are recommended for genetic testing. Consent forms are available online. Performed By: [facility] [address] [place] [address] Cop Breaker: Keron Tyler MD, PhD CLIA Number: [id number] Performed By: #### F IIM, FVM, PROTCF, PROTSF, ATIII ####[facility] [place] [address] Free T3on 12-04-2024 Free T3 [Mass/Vol] 2.2 pg/mL Normal 2.18-3.98 [facility] Comment on above: Performed By: #### L 500.4050, L506.0400, L501.2450, L501.9520, L501.19312, L100.0100 ####[facility] [id number] [place], [address] Free [id number] By: Hayden amaya on 12-04-2024 Free T3 [Mass/Vol] 2.2 pg/mL 2.18-3.98 [facility] Glomerular filtration rate ( GFR) estimation/1.73 sq m using serum, plasma, or whole bOrdered By: Hayden Dutta on 12-04-2024 GFR/1.73 sq M.predicted among non-blacks MDRD (S/P/Bld) [Vol rate/Area] 34 mL/min/{1.73_m2} Low >60 [facility] Comment on above: mL/min/1.73m2 CKD-EP I Creatinine Equation (2020) Hematocrit Auto (Bld) [Volum e fraction]Ordered By: Hayden Dutta on 12-04-2024 Hematocrit (Bld) [Volume fraction] 33.5 % Low 40-54 [facility] Hemoglobin measurementOrdere d By: Hayden Dutta on 12-04-2024 Hemoglobin (Bld) [Mass/Vol] 11.0 g/dL Low 13.0-16.5 [facility] Immature granulocytes/100 WB C Auto (Bld)Ordered By: Hayden Dutta on 12-04-2024 Immature granulocytes/100 WBC (Bld) 0.700 % 0.0-0.9 [facility] Comment on above: IG% - Immature Granu locytes (promyelocytes, myelocytes and metamyelocytes) > 1% indicates that a LEFT SHIFT is Present. Laboratory - Chemistry and C hemistry - challengeOrdered By: Hayden Dutta on 12-04-2024 AST [Catalytic activity/Vol] 44 U/L High <38 [facility] Lipaseon 12-04-2024 Lipase [Catalytic activity/Vol] 25 U/L Normal 13-75 [facility] Comment on above: Result Comment: Plea se note: LIPASE revised reference range effective 22. New Lipase methodology. Expected to produce lower values than the previous assay method. NEW Reference Range: 13 - 75 U/L Performed By: #### L 500.4050, L506.0400, L501.2450, L501.9520, L501.13941, L100.0100 ####[facility] [id number] [facility] [place], [address] Lipase measurementOrdered By : Hayden Dutta on 12-04-2024 Lipase [Catalytic activity/Vol] 25 U/L 13-75 [facility] Comment on above: Please note:LIPASE r evised reference range effective 22. New Lipase methodology. Expected to produce lower values than the previous assay method. NEW Reference Range: 13 - 75 U/L MCV (mean corpuscular volume ) determinationOrdered By: Hayden Dutta on 12-04-2024 MCV (RBC) [Entitic vol] 90.8 fL 80-94 [facility] Mean corpuscular hemoglobin (MCH) determinationOrdered By: Hayden Dutta on 12-04-2024 MCH (RBC) [Entitic mass] 29.8 pg 27.0-32.0 [facility] Mean corpuscular hemoglobin concentration (MCHC) determinationOrdered By: Hayden Dutta on 12-04-2024 MCHC (RBC) [Mass/Vol] 32.8 g/dL 32-36 [facility] Mean platelet volume determi nationOrdered By: Hayden Dutta on 12-04-2024 Platelet mean volume (Bld) [Entitic vol] 9.5 fL 6.2-12.0 [facility] Monocyte percentageOrdered B y: Hayden Dutta on 12-04-2024 Monocytes/100 WBC (Bld) 14.1 % High 0-10 [facility] Neutrophil percentageOrdered By: Hayden Dutta on 12-04-2024 Neutrophils/100 WBC (Bld) 73.3 % High 47-70 [facility] Nucleated red blood cell per centageOrdered By: Hayden Dutta on 12-04-2024 Nucleated RBC/100 WBC (Bld) [Ratio] 0 % 0-5 [facility] Platelet countOrdered By: Melchor Dutta on 12-04-2024 Platelets (Bld) [#/Vol] 285 10*3/uL 150-450 [facility] Potassium measurement (mass/ volume)Ordered By: Hayden Dutta on 12-04-2024 Potassium (Unsp spec) [Mass/Vol] 5.0 mmol/L 3.3-5.1 [facility] RBC Auto (Bld) [#/Vol]Ordere d By: Hayden Dutta on 12-04-2024 RBC (Bld) [#/Vol] 3.69 10*6/uL Low 4.6-6.2 [facility] Serum creatinine measurement (mass/volume)Ordered By: Hayden Dutta on 12-04-2024 Creatinine [Mass/Vol] 2.27 mg/dL High 0.70-1.20 [facility] Serum globulin measurementOr dered By: Hayden Dutta on 12-04-2024 Globulin (S) [Mass/Vol] 3.1 g/dL 2.2-4.2 [facility] Serum glucose measurement (m ass/volume)Ordered By: Hayden Dutta on 12-04-2024 Glucose [Mass/Vol] 114 mg/dL High 70-99 [facility] Serum or plasma alanine puckett otransferase (ALT) measurementOrdered By: Hayden Dutta on 12-04-2024 ALT [Catalytic activity/Vol] 26 U/L <47 [facility] Serum or plasma albumin kamron urement (mass/volume)Ordered By: Hayden Dutta on 12-04-2024 Albumin [Mass/Vol] 3.6 g/dL 3.5-5.0 [facility] Serum or plasma albumin/glob ulin mass ratioOrdered By: Hayden Dutta on 12-04-2024 Albumin/Globulin [Mass ratio] 1.1 {ratio} 0.9-2.4 [facility] Serum or plasma alkaline emre sphatase measurementOrdered By: Hayden Dutta on 12-04-2024 ALP [Catalytic activity/Vol] 65 U/L 40-129 [facility] Serum or plasma calcium kamron urement (mass/volume)Ordered By: Hayden Dutta on 12-04-2024 Calcium [Mass/Vol] 13.9 mg/dL High 7.6-11.0 [facility] Comment on above: Critical Result(s) C alled to Roxanna JOY (ER): by Trudi: Results read back by same. Serum or plasma urea nitroge n measurement (mass/volume)Ordered By: Hayden Dutta on 12-04-2024 Urea nitrogen [Mass/Vol] 32 mg/dL High 4-19 [facility] Sodium levelOrdered By: [facility] on 12-04-2024 Sodium [Moles/Vol] 133 mmol/L 133-145 [facility] Soft Tissue Neck WITH Contra ston 12-04-2024 Soft Tissue Neck WITH Contrast [facility] [address] [place] [address] Soft Tissue Neck WITH Contrast MR#: [id number] Acct: [id number] Name: PAULINECISCO YIAN Rep #: [id number] : 1975 M 49 From: Héctor paulino MD PCP: RODOLFO SMITH Status: REG ER Study: Soft Tissue Neck WITH Contrast Date of Exam: 0 12/04/24 Exam# [id number] Ordering Dr: Hayden Dutta DO PROCEDURE: SOFT TISSUE NECK WITH CONTRAST 12/04/2024 REASON FOR EXAM: LEFT NECK MASS TECHNIQUE: CT of the soft tissues of the neck from the orbits to the upper mediastinum with intravenous contrast. CONTRAST: Omnipaque 350 VOLUME: 100 mL Not Provided Gauge IV One or more dose reduction techniques were used (e.g., Automated exposure control, adjustment of the mA and/or kV according to patient size, use of iterative reconstruction technique). COMPARISON: None FINDINGS: Lymph nodes: Multiple prominent-mildly enlarged bilateral jugulodigastric, level 3-level 5 lymph nodes. For example 2.0 left and 2.1 cm right level 2A node. Multiple other enlarged nodes are noted within the neck. small nonspecific lymph nodes are scattered throughout the neck. Soft tissue: Within the left lower neck, at the level of the carotid space, there is a 5.5 x 7.7 x 7.3 cm soft tissue mass (series 6, image 35, series 608, image 55). The mass splays the left common carotid and the left ventricle retromandibular vein. There is mass effect on the adjacent internal jugular vein and left common carotid artery. The mass also anteriorly displaced the sternocleidomastoid muscle. Aerodigestive tract: The oral cavity is partially obscured by artifact from dental amalgam. The nasal cavities, naso-oropharynx, pharyngeal mucosal space, laryngeal structures and infraglottic trachea are within normal limits. Major salivary glands: Within normal limits. Thyroid gland: Within normal limits. Carotid space: Patent bilateral extracranial carotid and jugular systems. Intracranial contents: Imaged portions within normal limits. Paranasal sinuses, middle ears, mastoids: Clear. Orbits: Within normal limits. Bones: No suspicious osseous lesions in the imaged calvarium, skull base and spine. Normal cervicothoracic alignment. No significant spondylotic changes. Temporomandibular joints are maintained. Lungs: Partially imaged large right pleural effusion.. CT/Soft Tissue Neck WITH Contrast IMPRESSION: 5.5 x 7.7 x 7.3 cm left carotid space and inferior neck soft tissue mass spleen the left IJ, retromandibular vein as well as the common carotid artery, with mass effect as described above. Differential considerations for this mass include a paraganglioma, metastatic mass or large adenopathy. Multiple prominent-mildly enlarged neck nodes, suspicious for metastasis. [facility] CC: RODOLFO PACO; Dr. Hayden Dutta, Level Vial Marker: Signed Normal [facility] T4 Free Directon 12-04-2024 T4 FREE DIRECT 1.40 ng/dL Normal 0.76-1.46 [facility] Comment on above: Performed By: #### L 500.4050, L506.0400, L501.2450, L501.9520, L501.90532, L100.0100 ####[facility] [address] [place], [place], [id number] T4 freeOrdered By: Hayden amaya on 12-04-2024 Free T4 [Mass/Vol] 1.40 ng/dL 0.76-1.46 [facility] TSH DL <= 0.005 mIU/L QnOrde red By: Hayden Dutta on 12-04-2024 TSH Qn 1.970 uIU/mL 0.300-4.20 0 [facility] Thyroid Stim Hormone (TSH)on 12-04-2024 TSH 1.970 uIU/mL Normal 0.300-4.20 0 [facility] Comment on above: Performed By: #### L 500.4050, L506.0400, L501.2450, L501.9520, L501.46456, L100.0100 ####[facility] [address] [place], [place], [id number] Total proteinOrdered By: Barbara Dutta on 12-04-2024 Protein [Mass/Vol] 6.7 g/dL 5.9-8.4 [facility] US RENAL COMPLETEon 12-05-19 25 US RENAL COMPLETE Normal [facility] White blood cell (WBC) count Ordered By: Haydensammy Dutta on 12-04-2024 WBC (Bld) [#/Vol] 6.8 10*3/uL 4.4-11.0 [facility] Anti-thrombin III, Activityo n 12-02-2024 Anti-thrombin III, Activity 96 % Normal 76-128 [facility] Comment on above: Result Comment: REFE RENCE INTERVAL: Antithrombin, Enzymatic (Activity) Access complete set of age- and/or gender-specific reference intervals for this test in the [facility] Test Directory ([employer]). Antithrombin may be artifactually overestimated in the presence of direct thrombin inhibitors. If clinically indicated, consider repeat testing on a new specimen for confirmation after the presence of anticoagulant medications has been excluded. (J Thromb Haemost. 2020; 18(1):17-22). Performed By: [facility] [address] [place] [address] Cop Breaker: Keron Tyler MD, PhD CLIA Number: [id number] Performed By: #### F IIM, FVM, PROTCF, PROTSF, ATIII #### [facility] [address] [place] [address] [phone] Protein C, Functionalon 05 Protein C, Functional 129 % Normal 83-168 [facility] Comment on above: Result Comment: INTE RPRETIVE INFORMATION: Protein C, Functional Access complete set of age- and/or gender-specific reference intervals for this test in the [facility] Test Directory ([employer] App). Protein C may be artifactually overestimated in the presence of heparin, direct thrombin inhibitors, or direct factor Xa inhibitors. If clinically indicated, consider repeat testing on a new specimen for confirmation after the presence of anticoagulant medications has been excluded. (J Thromb Haemost. 2020; 18(2):271-277). Performed By: [facility] [address] [place] [address] Cop Breaker: Keron Tyler MD, PhD CLIA Number: [id number] Performed By: #### F IIM, FVM, PROTCF, PROTSF, ATIII ####[facility] [address] [place] [address] Protein S, Functionalon Protein S, Functional 95 % Normal 66-143 [facility] Comment on above: Result Comment: INTE RPRETIVE INFORMATION: Protein S, Functional Patients on warfarin may have decreased functional protein S values. Patients should be off warfarin therapy for two weeks for accurate measurement of functional protein S. Artificially increased functional protein S values may be due to heparin therapy or the presence of direct thrombin inhibitors or factor Xa inhibitors. Access complete set of age- and/or gender-specific reference intervals for this test in the [facility] Test Directory ([employer]). Performed By: [facility] [address] [place] [address] Cop Breaker: Keron Tyler MD, PhD CLIA Number: [id number] Performed By: #### F IIM, FVM, PROTCF, PROTSF, ATIII ####[facility] [place] [address] CBC AUTO DIFF (REFLEX MANUAL )on 11-29-2024 BASOPHIL # 0.10 x10 3/uL Normal 0.0-0.2 [facility] Comment on above: Performed By: #### C BCAD #### [facility] [address] [address] BASOPHIL % 1.9 % High 0.0-1.5 [facility] Comment on above: Performed By: #### C BCAD #### [facility] [address] [address] EOSINOPHIL % 2.8 % Normal 0.0-10.0 [facility] Comment on above: Performed By: #### C BCAD #### [facility] [address] [address] LYMPHOCYTE # 0.80 x10 3/uL Low 1.0-4.8 [facility] Comment on above: Performed By: #### C BCAD #### [facility] [address] [address] LYMPHOCYTE % 10.8 % Low 13.0-47.0 [facility] Comment on above: Performed By: #### C BCAD #### [facility] [address] [address] MEAN MARTHA HGB CONC 33.3 g/dl Normal 31.0-37.0 [facility] Comment on above: Performed By: #### C BCAD #### [facility] [address] [address] MEAN CORPUSCULAR HGB 29.9 pg Normal 26.0-34.0 [facility] Comment on above: Performed By: #### C BCAD #### [facility] [address] [address] MEAN CORPUSCULAR VOLUME 89.8 fl Normal 78-98 [facility] Comment on above: Performed By: #### C BCAD #### [facility] [address] [address] MEAN PLATELET VOLUME 7.8 fl Normal 7.5-10.7 [facility] Comment on above: Performed By: #### C BCAD #### [facility] [address] [address] MONOCYTE # 1.00 x10 3/uL Normal 0.0-1.0 [facility] Comment on above: Performed By: #### C BCAD #### [facility] [address] [address] MONOCYTE % 14.1 % High 0.0-10.0 [facility] Comment on above: Performed By: #### C BCAD #### [facility] [address] [address] NEUT# 4.90 x10 3/uL Normal 1.8-7.7 [facility] Comment on above: Performed By: #### C BCAD #### [facility] [address] [address] NEUTROPHIL % 70.4 % Normal 40.0-80.0 [facility] Comment on above: Performed By: #### C BCAD #### [facility] [address] [address] PLATELET 327 x10 3/uL Normal 150-350 [facility] Comment on above: Performed By: #### C BCAD #### [facility] [address] [address] RED BLOOD CELL COUNT 4.05 x10 6/uL Low 4.50-5.90 [facility] Comment on above: Performed By: #### C BCAD #### [facility] [address] [address] RED CELL WIDTH 14.6 % High 11.5-14.5 [facility] Comment on above: Performed By: #### C BCAD #### [facility] [address] [address] TOTAL EO 0.20 x10 3/uL Normal 0-1.0 [facility] Comment on above: Performed By: #### C BCAD #### [facility] [address] [address] WHITE BLOOD CELL COUNT 7.0 x10 3/uL Normal 4.5-11.0 [facility] Comment on above: Performed By: #### C BCAD #### [facility] [address] [address] PSA DIAGNOSTICon 11-29-2024 PSA DIAGNOSTIC 0.53 ng/mL Normal 0.00-4.00 [facility] Comment on above: Result Comment: The Siemens TPSA chemiluminescent immunoassay based on SmarTots technology was used. Results obtained from different manufacturers or test methods cannot be used interchangeably. Performed By: #### P SA #### [facility] [address] [address] BASIC METABOLICon 11-24-2024 Anion gap [Moles/Vol] 10.6 mmol/L Normal 0-16 [facility] Comment on above: Performed By: #### P ROFLIPID CHEM7 #### [facility] [address] [address] Calcium [Mass/Vol] 10.3 mg/dL High 8.5-10.1 [facility] Comment on above: Performed By: #### P ROFLIPID CHEM7 #### [facility] [address] [address] Chloride [Moles/Vol] 100 mmol/L Normal 98-107 [facility] Comment on above: Performed By: #### P ROFLIPNATY CHEM7 #### [facility] [address] [address] CO2 [Moles/Vol] 28 mmol/L Normal 21-32 [facility] Comment on above: Result Comment: TCO2 test measures total amount of CO2 in the blood, which occurs mostly in the form of bicarbonate (HCO3). Performed By: #### P ROFLIPID CHEM7 #### [facility] [address] [address] Creatinine [Mass/Vol] 1.85 mg/dL High 0.70-1.30 [facility] Comment on above: Performed By: #### P ROFLIPID CHEM7 #### [facility] [address] [address] GFR/1.73 sq M.predicted among non-blacks MDRD (S/P/Bld) [Vol rate/Area] 44 mL/min/{1.73_m2} Low >60 [facility] Comment on above: Result Comment: Aver age GFR for 50-59 years old = 93 ml/min/1.73 sq.m Chronic Kidney Disease - GFR generally <60 ml/min/1.73 sq.m Kidney Failure - GFR generally <15 ml/min/1.73 sq.m The estimated glomerular filtration rate (eGFR) was calculated using the 2020 CKD-EPI eGFR creatinine equation, which does not include race as a factor. This equation is validated in individuals 18 years of age and older. Accurate estimation of GFR requires stable day-to-day creatinine. Creatinine-based eGFR is less accurate in patients with extremes of muscle mass, restriction of dietary protein, ingestion of creatine, extra-renal metabolism of creatinine, or treatment with medications that affect renal tubular creatinine secretion. The eGFR is normalized to a body surface area of 1.73 square meters. GFR Categories in Chronic Kidney Disease (CKD) GFR GFR (mL/min/1.73 Category: square meters): Interpretation: G1 90 or greater Normal or high* G2 60-89 Mild decrease* G3a 45-59 Mild to moderate decrease G3b 30-44 Moderate to severe decrease G4 15-29 Severe decrease G5 14 or less Kidney failure *In the absence of evidence of kidney damage, neither GFR category G1 nor G2 fulfill the criteria for CKD (Kidney Int Suppl 2013;3:1-150) The new eGFRcr equation has similar overall performance characteristics to older equations. For most patients the previous eGFR result will be similar. However, for some, the values may differ by more than 10% particularly at higher values of eGFRcr and for younger patients. Please go to eGFR calculator/National Kidney Foundation to compare this result with a previously calculated eGFR based on older equations. Performed By: #### P CHRIS CHEM7 #### [facility] [address] [address] Glucose [Mass/Vol] 104 mg/dL Normal 70-110 [facility] Comment on above: Result Comment: Fals tanya depressed or falsely elevated results may occur on samples drawn from patients taking Sulfasalazine and Sulfapyridine. ADA Guidelines for Diabetes: Fasting glucose <100 = Normal fasting glucose. Fasting glucose 100-125 = Impaired fasting glucose, also referred to as pre-diabetes. Fasting glucose >125 = Provisional diagnosis of diabetes. Diagnosis must be confirmed by repeat testing on a different day. Performed By: #### P CHRIS CHEM7 #### [facility] [address] [address] Potassium [Moles/Vol] 4.6 mmol/L Normal 3.5-5.1 [facility] Comment on above: Performed By: #### P CHRIS CHEM7 #### [facility] [address] [address] Sodium [Moles/Vol] 134 mmol/L Low 136-145 [facility] Comment on above: Performed By: #### P ROFLIPID, CHEM7 #### [facility] [address] [address] Urea nitrogen [Mass/Vol] 25 mg/dL High 7-18 [facility] Comment on above: Result Comment: RESU LTS RECHECKED Performed By: #### P ROFLIPID, CHEM7 #### [facility] [address] [address] Urea nitrogen/Creatinine [Mass ratio] 13.5 mg/mg Normal 0-30 [facility] Comment on above: Performed By: #### P ROFLIPID, CHEM7 #### [facility] [address] [address] LIPID PANELon 11-24-2024 Cholesterol [Mass/Vol] 141 mg/dL Normal <200 [facility] Comment on above: Performed By: #### P ROFLIPID, CHEM7 #### [facility] [address] [address] Cholesterol in HDL [Mass/Vol] 30.0 mg/dL Low >40 [facility] Comment on above: Performed By: #### P ROFLIPID, CHEM7 #### [facility] [address] [address] LDL,CALC 85 Normal SEE COMMENT [facility] Comment on above: Result Comment: The National Cholesterol Education Program's (NCEP) Adult Treatment Panel III (ATPIII) guidelines for lipids are as follows: LDL Cholesterol - Primary Target of Therapy Target value for LDL is based on overall risk of heart disease: <100 MG/DL Is desirable if clinical atherosclerotic disease or diabetes has been diagnosed. <130 MG/DL Is desirable if 2 or more risk factors are present. Total Cholesterol <200 Desirable 200-239 Borderline High >239 High HDL Cholesterol <40 Low >59 Desirable Serum Triglycerides <150 Normal 150-199 Borderline High 200-499 High >499 Very High The lipid profile should be correlated with the presence of other risk factors for coronary heart disease. Additional information is available at: www.nhlbi.nih.gov/guidelines/cholesterol/index.htm. Performed By: #### P CHRIS CHEM7 #### [facility] [address] [address] Triglyceride [Mass/Vol] 130 mg/dL Normal <150 [facility] Comment on above: Performed By: #### P CHRIS CHEM7 #### [facility] [address] [address] ACT PAR THROMBO TIMEon 11-08 ACT PAR THROMBO TIME 27 Normal 22-33 [facility] Comment on above: Result Comment: THER APEUTIC APTT RANGE: 47.0-68.4 SECONDS NEW THERAPEUTIC RANGE EFFECTIVE 12/15/23 Performed By: #### P TINR, APTT ####[place] [id number] ALP SerPl-cCncOrdered By: Jonathon Nobles on 11-08-2024 ALP [Catalytic activity/Vol] 73 U/L 45-117 [facility] ALT SerPl-cCncOrdered By: Jonathon Nobles on 11-08-2024 ALT [Catalytic activity/Vol] 26 U/L 13-61 [facility] Comment on above: Falsely depressed or falsely elevated results may occur onsamples drawn from patients taking Sulfasalazine andSulfapyridine. AST SerPl-cCncOrdered By: Jonathon Nobles on 11-08-2024 AST [Catalytic activity/Vol] 27 U/L 15-37 [facility] Comment on above: Falsely depressed or falsely elevated results may occur onsamples drawn from patients taking Sulfasalazine andSulfapyridine. Albumin SerPl-mCncOrdered By : Sukumar Nobles on 11-08-2024 Albumin [Mass/Vol] 3.5 g/dL 3.4-5.0 [facility] Albumin/Glob 24H Ur-mRtoOrde red By: Sukumar Nobles on 11-08-2024 Albumin/Globulin (24H U) [Mass ratio] 0.8 1.1-1.8 [facility] Anion Gap SerPl-sCncOrdered By: Sukumar Nobles on 11-08-2024 Anion gap [Moles/Vol] 9.3 mmol/L 0-16 [facility] BUN SerPl-mCncOrdered By: Jonathon Nobles on 11-08-2024 Urea nitrogen [Mass/Vol] 12 mg/dL 7-18 [facility] BUN/creat SerPl-mRtoOrdered By: Sukumar Nobles on 11-08-2024 Urea nitrogen/Creatinine [Mass ratio] 7.5 mg/mg 0-30 [facility] Basophils Auto (Bld) [#/Vol] Ordered By: Sukumar Nobles on 11-08-2024 Basophils (Bld) [#/Vol] 0.10 10*3/uL 0.0-0.2 [facility] Basophils/100 WBC Auto (Bld) Ordered By: Sukumar Nobles on 11-08-2024 Basophils/100 WBC (Bld) 1.1 % 0.0-1.5 [facility] Bilirub SerPl-mCncOrdered By : Sukumar Nobles on 11-08-2024 Bilirubin [Mass/Vol] 0.70 mg/dL 0.0-1.0 [facility] Comment on above: Use of this assay is not recommended for patients undergoingtreatment with Eltrombopag due to the potential for falselyelevated results. CBC AUTO DIFF (REFLEX MANUAL )on 11-08-2024 BASOPHIL # 0.10 x10 3/uL Normal 0.0-0.2 [facility] Comment on above: Performed By: #### C BCAD #### [facility] [address] [address] BASOPHIL % 1.1 % Normal 0.0-1.5 [facility] Comment on above: Performed By: #### C BCAD #### [facility] [address] [address] EOSINOPHIL % 3.3 % Normal 0.0-10.0 [facility] Comment on above: Performed By: #### C BCAD #### [facility] [address] [address] LYMPHOCYTE # 0.80 x10 3/uL Low 1.0-4.8 [facility] Comment on above: Performed By: #### C BCAD #### [facility] [address] [address] LYMPHOCYTE % 12.1 % Low 13.0-47.0 [facility] Comment on above: Performed By: #### C BCAD #### [facility] [address] [address] MEAN MARTHA HGB CONC 33.9 g/dl Normal 31.0-37.0 [facility] Comment on above: Performed By: #### C BCAD #### [facility] [address] [address] MEAN CORPUSCULAR HGB 30.7 pg Normal 26.0-34.0 [facility] Comment on above: Performed By: #### C BCAD #### [facility] [address] [address] MEAN CORPUSCULAR VOLUME 90.7 fl Normal 78-98 [facility] Comment on above: Performed By: #### C BCAD #### [facility] [address] [address] MEAN PLATELET VOLUME 7.8 fl Normal 7.5-10.7 [facility] Comment on above: Performed By: #### C BCAD #### [facility] [address] [address] MONOCYTE # 0.80 x10 3/uL Normal 0.0-1.0 [facility] Comment on above: Performed By: #### C BCAD #### [facility] [address] [address] MONOCYTE % 12.1 % High 0.0-10.0 [facility] Comment on above: Performed By: #### C BCAD #### [facility] [address] [address] NEUT# 4.80 x10 3/uL Normal 1.8-7.7 [facility] Comment on above: Performed By: #### C BCAD #### [facility] [address] [address] NEUTROPHIL % 71.4 % Normal 40.0-80.0 [facility] Comment on above: Performed By: #### C BCAD #### [facility] [address] [address] PLATELET 243 x10 3/uL Normal 150-350 [facility] Comment on above: Performed By: #### C BCAD #### [facility] [address] [address] RED BLOOD CELL COUNT 3.82 x10 6/uL Low 4.50-5.[address] [facility] Comment on above: Performed By: #### C BCAD #### [facility] [address] [address] RED CELL WIDTH 14.0 % Normal 11.5-14.5 [facility] Comment on above: Performed By: #### C BCAD #### [facility] [address] [address] TOTAL EO 0.20 x10 3/uL Normal 0-1.0 [facility] Comment on above: Performed By: #### C BCAD #### [facility] [address] [address] WHITE BLOOD CELL COUNT 6.7 x10 3/uL Normal 4.5-11.0 [facility] Comment on above: Performed By: #### C BCAD #### [facility] [address] [address] CO2 SerPl-sCncOrdered By: Jonathon Nobles on 11-08-2024 CO2 [Moles/Vol] 28 mmol/L 21-32 [facility] Comment on above: TCO2 test measures t otal amount of CO2 in the blood, whichoccurs mostly in the form of bicarbonate (HCO3). COMPREHENSIVE METABOLICon ADJUSTED CALCIUM 9.5 MG/DL Normal [facility] Comment on above: Performed By: #### P ROF #### [facility] [address] [address] Albumin [Mass/Vol] 3.5 g/dL Normal 3.4-5.0 [facility] Comment on above: Performed By: #### P ROF #### [facility] [address] [address] Albumin/Globulin [Mass ratio] 0.8 {ratio} Low 1.1-1.8 [facility] Comment on above: Performed By: #### P ROF #### [facility] [address] [address] ALP [Catalytic activity/Vol] 73 U/L Normal 45-117 [facility] Comment on above: Performed By: #### P ROF #### [facility] [address] [address] ALT [Catalytic activity/Vol] 26 U/L Normal 13-61 [facility] Comment on above: Result Comment: Fals tanya depressed or falsely elevated results may occur on samples drawn from patients taking Sulfasalazine and Sulfapyridine. Performed By: #### P ROF #### [facility] [address] [address] Anion gap [Moles/Vol] 9.3 mmol/L Normal 0-16 [facility] Comment on above: Performed By: #### P ROF #### [facility] [address] [address] AST [Catalytic activity/Vol] 27 U/L Normal 15-37 [facility] Comment on above: Result Comment: Fals tanya depressed or falsely elevated results may occur on samples drawn from patients taking Sulfasalazine and Sulfapyridine. Performed By: #### P ROF #### [facility] [address] [address] Bilirubin [Mass/Vol] 0.70 mg/dL Normal 0.0-1.0 [facility] Comment on above: Result Comment: Use of this assay is not recommended for patients undergoing treatment with Eltrombopag due to the potential for falsely elevated results. Performed By: #### P ROF #### [facility] [address] [address] Calcium [Mass/Vol] 9.1 mg/dL Normal 8.5-10.1 [facility] Comment on above: Performed By: #### P ROF #### [facility] [address] [address] Chloride [Moles/Vol] 102 mmol/L Normal 98-107 [facility] Comment on above: Performed By: #### P ROF #### [facility] [address] [address] CO2 [Moles/Vol] 28 mmol/L Normal 21-32 [facility] Comment on above: Result Comment: TCO2 test measures total amount of CO2 in the blood, which occurs mostly in the form of bicarbonate (HCO3). Performed By: #### P ROF #### [facility] [address] [address] Creatinine [Mass/Vol] 1.61 mg/dL High 0.70-1.30 [facility] Comment on above: Performed By: #### P ROF #### [facility] [address] [address] GFR/1.73 sq M.predicted among non-blacks MDRD (S/P/Bld) [Vol rate/Area] 51 mL/min/{1.73_m2} Low >60 [facility] Comment on above: Result Comment: Aver age GFR for 50-59 years old = 93 ml/min/1.73 sq.m Chronic Kidney Disease - GFR generally <60 ml/min/1.73 sq.m Kidney Failure - GFR generally <15 ml/min/1.73 sq.m The estimated glomerular filtration rate (eGFR) was calculated using the 2020 CKD-EPI eGFR creatinine equation, which does not include race as a factor. This equation is validated in individuals 18 years of age and older. Accurate estimation of GFR requires stable day-to-day creatinine. Creatinine-based eGFR is less accurate in patients with extremes of muscle mass, restriction of dietary protein, ingestion of creatine, extra-renal metabolism of creatinine, or treatment with medications that affect renal tubular creatinine secretion. The eGFR is normalized to a body surface area of 1.73 square meters. GFR Categories in Chronic Kidney Disease (CKD) GFR GFR (mL/min/1.73 Category: square meters): Interpretation: G1 90 or greater Normal or high* G2 60-89 Mild decrease* G3a 45-59 Mild to moderate decrease G3b 30-44 Moderate to severe decrease G4 15-29 Severe decrease G5 14 or less Kidney failure *In the absence of evidence of kidney damage, neither GFR category G1 nor G2 fulfill the criteria for CKD (Kidney Int Suppl 2013;3:1-150) The new eGFRcr equation has similar overall performance characteristics to older equations. For most patients the previous eGFR result will be similar. However, for some, the values may differ by more than 10% particularly at higher values of eGFRcr and for younger patients. Please go to eGFR calculator/National Kidney Foundation to compare this result with a previously calculated eGFR based on older equations. Performed By: #### P ROF #### [facility] [address] [address] Glucose [Mass/Vol] 93 mg/dL Normal 70-110 [facility] Comment on above: Result Comment: Fals tanya depressed or falsely elevated results may occur on samples drawn from patients taking Sulfasalazine and Sulfapyridine. ADA Guidelines for Diabetes: Fasting glucose <100 = Normal fasting glucose. Fasting glucose 100-125 = Impaired fasting glucose, also referred to as pre-diabetes. Fasting glucose >125 = Provisional diagnosis of diabetes. Diagnosis must be confirmed by repeat testing on a different day. Performed By: #### P ROF #### [facility] [address] [address] Potassium [Moles/Vol] 4.3 mmol/L Normal 3.5-5.1 [facility] Comment on above: Performed By: #### P ROF #### T[facility] [address] [place] [address] Protein [Mass/Vol] 7.7 g/dL Normal 6.4-8.2 [facility] Comment on above: Performed By: #### P ROF #### T[facility] [address] [place] [address] Sodium [Moles/Vol] 135 mmol/L Low 136-145 [facility] Comment on above: Performed By: #### P ROF #### T[facility] [address] [place] [address] Urea nitrogen [Mass/Vol] 12 mg/dL Normal 7-18 [facility] Comment on above: Performed By: #### P ROF #### T[facility] [address] [place] [address] Urea nitrogen/Creatinine [Mass ratio] 7.5 mg/mg Normal 0-30 [facility] Comment on above: Performed By: #### P ROF #### T[facility] [address] [place] [address] Calcium Album cor SerPl-mCnc Ordered By: Sukumar Nobles on 11-08-2024 Calcium corrected for albumin [Mass/Vol] 9.5 [facility] Calcium SerPl-mCncOrdered By : Sukumar Nobles on 11-08-2024 Calcium [Mass/Vol] 9.1 mg/dL 8.5-10.1 [facility] Chloride SerPl-sCncOrdered B y: Sukumar Nobles on 11-08-2024 Chloride [Moles/Vol] 102 mmol/L 98-107 [facility] Creat SerPl-mCncOrdered By: Sukumar Nobles on 11-08-2024 Creatinine [Mass/Vol] 1.61 mg/dL 0.70-1.30 [facility] EDon 11-08-2024 [facility] M 11/08/24 [place], [place] [address] [id number] [facility] EMERG[facility] ROOM REPORT MR [id number] History of Present Illness Date of Service 11/08/24 Provider Reji Oshea MD Chief Complaint Leg Pain rule out DVT History of Present Illness 49-year-old male with no past medical history presenting for chief complaint of right leg swelling. Patient states that he noticed swelling in his right upper leg last week which is slowly gotten worse and gone down now to his right lower leg. Patient states that he works in [employer] in a [employer]. He states work has been pretty stressful but he has had no injuries. Patient has no prior history of DVTs, pulmonary embolism, no family history of blood clots as far as he knows. Patient denies headache, vision changes , chest pain, shortness of breath, abdominal pain, nausea, vomiting, diarrhea, recent fever, illness, or chills. Past Medical/Surgical History : APPY Social History Smoking history: Former smoker Alcohol: OCC Drugs: DENIES (Sukumar Nobles MD) Home Medications . Active Scripts Apixaban Base (Eliquis Starter Pack) 5 MG PO BID LISINOPRIL (ZESTRIL) 5 MG PO DAILY (Sukumar Nobles MD) Allergies Allergies Coded Allergies: NO KNOWN ALLERGY (11/08/24) (Sukumar Nobles MD) Review of Systems Other Except as noted in the HPI, all remaining systems are reviewed and found to be negative. (Sukumar Nobles MD) Examination Exam Other Physical Findings General appearance: Awake, no acute distress. HEENT: Extraocular motion intact. Head atraumatic. Normal mucosa. Normal conjunctiva. Lungs: No increased work of breathing. Clear to auscultation bilaterally. No rales, rhonchi, or wheezes. Heart: Regular rate. Normal S1 and S2. No murmur noted. Abdomen: Abdomen is soft and nontender. Nondistended. No guarding, rebound, or rigidity. Extremities: 1+ pitting edema on the right to upper kimbrough, trace edema over the left upper kimbrough. Mild pitting edema up to right mid thigh as well. Musculoskeletal: No joint swelling. No gross deformities. Skin: Warm, dry, intact. No rash. Neurological: Alert and oriented x 3. No facial droop. No acute localizing signs. Spontaneous movement in all 4 extremities. Mental status: Cooperative. Diagnostic Studies Recent Impressions ULTRASOUND WEST - LOWER EXTREM VENOUS BILAT 11/08 1339 Report Impression - Status: SIGNED Entered: 11/08/2024 7697 IMPRESSION: Bilateral lower extremity deep venous thrombosis Site: P Impression By: RIAN/Brad Nguyen MD Laboratory Tests 11/08 1527 Chemistry Sodium (136 - 145 MMOL/L) 135 Potassium (3.5 - 5.1 MMOL/L) 4.3 Chloride (98 - 107 MMOL/L) 102 CO2 (Enzymatic) (21 - 32 MMOL/L) 28 Anion Gap (0 - 16) 9.3 BUN (7 - 18 MG/DL) 12 Creatinine (0.70 - 1.30 MG/DL) 1.61 Est GFR (CKD-EPI 2020) (>60) 51 BUN/Creatinine Ratio (0 - 30) 7.5 Glucose (70 - 110 MG/DL) 93 Calcium (8.5 - 10.1 MG/DL) 9.1 Calcium Adj for Albumin (MG/DL) 9.5 Total Bilirubin (0.0 - 1.0 MG/DL) 0.70 AST (15 - 37 U/L) 27 ALT (13 - 61 U/L) 26 Alkaline Phosphatase (45 - 117 U/L) 73 Total Protein (6.4 - 8.2 GM/DL) 7.7 Albumin (3.4 - 5.0 GM/DL) 3.5 Albumin/Globulin Ratio (1.1 - 1.8) 0.8 Coagulation PT (9.6 - 11.2 SEC) 10.8 INR 1.0 APTT (22 - 33) 27 Hematology WBC (4.5 - 11.0 x10 3/uL) 6.7 RBC (4.50 - 5.90 x10 6/uL) 3.82 Hgb (13.0 - 16.0 g/dl) 11.7 Hct (41 - 53 %) 34.6 MCV (78 - 98 fl) 90.7 MCH (26.0 - 34.0 pg) 30.7 MCHC (31.0 - 37.0 g/dl) 33.9 RDW (11.5 - 14.5 %) 14.0 Plt Count (150 - 350 x10 3/uL) 243 MPV (7.5 - 10.7 fl) 7.8 Eos # (Auto) (0 - 1.0 x10 3/uL) 0.20 Baso # (Auto) (0.0 - 0.2 x10 3/uL) 0.10 Neutrophils % (40.0 - 80.0 %) 71.4 Lymphocytes % (13.0 - 47.0 %) 12.1 Monocytes % (0.0 - 10.0 %) 12.1 Eosinophils % (0.0 - 10.0 %) 3.3 Basophils % (0.0 - 1.5 %) 1.1 Neutrophils # (1.8 - 7.7 x10 3/uL) 4.80 Lymphocytes # (1.0 - 4.8 x10 3/uL) 0.80 Monocytes # (0.0 - 1.0 x10 3/uL) 0.80 EKG Impressions A twelve-lead EKG was performed. I interpreted the EKG with the following findings: EKG with normal sinus rhythm, T wave inversion noted in lead III, no Q wave in lead III, no S1. Normal axis, intervals within normal limits. (Sukumar Nobles MD) Exam Vitals Vital Signs Date Time Temp Pulse Resp B/P B/P Pulse O2 O2 Flow FiO2 Mean Ox Delivery Rate 11/08 1615 75 155/96 131 98 Room Air 11/08 1600 70 174/108 136 99 Room Air 11/08 1530 65 173/107 154 100 Room Air 11/08 1500 67 165/98 128 99 Room Air 11/08 1240 97.5 84 18 192/110 145 97 11/08 1235 97.5 84 18 192/110 145 97 Room Air (Reji Oshea MD) Assessment / Plan, ED Medical Decision Makin-year-old male with no past medical history presenting for chief complaint of right leg (more content not included)... Normal [facility] EKGIon 11-08-2024 EKGI [facility] [address] [address] EKG Report [facility] [id number] [facility] [id number] Sukumar Nobles MD SINUS RHYTHM NONSPECIFIC ST T-WAVE ABNORMALITY BORDERLINE ECG Electronically signed by MD Jose Enrique Stringer Dr Nov 10 2024 2:21PM Normal [facility] Eosinophils Manual cnt (Bld) [#/Vol]Ordered By: Sukumar Nobles on 11-08-2024 Eosinophils (Bld) [#/Vol] 0.20 10*3/uL 0-1.0 [facility] Glucose SerPl-mCncOrdered By : Sukumar Nobles on 11-08-2024 Glucose [Mass/Vol] 93 mg/dL 70-110 [facility] Comment on above: Falsely depressed or falsely elevated results may occur onsamples drawn from patients taking Sulfasalazine andSulfapyridine. ADA Guidelines for Diabetes:Fasting glucose <100 = Normal fasting glucose.Fasting glucose 100-125 = Impaired fasting glucose, also referred to as pre-diabetes.Fasting glucose >125 = Provisional diagnosis of diabetes. Diagnosis must be confirmed by repeat testing on a different day. Hgb Bld-mCncOrdered By: Jess Nobles on 11-08-2024 Hemoglobin (Bld) [Mass/Vol] 11.7 g/dL 13.0-16.0 [facility] INR PPPOrdered By: Sukumar mariano on 11-08-2024 INR Coag (PPP) [Relative time] 1.0 {INR} [facility] Comment on above: INR IS TO BE USED ON LY FOR PATIENTS ON STABLE ORAL ANTICOAGULANT THERAPY STANDARD THERAPY INR 2.0-3.0HIGHER THERAPY INR 2.5-3.5 (CHEST, VOL. 108(4,SUPPL.):231S-246S, 1994)INR IS TO BE USED ONLY FOR PATIENTS ON STABLE ORAL ANTICOAGULANT THERAPY STANDARD THERAPY INR 2.0-3.0HIGHER THERAPY INR 2.5-3.5 (CHEST, VOL. 108(4,SUPPL.):231S-246S, 1994) LOWER EXTREM VENOUS BILATon 11-08-2024 LOWER EXTREM VENOUS BILAT Name: [facility] Phys: Sukumar Nobles MD : 1975 Age: 49 Sex: M Acct: [id number] Loc: Exam Date: 11/08/2024 Status: REG ER Radiology No: Unit No: [id number] PH: [phone] Diagnosis: RIGHT LEG PAIN EXAM: [id number] LOWER EXTREM VENOUS BILAT Reason For Procedure: BILAT SWELLING, RIGHT > LEFT STUDY: LOWER EXTREMA VENOUS BILAT CLINICAL INDICATION: Bilateral lower lower extremity swelling] right greater than the left COMPARISON: None TECHNIQUE: Sonography of the bilateral lower extremities was obtained using grayscale and color flow and duplex imaging provided. FINDINGS: Right Common femoral vein: patent. Partially occluding thrombus at the saphenofemoral junction Superficial femoral vein: patent. Popliteal vein: Partially occluding thrombus Anterior tibial veins: patent. Posterior tibial veins: patent. Peroneal veins: patent. No popliteal cysts seen. Left Left common femoral vein: patent. Superficial femoral vein: Partially occluding thrombus in the distal femoral vein Popliteal vein: Partially occluding thrombus Anterior tibial veins: patent. . Posterior tibial veins: patent. Peroneal veins: patent. No popliteal cysts seen. PAGE 1 Signed Report (CONTINUED) Name: [facility] Phys: Sukumar Nobles MD : 1975 Age: 49 Sex: M Acct: [id number] Loc: Exam Date: 11/08/2024 Status: REG ER Radiology No: Unit No: [id number] PH: [phone] Diagnosis: RIGHT LEG PAIN EXAM: [id number] LOWER EXTREM VENOUS BILAT Reason For Procedure: BILAT SWELLING, RIGHT > LEFT There is a edema in the soft tissues and subcutaneous tissues of the lower legs in either side. IMPRESSION: Bilateral lower extremity deep venous thrombosis Site: P REPORT SIGNED IN OTHER VENDOR SYSTEM 11/08/2024 Reported By: Brad Acuña MD CC: Technologist: CHELSIE LEONARD,AB/OB/BR Transcribed Date/Time: 11/08/2024 (4717) Level Vial Marker: DANII Printed Date/Time: 11/08/2024 (8572) PAGE 2 Signed Report Normal [facility] Laboratory - Chemistry and C hemistry - challengeOrdered By: Sukumar Nobles on 11-08-2024 GFR/1.73 sq M.predicted MDRD (S/P/Bld) [Vol rate/Area] 51 mL/min/{1.73_m2} >60 [facility] Comment on above: Average GFR for 50-5 9 years old = 93 ml/min/1.73 sq.mChronic Kidney Disease - GFR generally <60 ml/min/1.73 sq.mKidney Failure - GFR generally <15 ml/min/1.73 sq.m The estimated glomerular filtration rate (eGFR) wascalculated using the 2020 CKD-EPI eGFR creatinine equation,which does not include race as a factor. This equation isvalidated in individuals 18 years of age and older. Accurateestimation of GFR requires stable day-to-day creatinine.Creatinine-based eGFR is less accurate in patients withextremes of muscle mass, restriction of dietary protein,ingestion of creatine, extra-renal metabolism of creatinine,or treatment with medications that affect renal tubularcreatinine secretion. The eGFR is normalized to a bodysurface area of 1.73 square meters. GFR Categories in Chronic Kidney Disease (CKD) GFR GFR (mL/min/1.73Category: square meters): Interpretation:G1 90 or greater Normal or high*G2 60-89 Mild decrease*G3a 45-59 Mild to moderate [id number] 30-44 Moderate to severe decreaseG4 15-29 Severe decreaseG5 14 or less Kidney failure*In the absence of evidence of kidney damage, neither GFRcategory G1 nor G2 fulfill the criteria for CKD (Kidney IntSuppl 2013;3:1-150) The new eGFRcr equation has similar overall performancecharacteristics to older equations. For most patients theprevious eGFR result will be similar. However, for some, thevalues may differ by more than 10% particularly at highervalues of eGFRcr and for younger patients. Please go to eGFRcalculator/National Kidney Foundation to compare this resultwith a previously calculated eGFR based on older equations. Laboratory - Hematology and Cell countsOrdered By: Sukumar Nobles on 11-08-2024 Eosinophils/100 WBC (Bld) 3.3 % 0.0-10.0 [facility] Erythrocyte distribution width (RBC) [Ratio] 14.0 % 11.5-14.5 [facility] Hematocrit Auto (Bld) [Pure volume fraction] 34.6 41-53 [facility] Lymphocytes/100 WBC (Bld) 12.1 % 13.0-47.0 [facility] Monocytes/100 WBC (Bld) 12.1 % 0.0-10.0 [facility] Neutrophils/100 WBC (Bld) 71.4 % 40.0-80.0 [facility] Platelet mean volume (Bld) [Entitic vol] 7.8 fL 7.5-10.7 [facility] Lymphocytes Auto (Bld) [#/Vo l]Ordered By: Sukumar Nobles on 11-08-2024 Lymphocytes (Bld) [#/Vol] 0.80 10*3/uL 1.0-4.8 [facility] MCH Auto (RBC) [Entitic mass ]Ordered By: Sukumar Nobles on 11-08-2024 MCH (RBC) [Entitic mass] 30.7 pg 26.0-34.0 [facility] MCHC Auto (RBC) [Mass/Vol]Or dered By: Sukumar Nobles on 11-08-2024 MCHC (RBC) [Mass/Vol] 33.9 g/dL 31.0-37.0 [facility] MCV Auto (RBC) [Entitic vol] Ordered By: Sukumar Nobles on 11-08-2024 MCV (RBC) [Entitic vol] 90.7 fL 78-98 [facility] Monocytes Auto (Bld) [#/Vol] Ordered By: Sukumar Nobles on 11-08-2024 Monocytes (Bld) [#/Vol] 0.80 10*3/uL 0.0-1.0 [facility] Neutrophils Auto (Bld) [#/Vo l]Ordered By: Sukumar Nobles on 11-08-2024 Neutrophils (Bld) [#/Vol] 4.80 10*3/uL 1.8-7.7 [facility] PT Time PPPOrdered By: Sukumar Nobles on 11-08-2024 PT Coag (PPP) [Time] 10.8 s 9.6-11.2 [facility] PTINRon 11-08-2024 INR Coag (PPP) [Relative time] 1.0 {INR} Normal [facility] Comment on above: Result Comment: INR IS TO BE USED ONLY FOR PATIENTS ON STABLE ORAL ANTICOAGULANT THERAPY STANDARD THERAPY INR 2.0-3.0 HIGHER THERAPY INR 2.5-3.5 (CHEST, VOL. 108(4,SUPPL.):231S-246S, 1994) Performed By: #### P TINR, APTT ####[address] [address] PT Coag (PPP) [Time] 10.8 s Normal 9.6-11.2 [facility] Comment on above: Performed By: #### P TINR, APTT ####[address] [address] Platelet # BldOrdered By: Jonathon Nobles on 11-08-2024 Platelets (Bld) [#/Vol] 243 10*3/uL 150-350 [facility] Potassium SerPl-sCncOrdered By: Sukumar Nobles on 11-08-2024 Potassium [Moles/Vol] 4.3 mmol/L 3.5-5.1 [facility] Prot SerPl-mCncOrdered By: Flor Nobles on 11-08-2024 Protein [Mass/Vol] 7.7 g/dL 6.4-8.2 [facility] RBC Auto (Bld) [#/Vol]Ordere d By: Sukumar Nobles on 11-08-2024 RBC (Bld) [#/Vol] 3.82 10*6/uL 4.50-5.90 [facility] Sodium SerPl-sCncOrdered By: Sukumar Nobles on 11-08-2024 Sodium [Moles/Vol] 135 mmol/L 136-145 [facility] WBC Auto (Bld) [#/Vol]Ordere d By: Sukumar Nobles on 11-08-2024 WBC (Bld) [#/Vol] 6.7 10*3/uL 4.5-11.0 [facility] aPTT Time PPPOrdered By: Melisa Nobles on 11-08-2024 aPTT Coag (PPP) [Time] 27 s 22-33 Tr [facility] Comment on above: THERAPEUTIC APTT RAN GE: 47.0-68.4 SECONDSNEW THERAPEUTIC RANGE EFFECTIVE 12/15/23 Vital Signs Date Time Vital Sign Value Performing Clinician Facility 01-03-2025 11:02-0400 Body temperature 97.39 [degF] Chair 01 [facility] 01-03-2025 11:02-0400 Diastolic blood pressure 79 mm[Hg] Chair 01 [facility] 01-03-2025 11:02-0400 Heart rate 82 /min Chair [address] [facility] 01-03-2025 11:02-0400 Respiratory rate 16 /min Chair [address] [facility] 01-03-2025 11:02-0400 Systolic blood pressure 119 mm[Hg] Chair 01 [facility] 01-02-2025 17:52-0400 Diastolic blood pressure 81 mm[Hg] Chair 06 [facility] 01-02-2025 17:52-0400 Heart rate 83 /min Chair 06 [facility] 01-02-2025 17:52-0400 Respiratory rate 16 /min Chair 06 [facility] 01-02-2025 17:52-0400 Systolic blood pressure 125 mm[Hg] Chair 06 [facility] 01-02-2025 09:50-0400 Body height 190.[address] [facility] 01-02-2025 09:50-0400 Body mass index (BMI) [Ratio] 30.31 kg/m2 Chair 06 [facility] 01-02-2025 09:50-0400 Body temperature 97.9 [degF] Chair 06 [facility] 01-02-2025 09:50-0400 Body weight [address] [facility] 01-02-2025 09:04-0400 Body height 190.5 cm Gray Lucio MD Work Phone: [facility] [employer] 01-02-2025 09:04-0400 Body mass index (BMI) [Ratio] 30.32 kg/m2 Gary Lucio MD Work Phone: [facility] [employer] 01-02-2025 09:04-0400 Body temperature 99.61 [degF] Gary Lucio MD Work Phone: [facility] [employer] 01-02-2025 09:04-0400 Body weight 110.04 kg Gary Lucio MD Work Phone: [facility] [employer] 01-02-2025 09:04-0400 Diastolic blood pressure 87 mm[Hg] Gary Lucio MD Work Phone: [facility] [employer] 01-02-2025 09:04-0400 Heart rate 112 /min Gary Lucio MD Work Phone: [facility] [employer] 01-02-2025 09:04-0400 SaO2% (BldA) [Mass fraction] 100 % Gary Lucio MD Work Phone: [facility] [employer] 01-02-2025 09:04-0400 Systolic blood pressure 126 mm[Hg] Gary Lucio MD Work Phone: [facility] [employer] 12-30-2024 05:11-0400 Body temperature 98.1 [degF] Oumou Arias MD Work Phone: [facility] [employer] 12-30-2024 05:11-0400 Diastolic blood pressure 55 mm[Hg] Oumou Arias MD Work Phone: [facility] [employer] 12-30-2024 05:11-0400 Heart rate 79 /min Oumou Arias MD Work Phone: [facility] [employer] 12-30-2024 05:11-0400 Respiratory rate 17 /min Oumou Arias MD Work Phone: [facility] [employer] 12-30-2024 05:11-0400 SaO2% (BldA) [Mass fraction] 96 % Oumou Arias MD Work Phone: [facility] [employer] 12-30-2024 05:11-0400 Systolic blood pressure 93 mm[Hg] Oumou Arias MD Work Phone: [facility] [employer] 12-27-2024 04:26-0400 Body height 190.5 cm Oumou Arias MD Work Phone: [facility] [employer] 12-27-2024 04:26-0400 Body mass index (BMI) [Ratio] 30.32 kg/m2 Oumou Arias MD Work Phone: [facility] [employer] 12-27-2024 04:26-0400 Body weight 110.04 kg Oumou Arias MD Work Phone: [facility] [employer] 12-27-2024 02:01-0400 Body temperature 98 [degF] Dr. Hayden Dutta DO Work Phone: [facility] 12-27-2024 02:01-0400 Diastolic blood pressure 71 mm[Hg] Dr. Hayden Dutta DO Work Phone: [facility] 12-27-2024 02:01-0400 Heart rate 86 /min Dr. Hayden Dutta DO Work Phone: [facility] 12-27-2024 02:01-0400 Respiratory rate 35 /min Dr. Hayden Dutta DO Work Phone: [facility] 12-27-2024 02:01-0400 SaO2% (BldA) [Mass fraction] 95 % Dr. Hayden Dutta DO Work Phone: [facility] 12-27-2024 02:01-0400 Systolic blood pressure 126 mm[Hg] Dr. Hayden Dutta DO Work Phone: [facility] 12-26-2024 23:00-0400 Body mass index (BMI) [Ratio] 31.4 kg/m2 Dr. Hayden Dutta DO Work Phone: [facility] 12-26-2024 23:00-0400 Body weight [address] Hayden Dutta DO Work Phone: [facility] 12-26-2024 16:53-0400 Body height 190.[address] Hayden Dutta DO Work Phone: [facility] 12-21-2024 12:09-0400 Body mass index (BMI) [Ratio] 30.35 kg/m2 Yumiko Cason APRN - MELI Work Phone: [facility] 12-21-2024 12:09-0400 Body weight 110.13 kg Yumiko Cason APRN - AUTOMOTIVE SERVICE TECHNICIAN Work Phone: [facility] 12-21-2024 12:09-0400 Diastolic blood pressure 95 mm[Hg] Yumiko Cason APRN - AUTOMOTIVE SERVICE TECHNICIAN Work Phone: [facility] 12-21-2024 12:09-0400 Heart rate 142 /min Yumiko Cason APRN - AUTOMOTIVE SERVICE TECHNICIAN Work Phone: [facility] 12-21-2024 12:09-0400 Systolic blood pressure 107 mm[Hg] Yumiko Andrewponce BILLET CHECKER - AUTOMOTIVE SERVICE TECHNICIAN Work Phone: [facility] 12-04-2024 18:44-0400 Diastolic blood pressure 77 mm[Hg] Dr. Hayden Dutta DO Work Phone: [facility] 12-04-2024 18:44-0400 Heart rate 95 /min Dr. Hayden Dutta DO Work Phone: [facility] 12-04-2024 18:44-0400 Respiratory rate 18 /min Dr. Hayden Dutta DO Work Phone: [facility] 12-04-2024 18:44-0400 SaO2% (BldA) [Mass fraction] 92 % Dr. Hayden Dutta DO Work Phone: [facility] 12-04-2024 18:44-0400 Systolic blood pressure 151 mm[Hg] Dr. Hayden Dutta DO Work Phone: [facility] 12-04-2024 11:09-0400 Body height 190.[address] Hayden Dutta DO Work Phone: [facility] 12-04-2024 11:09-0400 Body mass index (BMI) [Ratio] 34.1 kg/m2 Dr. Hayden Dutta DO Work Phone: [facility] 12-04-2024 11:09-0400 Body temperature 98.3 [degF] Dr. Hayden Dutta DO Work Phone: [facility] 12-04-2024 11:09-0400 Body weight 123.[address] Hayden Dutta DO Work Phone: [facility] 11-08-2024 16:33-0400 Body temperature 97.5 [degF] [facility] 11-08-2024 16:33-0400 Diastolic blood pressure 96 mm[Hg] [facility] 11-08-2024 16:33-0400 Heart rate 75 /min [facility] 11-08-2024 16:33-0400 Respiratory rate 18 /min [facility] 11-08-2024 16:33-0400 SaO2% (BldA) [Mass fraction] 98 % [facility] 11-08-2024 16:33-0400 Systolic blood pressure 155 mm[Hg] [facility] 11-08-2024 12:40-0400 Body height 190.5 cm [facility] 11-08-2024 12:40-0400 Body mass index (BMI) [Ratio] 32.5 kg/m2 [facility] 11-08-2024 12:40-0400 Body weight 118 kg [facility] Encounters Encounter Date Encounter Type Care Provider Facility Start: 01-12-2025 Evaluation and management of inpatient Rodolfo Rybchak Facility:[facility] Start: 01-09-2025 End: 01-10-2025 Orders Only Maribel Granados [facility] Start: 01-05-2025 End: 01-05-2025 Postop follow up visit related to original px Yumiko Cason APRN - AUTOMOTIVE SERVICE TECHNICIAN Work Phone: 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 Start: 12-27-2024 End: 12-30-2024 Evaluation and management of inpatient Oumou Arias MD Work Phone: [facility] Medical Surgical Unit [facility] H5 Comment on above: Fluid in chest cavit y associated with lung infection (Primary Dx); intermediate frame tender (current) use of antibiotics Start: 12-27-2024 Evaluation and management of inpatient Cisco Garza Facility:[facility] Start: 12-26-2024 End: 12-27-2024 Emergency department patient visit Dr. Hayden Dutta DO Work Phone: -Emergency Department Work Phone: Start: 12-22-2024 End: 12-22-2024 ambulatory Lenora Chua RN [facility] Start: 12-21-2024 End: 12-21-2024 Postop follow up visit related to original px Yumiko Cason BILLET CHECKER - AUTOMOTIVE SERVICE TECHNICIAN Work Phone: [facility] Thoracic [facility] - [place] Comment on above: Pleural effusion (Pr imary Dx) Start: 12-21-2024 End: 12-21-2024 ambulatory YUMIKO CASON [facility] Start: 12-04-2024 End: 12-15-2024 Evaluation and management of inpatient SHRUTHI KUZMIN [facility] Start: 12-04-2024 End: 12-04-2024 Emergency department patient visit Dr. Hayden Dutta DO Work Phone: -Emergency Department Work Phone: Start: 11-29-2024 End: 12-24-2024 ambulatory Cisco Garza Facility:[facility] Start: 11-24-2024 ambulatory Rodolfo Rybchak Facility :[facility] Start: 11-08-2024 End: 11-08-2024 Emergency department patient visit [facility] Work Phone (unformatted): [phone] Procedures Date Procedure Procedure Detail Performing Clinician Start: 01-09-2025 Complete blood count with white cell differential, automated Maribel Granados Start: 01-09-2025 Comprehensive metabo lic panel Maribel Granados Start: 01-02-2025 Follow-up visit JESSICA CASON Start: 01-02-2025 Comprehensive metabo lic panel Gary Lucio MD Work Phone: Start: 01-02-2025 Manual Differential panel - Blood Gary Lucio MD Work Phone: Start: 01-02-2025 Follow-up visit Follow-up GARY LUCIO Start: 12-30-2024 Radiologic exam ches t single view Sharlene Perry MD Work Phone: Start: 12-30-2024 Insertion picc w/rs& i 5 yr/> Sharlene Perry MD Work Phone: Start: 12-30-2024 Drug screen quantita tive vancomycin Harinder Negron MD Work Phone: Start: 12-29-2024 Comprehensive metabo lic panel Oumou Arias MD Work Phone: Start: 12-28-2024 Puncture aspiration abscess hematoma bulla/cyst Reagan Garcia MD Work Phone: Start: 12-28-2024 IR BODY DRAIN REMOVAL Theron Garcia MD Work Phone: Start: 12-28-2024 Cul bact xcpt urine blood/stool aerobic isol Harinder Negron MD Work Phone: Start: 12-28-2024 Prothrombin time Lavon Gibson MD Work Phone: Start: 12-28-2024 Comprehensive metabo lic panel Oumou Arias MD Work Phone: Start: 12-28-2024 Drug screen quantita tive vancomycin Harinder Negron MD Work Phone: Start: 12-27-2024 Culture bacterial an y source anaerobic iso&id Reagan Garcia MD Work Phone: Start: 12-27-2024 End: 12-27-2024 Lactate dehydrogenase ldh Reagan Garcia MD Work Phone: Start: 12-27-2024 Ct thorax w/contrast material Regaan Garcia MD Work Phone: Start: 12-27-2024 Comprehensive metabo lic panel Oumou Arias MD Work Phone: Start: 12-26-2024 CT of thorax with contrast Dr. Hayden Dutta DO Work Phone: Start: 12-26-2024 Plain chest X-ray Dr. Natasha Dutta DO Work Phone: Start: 12-26-2024 Flow cytometry cell surf marker techl only 1st Dr. Hadyen Dutta DO Work Phone: Start: 12-21-2024 Follow-up visit JESISCA CASON Start: 12-04-[address] Hayden Dutta DO Work Phone: Start: 12-04-2024 CT of head without contrast Dr. Hayden Dutta DO Work Phone: Start: 12-04-2024 Computed tomography of abdomen and pelvis with intravenous contrast Dr. Hayden Dutta DO Work Phone: Start: 12-04-2024 CT of soft tissues o f neck with contrast Dr. Hayden Dutta DO Work Phone: Start: 12-04-2024 CT of thorax with contrast Dr. Hayden Dutta DO Work Phone: Start: 11-29-2024 Blood count hemoglobin Cisco Garza Comment on above: Performed By: #### C BCAD #### [facility] [address] [address] Start: 11-08-2024 Blood count hemoglobin Cisco Garza Comment on above: Performed By: #### C BCAD #### [facility] [place] [address]172 Plan of Treatment Date Care Activity Detail Author Start: 2048 RSV Immunization for Adults (1 - 1-dose 75+ series) RSV Immunization for Adults (1 - 1-dose 75+ series) [facility] Start: 03-27-2025 Influenza vaccination Influenz a Vaccine (Season Ended) [facility] Start: 02-14-2025 End: 02-14-2025 ambulatory 02/14/2025 11:30 AM EDT Infusion [facility] [address] [place] [address] Gary Lucio MD [address] [place] [address] [facility] Start: 02-13-2025 End: 02-13-2025 Patient encounter procedure 02/13/2025 9:15 AM EDT Office Visit [facility] [place] [address] [place] [phone] Gary Lucio MD [address] [place] [address] [facility] [place] Start: 02-13-2025 End: 02-13-2025 ambulatory [facility] Start: 01-24-2025 End: 01-24-2025 ambulatory 01/24/2025 1:30 PM EDT Infusion [facility] [address] [place] [phone] Gary Lucio MD [address] [place] [address] [facility] Start: 01-24-2025 End: 01-24-2025 Patient encounter procedure 01/24/2025 11:00 AM EDT Office Visit [facility] Urology - [place] [address] [place] [address] Gary Abel MD [address] [place] [phone] [facility] [place] Start: 01-23-2025 End: 01-23-2025 Patient encounter procedure 01/23/2025 10:30 AM EDT Office Visit [facility] [place] [address] [place] [phone] Gary Lucio MD [address] [place] [address] [facility] [place] Start: 01-23-2025 End: 01-23-2025 ambulatory [facility] Start: 01-17-2025 End: 01-17-2025 Patient encounter procedure 01/17/2025 4:10 PM EDT Office Visit [facility] [place] [address] [place] [phone] Gary Abel MD [address] [place] [phone] [facility] [place] Start: 01-05-2025 End: 01-05-2025 Telemedicine consultation with patient 01/05/2025 2:00 PM EDT Telemedicine [facility] Thoracic Surgery - [place] [address] [place] [phone] Yumiko Cason, BILLET CHECKER - AUTOMOTIVE SERVICE TECHNICIAN [address] [place] [address] [facility] Thoracic Surgery - [place] Start: 01-03-2025 End: 01-03-2025 ambulatory [facility] Start: 01-02-2025 End: 01-02-2025 ambulatory [facility] Start: 12-27-2024 End: 12-27-2024 Patient encounter procedure [facility] Special Procedures Start: 12-27-2024 [facility] Start: 12-26-2024 [facility] Start: 12-26-2024 [facility] Start: 12-26-2024 Bacteria identified in Blood by Culture Blood Culture [facility] Start: 12-04-2024 [facility] Start: 12-04-2024 [facility] Start: 1992 DTaP/Tdap/Td Vaccine s (1 - Tdap) DTaP/Tdap/Td Vaccines (1 - Tdap) [facility] Start: 1992 Hepatitis B Vaccines (1 of 3 - 19+ 3-dose series) Hepatitis B Vaccines (1 of 3 - 19+ 3-dose series) [facility] Start: 1992 Pneumococcal Vaccine : 50+ Years (1 of 2 - PCV) Pneumococcal Vaccine: 50+ Years (1 of 2 - PCV) [facility] Start: 1992 Zoster Vaccines (1 o f 2) Zoster Vaccines (1 of 2) [facility] Start: 1991 Diabetes mellitus screening Diabetes Screening [facility] Start: 1985 Depression Screening Depression Scre ening [facility] Start: 1978 COVID-19 Vaccine (#1) COVID-19 Vacci ne (#1) [facility] Start: 1974 MMR Vaccines (1 of 1 - Standard series) MMR Vaccines (1 of 1 - Standard series) [facility] Start: 1973 HIV screening HIV Screening [facility] Start: 1973 Lipid panel Lipid Panel [facility] Start: 1973 Screening for malignant neoplasm of colon [facility] End: 12-27-2024 Aerobic and Anaerobic Culture with Stain [facility] Work Phone: Comment on above: Once (Lab) for 1 Occ urrences starting 12/27/2024 until 12/27/2024 Bacteria identified in Unspecified specimen by Aerobe culture Culture, Aerobic Bacteria with Gram Stain Microbiology Routine 12/27/2024 3:[address] [facility] Bacteria identified in Unspecified specimen by Anaerobe culture Anaerobic culture Microbiology Routine 12/27/2024 3:[address] 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 Work Phone: Comment on above: Every 12 weeks for 1 0 Occurrences starting 01/05/2025 until 01/05/2026 Patient Education [facility] Work Phone: Patient referral [facility] Work Phone: Immunizations Immunization Date Immunization Notes Care Provider Fa meghan 04-08-2013 influenza virus vacc ine, unspecified formulation Yumiko Cason BILLET CHECKER - AUTOMOTIVE SERVICE TECHNICIAN Work Phone: [facility] [employer] Payers Date Payer Category Payer Self-pay 2024 Unknown [id number] 2024 Commercial Managed C are - HMO [id number] 2024 Unknown [facility] [id number] 2024 Unknown [id number] Unknown YOLANDA [id number] Unknown [id number] Unknown [id number] Unknown [id number] Unknown [id number] [id number] Unknown [id number] [id number] Unknown [id number] [id number] Unknown [id number] Unknown [id number] Social History Date Type Detail Facility Start: 11-08-2024 Tobacco smoking stat us PRIS Unknown if ever smoked [facility] Start: 11-08-2024 OCC [facility] Work Phone: Start: 11-08-2024 DENIES [facility] Work Phone: Start: 1975 Sex Assigned At Male T [facility] Start: 12-04-2024 End: 12-27-2024 Gender Identity unknown [facility] Work Phone: Start: 12-04-2024 End: 12-27-2024 Tobacco smoking status NHIS Ex-smoker (finding) [facility] End: 07-27-1993 History of tobacco use Current smoker [facility] End: 07-27-1993 History of tobacco use Cigarette Smoker [facility] Start: 12-04-2024 End: 12-27-2024 History of Social function [facility] Start: 1975 Sex assigned at Not on file [facility] Start: 12-04-2024 [facility] Start: 12-27-2024 Alcoholic beverage intake Ex-drinker (finding) [facility] Has the [employer], or water company threatened to shut off services in your home in past 12Mo Patient declined [facility] How often to you hav e a drink containing alcohol? Never [facility] Functional Status Date Assessment Result Facility [facility] Clinical Notes 12-04-2024 to 01-05-2025 Yumiko Cason, BILLET CHECKER - AUTOMOTIVE SERVICE TECHNICIAN - 01/05/2025 2:00 PM EDTTelephone Encounter - Mariola Kamara - 01/05/2025 10:11 AM EDTTelephone Encounter - Mariola Kamara - 01/05/2025 10:11 AM EDTAttachments Note Date & Type Note Facility 01-05-2025 History of Presen t illness Narrative Images from the original note were not included. [facility] Medical Group: [facility] [address] [facility] [address] Dept: [phone] Dept Loc: [phone] Visit type: Established patient - Virtual Reason for Visit: follow up Assessment/Plan Diagnosis: 1. Pleural effusion Plan: - Discussed s/sy of pleural effusion with patient. Recommended he notify oncology or our office if he notices any s/sy of reoccurring effusion in the future. He verbalized understanding and has our office number. Patient to follow up as needed Patient was seen today via Telehealth by agreement and consent. I used the following Telehealth technology: Audio capability only. Total length of call 5 minutes. The patient was offered and advised video for a more comprehensive evaluation, but the patient declined or was unable to use video. Patient location: Patient Location: Home. This patient encounter is appropriate and reasonable under the circumstances: patient request . The patient has been advised of the potential risks and limitations of this mode of treatment (including but not limited to the absence of in-person examination) and has agreed to be treated in a remote fashion in spite of them. Any and all of the patient's/patient's family's questions on this issue have been answered and I have made no promises or guarantees to the patient. The patient has also been advised to contact this office for worsening conditions or problems, and seek emergency medical treatment and/or call 911 if the patient deems either necessary. The patient stated that they are currently in the [facility]. If the patient is a minor, permission has been obtained by the parent or guardian for the patient to receive medical care at this visit. Patient identification was verified at the start of the visit: yes Total time spent on this encounter: 12 minutes Subjective HPI: 49 y.o. male with past medical history of B-cell lymphoma, HTN, DVT on Eliquis. He was recently admitted and had recurrent pleural effusions. A pleurex catheter was placed and he was discharged home. His [facility] RN became concerned about purulent drainage around the Pleurex catheter site, he presented to the ED. Workup showed elevated WBC, CT chest showed right sided infiltrate and right sided pleural effusion. IR removed Pleurex drain. Did have attempted thoracentesis but no fluid was able to be aspirated. ID followed for Abx management, PICC placed and patient receiving cefazolin 2g q8hr unitl 01/24/25 for MSSA. He was discharged home and is following with oncology for chemotherapy treatments. 01/05/25: Spoke with patient for VV follow up. He is at home and recovering. Reports he is trying to increase his activity and walking more. He denies SOB, reports he is actually feeling better. He denies any issues with IV antibiotics. Objective Patient reported: none noted Wt Readings from Last 3 Encounters: 01/02/25 242 lb 9.6 oz (110 kg) 01/02/25 242 lb 8 oz (110 kg) 12/27/24 242 lb 9.6 oz (110 kg) Physical exam deferred due to virtual visit-with audio (telephone) capabilities only Labs/Imaging/Testing: reviewed EMR, see A&P for pertinent diagnostic results related to office visit Disclaimer INFORMED CONSENT:The nature and purpose of the proposed treatment or procedure have been discussed. The risks and benefits of the proposed treatment or procedures have been reviewed. Alternatives have been reviewed in addition to the risks and benefits of not receiving treatments or undergoing procedures. Pursuant to this discussion, the patient agrees to undergo the proposed treatment or procedure. Captured images seen in this note from are not a substitute for a comprehensive interpretation of the entire data set as reflected by the interpreting physician with regard to radiology, echocardiography, and other diagnostic images. This note may have been dictated using [employer] Edition 2.6 and/or [employer] Voice Recognition Feature. The document was proofread, however unrecognized voice recognition airfield manager errors may be present. documented in this encounter [facility] 01-05-2025 Telephone encounter Note Patient had bilat nephrostomy tube placed on 12/09/24 as inpatient. If patient will need to come for weekly dressing changes and/or every 3-month exchanges, please enter standing orders in TabTale so that we will be able to assist with scheduling these appointments. Patient had appt with Dr. Abel on 12/27 that was canceled due to patient being hospitalized. [facility] 01-05-2025 Miscellaneous Notes Patient had bilat nephrostomy tube placed on 12/09/24 as inpatient. If patient will need to come for weekly dressing changes and/or every 3-month exchanges, please enter standing orders in TabTale so that we will be able to assist with scheduling these appointments. Patient had appt with Dr. Abel on 12/27 that was canceled due to patient being hospitalized. Contacted patient for follow-up after IR bilat nephrostomy tube placement on 12/06 as inpatient. Patient was given interventional radiology department contact information in case there are any further questions or concerns. Patient to have dressing changes done by home care. Patient had bilat nephrostomy tube placed on 12/06/24 as inpatient. If patient will need to come for weekly dressing changes and/or every 3-month exchanges, please enter standing orders in TabTale so that we will be able to assist with scheduling these appointments. Mariola Kamara Interventional Radiology [phone] documented in this encounter [facility] 01-05-2025 History of Presen t illness Narrative 01/05/25 0933 Transitions Post-Discharge Call - Follow-Up Were there any changes to medications since previously reviewed/any questions? Yes If yes, what changes have been made? IV antibiotic via PICC line Reason for admission is resolving? Yes Are you experiencing any new symptoms? No Was HHC initiated if ordered? Yes Does patient have all necessary follow up appointments scheduled? Yes (01/05 Yumiko Zimmerman NP (CT surg), 01/[address] Lucio (hem/onc)) Does the patient have any questions/concerns at this time? No Has this patient been identified for ongoing CM/SW/Health assistant track and field coach needs? (Will continue to assess patients needs until end of transitional program.) Chart reviewed, phone call to patient for transitional outreach today. Spoke with Cisco today and reintroduced myself and role as a nurse on [facility]'s transitions team. Cisco notes that he is doing pretty good today overall and is feeling better again. He verifies that he has everything he needs for his infusions and that are going okay. Reviewed that should anything come up make sure and have the number for [facility] easily available. He states understanding. He tells me that his SOB is actually pretty good right now and he feels okay since having the Pleurex drain removed. Education to patient to make sure and keep an eye on his breathing and if he feels like he is getting increased SOB he should let MD know. He states understanding. He verifies that the nurse has been out to see him and he also verifies that he has all of his other medications and denies any questions about them at this time. He is very appreciative of the outreach today and is aware that we will be checking on him again. Reviewed that my co-worker Yahir would be reaching out next week and he states understanding. Will continue to follow for transitional outreach and continue to provide education to prevent readmission. Plan to follow up on: -IV antibiotics still going okay? -s/s of infection? -how is breathing? SOB? documented in this encounter [facility] 01-04-2025 Telephone encounter Note Contacted patient for follow-up after IR bilat nephrostomy tube placement on 12/06 as inpatient. Patient was given interventional radiology department contact information in case there are any further questions or concerns. Patient to have dressing changes done by home care. [facility] 01-03-2025 History of Presen t illness Narrative Here for nyvepria injection, pt had an uneventful night last night. Denies any complaints today. Injection given in right arm and tolerated well. Side effects reviewed and when to call the MD office. Pt does not have any nyvepria appts on cycle 3 or cycle 4 calendar but it is ordered in the treatment plan. Appears that originally the office was trying to get OBI but received auth for nyvepria instead. Will add injection appts to January for pt and he can see in MyChart. Pt voices understanding. documented in this encounter [facility] 01-03-2025 Telephone encounter Note Patient had bilat nephrostomy tube placed on 12/06/24 as inpatient. If patient will need to come for weekly dressing changes and/or every 3-month exchanges, please enter standing orders in Epic so that we will be able to assist with scheduling these appointments. Mariola Kamara Interventional Radiology [phone] [facility] 01-02-2025 History of Presen t illness Narrative [facility] with pt and mother [facility] on this date. Introduced self and SW role. Provided education on support services available such as SW, financial navigation, dietitian, counseling, massage,and support groups offered by [facility]. Spent time connecting with pt and mother and completed assessment of needs. Pt is staying with his mother now, who lives in [place] so he doesn't have to travel as far. Assessed needs, no concerns at this time. Shared information on local cancer resources such as [facility] and [facility] ammon. documented in this encounter [facility] 01-02-2025 History of Presen t illness Narrative Body surface area is 2.[address]. [address] Lucio dose adjustments made to treatment plan for recent weight loss. Dory JOY at [facility] [place]. Treatment plan updated per Dr. Lucio. Montz to be updated. Message received per to add polatuzumab vedotin 1.8mg/kg to treatment and pt will receive polatuzumab vedotin-RCHP (vincristine d/c'd). Montz sheet updated. Message sent to Nina Hammond and [employer] Crump in billing. [facility] [place] [address] [facility] [address] Dept: [phone] Dept Loc: [phone] Patient ID: Cisco Carpenter is a 49 y.o. male. Referring Physician: from hospital discharge Primary Care Provider: No primary care provider on file. Referral Request: diffuse large B cell lymphoma HPI: Cisco Carpenter is a 49 y.o. male with DVT diagnosed in October 2024 . We met in the hospital : patient reports of 1 month course of progressively enlarging left neck mass, initially a size of a pea, accompanied by generalized fatigue, N/V and SOB on exertion. Reviewed Work-up done here at [facility] - CT neck shown: -5.5 x 7.7 x 7.3 cm left carotid space and an inferior neck soft tissue mask splaying the left IJ, retromandibular vein, as well as the common carotid artery, with mass effect as described above. Differential considerations for this include paraganglioma, metastatic mass or large adenopathy. Multiple prominent mildly enlarged neck nodes, suspicious for metastasis. CT A/P w/ contrast shown: -moderate bilateral hydronephrosis, possible intraluminal defect within the right ureter. *not seen in renal US done this admit. -Significant bladder wall thickening. The posterior wall of the bladder is mass like and protrudes into the lumen of the bladder concerning for bladder wall mass. *seen in Renal US done this admit. -Extensive soft tissue mass (vs conglomerate of LNs/fibrosis) which surrounds and encases the aorta and iliac arteries and is contiguous with the iliopsoas muscle and pelvic sidewall. Enlarged LNs present along the iliac chains, periaortic, retroperitoneal and throughout the mesentery as well as adjacent to the aorta and esophagus at the diaphragmatic hiatus. -large right pleural effusion with compressive atelectasis and/or infiltrate -normal pancreatic body/tail, but head with difficulty/suboptimal to evaluate due to multiple adjacent abn LNs -Splenic 3.7 cm lesion Lab works significant for Scr 2.23, hyponatremia (132 > 133), hypercalcemia (13.1 > 13.2), mild AST elevation, normocytic anemia (hgb 10.2 12/06). Underwent IR placement of nephrostomy tube for B/L hydronephrosis. Zometa for hypercalcemia Rasburacase for spontaneous tumor lysis ENT biopsy of neck mass Dec 08 2024 . Pathology returned on December 10 DIFFUSE LARGE B-CELL LYMPHOMA (DLBCL). RCHOP on December [address] surgery for recurrent effusion . Interval history : Since he was discharged , readmitted on December 27 for chest tube infection . Chest tube was discontinued . He was sent home with IV antibiotics . [place] [facility]. Neck mass became nonpalpable . Medical History[1] Family History[2] Social History Socioeconomic History Marital status: Single Spouse name: Not on file Number of children: Not on file Years of education: Not on file Highest education level: Not on file Occupational History Not on file Tobacco Use Smoking status: Former Current packs/day: 0.00 Types: Cigarettes Quit date: 1993 Years since quittin.4 Smokeless tobacco: Not on file Substance and Sexual Activity Alcohol use: Not Currently Drug use: Never Sexual activity: Not on file Other Topics Concern Not on file Social History Narrative Not on file Social Drivers of Health Financial Resource Strain: Not on file Food Insecurity: Patient Declined (12/27/2024) Hunger Vital Sign Worried About Running Out of Food in the Last Year: Patient declined Ran Out of Food in the Last Year: Patient declined Transportation Needs: Patient Declined (12/27/2024) PRAPARE - Transportation Lack of Transportation (Medical): Patient declined Lack of Transportation (Non-Medical): Patient declined Physical Activity: Not on file Stress: Not on file Social Connections: Not on file Intimate Partner Violence: Patient Declined (12/27/2024) Humiliation, Afraid, Rape, and Kick questionnaire Fear of Current or Ex-Partner: Patient declined Emotionally Abused: Patient declined Physically Abused: Patient declined Sexually Abused: Patient declined Housing Stability: Patient Declined (12/27/2024) Housing Stability Vital Sign Unable to Pay for Housing in the Last Year: Patient declined Number of Times Moved in the Last Year: 0 Homeless in the Last Year: Patient declined Allergies[3] Review of Systems Constitutional: Positive for fatigue and unexpected weight change. HENT: Positive for lump/mass. Eyes: Negative. Respiratory: Negative. Cardiovascular: Negative. Gastrointestinal: Negative. Endocrine: Negative. Genitourinary: Negative. Musculoskeletal: Negative. Neurological: Negative. Hematological: Negative. Psychiatric/Behavioral: Negative. Objective BSA: 2.41 meters squared BP 126/87 Pulse (!) 112 Temp 37.6 C (99.6 F) (Temporal) Ht 1.905 m (6' 3) Wt 110 kg (242 lb 9.6 oz) SpO2 100% BMI 30.32 kg/m Physical Exam Constitutional: Appearance: Normal appearance. Eyes: Extraocular Movements: Extraocular movements intact. Cardiovascular: Rate and Rhythm: Normal rate and regular rhythm. Heart sounds: Normal heart sounds. Pulmonary: Breath sounds: Normal breath sounds. Abdominal: Palpations: Abdomen is soft. Musculoskeletal: General: No swelling or deformity. Lymphadenopathy: Cervical: No cervical adenopathy. Skin: General: Skin is warm. Neurological: General: No focal deficit present. Mental Status: He is alert and oriented to person, place, and time. Psychiatric: Mood and Affect: Mood normal. Behavior: Behavior normal. ECOG Performance Status: Symptomatic; fully ambulatory Pertinent Ancillary Test Results: Lab Results Component Value Date WBC 26.8 (H) 01/02/2025 HGB 10.1 (L) 01/02/2025 HCT 30.7 (L) 01/02/2025 PLT 679 (H) 01/02/2025 LDH 278 (H) 12/15/2024 CREATININE 0.89 01/02/2025 AST 17 01/02/2025 Assessment/Plan: Cancer Staging No matching staging information was found for the patient. Treatment Details Treatment goal [No plan goal] Plan Name OP R-CHOP (cycloPHOSphamide / DOXOrubicin / vinCRIStine / predniSONE + riTUXimab), 21-Day Cycle Status Active Start Date 12/11/2024 End Date 03/28/2025 (Planned) Provider Gary Lucio MD Chemotherapy DOXOrubicin (Adriamycin) chemo injection 128 mg, 50 mg/m2 = 128 mg, IntraVENous, Once, 2 of 6 cycles Administration: 128 mg (12/11/2024), 120 mg (01/02/2025) pegfilgrastim-apgf (Nyvepria) injection 6 mg, 6 mg, SubCUTAneous, Once, 1 of 5 cycles vinCRIStine (Oncovin) 2 mg in sodium chloride 0.9 % 50 mL chemo IVPB, 2 mg (original dose 1.4 mg/m2), IntraVENous, Once, 2 of 6 cycles Dose modification: 2 mg (original dose 1.4 mg/m2, Cycle 1, Reason: Max Dose Reached) Administration: 2 mg (12/11/2024), 2 mg (01/02/2025) fosaprepitant (Emend) 150 mg in sodium chloride 0.9 % 250 mL IVPB, 150 mg, IntraVENous, Once, 2 of 6 cycles Administration: 150 mg (12/11/2024), 150 mg (01/02/2025) cyclophosphamide (Cytoxan) 1,440 mg in sodium chloride 0.9 % 250 mL chemo IVPB, 562.5 mg/m2 = 1,440 mg (75 % of original dose 750 mg/m2), IntraVENous, Once, 2 of 6 cycles Dose modification: 562.5 mg/m2 (original dose 750 mg/m2, Cycle 1) Administration: 1,440 mg (12/11/2024), 1,800 mg (01/02/2025) riTUXimab-pvvr (Ruxience) 1,000 mg in sodium chloride 0.9 % 500 mL chemo IVPB, 375 mg/m2 = 1,000 mg, IntraVENous, Once, 2 of 6 cycles Administration: 1,000 mg (12/11/2024), 900 mg (01/02/2025) Treatment Details Treatment goal [No plan goal] Plan Name PORT AND MEAT LUGGER Status Active Start Date 01/02/2025 End Date Until discontinued Provider Gary Lucio MD Chemotherapy [No matching medication found in this treatment plan] I have reviewed pertinent ancillary laboratory, imaging and pathology results with the patient and family member today. S/p cycle 1 RCHOP .in the hospital . Responded . Discussed with patient . He was put on antibiotic until January 24 . Catheter was removed . It was important to treat lymphoma on time . Therefore we decided to proceed cycle 2 with neulasta . Plan for roger -R-CHP from cycle 3 . This needed insurance approval . POLARIX Trial Roger-R-CHP demonstrated superior progression-free survival compared to R-CHOP. Plans and goals of care were discussed with the patient. Discussion congruent with NCCN guidelines if applicable. All questions were answered to the patient's satisfaction. Patient to call with any questions or problems. Patient verbalized understanding and agreed with the treatment plan outlined above. Gary Walters M.D. - On this date, 01/02/25 , I have spent 60 minutes preparing to see the patient by reviewing previous notes/ancillary test results as well as with bhtg-pb-evzy patient care, performing a medically appropriate examination, counseling & educating the patient/family/caregiver, ordering applicable medications/tests/procedures and completing required clinical documentation on the day of encounter. [1] Past Medical History: Diagnosis Date DVT, lower extremity (HCC) Hypertension [2] No family history on file. [3] No Known Allergies documented in this encounter [facility] 01-02-[address] Lucio dose ad justments made to treatment plan for recent weight loss. Dory JOY at [facility] aware. Treatment plan updated per Dr. Lucio. Montz to be updated. [facility] 01-02-2025 History of Presen t illness Narrative Pt arrived ambulatory following OV for C2D1 RCHOP (1st dose inpatient). Pt was recently admitted for infected pleurex catheter (now removed). He is feeling better but still adjusting to the new PICC line that was placed on Thu and bilateral nephrostomy tubes. He is noted to have a diffuse rash from the antibiotic he is taking (Forgets the name) but Dr. Lucio is aware and advised to try benadryl. Pt is having slightly decreased appetite and BREEN since pleurex was removed. See toxicity assessment. PICC line flushes easily and good blood return noted form both lumens. Pt states he has a homecare nurse coming out to care for his PICC na d has flushes at home. Denies need for dressing change or cap changes today as it was just placed on Thu12/30/24. Pt verbalizes understanding of POC. 1802 Pt tolerated infusion without incidence. PICC line flushed and dressing intact. Discharged in stable condition. documented in this encounter [facility] 12-30-2024 Nurse Note Removed patient's IV. The patient refused virtual nursing for discharge. Reviewed discharge instructions, medications follow up appointments, what to watch for, who to call and where to go in case of an emergency with the patient and his mother. They verbalized their understanding and all of their questions were answered. Wheelchair transportation was requested to take the patient to his mother's car [facility] 12-30-2024 Nurse Note Removed patient's IV. The patient refused virtual nursing for discharge. Reviewed discharge instructions, medications follow up appointments, what to watch for, who to call and where to go in case of an emergency with the patient and his mother. They verbalized their understanding and all of their questions were answered. Wheelchair transportation was requested to take the patient to his mother's car Patient arrived to Ultrasound department for right posterior chest fluid collection. History, medications and allergies reviewed. Susanne Santos PA-C in to discuss procedure and informed consent obtained. Patient assisted to left lateral decubitus position. Right upper back scanned, marked and prepped in sterile fashion. Unable to aspirate any fluid from area. Vaseline guaze dressing applied. Patient tolerated procedure well. Pt transported to [facility]. Conscious sedation was administered. Vital signs were monitored throughout the procedure. Patient tolerated the procedure well. Transfer to following the procedure. Patient arrived from for right pleurx catheter removal. Dr. Figueroa in to speak with the patient regarding the procedure, and consent was obtained. Patient's lab values and allergies were reviewed. Patient was placed in a left lateral decubitus position on exam table, prepped and draped in sterile fashion. Telemetry monitors were placed. documented in this encounter [facility] 12-30-2024 Plan of care note OPAT on epic Planned for discharged today or tomorrow ID will sign off Please reconsult with questions Hardik Nobles MD 12/30/2024 1:[address] [facility] 12-30-2024 Miscellaneous Notes OPAT on epic Planned for discharged today or tomorrow ID will sign off Please reconsult with questions Hardik Nobles MD 12/30/2024 1:52 PM Per KEYA: [facility] insurance OOP $7,250.00 and OOP $7,250.00 both have been met for the year. Charges will be billed to the plan Will update patient. Still awaiting opat--pt being started on new antibiotic that he has not received yet in hospital. Message sent to Dr. Negron, Dr. Nobles, [facility] and bedside RN to notify them that patient will need to have at least one dose of this prior to leaving hospital to ensure no adverse reactions. Will await OPAT. LASSITER states they can see patient tomorrow around 2pm for IV abx and teaching. Start PACC Note Home Health Referral Educated patient on Home Care and services available. Patient offered choice of available HHC and agreeable to SN services with [facility]. Care Types: None Isolation Precautions: No active isolations Social Determinates of Health: Tobacco Use: Medium Risk (12/27/2024) Patient History Smoking Tobacco Use: Former Smokeless Tobacco Use: Unknown Passive Exposure: Not on file Social History Substance and Sexual Activity Alcohol Use Not Currently Social History Substance and Sexual Activity Drug Use Never Does the patient have any financial resource strain? No Does the patient have any food insecurities? No Does the patient have any housing instabilities? No If any of the above is noted as yes - consider a PERFORMANCE IMPROVEMENT MANAGER evaluation once the patient returns home. START PATIENT REGISTRATION INFORMATION Order Information Order Signing Physician: Harinder Negron MD Service Ordered RN ?: Yes Service Ordered PT ?: No Service Ordered OT ?: No Service Ordered ST ?: No Service Ordered PERFORMANCE IMPROVEMENT MANAGER?:No Service Ordered HOTEL NIGHT AUDITOR?: No Following Physician: Maribel Granados Following Physician Overseeing Physician: No primary care provider on file. (Required for Residents only) Agreeable to Follow? Yes Date/Time of Call 12/30/24 12:23 PM, Spoke with: marcos Care Coordination Same Day SOC?: No Primary Care Physician: No primary care provider on file. Primary Care Physician Phone: None Primary Care Physician Address: No primary physician on file. Visit Instructions: N/A Service Discharge Location Type: Home with Home Care Service Facility Name: N/A Service Floor Facility: N/A Service Room No: N/A Demographics Patient Last Name: Pauline Patient First Name: Cisco Language/Communication Barrier: na Service Address: [address] [place] [address] Service City: [facility] ST: [place] Service ZIP: [address] Service (home) Other phone numbers: Telephone Information: Emergency Contact: Extended Emergency Contact Information Primary Emergency Contact: Charissa Carpenter Mobile Relation: Mother Admission Information Admit Date: 12/27/2024 Patient status at discharge: Inpatient Admitting Diagnosis: Fluid in chest cavity associated with lung infection [J18.9, J94.8] Caregiver Information Caregiver First Name: self Caregiver Last Name: self Caregiver Relationship to Patient self Caregiver Phone Number: na Caregiver Notes: N/A HITECH [employer] List HIGHTECH: HI TECH - IV Orders: Cefazolin 2gm Q8h IV Method of Administration: IV Date and Time of Next Dose Due: day after discharge at 10am Infusion Company: [facility]ious Disease Physician: Hardik Nobles MD Teachable Caregiver Teachable Caregiver First Name: Charissa Klein Caregiver Last Name: Pauline Klein Caregiver Relationship to Patient: mother Teachmelissa Caregiver Teachmelissa Caregiver Notes: N/A Teachable Caregiver available for SOC visit?: Yes Teachable Caregiver agreeable to provide skilled HITECH care per physician's orders?: Yes HIGHTECH: HI TECH - DRAIN CARE TYPE: Nephrostomy ORDERS: keep to gravity drainage HIGHTECH: HI TECH - LABS Orders: CBC and CMP to be drawn weekly. Send results to [phone]. Following Physician/Facility: Hardik Nobles MD HIGHTECH: HI TECH - PICC CARE Line and Location: Procedure type: Insertion Orientation: left Location: Brachial Catheter type: Double lumen Catheter size: 5 Fr Lot #: [id number] Trimmed at (cm): 49 Inserted at (cm): 49 Orders: Flush PICC with 10cc NS, administer medication, flush with 10cc NS and end with 5ml heparin flush. Change PICC dressing weekly and PRN. Teachable Caregiver Teachable Caregiver First Name: Charissa Klein Caregiver Last Name: Pauline Klein Caregiver Relationship to Patient: mother Latoya Caregiver Teachable Caregiver Notes: N/A Teachable Caregiver available for SOC visit?: Yes Teachable Caregiver agreeable to provide skilled HITECH care per physician's orders?: Yes END PATIENT REGISTRATION INFORMATION Pt Home Health goal TBD COVID Status 1. Do you have any upper respiratory symptoms (cough, SOB, Fever)? No 2. Have you been exposed to anyone with COVID-19 Virus? No Answer only if pending or positive for COVID-19? 1. Agreeable to wear PPE at each visit? No 2. Is the hospital supplying them with PPE upon Discharge? No Start PACC Summary General Report/ Additional Comments Marcos--iv abx Discharge Date: pending Referral Source-PACC: (Hospital/Unit): [facility] / H-[id number]/H-[id number] A End PACC Note Problem: Pain - Adult Goal: Verbalizes/displays adequate comfort level or baseline comfort level Outcome: Progressing Problem: Safety - Adult Goal: Free from fall injury Outcome: Progressing Problem: Discharge Planning Goal: Discharge to home or other facility with appropriate resources Outcome: Progressing Problem: Chronic Conditions and Co-morbidities Goal: Patient's chronic conditions and co-morbidity symptoms are monitored and maintained or improved Outcome: Progressing Referral sent to [facility] to check cost/coverages for LTABX. Will await response and update patient. Care Management Progress Note discharge plan home with mom- active with [facility]- plan for half-way IV antibiotics- PIC ordered- HC liaison notified of above Problem: Pain - Adult Goal: Verbalizes/displays adequate comfort level or baseline comfort level Outcome: Progressing Problem: Safety - Adult Goal: Free from fall injury Outcome: Progressing Problem: Discharge Planning Goal: Discharge to home or other facility with appropriate resources Outcome: Progressing Problem: Chronic Conditions and Co-morbidities Goal: Patient's chronic conditions and co-morbidity symptoms are monitored and maintained or improved Outcome: Progressing Problem: Pain - Adult Goal: Verbalizes/displays adequate comfort level or baseline comfort level Outcome: Progressing Problem: Safety - Adult Goal: Free from fall injury Outcome: Progressing Problem: Discharge Planning Goal: Discharge to home or other facility with appropriate resources Outcome: Progressing Problem: Chronic Conditions and Co-morbidities Goal: Patient's chronic conditions and co-morbidity symptoms are monitored and maintained or improved Outcome: Progressing Has received notification yesterday that they were unable to aspirate any fluid from patient's posterior chest 12/28 so they cancelled cultures and cell studies. However there are cultures labelled as pleural fluid from 12/27 that are growing MSSA. Unclear where the cultures on 12/27 were obtained from. Follow catheter tip cultures in process Hardik Nobles MD 12/29/2024 2:19 PM Problem: Pain - Adult Goal: Verbalizes/displays adequate comfort level or baseline comfort level Outcome: Progressing Problem: Safety - Adult Goal: Free from fall injury Outcome: Progressing Problem: Discharge Planning Goal: Discharge to home or other facility with appropriate resources Outcome: Progressing Problem: Chronic Conditions and Co-morbidities Goal: Patient's chronic conditions and co-morbidity symptoms are monitored and maintained or improved Outcome: Progressing Care Management Progress Note Discharge plan home with mom-active with [facility]- liaison aware- ID consult pending Bilateral nephrostomy dressings changed per order. Sites benign. Transfer pt to H6. Fluid sent to lab from Pleural tube. ID being consulted. More labs and test ordered. Possible may need a new chest tube. Care Management Progress Note introduced self to patient- from home staying with mom-active with [facility] liaison aware- (bilat neph tubes and pleurx cath prior to adm) Patient is currently active with [facility]. The patients current certification period will on 02/13/25. The patient is currently receiving SN services through the agency. Commercial Credit Specialist to continue to follow. Problem: Pain - Adult Goal: Verbalizes/displays adequate comfort level or baseline comfort level Outcome: Progressing Problem: Safety - Adult Goal: Free from fall injury Outcome: Progressing documented in this encounter [facility] 12-30-2024 History of Presen t illness Narrative Vancomycin therapy has been discontinued by Hardik Nobles MD on 12/30/24. Thank you for the consult. Pharmacy signing off for vancomycin dosing. Gabriela Shannon PharmD Date: 12/30/24 Time: 1:42 PM Hospitalist Progress Note 12/30/2024 Subjective: Admit Date: 12/27/2024 PCP: No primary care provider on file. Room#: -5104/[facility] A BRIEF HOSPITAL COURSE: Cisco is a 49 y.o. male with past medical history below who presents with concern for purulent discharge from Pleurx catheter site. Patient history includes B-cell lymphoma, HTN, DVT on Eliquis. Recent inpatient admission at this facility 12/04 for concern of left-sided neck mass-further workup noted retroperitoneal mass consistent with malignancy, patient was diagnosed with B-cell lymphoma and started chemotherapy. During admission noted recurrent pleural effusion-cardiothoracic specialty was consulted with placement of right chest tube, then Pleurx catheter on right side. Patient states has home health nurse visit him, became concerned when they noted purulent drainage on the dressing surrounding the catheter. Initial ED workup noted WBCs elevated at 16.4. Sodium of 131. Lactic acid <1.0. Vital signs noted low normal blood pressures-101/84. HR 77, SpO2 99% on room air. Patient is afebrile. Patient received empiric vancomycin/Zosyn, transferred to [facility] for cardiothoracic evaluation and further antibiotic administration. He was admitted. CT chest showed right sided infiltrate and right sided pleural effusion. He was seen by CT surgery. IR removed pleurx drain and cx obtained. Fluid collection was not able to be aspirated by IR. ID consulted for ABX management. ID recommended Cefazolin for MSSA and PICC. Interval History: 12/30: No pain. NO CP or SOB. No acute events overnight. Cegazolin for MSSA and PICC ordered. All questions answered. 12/29: No pain. No CP or SOB. Nephrostomy tubes in place. 12/28: Pain improved. No CP or SOB. No acute events overnight. Pleurx drain out. All questions answered. 12/27: He c/o right sided CP with inspiration. NO SOB. He appears uncomfortable. No overnight issues. Case and plan discussed with patient and bedside nurse. All questions answered. Adult diet Regular 24HR INTAKE/OUTPUT: Intake/Output Summary (Last 24 hours) at 12/30/2024 1014 Last data filed at 12/30/2024 0525 Gross per 24 hour Intake 250 ml Output 280 ml Net -30 ml Past Medical History: Medical History[1] LABS: CBC: Recent Labs 12/28/24 0439 12/29/24 0444 WBC 12.2* 14.8* RBC 2.68* 2.62* HGB 7.9* 7.7* HCT 22.8* 22.3* MCV 85.1 85.1 RDW 15.9* 15.9* PLT 390 450* BMP: Recent Labs 12/28/24 0439 12/29/24 0444 NA 132* 132* K 3.6 3.6 CL 105 105 CO2 23 21* BUN 8* 7* CREATININE 0.93 0.93 GLUCOSE 99 114* CALCIUM 7.8* 7.6* ANIONGAP 4 6 LIVER PROFILE: Recent Labs 12/28/24 0439 12/29/24 0444 AST 15 13 ALT 7 <6 BILITOT 0.3 0.3 ALKPHOS 99 92 PROT 5.7* 5.6* PT/INR: Recent Labs 12/28/24 0749 PROTIME 11.5 INR 1.1 CARDIAC ENZYMES: No results for input(s): TROPONINI in the last 72 hours. Procalcitonin: No results found for: PROCAL COVID-19 PCR: No results for input(s): COVID19 in the last 72 hours. Objective: Vitals: BP 93/55 (BP Location: Left arm, Patient Position: Lying) Pulse 79 Temp 36.7 C (98.1 F) (Temporal) Resp 17 Ht 6' 3 (1.905 m) Wt 242 lb 9.6 oz (110 kg) SpO2 96% BMI 30.32 kg/m Pulse Ox: SpO2 Av.5 % Min: 96 % Max: 97 % Supplemental O2: Physical Exam Vitals reviewed. Constitutional: General: He is not in acute distress. Comments: Nephrostomy tubes noted and plurex drain removed Cardiovascular: Rate and Rhythm: Normal rate and regular rhythm. Pulmonary: Effort: Pulmonary effort is normal. Breath sounds: No rhonchi. Abdominal: General: Bowel sounds are normal. Palpations: Abdomen is soft. Tenderness: There is no abdominal tenderness. Skin: General: Skin is warm and dry. Neurological: Mental Status: He is alert. Medications: Scheduled PRN Scheduled Meds[2] PRN Meds[3] Continuous Continuous Meds[4] Assessment Data: NA (LOW: 2x CAT1 or independent historian MOD: 3x CAT1 or 1x CAT3 EXTENSIVE: 3x CAT1 and 1x CAT3) Acute, acute on chronic, unstable/uncontrolled chronic problems/diagnoses: Pneumonia Right sided pleural effusion Right plurex drain infection, loculated effusion Stable chronic problems affecting care, new non-acute diagnoses: B-cell lymphoma Hx DVT HTN Plan As a result of the above findings & factors, the following mgmt was pursued: - CT surgery appreciated - Vancomycin and Zosyn - plurex drain removed - ID appreciated - Cx pending - Pulmonology appreciated. - home medications - resume Eliquis - am labs, replace lytes prn - PT/OT/CM/SW - delirium precautions: increase activity - DVT prophylaxis: encourage ambulation Complexity: Acute illness with systemic symptoms (MOD). Risk: Low risk diagnostic testing or treatment (LOW). Advance Directive: Full Code Anticipated Discharge - Date - TBD - Location - Home - Pending the following - clinical course, erp implementation consultant recs Total time spent (which include face to face and non face to face encounters) : 35 minutes Toxic drug monitoring/narrow therapeutic index drug monitoring : # Drug name : N/A # Route administered : N/A # Method of monitoring : N/A Extended Emergency Contact Information Primary Emergency Contact: Charissa Carpenter Mobile Relation: Mother Harinder Negron MD Division of Hospitalist Medicine [facility] [1] Past Medical History: Diagnosis Date DVT, lower extremity (HCC) Hypertension [2] allopurinol, 150 mg, Oral, Daily apixaban, 5 mg, Oral, BID piperacillin-tazobactam, 4,500 mg, IntraVENous, q6h senna-docusate sodium, 1 tablet, Oral, Daily sodium chloride 0.9%, 5-40 mL, IntraVENous, q12h vancomycin, 1,750 mg, IntraVENous, q12h [3] PRN medications: acetaminophen OR acetaminophen, albuterol, HYDROmorphone, melatonin, naloxone, ondansetron ODT OR ondansetron, oxyCODONE OR oxyCODONE, polyethylene glycol (PEG) 3350, sodium chloride, sodium chloride 0.9% [4] Images from the original note were not included. [facility] - Infectious Diseases Attending Progress Note Subjective: Patient is seen for follow up of pleurx catheter infection Denied cough, SOB, chest pain, abdominal pain, nausea, vomiting, dysuria, diarrhea, headache Objective: Vitals: Patient Vitals for the past 24 hrs: BP Temp Temp src Pulse Resp SpO2 12/30/24 0511 93/55 36.7 C (98.1 F) Temporal 79 17 96 % 12/29/24 1943 141/81 36.6 C (97.8 F) Temporal 92 17 97 % Physical Exam General Appearance: Alert, NAD HEENT: wnl Neck: Supple Lungs: Clear to auscultation b/l on room air Cardiovascular: RRR Gastrointestinal: Soft NT, ND, BS+, no palpable masses, hernia : no CVAT. No daniel Neurologic: wnl Skin: No rashes Psychiatry: alert and oriented Extremities: No edema, No joint inflammation Lines: sites clean Labs: Recent Labs 12/28/2443812/29/24 0444 NA 132* 132* K 3.6 3.6 CL 105 105 CO2 23 21* BUN 8* 7* CREATININE 0.93 0.93 GLUCOSE 99 114* CALCIUM 7.8* 7.6* PROT 5.7* 5.6* BILITOT 0.3 0.3 ALKPHOS 99 92 AST 15 13 ALT 7 <6 Recent Labs 12/28/2443812/29/24 0444 WBC 12.2* 14.8* HGB 7.9* 7.7* HCT 22.8* 22.3* PLT 390 450* Micro: Pleural fluid cx: MSSA Catheter tip cx: MSSA Lines: PIV Radiography/Echo/Other: CT chest Consolidation/infiltrate of the right lung with right-sided pleural effusion and small caliber chest tube on the right. Antimicrobials,Start/End Dates: Vancomycin zosyn Impression: -Pleurx catheter site infection, r/o pleural fluid infection -B cell lymphoma, on chemotherapy, last chemo (RCHOP) 3 weeks ago (does not have port) -S/p pleurx catheter for recurrent right sided pleural effusion -S/p b/l PNT insertion due to retroperitoneal mass (also lymphoma) -HTN -DVT on eliquis Plan: Dc vancomycin Dc zosyn Old pleurx site appears clean currently, no discharge noted, catheter has been removed Cultures labelled pleural fluid cx are growing MSSA Catheter tip cultures also growing MSSA Start cefazolin 2g q[address] picc line Went for usg guided thoracentesis but no fluid to aspirate Patient is immunocompromised and will be receiving chemotherapy. Will treat aggressively Trend wbc and temp Discharge planning: place picc line Cefazolin 2g q8 until 01/24/2025 OPAT will be in epic shortly Total time of 50 minutes on this day of encounter spent on, but not limited to review of tests, medical records , ordering medications, tests, and procedures, and care coordination, arrangement of outpatient antimicrobial therapy, post-hospitalization therapy and follow-up. Hardik Nobles MD 12/30/2024 9:55 AM Pharmacy to Dose Vancomycin - Progress Note Lab Results Component Value Date CREATININE 0.93 12/29/2024 BUN 7 (L) 12/29/2024 WBC 14.8 (H) 12/29/2024 VANCORANDOM 21.5 12/30/2024 VANCOTROUGH 25.4 12/28/2024 Doses, serum creatinine, and vancomycin levels interfaced automatically to [employer] and data has been analyzed and interpreted. Infectious Diagnosis: HAP Est CrCl: 125 mL/min (Cockcroft-Gault) Assessment: Current regimen vancomycin 1750 mg every 12 hours (15.9 mg/kg) Predicted AUC = 566 mg/L*hr (goal 400-600 mg/L*hr) PAUC = 97% (probability that AUC is >400 mg/L*hr) Pconc = 15% (probability that Ctrough is above 20 mcg/mL (toxicity)) Plan: Is the current dose therapeutic? [x] Yes - obtain next level on 01/06 unless predicted AUC is sub-/supra-therapeutic or change in serum creatinine. [] No - change current regimen to vancomycin mg every hours ( mg/kg) for predicted AUC mg/L*hr, PAUC = % , and Pconc* = %. Obtain next level on Trend serum creatinine. Trend AUC using Bayesian Modeling. Orders placed. DATE: 12/30/24 TIME: 7:48 AM Ros Cesar RPh Clinical Pharmacist Available via Secure Chat Department of Surgery Daily Progress Note SUBJECTIVE: No acute events overnight. Pain continues to improve. Patient denies any systemic symptoms at this time. Patient denies any shortness of breath or pleuritic pain.. ROS: Noted above unless otherwise mentioned OBJECTIVE: VITALS: Temp: [36.4 C (97.6 F)-36.7 C (98.1 F)] 36.7 C (98.1 F) Heart Rate: [70-92] 79 Resp: [17-20] 17 BP: (93-141)/(55-81) 93/55 INTAKE/OUTPUT: Reviewed in the EMR daily PHYSICAL EXAM: Gen: NAD, A&Ox3, pain well controlled Heart: RRR, well perfused Lungs: symmetric chest rise, normal work of breathing, breath sounds b/l Abd: soft, non tender, non distended. Non rigid. Ext: no c/c/e no gross deformities Skin: warm, well perfused, no obvious rashes, cellulitis or gross discoloration LABS/IMAGING Reviewed in the EMR daily Current Inpatient Medications Scheduled Meds:Scheduled Meds[1] Continuous Infusions:Continuous Meds[2] PRN Meds:PRN Meds[3] ASSESSMENT AND PLAN: 49 y.o. male with concern for Pleurx catheter infection -No acute surgical intervention at this time -Pleural fluid culture and Pleurx catheter tip cultures preliminary Staph aureus -Will follow-up ID recs - Diet as tolerated - If need for pleural fluid drainage arises would recommend serial thoracenteses while risks infection resolves - Rest of care per primary - Cardiothoracic surgery to follow Will discuss with Dr. Vickey Garcia MD General Surgery Resident 12/30/24 7:42 AM This note may have been dictated using [employer] Edition 2.6 and/or [employer] Voice Recognition Feature. The document was proofread; however, unrecognized voice recognition airfield manager errors may be present. [1] allopurinol, 150 mg, Oral, Daily apixaban, 5 mg, Oral, BID piperacillin-tazobactam, 4,500 mg, IntraVENous, q6h senna-docusate sodium, 1 tablet, Oral, Daily sodium chloride 0.9%, 5-40 mL, IntraVENous, q12h vancomycin, 1,750 mg, IntraVENous, q12h [2] [3] PRN medications: acetaminophen OR acetaminophen, albuterol, HYDROmorphone, melatonin, naloxone, ondansetron ODT OR ondansetron, oxyCODONE OR oxyCODONE, polyethylene glycol (PEG) 3350, sodium chloride, sodium chloride 0.9% Cosigned by Hernan Hurd MD at 12/30/2024 11:10 AM EDT Associated attestation - Hernan Hurd MD - 12/30/2024 11:10 AM EDT Attending Note I have reviewed the documentation above obtained and documented by the Resident. The following comments revise or confirm relevant molina components. Patient seen and examined on 12/30/24. Agree with Resident note unless otherwise noted below. As below, patient doing well. On room air ambulating without difficulty. Continue IV antibiotics per infectious disease. No plans for acute surgical intervention. STAFF PHYSICIAN: Hernan Hurd MD DATE OF SERVICE: December 30, 2024 TIME OF SERVICE: 11:09 AM Nutrition rescreen completed. Chart reviewed. Patient to be monitored and followed by the diet hydroelectric production technician. YUE Hendrix Images from the original note were not included. [facility] [place] [address] [place] [address] Patient - Cisco Carpenter, Age - 49 y.o. - 1975 Room Number - [id number] A Consulting - Harinder Negron MD Primary Care Physician - No primary care provider on file. Date of Admission - 12/27/2024 4:10 AM Hospital Day - 2 Chief Complaint: drainage at pleurx site Cisco Carpenter is a 49 y.o. male who pulmonary is following for concern for pleural space infection and soft tissue infection at site of pleurx catheter. Patient recently started on R-CHOP for diffuse large B cell lymphoma, had pleurx placed for recurrent effusions. Patient presents with minimal output and drainage at chest tube site. S/P chest tube removal. Interval History Patient afebrile, reports some discomfort at chest tube site. Denies fever, chills, cough, SOB. Pleural fluid cultures with MSSA. All other systems reviewed and negative unless otherwise stated in HPI. Objective Vitals: BP 118/71 (BP Location: Right arm, Patient Position: Sitting) Pulse 70 Temp 36.4 C (97.6 F) (Temporal) Resp 20 Ht 6' 3 (1.905 m) Wt 242 lb 9.6 oz (110 kg) SpO2 98% BMI 30.32 kg/m Pulse Ox: SpO2 Av.5 % Min: 97 % Max: 98 % Supplemental O2: I/O 24HR INTAKE/OUTPUT: Intake/Output Summary (Last 24 hours) at 12/29/2024 1357 Last data filed at 12/29/2024 0635 Gross per 24 hour Intake 1689.4 ml Output 500 ml Net 1189.4 ml Exam General appearance: Awake, alert, no acute distress. On RA. HEENT: Normocephalic, atraumatic. No scleral icterus, no right/left eye discharge. Conjunctivae normal. Right external ear normal, Left external ear normal. No congestion. Mouth: mucous membranes moist. Pharynx, Oropharynx is clear. No oropharyngeal exudate. Neck: ROM normal, No thyromegaly. No cervical lymphadenopathy Cardiovascular: Regular rate and rhythm. Heart sounds normal. Negative for murmur, friction rub, or gallop. Pulmonary: Effort normal, no respiratory distress. No stridor. Decreased aeration in right base, no wheezes or rhonchi Abdomen: Soft, no distention, no abdominal tenderness. No guarding. No masses. Musculoskeletal: ROM normal. Skin: Warm and dry. Skin is not jaundiced. No rash Extremities: No clubbing or cyanosis. no lower extremity edema. Neurological: No focal deficits. Alert and oriented x person, place and time. Mental status is at baseline. No motor weakness. Psychiatric: Mood, behavior, thought content normal. Cooperative with exam. Medications Current Medications Scheduled Meds[1] PRN Mediations PRN Meds[2] IV Drips/Infusions Continuous Meds[3] Labs CBC Results from last 7 days Lab Units 12/29/24 0444 WBC AUTO 10*3/uL 14.8* HEMOGLOBIN g/dL 7.7* HEMATOCRIT % 22.3* PLATELETS 10*3/uL 450* BMP: Results from last 7 days Lab Units 12/29/24 0444 12/28/24 0439 12/27/24 0622 SODIUM mmol/L 132* 132* 132* POTASSIUM mmol/L 3.6 3.6 3.7 CHLORIDE mmol/L 105 105 104 CO2 mmol/L 21* 23 22 BUN mg/dL 7* 8* 10 CREATININE mg/dL 0.93 0.93 0.84 GLUCOSE mg/dL 114* 99 112* CALCIUM mg/dL 7.6* 7.8* 7.6* ABG: LIVER PROFILE Results from last 7 days Lab Units 12/29/24 0444 12/28/24 0439 12/27/24 0622 ALK PHOS U/L 92 99 91 BILIRUBIN TOTAL mg/dL 0.3 0.3 0.3 PROTEIN TOTAL g/dL 5.6* 5.7* 5.4* ALT U/L <6 7 7 AST U/L 13 15 17 INR Results from last 7 days Lab Units 12/28/24 0749 INR 1.1 PTT No results found for: PTT Cultures Cath tip culture pending Pleural fluid cultures pending Pleural fluid with MSSA Radiology All relevant/recent imaging was personally reviewed by me. Please see official radiology report for details. CT chest personally reviewed and interpreted, demonstrates moderate right sided pleural effusion with consolidation/infiltrate in the right sided lung abbott. There is atelectasis vs infiltrate in the right lower lung. Small bore chest tube in place. Assessment Concern for infected pleural catheter, since removed Concern for right sided pneumonia, pleural space infection Diffuse large B cell lympoma, s/p one cycle of R-CHOP Recurrent right sided pleural effusion Soft tissue infection at pleural catheter site Recommendations Patient resting comfortably on room air. S/p pleurx removal, cultures of pleural fluid and catheter tip pending. On vancomycin and zosyn, pending cultures, appreciate ID recs. Will monitor fluid accumulation with drain out at this time. Given concern for local infection, recommend against pleurx use at this time. If concerned for empyema/pleural space infection, could place pigtail temporarily for drainage. Continue chemo per oncology Pulmonary service will sign off, please call with questions. [1] allopurinol, 150 mg, Oral, Daily [Held by provider] apixaban, 5 mg, Oral, BID piperacillin-tazobactam, 4,500 mg, IntraVENous, q6h senna-docusate sodium, 1 tablet, Oral, Daily sodium chloride 0.9%, 5-40 mL, IntraVENous, q12h vancomycin, 1,750 mg, IntraVENous, q12h [2] PRN medications: acetaminophen OR acetaminophen, albuterol, HYDROmorphone, melatonin, naloxone, ondansetron ODT OR ondansetron, oxyCODONE OR oxyCODONE, polyethylene glycol (PEG) 3350, sodium chloride, sodium chloride 0.9% [3] Cosigned by Tyrell Alvarado MD at 12/29/2024 4:25 PM EDT Associated attestation - Tyrell Alvarado MD - 12/29/2024 4:25 PM EDT I have personally performed a [id number] diagnostic evaluation on this patient on date of service 12/29/24. History, labs, imaging studies, and electronic medical record have been reviewed by me. This note documented by Omar Patiño DO reflects my history, exam, and medical decision making. I have reviewed and agree with the care plan. Changes were made in the orders as necessary. ROS documentation was reviewed and negative unless otherwise stated in HPI. Additional pertinent interval history, ROS, and physical exam findings: Patient seen sitting in chair. On room air. No acute distress. Eager to leave the hospital. Assessment/Plan: Right empyema - MSSA Right indwelling pleural catheter removed 12/28/24 Skin/soft tissue induration at catheter insertion site - With confirmation of empyema, extended duration of abx is warranted - defer to ID The residual pleural fluid needs to be drained. Given his course, I favor thoracentesis to remove as much as possible rather than another thoracostomy tube. Defer decision on VATS to CT surgery. Discussed with Dr. Garcia. We will follow peripherally; please call us back at any time with any questions/issues. Electronically signed by Tyrell Alvarado MD Hospitalist Progress Note 12/29/2024 Subjective: Admit Date: 12/27/2024 PCP: No primary care provider on file. Room#: [id number] A BRIEF HOSPITAL COURSE: Cisco is a 49 y.o. male with past medical history below who presents with concern for purulent discharge from Pleurx catheter site. Patient history includes B-cell lymphoma, HTN, DVT on Eliquis. Recent inpatient admission at this facility 12/04 for concern of left-sided neck mass-further workup noted retroperitoneal mass consistent with malignancy, patient was diagnosed with B-cell lymphoma and started chemotherapy. During admission noted recurrent pleural effusion-cardiothoracic specialty was consulted with placement of right chest tube, then Pleurx catheter on right side. Patient states has home health nurse visit him, became concerned when they noted purulent drainage on the dressing surrounding the catheter. Initial ED workup noted WBCs elevated at 16.4. Sodium of 131. Lactic acid <1.0. Vital signs noted low normal blood pressures-101/84. HR 77, SpO2 99% on room air. Patient is afebrile. Patient received empiric vancomycin/Zosyn, transferred to [facility] for cardiothoracic evaluation and further antibiotic administration. He was admitted. CT chest showed right sided infiltrate and right sided pleural effusion. He was seen by CT surgery. IR removed pleurx drain and cx obtained. Fluid collection was not able to be aspirated by IR. ID consulted for ABX management. Interval History: 12/29: No pain. No CP or SOB. Nephrostomy tubes in place. 12/28: Pain improved. No CP or SOB. No acute events overnight. Pleurx drain out. All questions answered. 12/27: He c/o right sided CP with inspiration. NO SOB. He appears uncomfortable. No overnight issues. Case and plan discussed with patient and bedside nurse. All questions answered. Adult diet Regular 24HR INTAKE/OUTPUT: Intake/Output Summary (Last 24 hours) at 12/29/2024 1353 Last data filed at 12/29/2024 0635 Gross per 24 hour Intake 1689.4 ml Output 500 ml Net 1189.4 ml Past Medical History: Medical History[1] LABS: CBC: Recent Labs 12/27/2462112/28/2443812/29/24 0444 WBC 14.4* 12.2* 14.8* RBC 2.65* 2.68* 2.62* HGB 7.7* 7.9* 7.7* HCT 22.8* 22.8* 22.3* MCV 86.0 85.1 85.1 RDW 15.8* 15.9* 15.9* PLT 402 390 450* BMP: Recent Labs 12/27/2462112/28/2443812/29/24 0444 NA 132* 132* 132* K 3.7 3.6 3.6 CL 104 105 105 CO2 22 23 21* BUN 10 8* 7* CREATININE 0.84 0.93 0.93 GLUCOSE 112* 99 114* CALCIUM 7.6* 7.8* 7.6* ANIONGAP 6 4 6 LIVER PROFILE: Recent Labs 12/27/2462112/28/2443812/29/24 0444 AST 17 15 13 ALT 7 7 <6 BILITOT 0.3 0.3 0.3 ALKPHOS 91 99 92 PROT 5.4* 5.7* 5.6* PT/INR: Recent Labs 12/28/24 0749 PROTIME 11.5 INR 1.1 CARDIAC ENZYMES: No results for input(s): TROPONINI in the last 72 hours. Procalcitonin: No results found for: PROCAL COVID-19 PCR: No results for input(s): COVID19 in the last 72 hours. Objective: Vitals: BP 118/71 (BP Location: Right arm, Patient Position: Sitting) Pulse 70 Temp 36.4 C (97.6 F) (Temporal) Resp 20 Ht 6' 3 (1.905 m) Wt 242 lb 9.6 oz (110 kg) SpO2 98% BMI 30.32 kg/m Pulse Ox: SpO2 Av.5 % Min: 97 % Max: 98 % Supplemental O2: Physical Exam Vitals reviewed. Constitutional: General: He is not in acute distress. Comments: Nephrostomy tubes noted and plurex drain removed Cardiovascular: Rate and Rhythm: Normal rate and regular rhythm. Pulmonary: Effort: Pulmonary effort is normal. Breath sounds: No rhonchi. Abdominal: General: Bowel sounds are normal. Palpations: Abdomen is soft. Tenderness: There is no abdominal tenderness. Skin: General: Skin is warm and dry. Neurological: Mental Status: He is alert. Medications: Scheduled PRN Scheduled Meds[2] PRN Meds[3] Continuous Continuous Meds[4] Assessment Data: NA (LOW: 2x CAT1 or independent historian MOD: 3x CAT1 or 1x CAT3 EXTENSIVE: 3x CAT1 and 1x CAT3) Acute, acute on chronic, unstable/uncontrolled chronic problems/diagnoses: Pneumonia Right sided pleural effusion Right plurex drain infection, loculated effusion Stable chronic problems affecting care, new non-acute diagnoses: B-cell lymphoma Hx DVT HTN Plan As a result of the above findings & factors, the following mgmt was pursued: - CT surgery appreciated - Vancomycin and Zosyn - plurex drain removed - ID appreciated - Cx pending - Pulmonology appreciated. - home medications - resume Eliquis - am labs, replace lytes prn - PT/OT/CM/SW - delirium precautions: increase activity - DVT prophylaxis: encourage ambulation Complexity: Acute illness with systemic symptoms (MOD). Risk: Low risk diagnostic testing or treatment (LOW). Advance Directive: Full Code Anticipated Discharge - Date - TBD - Location - Home - Pending the following - clinical course, erp implementation consultant recs Total time spent (which include face to face and non face to face encounters) : 35 minutes Toxic drug monitoring/narrow therapeutic index drug monitoring : # Drug name : N/A # Route administered : N/A # Method of monitoring : N/A Extended Emergency Contact Information Primary Emergency Contact: Charissa Carpenter Mobile Relation: Mother Harinder Reji Negron MD Division of Hospitalist Medicine [employer] care [facility] [1] Past Medical History: Diagnosis Date DVT, lower extremity (HCC) Hypertension [2] allopurinol, 150 mg, Oral, Daily [Held by provider] apixaban, 5 mg, Oral, BID piperacillin-tazobactam, 4,500 mg, IntraVENous, q6h senna-docusate sodium, 1 tablet, Oral, Daily sodium chloride 0.9%, 5-40 mL, IntraVENous, q12h vancomycin, 1,750 mg, IntraVENous, q12h [3] PRN medications: acetaminophen OR acetaminophen, albuterol, HYDROmorphone, melatonin, naloxone, ondansetron ODT OR ondansetron, oxyCODONE OR oxyCODONE, polyethylene glycol (PEG) 3350, sodium chloride, sodium chloride 0.9% [4] Department of Surgery Daily Progress Note SUBJECTIVE: No acute events overnight. Pain vastly improved following removal of Pleurx catheter. No fluid collection on ultrasound yesterday to be drained. Denies: fevers, chills, nausea, vomiting, shortness of breath or chest pain. ROS: Noted above unless otherwise mentioned OBJECTIVE: VITALS: Temp: [36.1 C (97 F)-36.4 C (97.6 F)] 36.4 C (97.6 F) Heart Rate: [70-88] 70 Resp: [16-20] 20 BP: (102-118)/(62-71) 118/71 INTAKE/OUTPUT: Reviewed in the EMR daily PHYSICAL EXAM: Gen: NAD, A&Ox3, pain well controlled Heart: RRR, well perfused Lungs: symmetric chest rise, normal work of breathing, breath sounds b/l Abd: soft, non tender, non distended. Non rigid. Ext: no c/c/e no gross deformities Skin: warm, well perfused, no obvious rashes, cellulitis or gross discoloration LABS/IMAGING Reviewed in the EMR daily Current Inpatient Medications Scheduled Meds:Scheduled Meds[1] Continuous Infusions:Continuous Meds[2] PRN Meds:PRN Meds[3] ASSESSMENT AND PLAN: 49 y.o. male with concern for Pleurx catheter infection -No acute surgical intervention at this time -Pleural fluid culture preliminary Staph aureus -Will follow-up ID recs - Diet as tolerated - Rest of care per primary - Cardiothoracic surgery to follow Will discuss with Dr. Vickey Garcia MD General Surgery Resident 12/29/24 1:05 PM This note may have been dictated using [employer] Practice Edition 2.6 and/or [employer] Voice Recognition Feature. The document was proofread; however, unrecognized voice recognition airfield manager errors may be present. [1] allopurinol, 150 mg, Oral, Daily [Held by provider] apixaban, 5 mg, Oral, BID piperacillin-tazobactam, 4,500 mg, IntraVENous, q6h senna-docusate sodium, 1 tablet, Oral, Daily sodium chloride 0.9%, 5-40 mL, IntraVENous, q12h vancomycin, 1,750 mg, IntraVENous, q12h [2] [3] PRN medications: acetaminophen OR acetaminophen, albuterol, HYDROmorphone, melatonin, naloxone, ondansetron ODT OR ondansetron, oxyCODONE OR oxyCODONE, polyethylene glycol (PEG) 3350, sodium chloride, sodium chloride 0.9% Cosigned by Hernan Hurd MD at 12/30/2024 11:08 AM EDT Associated attestation - Hernan Hurd MD - 12/30/2024 11:08 AM EDT Attending Note I have reviewed the documentation above obtained and documented by the Resident. The following comments revise or confirm relevant molina components. Patient seen and examined on 12/29/24. Agree with Resident note unless otherwise noted below. As below, Pleurx catheter removed and patient's pain significantly improved. Cultures preliminarily growing Staph aureus, follow-up infectious disease recommendations. No indication at this time for acute surgical intervention. STAFF PHYSICIAN: Hernan Hurd MD DATE OF SERVICE: December 29, 2024 TIME OF SERVICE: 11:07 AM Pharmacy to Dose Vancomycin - Progress Note Lab Results Component Value Date CREATININE 0.93 12/29/2024 BUN 7 (L) 12/29/2024 WBC 14.8 (H) 12/29/2024 VANCOTROUGH 25.4 12/28/2024 Doses, serum creatinine, and vancomycin levels interfaced automatically to Session[employer] and data has been analyzed and interpreted. Infectious Diagnosis: HAP Est CrCl: 125 mL/min (Cockcroft-Gault) Assessment: Current regimen vancomycin 1750 mg every 12 hours (15.9 mg/kg) Predicted AUC = 582 mg/L*hr (goal 400-600 mg/L*hr) PAUC = 98% (probability that AUC is >400 mg/L*hr) Pconc = 20% (probability that Ctrough is above 20 mcg/mL (toxicity)) Plan: Is the current dose therapeutic? [x] Yes - obtain next level on 12/30 unless predicted AUC is sub-/supra-therapeutic or change in serum creatinine. [] No - change current regimen to vancomycin mg every hours ( mg/kg) for predicted AUC mg/L*hr, PAUC = % , and Pconc* = %. Obtain next level on Trend serum creatinine. Trend AUC using Bayesian Modeling. Orders placed. DATE: 12/29/24 TIME: 9:24 AM Ros Cesar RPh Clinical Pharmacist Available via Secure Chat Hospitalist Progress Note 12/28/2024 Subjective: Admit Date: 12/27/2024 PCP: No primary care provider on file. Room#: H-3025/[id number] A BRIEF HOSPITAL COURSE: Cisco is a 49 y.o. male with past medical history below who presents with concern for purulent discharge from Pleurx catheter site. Patient history includes B-cell lymphoma, HTN, DVT on Eliquis. Recent inpatient admission at this facility 12/04 for concern of left-sided neck mass-further workup noted retroperitoneal mass consistent with malignancy, patient was diagnosed with B-cell lymphoma and started chemotherapy. During admission noted recurrent pleural effusion-cardiothoracic specialty was consulted with placement of right chest tube, then Pleurx catheter on right side. Patient states has home health nurse visit him, became concerned when they noted purulent drainage on the dressing surrounding the catheter. Initial ED workup noted WBCs elevated at 16.4. Sodium of 131. Lactic acid <1.0. Vital signs noted low normal blood pressures-101/84. HR 77, SpO2 99% on room air. Patient is afebrile. Patient received empiric vancomycin/Zosyn, transferred to [facility] for cardiothoracic evaluation and further antibiotic administration. He was admitted. CT chest showed right sided infiltrate and right sided pleural effusion. He was seen by CT surgery. IR removed pleurx drain and cx obtained. Fluid collection was not able to be aspirated by IR. Interval History: 12/28: Pain improved. No CP or SOB. No acute events overnight. Pleurx drain out. All questions answered. 12/27: He c/o right sided CP with inspiration. NO SOB. He appears uncomfortable. No overnight issues. Case and plan discussed with patient and bedside nurse. All questions answered. Adult diet Regular 24HR INTAKE/OUTPUT: Intake/Output Summary (Last 24 hours) at 12/28/2024 1331 Last data filed at 12/28/2024 0716 Gross per 24 hour Intake 2246 ml Output 150 ml Net 2096 ml Past Medical History: Medical History[1] LABS: CBC: Recent Labs 12/27/2462112/28/24 043 WBC 14.4* 12.2* RBC 2.65* 2.68* HGB 7.7* 7.9* HCT 22.8* 22.8* MCV 86.0 85.1 RDW 15.8* 15.9* PLT 402 390 BMP: Recent Labs 12/27/2462112/28/24 0439 NA 132* 132* K 3.7 3.6 CL 104 105 CO2 22 23 BUN 10 8* CREATININE 0.84 0.93 GLUCOSE 112* 99 CALCIUM 7.6* 7.8* ANIONGAP 6 4 LIVER PROFILE: Recent Labs 12/27/2462112/28/24 0439 AST 17 15 ALT 7 7 BILITOT 0.3 0.3 ALKPHOS 91 99 PROT 5.4* 5.7* PT/INR: Recent Labs 12/28/24 0749 PROTIME 11.5 INR 1.1 CARDIAC ENZYMES: No results for input(s): TROPONINI in the last 72 hours. Procalcitonin: No results found for: PROCAL COVID-19 PCR: No results for input(s): COVID19 in the last 72 hours. Objective: Vitals: BP 120/73 Pulse 79 Temp 36.8 C (98.2 F) (Temporal) Resp (!) 35 Ht 6' 3 (1.905 m) Wt 242 lb 9.6 oz (110 kg) SpO2 100% BMI 30.32 kg/m Pulse Ox: SpO2 Av.4 % Min: 94 % Max: 100 % Supplemental O2: Physical Exam Vitals reviewed. Constitutional: General: He is not in acute distress. Comments: Nephrostomy tubes noted and plurex drain removed Cardiovascular: Rate and Rhythm: Normal rate and regular rhythm. Pulmonary: Effort: Pulmonary effort is normal. Breath sounds: No rhonchi. Abdominal: General: Bowel sounds are normal. Palpations: Abdomen is soft. Tenderness: There is no abdominal tenderness. Skin: General: Skin is warm and dry. Neurological: Mental Status: He is alert. Medications: Scheduled PRN Scheduled Meds[2] PRN Meds[3] Continuous Continuous Meds[4] Assessment Data: NA (LOW: 2x CAT1 or independent historian MOD: 3x CAT1 or 1x CAT3 EXTENSIVE: 3x CAT1 and 1x CAT3) Acute, acute on chronic, unstable/uncontrolled chronic problems/diagnoses: Pneumonia Right sided pleural effusion Right plurex drain infection, loculated effusion Stable chronic problems affecting care, new non-acute diagnoses: B-cell lymphoma Hx DVT HTN Plan As a result of the above findings & factors, the following mgmt was pursued: - CT surgery appreciated - Vancomycin and Zosyn - plurex drain removed - ID appreciated - Cx pending - Pulmonology appreciated. - home medications - hold Eliquis - may resume 6/5 - am labs, replace lytes prn - PT/OT/CM/SW - delirium precautions: increase activity - DVT prophylaxis: encourage ambulation Complexity: Acute illness with systemic symptoms (MOD). Risk: Low risk diagnostic testing or treatment (LOW). Advance Directive: Full Code Anticipated Discharge - Date - TBD - Location - Home - Pending the following - clinical course, erp implementation consultant recs Total time spent (which include face to face and non face to face encounters) : 40 minutes Toxic drug monitoring/narrow therapeutic index drug monitoring : # Drug name : N/A # Route administered : N/A # Method of monitoring : N/A Extended Emergency Contact Information Primary Emergency Contact: Charissa Carpenter Mobile Relation: Mother Hairnder Reji Negron MD Division of Hospitalist Medicine [facility] [1] Past Medical History: Diagnosis Date DVT, lower extremity (HCC) Hypertension [2] allopurinol, 150 mg, Oral, Daily [Held by provider] apixaban, 5 mg, Oral, BID piperacillin-tazobactam, 4,500 mg, IntraVENous, q6h senna-docusate sodium, 1 tablet, Oral, Daily sodium chloride 0.9%, 5-40 mL, IntraVENous, q12h vancomycin, 1,750 mg, IntraVENous, q12h [3] PRN medications: acetaminophen OR acetaminophen, albuterol, HYDROmorphone, melatonin, naloxone, ondansetron ODT OR ondansetron, oxyCODONE OR oxyCODONE, polyethylene glycol (PEG) 3350, sodium chloride, sodium chloride 0.9% [4] Department of Surgery Daily Progress Note SUBJECTIVE: No acute events overnight. Currently n.p.o. for procedures today. Pain controlled without increase. Denies: fevers, chills, nausea, vomiting, shortness of breath or chest pain. ROS: Noted above unless otherwise mentioned OBJECTIVE: VITALS: Temp: [36.1 C (97 F)-36.8 C (98.2 F)] 36.8 C (98.2 F) Heart Rate: [80-86] 86 Resp: [16-35] 35 BP: (117-147)/(70-95) 128/89 INTAKE/OUTPUT: Reviewed in the EMR daily PHYSICAL EXAM: Gen: NAD, A&Ox3, pain well controlled Heart: RRR, well perfused Lungs: symmetric chest rise, normal work of breathing, breath sounds b/l Chest: Right-sided Pleurx catheter in place with new sterile dressing, fluid collection with fluctuance just above Pleurx catheter stable Abd: soft, non tender, non distended. Non rigid. Ext: no c/c/e no gross deformities Skin: warm, well perfused, no obvious rashes, cellulitis or gross discoloration LABS/IMAGING Reviewed in the EMR daily Current Inpatient Medications Scheduled Meds:Scheduled Meds[1] Continuous Infusions:Continuous Meds[2] PRN Meds:PRN Meds[3] ASSESSMENT AND PLAN: 49 y.o. male with concern for Pleurx catheter infection - Plan for Pleurx catheter removal today given possibility of seeding with superficial infection -Pleural fluid cultures pending -Plan for ultrasound-guided aspiration of fluid collection with cultures today - Diet: N.p.o. - Rest of care per primary - Cardiothoracic surgery to follow Will discuss with Dr. Vickey Garcia MD General Surgery Resident 12/28/24 8:54 AM This note may have been dictated using [employer] Medical Practice Edition 2.6 and/or [employer] Voice Recognition Feature. The document was proofread; however, unrecognized voice recognition airfield manager errors may be present. [1] allopurinol, 150 mg, Oral, Daily [Held by provider] apixaban, 5 mg, Oral, BID piperacillin-tazobactam, 4,500 mg, IntraVENous, q6h senna-docusate sodium, 1 tablet, Oral, Daily sodium chloride 0.9%, 5-40 mL, IntraVENous, q12h vancomycin, 1,750 mg, IntraVENous, q12h [2] [3] PRN medications: acetaminophen OR acetaminophen, albuterol, HYDROmorphone, melatonin, naloxone, ondansetron ODT OR ondansetron, oxyCODONE OR oxyCODONE, polyethylene glycol (PEG) 3350, sodium chloride, sodium chloride 0.9% Cosigned by Hernan Hurd MD at 12/28/2024 9:03 AM EDT Associated attestation - Hernan Hurd MD - 12/28/2024 9:03 AM EDT Attending Note I have reviewed the documentation above obtained and documented by the Resident. The following comments revise or confirm relevant molina components. Patient seen and examined on 12/28/24. Agree with Resident note unless otherwise noted below. As below, to IR for pleurx removal/culture and fluid aspiration. STAFF PHYSICIAN: Hernan Hurd MD DATE OF SERVICE: December 28, 2024 TIME OF SERVICE: 9:03 AM Pharmacy to Dose Vancomycin - Progress Note Lab Results Component Value Date CREATININE 0.93 12/28/2024 BUN 8 (L) 12/28/2024 WBC 12.2 (H) 12/28/2024 VANCOTROUGH 25.4 12/28/2024 Doses, serum creatinine, and vancomycin levels interfaced automatically to SessionM and data has been analyzed and interpreted. Infectious Diagnosis: Pneumonia Est CrCl: 145 mL/min (Cockcroft-Gault) Assessment: Current regimen vancomycin 2000 mg every 12 hours (18 mg/kg) Predicted AUC = 655 mg/L*hr (goal 400-600 mg/L*hr) PAUC = 100% (probability that AUC is >400 mg/L*hr) Pconc = 34% (probability that Ctrough is above 20 mcg/mL (toxicity)) Plan: Is the current dose therapeutic? [] Yes [x] No - change current regimen to vancomycin 1750 mg every 12 hours (15.9 mg/kg) for predicted AUC 576 mg/L*hr, PAUC = 97% , and Pconc* = 18%. Obtain next level on 12/30. Trend serum creatinine. Trend AUC using Bayesian Modeling. Orders placed. DATE: 12/28/24 TIME: 7:50 AM Lelia Hollingsworth PharmD Clinical Pharmacist Available via Secure Chat Patient met at bedside for Pleurx drainage. Prior dressing was removed and Pleurx catheter was examined. There was noted to be purulence coming from insertion site. Also noted was increase in size of fluid collection superior to insertion site now with fluctuance. PleurX catheter Was cleaned with alcohol swab and vacuum bulb was applied. Pleurx was noted to drain straw-colored, frothy, mildly turbid fluid. After 15 minutes the catheter site was cleaned and a new sterile dressing was placed. Given active purulence around insertion site as well as increase in chest wall fluid collection it is highly likely that catheter sterility was compromised and now has indwelling infection. CT chest reviewed, small right-sided pleural effusion with right middle and lower lobe infiltrates. No loculations noted on personal read. Unfortunately superficial segment of right chest wall fluid collection was not incorporated into original CT chest. - No acute surgical intervention - Pleural fluid to be sent for culture, LDH, protein - Pleurx catheter removal ordered per IR - Culture of catheter tip ordered upon removal - Ultrasound-guided aspiration of likely right chest wall abscess ordered - Cultures ordered - Infectious disease consult - In the event patient were to need ongoing effusion drainage would recommend temporary IR guided chest tube placement given low likelihood of empyema - Cardiothoracic surgery to follow Discussed with Dr. Hurd Hospitalist Progress Note 12/27/2024 Subjective: Admit Date: 12/27/2024 PCP: No primary care provider on file. Room#: [id number]/H-6131 A BRIEF HOSPITAL COURSE: Cisco is a 49 y.o. male with past medical history below who presents with concern for purulent discharge from Pleurx catheter site. Patient history includes B-cell lymphoma, HTN, DVT on Eliquis. Recent inpatient admission at this facility 12/04 for concern of left-sided neck mass-further workup noted retroperitoneal mass consistent with malignancy, patient was diagnosed with B-cell lymphoma and started chemotherapy. During admission noted recurrent pleural effusion-cardiothoracic specialty was consulted with placement of right chest tube, then Pleurx catheter on right side. Patient states has home health nurse visit him, became concerned when they noted purulent drainage on the dressing surrounding the catheter. Initial ED workup noted WBCs elevated at 16.4. Sodium of 131. Lactic acid <1.0. Vital signs noted low normal blood pressures-101/84. HR 77, SpO2 99% on room air. Patient is afebrile. Patient received empiric vancomycin/Zosyn, transferred to [facility] for cardiothoracic evaluation and further antibiotic administration. He was admitted. CT chest showed right sided infiltrate and right sided pleural effusion. Interval History: 12/27: He c/o right sided CP with inspiration. NO SOB. He appears uncomfortable. No overnight issues. Case and plan discussed with patient and bedside nurse. All questions answered. Adult diet Clear liquid 24HR INTAKE/OUTPUT: No intake or output data in the 24 hours ending 12/27/24 1357 Past Medical History: Medical History[1] LABS: CBC: Recent Labs 12/27/24 0622 WBC 14.4* RBC 2.65* HGB 7.7* HCT 22.8* MCV 86.0 RDW 15.8* PLT 402 BMP: Recent Labs 12/27/24 0622 NA 132* K 3.7 CL 104 CO2 22 BUN 10 CREATININE 0.84 GLUCOSE 112* CALCIUM 7.6* ANIONGAP 6 LIVER PROFILE: Recent Labs 12/27/24 0622 AST 17 ALT 7 BILITOT 0.3 ALKPHOS 91 PROT 5.4* PT/INR: No results for input(s): PROTIME, INR in the last 72 hours. CARDIAC ENZYMES: No results for input(s): TROPONINI in the last 72 hours. Procalcitonin: No results found for: PROCAL COVID-19 PCR: No results for input(s): COVID19 in the last 72 hours. Objective: Vitals: BP 113/68 (BP Location: Right arm, Patient Position: Sitting) Pulse 76 Temp (!) 35.8 C (96.4 F) (Temporal) Resp 16 Ht 6' 3 (1.905 m) Wt 242 lb 9.6 oz (110 kg) SpO2 94% BMI 30.32 kg/m Pulse Ox: SpO2 Av % Min: 94 % Max: 94 % Supplemental O2: Physical Exam Vitals reviewed. Constitutional: General: He is not in acute distress. Comments: Nephrostomy tubes noted and plurex drain noted Cardiovascular: Rate and Rhythm: Normal rate and regular rhythm. Pulmonary: Effort: Pulmonary effort is normal. Breath sounds: Rhonchi (right sided) present. Abdominal: General: Bowel sounds are normal. Palpations: Abdomen is soft. Tenderness: There is no abdominal tenderness. Skin: General: Skin is warm and dry. Neurological: Mental Status: He is alert. Medications: Scheduled PRN Scheduled Meds[2] PRN Meds[3] Continuous Continuous Meds[4] Assessment Data: NA (LOW: 2x CAT1 or independent historian MOD: 3x CAT1 or 1x CAT3 EXTENSIVE: 3x CAT1 and 1x CAT3) Acute, acute on chronic, unstable/uncontrolled chronic problems/diagnoses: Pneumonia Right sided pleural effusion Right plurex drain infection, loculated effusion Stable chronic problems affecting care, new non-acute diagnoses: B-cell lymphoma Hx DVT HTN Plan As a result of the above findings & factors, the following mgmt was pursued: - CT surgery - Vancomycin and Zosyn - cx pending - home medications - hold Eliquis - am labs, replace lytes prn - PT/OT/CM/SW - delirium precautions: increase activity - DVT prophylaxis: encourage ambulation Complexity: Acute illness with systemic symptoms (MOD). Risk: Low risk diagnostic testing or treatment (LOW). Advance Directive: Full Code Anticipated Discharge - Date - TBD - Location - Home - Pending the following - clinical course, erp implementation consultant recs Total time spent (which include face to face and non face to face encounters) : 30 minutes Toxic drug monitoring/narrow therapeutic index drug monitoring : # Drug name : N/A # Route administered : N/A # Method of monitoring : N/A Extended Emergency Contact Information Primary Emergency Contact: Charissa Carpenter Mobile Relation: Mother Harinder Reji Negron MD Division of Hospitalist Medicine [employer] [1] Past Medical History: Diagnosis Date DVT, lower extremity (HCC) Hypertension [2] allopurinol, 150 mg, Oral, Daily [Held by provider] apixaban, 5 mg, Oral, BID piperacillin-tazobactam, 4,500 mg, IntraVENous, q6h senna-docusate sodium, 1 tablet, Oral, Daily sodium chloride 0.9%, 5-40 mL, IntraVENous, q12h vancomycin, 2,250 mg, IntraVENous, Once Followed by vancomycin, 2,000 mg, IntraVENous, q12h [3] PRN medications: acetaminophen OR acetaminophen, albuterol, HYDROmorphone, melatonin, naloxone, ondansetron ODT OR ondansetron, oxyCODONE OR oxyCODONE, polyethylene glycol (PEG) 3350, sodium chloride, sodium chloride 0.9% [4] Images from the original note were not included. Pharmacy Managed Vancomycin Dosing Service Consult Note Consult Date: 12/27/24 Patient Name: Cisco Carpenter Allergies: Patient has no known allergies. Age: 49 y.o. Sex: male Estimated body mass index is 30.32 kg/m as calculated from the following: Height as of this encounter: 1.905 m (6' 3). Weight as of this encounter: 110 kg (242 lb 9.6 oz). DW: 110 kg Lab Results Component Value Date CREATININE 0.84 12/27/2024 CREATININE 0.79 12/15/2024 BUN 10 12/27/2024 BUN 19 12/15/2024 WBC 14.4 (H) 12/27/2024 WBC 24.3 (H) 12/15/2024 Calculated CrCl: >100 mL/min (Cockcroft-Gault) Consulted By: Dr. Zelalem Arias Infectious Diagnosis: Pneumonia (HAP) (AUC Goal 400-600 mg/L*hr) Random Vancomycin Level Due: 6/4 AM Antimicrobials: Patient recently received an antibiotic (last 12 hours) Date/Time Action Medication Dose Rate 12/27/24 0623 New Bag piperacillin-tazobactam (Zosyn) 4,500 mg in sodium chloride 0.9 % 100 mL IVPB Mini-Bag Plus 4,500 mg 33.3 mL/hr Assessment/Plan: Doses, serum creatinine, and vancomycin levels interfaced automatically to SessionM and data has been analyzed and interpreted. Give Vancomcyin 2250mg IVPB x1 loading dose, then start Vancomycin 2000 mg every 12 hours based on patient age, weight, renal function, and infectious diagnosis (18.18 mg/kg). Predicted AUC = 560 mg/L*hr (goal 400-600 mg/L*hr) PAUC = 83% (probability that AUC is >400 mg/L*hr) Pconc = 25% (probability that Ctrough is above 20 mcg/mL (toxicity)) Will assess random level on 6/4 AM and adjust as appropriate. Trend serum creatinine. Orders placed. Thank you for this consult. Please secure text or call with questions. DATE: 12/27/24 TIME: 10:03 AM Tahmina Stringer RPh Clinical Pharmacist Available via Secure Chat documented in this encounter [facility] 12-30-2024 Note [facility] 12-30-2024 Hospital course Narrative Discharge Summary Cisco Carpenter : 1975 ADMIT DATE: 12/27/2024 DISCHARGE DATE: 12/30/2024 PRIMARY CARE PHYSICIAN: No primary care provider on file. VISIT STATUS: Admission CODE STATUS: Full Code DISCHARGE DIAGNOSES: Principal Problem: Fluid in chest cavity associated with lung infection Pneumonia Right sided pleural effusion Right plurex drain infection, loculated effusion B-cell lymphoma Hx DVT HTN HOSPITAL COURSE: Cisco is a 49 y.o. male with past medical history below who presents with concern for purulent discharge from Pleurx catheter site. Patient history includes B-cell lymphoma, HTN, DVT on Eliquis. Recent inpatient admission at this facility 12/04 for concern of left-sided neck mass-further workup noted retroperitoneal mass consistent with malignancy, patient was diagnosed with B-cell lymphoma and started chemotherapy. During admission noted recurrent pleural effusion-cardiothoracic specialty was consulted with placement of right chest tube, then Pleurx catheter on right side. Patient states has home health nurse visit him, became concerned when they noted purulent drainage on the dressing surrounding the catheter. Initial ED workup noted WBCs elevated at 16.4. Sodium of 131. Lactic acid <1.0. Vital signs noted low normal blood pressures-101/84. HR 77, SpO2 99% on room air. Patient is afebrile. Patient received empiric vancomycin/Zosyn, transferred to [facility] for cardiothoracic evaluation and further antibiotic administration. He was admitted. CT chest showed right sided infiltrate and right sided pleural effusion. He was seen by CT surgery. IR removed pleurx drain and cx obtained. Fluid collection was not able to be aspirated by IR. ID consulted for ABX management. ID recommended Cefazolin 2g q8 until 01/24/2025 for MSSA and PICC. He was DC home with home ABX. SIGNIFICANT DIAGNOSTIC STUDIES: CT chest CONSULTANTS: ID CTS Pulmonology RECOMMENDED NEXT STEPS: OP follow up DISCHARGE MEDICATIONS: Medication List CONTINUE taking these medications albuterol 108 (90 Base) MCG/ACT inhaler Inhale 2 puffs every 15 minutes as needed for wheezing or shortness of breath. allopurinol 300 MG tablet Commonly known as: Zyloprim Take 0.5 tablets (150 mg) by mouth daily for 25 doses. Eliquis 5 MG tablet Generic drug: apixaban ondansetron 8 MG tablet Commonly known as: Zofran Take 1 tablet (8 mg) by mouth 2 times daily as needed for nausea. predniSONE 50 MG tablet Commonly known as: Deltasone Prednisone 100 mg oral daily on days 1-5 of chemotherapy treatments every 3 weeks Senna Plus 8.6-50 MG tablet Generic drug: senna-docusate Take 1 tablet by mouth daily. DIET: Adult diet Regular ACTIVITY: No restriction. COMPLEXITY OF FOLLOW UP: [x] Moderate Complexity: follow up within 7-14 calendar days (53937) [] Severe Complexity: follow up within 7 calendar days (19191) FOLLOW UP TESTING, PENDING RESULTS OR REFERRALS AT TRANSITIONAL CARE VISIT: [] Yes [x] No PENDING STUDIES: none DISPOSITION: Home with Home Health Care FACILITY/HOME CARE AGENCY NAME: [facility] Follow up with No follow-up provider specified. on INSTRUCTIONS TO MA/SW: Please call patient on day after discharge (must document patient contacted within 2 business days of discharge). FOLLOW UP QUESTIONS FOR MA/SW: 1. Did you get medications filled and taking them as instructed from discharge? 2. Are you following your discharge instructions from your hospital stay? 3. Please confirm patient is scheduled for a follow up appointment within the above time frame. DISCHARGE TIME: > 30 minutes SIGNED: Harinder Negron MD 12/30/2024, 1:32 PM documented in this encounter [facility] 12-30-2024 Note Formatting of this n ote might be different from the original. Per KEYA: [employer] [employer] insurance OOP $7,250.00 and OOP $7,250.00 both have been met for the year. Charges will be billed to the plan Will update patient. Still awaiting opat--pt being started on new antibiotic that he has not received yet in hospital. Message sent to Dr. Negron, Dr. Nobles, tcc and bedside RN to notify them that patient will need to have at least one dose of this prior to leaving hospital to ensure no adverse reactions. Will await OPAT. MAIKOL states they can see patient tomorrow around 2pm for IV abx and teaching. [facility] 12-30-2024 Note Formatting of this n ote might be different from the original. Per KEYA: [employer] [employer] insurance OOP $7,250.00 and OOP $7,250.00 both have been met for the year. Charges will be billed to the plan Will update patient. Still awaiting opat--pt being started on new antibiotic that he has not received yet in hospital. Message sent to Dr. Negron, Dr. Nobles, tcc and bedside RN to notify them that patient will need to have at least one dose of this prior to leaving hospital to ensure no adverse reactions. Will await OPAT. MAIKOL states they can see patient tomorrow around 2pm for IV abx and teaching. [facility] 12-30-2024 Note Formatting of this n ote is different from the original. Start PACC Note Home Health Referral Educated patient on Home Care and services available. Patient offered choice of available HHC and agreeable to SN services with [facility]. Care Types: None Isolation Precautions: No active isolations Social Determinates of Health: Tobacco Use: Medium Risk (12/27/2024) Patient History Smoking Tobacco Use: Former Smokeless Tobacco Use: Unknown Passive Exposure: Not on file Social History Substance and Sexual Activity Alcohol Use Not Currently Social History Substance and Sexual Activity Drug Use Never Does the patient have any financial resource strain? No Does the patient have any food insecurities? No Does the patient have any housing instabilities? No If any of the above is noted as yes - consider a PERFORMANCE IMPROVEMENT MANAGER evaluation once the patient returns home. START PATIENT REGISTRATION INFORMATION Order Information Order Signing Physician: Harinder Negron MD Service Ordered RN ?: Yes Service Ordered PT ?: No Service Ordered OT ?: No Service Ordered ST ?: No Service Ordered PERFORMANCE IMPROVEMENT MANAGER?:No Service Ordered HOTEL NIGHT AUDITOR?: No Following Physician: Maribel Granados Following Physician Overseeing Physician: No primary care provider on file. (Required for Residents only) Agreeable to Follow? Yes Date/Time of Call 12/30/24 12:23 PM, Spoke with: marcos Care Coordination Same Day SOC?: No Primary Care Physician: No primary care provider on file. Primary Care Physician Phone: None Primary Care Physician Address: No primary physician on file. Visit Instructions: N/A Service Discharge Location Type: Home with Home Care Service Facility Name: N/A Service Floor Facility: N/A Service Room No: N/A Demographics Patient Last Name: Pauline Patient First Name: Cisco Language/Communication Barrier: na Service Address: [address] [place] [address] Service City: [place] Service ST: [place] Service ZIP: [address] Service (home) Other phone numbers: Telephone Information: Emergency Contact: Extended Emergency Contact Information Primary Emergency Contact: PaulineCharissa Mobile Relation: Mother Admission Information Admit Date: 12/27/2024 Patient status at discharge: Inpatient Admitting Diagnosis: Fluid in chest cavity associated with lung infection [J18.9, J94.8] Caregiver Information Caregiver First Name: self Caregiver Last Name: self Caregiver Relationship to Patient self Caregiver Phone Number: na Caregiver Notes: N/A HITECH Hi-Tech List HIGHTECH: HI TECH - IV Orders: Cefazolin 2gm Q8h IV Method of Administration: IV Date and Time of Next Dose Due: day after discharge at 10am Infusion Company: [facility] Infectious Disease Physician: Hardik Nobles MD Teachable Caregiver Teachable Caregiver First Name: Charissa Albrightable Caregiver Last Name: Pauline Klein Caregiver Relationship to Patient: mother Teachable Caregiver Teachable Caregiver Notes: N/A Teachable Caregiver available for SOC visit?: Yes Teachable Caregiver agreeable to provide skilled HITECH care per physician's orders?: Yes HIGHTECH: HI TECH - DRAIN CARE TYPE: Nephrostomy ORDERS: keep to gravity drainage HIGHTECH: HI TECH - LABS Orders: CBC and CMP to be drawn weekly. Send results to [phone]. Following Physician/Facility: Hardik Nobles MD HIGHTECH: HI TECH - PICC CARE Line and Location: Procedure type: Insertion Orientation: left Location: Brachial Catheter type: Double lumen Catheter size: 5 Fr Lot #: [id number] Trimmed at (cm): 49 Inserted at (cm): 49 Orders: Flush PICC with 10cc NS, administer medication, flush with 10cc NS and end with 5ml heparin flush. Change PICC dressing weekly and PRN. Teachable Caregiver Teachable Caregiver First Name: Charissa Albrightable Caregiver Last Name: Pauline Albrightable Caregiver Relationship to Patient: mother Teachable Caregiver Teachable Caregiver Notes: N/A Teachable Caregiver available for SOC visit?: Yes Teachable Caregiver agreeable to provide skilled HITECH care per physician's orders?: Yes END PATIENT REGISTRATION INFORMATION Pt Home Health goal TBD COVID Status 1. Do you have any upper respiratory symptoms (cough, SOB, Fever)? No 2. Have you been exposed to anyone with COVID-19 Virus? No Answer only if pending or positive for COVID-19? 1. Agreeable to wear PPE at each visit? No 2. Is the hospital supplying them with PPE upon Discharge? No Start PACC Summary General Report/ Additional Comments Marcos--iv abx Discharge Date: pending Referral Source-PACC: (Hospital/Unit): [facility] / H-5104/H-5104 A End PACC Note [facility] 12-30-2024 Note Formatting of this n ote is different from the original. Start PACC Note Home Health Referral Educated patient on Home Care and services available. Patient offered choice of available HHC and agreeable to SN services with [facility]. Care Types: None Isolation Precautions: No active isolations Social Determinates of Health: Tobacco Use: Medium Risk (12/27/2024) Patient History Smoking Tobacco Use: Former Smokeless Tobacco Use: Unknown Passive Exposure: Not on file Social History Substance and Sexual Activity Alcohol Use Not Currently Social History Substance and Sexual Activity Drug Use Never Does the patient have any financial resource strain? No Does the patient have any food insecurities? No Does the patient have any housing instabilities? No If any of the above is noted as yes - consider a PERFORMANCE IMPROVEMENT MANAGER evaluation once the patient returns home. START PATIENT REGISTRATION INFORMATION Order Information Order Signing Physician: Harinder Negron MD Service Ordered RN ?: Yes Service Ordered PT ?: No Service Ordered OT ?: No Service Ordered ST ?: No Service Ordered PERFORMANCE IMPROVEMENT MANAGER?:No Service Ordered HOTEL NIGHT AUDITOR?: No Following Physician: Maribel Granados Following Physician Overseeing Physician: No primary care provider on file. (Required for Residents only) Agreeable to Follow? Yes Date/Time of Call 12/30/24 12:23 PM, Spoke with: marcos Care Coordination Same Day SOC?: No Primary Care Physician: No primary care provider on file. Primary Care Physician Phone: None Primary Care Physician Address: No primary physician on file. Visit Instructions: N/A Service Discharge Location Type: Home with Home Care Service Facility Name: N/A Service Floor Facility: N/A Service Room No: N/A Demographics Patient Last Name: Pauline Patient First Name: Cisco Language/Communication Barrier: na Service Address: [address] [place] [address]: [place] Service ST: [place] Service ZIP: [address] Service (home) Other phone numbers: Telephone Information: Emergency Contact: Extended Emergency Contact Information Primary Emergency Contact: Charissa Carpenter Mobile Relation: Mother Admission Information Admit Date: 12/27/2024 Patient status at discharge: Inpatient Admitting Diagnosis: Fluid in chest cavity associated with lung infection [J18.9, J94.8] Caregiver Information Caregiver First Name: self Caregiver Last Name: self Caregiver Relationship to Patient self Caregiver Phone Number: na Caregiver Notes: N/A HITECH Hi-Tech List HIGHTECH: HI TECH - IV Orders: Cefazolin 2gm Q8h IV Method of Administration: IV Date and Time of Next Dose Due: day after discharge at 10am Infusion Company: [facility] Infectious Disease Physician: Hardik Nobles MD Teachable Caregiver Teachable Caregiver First Name: Charissa Teachable Caregiver Last Name: Pauline Teachable Caregiver Relationship to Patient: mother Teachable Caregiver Teachable Caregiver Notes: N/A Teachable Caregiver available for SOC visit?: Yes Teachable Caregiver agreeable to provide skilled HITECH care per physician's orders?: Yes HIGHTECH: HI TECH - DRAIN CARE TYPE: Nephrostomy ORDERS: keep to gravity drainage HIGHTECH: HI TECH - LABS Orders: CBC and CMP to be drawn weekly. Send results to [phone]. Following Physician/Facility: Hardik Nobles MD HIGHTECH: HI TECH - PICC CARE Line and Location: Procedure type: Insertion Orientation: left Location: Brachial Catheter type: Double lumen Catheter size: 5 Fr Lot #: [id number] Trimmed at (cm): 49 Inserted at (cm): 49 Orders: Flush PICC with 10cc NS, administer medication, flush with 10cc NS and end with 5ml heparin flush. Change PICC dressing weekly and PRN. Teachable Caregiver Teachable Caregiver First Name: Charissa Teachable Caregiver Last Name: Pauline Teachable Caregiver Relationship to Patient: mother Teachable Caregiver Teachable Caregiver Notes: N/A Teachable Caregiver available for SOC visit?: Yes Teachable Caregiver agreeable to provide skilled HITECH care per physician's orders?: Yes END PATIENT REGISTRATION INFORMATION Pt Home Health goal TBD COVID Status 1. Do you have any upper respiratory symptoms (cough, SOB, Fever)? No 2. Have you been exposed to anyone with COVID-19 Virus? No Answer only if pending or positive for COVID-19? 1. Agreeable to wear PPE at each visit? No 2. Is the hospital supplying them with PPE upon Discharge? No Start PACC Summary General Report/ Additional Comments Marcos--iv abx Discharge Date: pending Referral Source-PACC: (Hospital/Unit): [facility] / H-5104/H-5104 A End PACC Note [facility] 12-30-2024 Hospital Discharg e [facility] [place] - 12/30/2024 12:17 PM EDT Images from the original note were not included. Continuity of Care Form Patient Name: Cisco Carpenter : 1975 Admit date: 12/27/2024 Discharge date: Code Status Order: Full Code Advance Directives: N Admitting Physician: Oumou Arias MD PCP: No primary care provider on file. Discharging Nurse: Discharging Hospital Unit/Room#: H-5104/H-5104 A Discharging Unit Phone Number: Emergency Contact: Extended Emergency Contact Information Primary Emergency Contact: Charissa Carpenter Mobile Relation: Mother Past Surgical History: Past Surgical History: Procedure Laterality Date APPENDECTOMY EXCISION/BIOPSY Immunization History: There is no immunization history on file for this patient. 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) Isolation/Infection: No active isolations No active infections Nurse Assessment: Last Vital Signs: BP 93/55 (BP Location: Left arm, Patient Position: Lying) Pulse 79 Temp 36.7 C (98.1 F) (Temporal) Resp 17 Ht 1.905 m (6' 3) Wt 110 kg (242 lb 9.6 oz) SpO2 96% BMI 30.32 kg/m Last documented pain score (0-10 scale): Last Weight: Wt Readings from Last 1 Encounters: 12/27/24 110 kg (242 lb 9.6 oz) Mental Status: {SINDHU Patient Mental Status:99900} IV Access: {SINDHU IV Access:97269} Nursing Mobility/ADLs: Walking {OPAL ADL:42644::Independent} Transfer {OPAL ADL:77301::Independent} Bathing {OPAL ADL:37565::Independent} Dressing {OPAL ADL:94179::Independent} Toileting {OPAL ADL:75683::Independent} Feeding {OPAL ADL:26541::Independent} Cultural Historian {OPAL ADL:22250::Independent} Med Delivery {yes/no:70226} Wound Care Documentation and Therapy: Wound/Incision 12/08/24 Incision Neck Anterior;Left (Active) Site Assessment Clean;Dry 12/30/24 0800 Aliyah-Wound Assessment Clean;Dry 12/30/24 0800 Odor None 12/30/24 0800 Drainage Amount None 12/30/24 0800 Primary Dressing Open to air 12/30/24 0800 State of Healing Closed wound edges 12/29/24 0744 Number of days: 22 Wound/Incision 12/27/24 Back Right;Midline (Active) Wound Image 12/27/24 1527 Number of days: 2 Elimination: Continence: Bowel: {yes/no:32612} Bladder: {yes/no:53277} Urinary Catheter: {SINDHU Urinary Catheter:13696} Colostomy/Ileostomy/Ileal Conduit: {YES / NO:02973} Nephrostomy Left 8 Fr.-Site Assessment: Unable to assess Nephrostomy Right 8 Fr.-Site Assessment: Unable to assess Date of Last BM: Intake/Output Summary (Last 24 hours) at 12/30/2024 1217 Last data filed at 12/30/2024 0525 Gross per 24 hour Intake 250 ml Output 280 ml Net -30 ml I/O last 3 completed shifts: In: 1939.4 (17.6 mL/kg) [P.O.:250; I.V.:1689.4 (15.4 mL/kg)] Out: 430 (3.9 mL/kg) [Urine:430 (0.1 mL/kg/hr)] Weight: 110 kg Safety Concerns: {SINDHU Safety Concerns:65451} Impairments/Disabilities: {SINDHU Impairments/Disabilities:14739} Nutrition Therapy: Current Nutrition Therapy: {SINDHU Diet List:13152} Routes of Feeding: {routes of feedin} Liquids: {liquid consistency:13636} Daily Fluid Restriction: {daily fluid restriction:31386} Last Modified Barium Swallow with Video (Video Swallowing Test): {done not done:02494} Treatments at the Time of Hospital Discharge: Respiratory Treatments: Oxygen Therapy: {Therapy; copd oxygen:23472} Ventilator: {SINDHU Ventilator:97927} Rehab Therapies: {GEN THERAPY DISCIPLINE SCAL:0336232} Weight Bearing Status/Restrictions: {POD WEIGHT BEARIN} Other Medical Equipment (for information only, NOT a DME order): {Assistive Devices DME:55069} Other Treatments: Patient's personal belongings (please select all that are sent with patient): {[facility] Patient Belongings:63044} RN SIGNATURE: {E-signature:08994} CASE MANAGEMENT/SOCIAL WORK SECTION Inpatient Status Date: Discharging to Facility/ Agency Name: [facility] Address: [address] [place] [address] Dialysis Facility (if applicable) Name: Address: Dialysis Schedule: Phone: Fax: Boxcar Weigher/Cut And Cover Line Worker signature: {E-signature:12555} PHYSICIAN SECTION Name: Cisco Carpenter Prognosis: {Rehab Prognosis:16506} Condition at Discharge: {Patient Condition:55467} Rehab Potential (if transferring to Rehab): {Rehab Prognosis:91509} Recommended Labs or Other Treatments After Discharge: The individual is being admitted to a nursing facility directly from an [facility] or a unit of a [facility] that is not operated by or licensed by [facility] under section 5119.14 or 5160-3-15.1 5 The individual requires the level of services provided by a nursing facility for the condition for which he or she was treated in the hospital and, Physician Certification: I certify the above information and transfer of Cisco Carpenter is necessary for the continuing treatment of the diagnosis listed and that he requires {SINDHU Level of Care:44306} for {greater less than:19394} 30 days. Update Admission H&P: {SINDHU Changes in H&P:35051} PHYSICIAN SIGNATURE: {E-signature:93331} The following attachments cannot be sent through Care Everywhere.Lung Abscess Discharge Instructions (Icelandic)documented in this encounter [facility] 12-30-2024 Note [facility] 12-30-2024 Procedure note Associated Ord er(s): PICC Insertion/Replacement Post-Procedure Diagnose(s): senior living (current) use of antibiotics; Fluid in chest cavity associated with lung infection Images from the original note were not included. PICC Insertion/Replacement Date/Time: 12/30/2024 12:04 PM Performed by: Sharlene Perry MD Authorized by: Sharlene Perry MD Consent: The indications, risks, benefits, alternatives to the procedure were explained to the patient/surrogate decision maker and their questions answered. Consent was obtained to proceed with the procedure. Timeout: Completed immediately prior to the start of the procedure which included verification of the correct patient, correct site and agreement on the procedure to be done. Indications: Indications: Long-term antibiotics and other (see comment) Indications comment: Infected pleural fluid Anesthetic: Local anesthetic used: lidocaine without epinephrine Procedure details: Preparation: Skin prepped with chlorhexidine Skin prep agent dried: Skin prep agent completely dried prior to procedure Sterile barriers: All five maximal sterile barriers used - gloves, gown, cap, mask and large sterile sheet Hand hygiene: Hand hygiene performed prior to central venous catheter insertion Sterile technique: Sterile technique maintained throughout procedure. Site prior to insertion: Benign Procedure type: Insertion Orientation: left Location: Brachial Catheter type: Double lumen Catheter size: 5 Fr Lot #: [id number] Trimmed at (cm): 49 Inserted at (cm): 49 Ultrasound guidance: Yes Post-procedure: Post-procedure: Antimicrobial dressing applied and securement device Description/Findings: Flushes easily and blood returned Estimated blood loss: < 5 mL Specify complication(s): No apparent complications Follow-up chest x-ray: Ordered General Comments: Mild rash, BUE, see photo - no evidence infectious component Cosigned by Robson Burch MD at 12/30/2024 12:[address] [facility] 12-30-2024 Procedure note Associated Ord er(s): PICC Insertion/Replacement Post-Procedure Diagnose(s): intermediate frame tender (current) use of antibiotics; Fluid in chest cavity associated with lung infection Images from the original note were not included. PICC Insertion/Replacement Date/Time: 12/30/2024 12:04 PM Performed by: Sharlene Perry MD Authorized by: Sharlene Perry MD Consent: The indications, risks, benefits, alternatives to the procedure were explained to the patient/surrogate decision maker and their questions answered. Consent was obtained to proceed with the procedure. Timeout: Completed immediately prior to the start of the procedure which included verification of the correct patient, correct site and agreement on the procedure to be done. Indications: Indications: Long-term antibiotics and other (see comment) Indications comment: Infected pleural fluid Anesthetic: Local anesthetic used: lidocaine without epinephrine Procedure details: Preparation: Skin prepped with chlorhexidine Skin prep agent dried: Skin prep agent completely dried prior to procedure Sterile barriers: All five maximal sterile barriers used - gloves, gown, cap, mask and large sterile sheet Hand hygiene: Hand hygiene performed prior to central venous catheter insertion Sterile technique: Sterile technique maintained throughout procedure. Site prior to insertion: Benign Procedure type: Insertion Orientation: left Location: Brachial Catheter type: Double lumen Catheter size: 5 Fr Lot #: [id number] Trimmed at (cm): 49 Inserted at (cm): 49 Ultrasound guidance: Yes Post-procedure: Post-procedure: Antimicrobial dressing applied and securement device Description/Findings: Flushes easily and blood returned Estimated blood loss: < 5 mL Specify complication(s): No apparent complications Follow-up chest x-ray: Ordered General Comments: Mild rash, BUE, see photo - no evidence infectious component Cosigned by Robson Burch MD at 12/30/2024 12:58 PM EDT documented in this encounter [facility] 12-30-2024 Plan of care note Problem: Pain - Adult Goal: Verbalizes/displays adequate comfort level or baseline comfort level Outcome: Progressing Problem: Safety - Adult Goal: Free from fall injury Outcome: Progressing Problem: Discharge Planning Goal: Discharge to home or other facility with appropriate resources Outcome: Progressing Problem: Chronic Conditions and Co-morbidities Goal: Patient's chronic conditions and co-morbidity symptoms are monitored and maintained or improved Outcome: Progressing [facility] 12-30-2024 Note Formatting of this n ote might be different from the original. Referral sent to [facility] to check cost/coverages for LTABX. Will await response and update patient. [facility] 12-30-2024 Note Formatting of this n ote might be different from the original. Referral sent to [facility] to check cost/coverages for LTABX. Will await response and update patient. [facility] 12-30-2024 Note Referral sent to [facility] to check cost/coverages for LTABX. Will await response and update patient. [facility] 12-30-2024 Note Formatting of this n ote might be different from the original. Care Management Progress Note discharge plan home with mom- active with [facility]- plan for half-way IV antibiotics- PIC ordered- HC liaison notified of above T [facility] 12-30-2024 Note Formatting of this n ote might be different from the original. Care Management Progress Note discharge plan home with mom- active with [facility]- plan for half-way IV antibiotics- PIC ordered- HC liaison notified of above T [facility] 12-30-2024 Note Care Management Prog ress Note discharge plan home with mom- active with [facility]- plan for half-way IV antibiotics- PIC ordered- HC liaison notified of above [facility] 12-30-2024 Plan of care note Problem: Pain - Adult Goal: Verbalizes/displays adequate comfort level or baseline comfort level Outcome: Progressing Problem: Safety - Adult Goal: Free from fall injury Outcome: Progressing Problem: Discharge Planning Goal: Discharge to home or other facility with appropriate resources Outcome: Progressing Problem: Chronic Conditions and Co-morbidities Goal: Patient's chronic conditions and co-morbidity symptoms are monitored and maintained or improved Outcome: Progressing T [facility] 12-29-2024 Plan of care note Problem: Pain - Adult Goal: Verbalizes/displays adequate comfort level or baseline comfort level Outcome: Progressing Problem: Safety - Adult Goal: Free from fall injury Outcome: Progressing Problem: Discharge Planning Goal: Discharge to home or other facility with appropriate resources Outcome: Progressing Problem: Chronic Conditions and Co-morbidities Goal: Patient's chronic conditions and co-morbidity symptoms are monitored and maintained or improved Outcome: Progressing T [facility] 12-29-2024 Plan of care note Has received notification yesterday that they were unable to aspirate any fluid from patient's posterior chest 12/28 so they cancelled cultures and cell studies. However there are cultures labelled as pleural fluid from 12/27 that are growing MSSA. Unclear where the cultures on 12/27 were obtained from. Follow catheter tip cultures in process Hardik Nobles MD 12/29/2024 2:[address] [facility] 12-29-2024 Note 12/29/24 [facility] Worker Canceling my today's outreach due to readmission. Will schedule outreach again after I hear back from his CM. Notes routed back to his CM. [facility] 12-28-2024 Plan of care note Problem: Pain - Adult Goal: Verbalizes/displays adequate comfort level or baseline comfort level Outcome: Progressing Problem: Safety - Adult Goal: Free from fall injury Outcome: Progressing Problem: Discharge Planning Goal: Discharge to home or other facility with appropriate resources Outcome: Progressing Problem: Chronic Conditions and Co-morbidities Goal: Patient's chronic conditions and co-morbidity symptoms are monitored and maintained or improved Outcome: Progressing [facility] 12-28-2024 Consult note Associated Order (s): IP CONSULT TO INFECTIOUS DISEASES Images from the original note were not included. [facility] - Infectious Diseases Attending Consult Note Reason for Consult: Purulent discharge from pleurx cath site History of Present Illness: Cisco is a 49 y.o. male with past medical history below who presents with concern for purulent discharge from Pleurx catheter site. Patient history includes B-cell lymphoma, HTN, DVT on Eliquis. Recent inpatient admission at this facility 12/04 for concern of left-sided neck mass-further workup noted retroperitoneal mass consistent with malignancy, patient was diagnosed with B-cell lymphoma and started chemotherapy. During admission noted recurrent pleural effusion-cardiothoracic specialty was consulted with placement of right chest tube, then Pleurx catheter on right side. Patient states has home health nurse visit him, became concerned when they noted purulent drainage on the dressing surrounding the catheter. Initial ED workup noted WBCs elevated at 16.4. Sodium of 131. Lactic acid <1.0. Vital signs noted low normal blood pressures-101/84. HR 77, SpO2 99% on room air. Patient is afebrile. Patient received empiric vancomycin/Zosyn, transferred to [facility] for cardiothoracic evaluation and further antibiotic administration. Will admit for further evaluation and management. -Review of prior documentation notes recent outpatient visit to cardiothoracic specialty 12/21. At that time noted only serous output, estimated at 50 mL -Radiologist chest CT impression, obtained at [facility]: - Decreased right pleural effusion which is now loculated - Right lower lobe density likely representing some component of atelectasis but superimposed infection or neoplastic process cannot be excluded - Decreased mediastinal lymphadenopathy Past Medical History: Medical History[1] Past Surgical History: Surgical History[2] Current Medications: Current Medications[3] Allergies: Allergies[4] Social History: Social History Socioeconomic History Marital status: Single Spouse name: Not on file Number of children: Not on file Years of education: Not on file Highest education level: Not on file Occupational History Not on file Tobacco Use Smoking status: Former Current packs/day: 0.00 Types: Cigarettes Quit date: 1993 Years since quittin.4 Smokeless tobacco: Not on file Substance and Sexual Activity Alcohol use: Not Currently Drug use: Never Sexual activity: Not on file Other Topics Concern Not on file Social History Narrative Not on file Social Drivers of Health Financial Resource Strain: Not on file Food Insecurity: Patient Declined (12/27/2024) Hunger Vital Sign Worried About Running Out of Food in the Last Year: Patient declined Ran Out of Food in the Last Year: Patient declined Transportation Needs: Patient Declined (12/27/2024) PRAPARE - Transportation Lack of Transportation (Medical): Patient declined Lack of Transportation (Non-Medical): Patient declined Physical Activity: Not on file Stress: Not on file Social Connections: Not on file Intimate Partner Violence: Patient Declined (12/27/2024) Humiliation, Afraid, Rape, and Kick questionnaire Fear of Current or Ex-Partner: Patient declined Emotionally Abused: Patient declined Physically Abused: Patient declined Sexually Abused: Patient declined Housing Stability: Patient Declined (12/27/2024) Housing Stability Vital Sign Unable to Pay for Housing in the Last Year: Patient declined Number of Times Moved in the Last Year: 0 Homeless in the Last Year: Patient declined Family History: Family History[5] Review of Systems: As per HPI Vitals: Patient Vitals for the past 24 hrs: BP Temp Temp src Pulse Resp SpO2 12/28/24 1121 120/73 -- -- 79 -- 100 % 12/28/24 0830 128/89 -- -- 86 (!) 35 96 % 12/28/24 0825 147/95 -- -- 86 (!) 33 96 % 12/28/24 0716 119/70 36.8 C (98.2 F) Temporal 84 16 96 % 12/27/24 2049 117/78 36.1 C (97 F) Temporal 80 18 94 % Physical Exam: General Appearance: Alert, NAD HEENT: wnl Neck: Supple Lungs: Clear to auscultation Cardiovascular: RRR Gastrointestinal: Soft NT, ND, BS+, no palpable masses, hernia : b/l nephrostomy Right pleurx catheter out, site appears clean Neurologic: wnl Skin: No rashes Psychiatry: alert and oriented Extremities: No edema, No joint inflammation Lines: sites clean Labs: Recent Labs 12/27/24 0612/28/24 0439 NA 132* 132* K 3.7 3.6 CL 104 105 CO2 22 23 BUN 10 8* CREATININE 0.84 0.93 GLUCOSE 112* 99 CALCIUM 7.6* 7.8* PROT 5.4* 5.7* BILITOT 0.3 0.3 ALKPHOS 91 99 AST 17 15 ALT 7 7 Recent Labs 12/27/2422 12/28/24 0439 WBC 14.4* 12.2* HGB 7.7* 7.9* HCT 22.8* 22.8* PLT 402 390 Micro: Wound cx in progress Lines: PIV Radiography/Echo/Other: CT chest Consolidation/infiltrate of the right lung with right-sided pleural effusion and small caliber chest tube on the right. Antimicrobials,Start/End Dates: Vancomycin zosyn Impression: -Pleurx catheter site infection, r/o pleural fluid infection -B cell lymphoma, on chemotherapy, last chemo (RCHOP) 3 weeks ago (does not have port) -S/p pleurx catheter for recurrent right sided pleural effusion -S/p b/l PNT insertion due to retroperitoneal mass (also lymphoma) -HTN -DVT on eliquis Plan: C/w vancomycin Monitor serum creatinine and vancomycin trough C/w zosyn Old pleurx site appears clean currently, no discharge noted, catheter has been removed Follow wound cx Follow catheter tip cx from today Planned for US guided aspiration pleural fluid Check cell studies and cultures Trend wbc and temp Total time 75 minutes on this day of encounter includes counseling, coordinating plan of care, record and documentation review before and after visit including documentation and time not explicitly included on EMR time stamp for accounting for open encounter. Hardik Nobles MD 12/28/2024 11:54 AM [1] Past Medical History: Diagnosis Date DVT, lower extremity (HCC) Hypertension [2] Past Surgical History: Procedure Laterality Date APPENDECTOMY EXCISION/BIOPSY [3] Current Facility-Administered Medications Medication Dose Route Frequency Provider Last Rate Last Admin acetaminophen (Tylenol) tablet 650 mg 650 mg Oral q6h PRN Oumou Arias MD 650 mg at 12/27/24 1535 Or acetaminophen (Tylenol) suppository 650 mg 650 mg Rectal q6h PRN Oumou Arias MD albuterol 108 (90 Base) MCG/ACT inhaler 2 puff 2 puff Inhalation q6h PRN Oumou Arias MD allopurinol (Zyloprim) tablet 150 mg 150 mg Oral Daily Oumou Arias MD 150 mg at 12/28/24 0744 [Held by provider] apixaban (Eliquis) tablet 5 mg 5 mg Oral BID Oumou Arias MD HYDROmorphone (Dilaudid) injection 0.5 mg 0.5 mg IntraVENous q4h PRN Harinder Negron MD melatonin tablet 3 mg 3 mg Oral Nightly PRN Oumou Arias MD naloxone (Narcan) injection 0.4 mg 0.4 mg IntraVENous q5 min PRN Oumou Arias MD ondansetron ODT (Zofran-ODT) disintegrating tablet 4 mg 4 mg Oral q8h PRN Oumou Arias MD Or ondansetron (Zofran) injection 4 mg 4 mg IntraVENous q6h PRN Oumou Arias MD oxyCODONE (Roxicodone) immediate release tablet 5 mg 5 mg Oral q4h PRN Harinder Negron MD Or oxyCODONE (Roxicodone) immediate release tablet 10 mg 10 mg Oral q4h PRN Harinder Negron MD 10 mg at 12/27/24 1535 piperacillin-tazobactam (Zosyn) 4,500 mg in sodium chloride 0.9 % 100 mL IVPB Mini-Bag Plus 4,500 mg IntraVENous q6h Oumou Arias MD Stopped at 12/28/24 1150 polyethylene glycol (PEG) 3350 (Miralax) packet 17 g 17 g Oral Daily PRN Oumou Arias MD senna-docusate sodium (Senokot-S) 8.6-50 MG tablet 1 tablet 1 tablet Oral Daily Oumou Arias MD 1 tablet at 12/28/24 0744 sodium chloride 0.9 % infusion 5-250 mL/hr IntraVENous PRN Oumou Arias MD sodium chloride 0.9% (NS) flush 5-40 mL 5-40 mL IntraVENous q12h Oumou Arias MD 10 mL at 12/27/24 0616 sodium chloride 0.9% (NS) flush 5-40 mL 5-40 mL IntraVENous PRN Oumou Arias MD vancomycin (Vancocin) 1750 mg in NS 500 mL IVPB (premix) 1,750 mg IntraVENous q12h Harinder Negron MD [4] No Known Allergies [5] No family history on file. [facility] 12-28-2024 Consult note Associated Order (s): IP CONSULT TO INFECTIOUS DISEASES Images from the original note were not included. [facility] - Infectious Diseases Attending Consult Note Reason for Consult: Purulent discharge from pleurx cath site History of Present Illness: Cisco is a 49 y.o. male with past medical history below who presents with concern for purulent discharge from Pleurx catheter site. Patient history includes B-cell lymphoma, HTN, DVT on Eliquis. Recent inpatient admission at this facility 12/04 for concern of left-sided neck mass-further workup noted retroperitoneal mass consistent with malignancy, patient was diagnosed with B-cell lymphoma and started chemotherapy. During admission noted recurrent pleural effusion-cardiothoracic specialty was consulted with placement of right chest tube, then Pleurx catheter on right side. Patient states has home health nurse visit him, became concerned when they noted purulent drainage on the dressing surrounding the catheter. Initial ED workup noted WBCs elevated at 16.4. Sodium of 131. Lactic acid <1.0. Vital signs noted low normal blood pressures-101/84. HR 77, SpO2 99% on room air. Patient is afebrile. Patient received empiric vancomycin/Zosyn, transferred to [facility] for cardiothoracic evaluation and further antibiotic administration. Will admit for further evaluation and management. -Review of prior documentation notes recent outpatient visit to cardiothoracic specialty 12/21. At that time noted only serous output, estimated at 50 mL -Radiologist chest CT impression, obtained at [facility]: - Decreased right pleural effusion which is now loculated - Right lower lobe density likely representing some component of atelectasis but superimposed infection or neoplastic process cannot be excluded - Decreased mediastinal lymphadenopathy Past Medical History: Medical History[1] Past Surgical History: Surgical History[2] Current Medications: Current Medications[3] Allergies: Allergies[4] Social History: Social History Socioeconomic History Marital status: Single Spouse name: Not on file Number of children: Not on file Years of education: Not on file Highest education level: Not on file Occupational History Not on file Tobacco Use Smoking status: Former Current packs/day: 0.00 Types: Cigarettes Quit date: 1993 Years since quittin.4 Smokeless tobacco: Not on file Substance and Sexual Activity Alcohol use: Not Currently Drug use: Never Sexual activity: Not on file Other Topics Concern Not on file Social History Narrative Not on file Social Drivers of Health Financial Resource Strain: Not on file Food Insecurity: Patient Declined (12/27/2024) Hunger Vital Sign Worried About Running Out of Food in the Last Year: Patient declined Ran Out of Food in the Last Year: Patient declined Transportation Needs: Patient Declined (12/27/2024) PRAPARE - Transportation Lack of Transportation (Medical): Patient declined Lack of Transportation (Non-Medical): Patient declined Physical Activity: Not on file Stress: Not on file Social Connections: Not on file Intimate Partner Violence: Patient Declined (12/27/2024) Humiliation, Afraid, Rape, and Kick questionnaire Fear of Current or Ex-Partner: Patient declined Emotionally Abused: Patient declined Physically Abused: Patient declined Sexually Abused: Patient declined Housing Stability: Patient Declined (12/27/2024) Housing Stability Vital Sign Unable to Pay for Housing in the Last Year: Patient declined Number of Times Moved in the Last Year: 0 Homeless in the Last Year: Patient declined Family History: Family History[5] Review of Systems: As per HPI Vitals: Patient Vitals for the past 24 hrs: BP Temp Temp src Pulse Resp SpO2 12/28/24 1121 120/73 -- -- 79 -- 100 % 12/28/24 0830 128/89 -- -- 86 (!) 35 96 % 12/28/24 0825 147/95 -- -- 86 (!) 33 96 % 12/28/24 0716 119/70 36.8 C (98.2 F) Temporal 84 16 96 % 12/27/24 2049 117/78 36.1 C (97 F) Temporal 80 18 94 % Physical Exam: General Appearance: Alert, NAD HEENT: wnl Neck: Supple Lungs: Clear to auscultation Cardiovascular: RRR Gastrointestinal: Soft NT, ND, BS+, no palpable masses, hernia : b/l nephrostomy Right pleurx catheter out, site appears clean Neurologic: wnl Skin: No rashes Psychiatry: alert and oriented Extremities: No edema, No joint inflammation Lines: sites clean Labs: Recent Labs 12/27/24 0612/28/24 0439 NA 132* 132* K 3.7 3.6 CL 104 105 CO2 22 23 BUN 10 8* CREATININE 0.84 0.93 GLUCOSE 112* 99 CALCIUM 7.6* 7.8* PROT 5.4* 5.7* BILITOT 0.3 0.3 ALKPHOS 91 99 AST 17 15 ALT 7 7 Recent Labs 12/27/2462112/28/24 043 WBC 14.4* 12.2* HGB 7.7* 7.9* HCT 22.8* 22.8* PLT 402 390 Micro: Wound cx in progress Lines: PIV Radiography/Echo/Other: CT chest Consolidation/infiltrate of the right lung with right-sided pleural effusion and small caliber chest tube on the right. Antimicrobials,Start/End Dates: Vancomycin zosyn Impression: -Pleurx catheter site infection, r/o pleural fluid infection -B cell lymphoma, on chemotherapy, last chemo (RCHOP) 3 weeks ago (does not have port) -S/p pleurx catheter for recurrent right sided pleural effusion -S/p b/l PNT insertion due to retroperitoneal mass (also lymphoma) -HTN -DVT on eliquis Plan: C/w vancomycin Monitor serum creatinine and vancomycin trough C/w zosyn Old pleurx site appears clean currently, no discharge noted, catheter has been removed Follow wound cx Follow catheter tip cx from today Planned for US guided aspiration pleural fluid Check cell studies and cultures Trend wbc and temp Total time 75 minutes on this day of encounter includes counseling, coordinating plan of care, record and documentation review before and after visit including documentation and time not explicitly included on EMR time stamp for accounting for open encounter. Hardik Nobles MD 12/28/2024 11:54 AM [1] Past Medical History: Diagnosis Date DVT, lower extremity (HCC) Hypertension [2] Past Surgical History: Procedure Laterality Date APPENDECTOMY EXCISION/BIOPSY [3] Current Facility-Administered Medications Medication Dose Route Frequency Provider Last Rate Last Admin acetaminophen (Tylenol) tablet 650 mg 650 mg Oral q6h PRN Oumou Arias MD 650 mg at 12/27/24 1535 Or acetaminophen (Tylenol) suppository 650 mg 650 mg Rectal q6h PRN Oumou Arias MD albuterol 108 (90 Base) MCG/ACT inhaler 2 puff 2 puff Inhalation q6h PRN Oumou Arias MD allopurinol (Zyloprim) tablet 150 mg 150 mg Oral Daily Oumou Arias MD 150 mg at 12/28/24 0744 [Held by provider] apixaban (Eliquis) tablet 5 mg 5 mg Oral BID Oumou Arias MD HYDROmorphone (Dilaudid) injection 0.5 mg 0.5 mg IntraVENous q4h PRN Harinder Negron MD melatonin tablet 3 mg 3 mg Oral Nightly PRN Oumou Arias MD naloxone (Narcan) injection 0.4 mg 0.4 mg IntraVENous q5 min PRN Oumou Arias MD ondansetron ODT (Zofran-ODT) disintegrating tablet 4 mg 4 mg Oral q8h PRN Oumou Arias MD Or ondansetron (Zofran) injection 4 mg 4 mg IntraVENous q6h PRN Oumou Arias MD oxyCODONE (Roxicodone) immediate release tablet 5 mg 5 mg Oral q4h PRN Harinder Negron MD Or oxyCODONE (Roxicodone) immediate release tablet 10 mg 10 mg Oral q4h PRN Harinder Negron MD 10 mg at 12/27/24 1535 piperacillin-tazobactam (Zosyn) 4,500 mg in sodium chloride 0.9 % 100 mL IVPB Mini-Bag Plus 4,500 mg IntraVENous q6h Oumou Arias MD Stopped at 12/28/24 1150 polyethylene glycol (PEG) 3350 (Miralax) packet 17 g 17 g Oral Daily PRN Oumou Arias MD senna-docusate sodium (Senokot-S) 8.6-50 MG tablet 1 tablet 1 tablet Oral Daily Oumou Arias MD 1 tablet at 12/28/24 0744 sodium chloride 0.9 % infusion 5-250 mL/hr IntraVENous PRN Oumou Arias MD sodium chloride 0.9% (NS) flush 5-40 mL 5-40 mL IntraVENous q12h Oumou Arias MD 10 mL at 12/27/24 0616 sodium chloride 0.9% (NS) flush 5-40 mL 5-40 mL IntraVENous PRN Oumou Arias MD vancomycin (Vancocin) 1750 mg in NS 500 mL IVPB (premix) 1,750 mg IntraVENous q12h Harinder Negron MD [4] No Known Allergies [5] No family history on file. Associated Order(s): IP CONSULT TO PULMONOLOGY Images from the original note were not included. [facility] [place] [facility] [address] [place] [id number] Patient - Cisco Carpenter [facility] # - [id number] - 1975 Date of Admission - 12/27/2024 4:10 AM Date of Evaluation - 12/28/2024 Room - [id number]-[id number] Hospital Day - 1 Consulting - Harinder Negron MD PCP - No primary care provider on file. Reason for Consult Infection of pleurx drain History of Present Illness Cisco Carpenter is a 49 y.o. male admitted for concern for infected pleurx drain. Patient was diagnosed with diffuse large B Cell lymphoma and was started on R-CHOP December 11, 2024. During that hospital stay patient had over 1 liter thoracentesis, and had a chest tube placed for recurrent effusion a few days later. Patient with minimal drainage from pleurx catheter in the intervening days. Patient presents due to concern for local infection at pleurx site that was noticed by his home healthcare aide. Patient endorses some discomfort at the site and reports there was some drainage. Denies fever, chills, cough, shortness of breath. Otherwise reports he feels well. Patient had pleurx catheter removed earlier today. Works in a [employer]. Denies family history of lung disease, mother had some type of cancer, not sure which. Reformed smoker with 20 pack year history, quit in 2010. Patient has a past medical history of: - diffuse large B cell lymphoma - pleural effusion s/p plerux catheter placement - HTN - DVT on [facility] Problem List Problem List[1] Medical History Past Medical History Medical History[2] Past Surgical History Surgical History[3] Social History Social History Socioeconomic History Marital status: Single Spouse name: Not on file Number of children: Not on file Years of education: Not on file Highest education level: Not on file Occupational History Not on file Tobacco Use Smoking status: Former Current packs/day: 0.00 Types: Cigarettes Quit date: 1993 Years since quittin.4 Smokeless tobacco: Not on file Substance and Sexual Activity Alcohol use: Not Currently Drug use: Never Sexual activity: Not on file Other Topics Concern Not on file Social History Narrative Not on file Social Drivers of Health Financial Resource Strain: Not on file Food Insecurity: Patient Declined (12/27/2024) Hunger Vital Sign Worried About Running Out of Food in the Last Year: Patient declined Ran Out of Food in the Last Year: Patient declined Transportation Needs: Patient Declined (12/27/2024) PRAPARE - Transportation Lack of Transportation (Medical): Patient declined Lack of Transportation (Non-Medical): Patient declined Physical Activity: Not on file Stress: Not on file Social Connections: Not on file Intimate Partner Violence: Patient Declined (12/27/2024) Humiliation, Afraid, Rape, and Kick questionnaire Fear of Current or Ex-Partner: Patient declined Emotionally Abused: Patient declined Physically Abused: Patient declined Sexually Abused: Patient declined Housing Stability: Patient Declined (12/27/2024) Housing Stability Vital Sign Unable to Pay for Housing in the Last Year: Patient declined Number of Times Moved in the Last Year: 0 Homeless in the Last Year: Patient declined Family History Family History[4] Immunization History There is no immunization history on file for this patient. Medications Current Medications Scheduled Meds[5] PRN Mediations PRN Meds[6] IV Drips/Infusions Continuous Meds[7] Home Medications Current Outpatient Medications Medication Instructions albuterol 108 (90 Base) MCG/ACT inhaler 2 puffs, Inhalation, Every 15 min PRN allopurinol (ZYLOPRIM) 150 mg, Oral, Daily apixaban (ELIQUIS) 5 mg, 2 times daily ondansetron (ZOFRAN) 8 mg, Oral, 2 times daily PRN predniSONE (Deltasone) 50 MG tablet Prednisone 100 mg oral daily on days 1-5 of chemotherapy treatments every 3 weeks senna-docusate sodium (Senokot-S) 8.6-50 MG tablet 1 tablet, Oral, Daily Allergies Allergies[8] Review of Systems General Denies any fever or chills HEENT Denies any diplopia, tinnitus or vertigo Resp See HPI Cardiac Denies any chest pain, palpitations, claudication or edema GI Denies any melena, hematochezia, hematemesis or pyrosis patient with bilateral percutaneous nephrostomy tubes Heme Denies bruising or bleeding easily Neuro Denies any focal motor or sensory deficits Psychiatric Denies anxiety, depression, suicidal ideation Skin Denies rashes, itching, open sores Vitals height is 6' 3 (1.905 m) and weight is 242 lb 9.6 oz (110 kg). His temporal temperature is 36.8 C (98.2 F). His blood pressure is 120/73 and his pulse is 79. His respiration is 35 (abnormal) and oxygen saturation is 100%. Body mass index is 30.32 kg/m . 24 Hour intake and output Intake/Output Summary (Last 24 hours) at 12/28/2024 1153 Last data filed at 12/28/2024 0716 Gross per 24 hour Intake 2246 ml Output 150 ml Net 2096 ml Wt Readings from Last 3 Encounters: 12/27/24 242 lb 9.6 oz (110 kg) 12/21/24 242 lb 12.8 oz (110 kg) 12/13/24 274 lb 3.2 oz (124 kg) Physical Exam General appearance: Awake, alert, no acute distress. On RA. HEENT: Normocephalic, atraumatic. External ear normal, conjunctivae normal, negative for scleral icterus. No congestion. Neck: ROM normal, supple, trachea midline. No lymphadenopathy Cardiovascular: Regular rate and rhythm. Heart sounds normal. Negative for murmur, friction rub, or gallop. Pulmonary: Effort normal, no respiratory distress. Decreased aeration in right sided lung abbott. Dressing over prior drain site. Abdomen: Soft, non distended, non tender, bowel sounds normal. No palpable masses. No hepatomegaly Musculoskeletal: ROM normal, Negative for swelling, tenderness or deformity. Skin: Warm, dry. Faint erythematous rash over torso and abdomen. Extremities: No clubbing, cyanosis, or extremity edema Neurological: No focal deficits. Alert and oriented x 4. Lymphatics: No cervical lymphadenopathy Psychiatric: Mood, behavior, thought content normal. Cooperative with exam. Labs CBC Results from last 7 days Lab Units 12/28/24 0439 WBC AUTO 10*3/uL 12.2* HEMOGLOBIN g/dL 7.9* HEMATOCRIT % 22.8* PLATELETS 10*3/uL 390 BMP: Results from last 7 days Lab Units 12/28/24 0439 12/27/24 0622 SODIUM mmol/L 132* 132* POTASSIUM mmol/L 3.6 3.7 CHLORIDE mmol/L 105 104 CO2 mmol/L 23 22 BUN mg/dL 8* 10 CREATININE mg/dL 0.93 0.84 GLUCOSE mg/dL 99 112* CALCIUM mg/dL 7.8* 7.6* ABG: LIVER PROFILE Results from last 7 days Lab Units 12/28/24 0439 12/27/24 0622 ALK PHOS U/L 99 91 BILIRUBIN TOTAL mg/dL 0.3 0.3 PROTEIN TOTAL g/dL 5.7* 5.4* ALT U/L 7 7 AST U/L 15 17 INR Results from last 7 days Lab Units 12/28/24 0749 INR 1.1 PTT No results found for: PTT Cultures Culture of cath tip from pleurx pending Cultures from right pleural cavity pending Pulmonary function tests (PFT's) PFT (n/a) Sleep History N/a Radiology All relevant/recent imaging was personally reviewed by me. Please see official radiology report for details. CT chest personally reviewed and interpreted, demonstrates moderate right sided pleural effusion with consolidation/infiltrate in the right sided lung abbott. There is atelectasis vs infiltrate in the right lower lung. Small bore chest tube in place. Assessment Concern for infected pleural catheter Concern for right sided pneumonia Diffuse large B cell lympoma, s/p one cycle of R-CHOP Recurrent right sided pleural effusion Recommendations Patient resting comfortably on room air. S/p pleurx removal, cultures of pleural fluid and catheter tip pending. On vancomycin and zosyn, pending cultures, appreciate ID recs. Will monitor fluid accumulation with drain out at this time. Given concern for local infection, recommend against pleurx use at this time. Recommend PRN thoras for symptoms. Continue chemo per oncology Pulmonary service will sign off, please call with questions. Thank you for allowing me to participate in the care of this patient, please feel free to reach out with any questions. [1] Patient Active Problem List Diagnosis Neck mass Hypercalcemia of malignancy 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) Fluid in chest cavity associated with lung infection [2] Past Medical History: Diagnosis Date DVT, lower extremity (HCC) Hypertension [3] Past Surgical History: Procedure Laterality Date APPENDECTOMY EXCISION/BIOPSY [4] No family history on file. [5] allopurinol, 150 mg, Oral, Daily [Held by provider] apixaban, 5 mg, Oral, BID piperacillin-tazobactam, 4,500 mg, IntraVENous, q6h senna-docusate sodium, 1 tablet, Oral, Daily sodium chloride 0.9%, 5-40 mL, IntraVENous, q12h vancomycin, 1,750 mg, IntraVENous, q12h [6] PRN medications: acetaminophen OR acetaminophen, albuterol, HYDROmorphone, melatonin, naloxone, ondansetron ODT OR ondansetron, oxyCODONE OR oxyCODONE, polyethylene glycol (PEG) 3350, sodium chloride, sodium chloride 0.9% [7] [8] No Known Allergies Cosigned by Tyrell Alvarado MD at 12/28/2024 3:10 PM EDT Associated attestation - Tyrell Alvarado MD - 12/28/2024 3:10 PM EDT I have personally performed a [id number] diagnostic evaluation on this patient on date of service 12/28/24. History, labs, imaging studies, and electronic medical record have been reviewed by me. This note documented by Omar Patiño DO reflects my history, exam, and medical decision making. I have reviewed and agree with the care plan. Changes were made in the orders as necessary. ROS documentation was reviewed and negative unless otherwise stated in HPI. Chief Complaint/Reason for consult: Infection of pleurx drain Additional pertinent interval history, ROS, and physical exam findings: Cisco Carpenter is a 49 year old male with History notable for recent diagnosis of B-cell lymphoma, hypertension, history of DVT on Eliquis, recent history of left pleural effusion status post Pleurx catheter placement 12/14/2024. The patient was discharged home on 12/15/2024. On 12/21/2024 he followed up with cardiothoracic surgery clinic Pleurx catheter was drained during that visit on only 50 cc of serous output was reported. For the lymphoma, the patient was started on R-CHOP on December 11, 2024. He received zoledronic acid on 04/08/2025 An respiratory case on 914 An December 12. Today, the patient was seen sitting up in bed. On room air. No acute distress. He notes soreness at the site of swelling in his back near the pleur-x insertion site. No cough, dysphea, wheezing, sputum, hemoptysis. The patient was already seen by CT surgery and IR and the pleur-X was removed. Additionally soft tissue swelling/collection was aspirated and sent for culture. Pleural fluid studies from 12/27/2024: LDH 444, protein 3.5, cultures on process. Gram stain with PMNs but no organisms seen. the patient has been afebrile. There was a single reading of relative hypothermia at 35.8 C. Leukocytosis to 14.4. Anemia 7.7. Normal renal function. Normal coags. Assessment/Plan: Right pleural effusion Indwelling pleural catheter - now removed Skin/soft tissue infection at pleural catheter insertion site Possible pleural space infection/empyema DLBCL s/p first cycle of RCHOP Exudative pleural fluid based on 12/27 studies. Cell count/diff not sent. Gram stain without organisms. Follow up cultures. Cath tip cultures in process Also with skin/soft tissue infection at insertion site. Agree with broad spectrum abx. ID on board to guide further Would not insert another indwelling pleural catheter at this time. If pleural fluid cultures are positive, a pigtail catheter placement for complete drainage of empyema by guidelines may be considered but given the overlying skin/soft tissue infection, would defer this as well and treat with abx. Given the slow rate of accumulation since pleur-X insertion, would suggest intermittent thoracentesis moving forward if the effusion is recurrent. Hopefully with the treatment of the underlying lymphoma, effusion won't reaccumulate Electronically signed by Tyrell Alvarado MD Associated Order(s): IP CONSULT TO CARDIOTHORACIC SURGERY Images from the original note were not included. Department of General Surgery Surgical Service - CTS Resident Consult Note 12/27/2024 CHIEF COMPLAINT: No chief complaint on file. Reason for Consult: Concern for Pleurx infection HISTORY OF PRESENT ILLNESS: Cisco Carpenter is a 49 y.o. male with significant past medical history of HTN, DVT on Eliquis, diffuse B-cell lymphoma with recurring pleural effusion status post Pleurx placement who presents with concerns of Pleurx infection. Surgery was consulted for evaluation of catheter infection. Patient states he was urged to be evaluated in the ER after home health nurse noted purulent drainage from catheter site. Patient also notes 2-day history of pain around catheter site. Patient reports there is been difficulty draining Pleurx catheter, he remembers drainage being somewhat yellow in color. Patient otherwise denies fevers, chills, nausea, vomiting. Patient has had no prior thoracic surgery. Patient denies smoking, alcohol, illicit drug use. Patient takes Eliquis at home. On evaluation patient was afebrile and hemodynamically stable on room air. Labs reviewed significant for: WBC 14.4, Hgb 7.7, creatinine 0.84. No relevant imaging to review at this time. Medical History[1] Surgical History[2] Medications Prior to Admission: Medications Ordered Prior to Encounter[3] Allergies: Patient has no known allergies. Social History[4] Family History[5] REVIEW OF SYSTEMS: 11 point review of systems obtained, and negative unless otherwise mentioned in HPI PHYSICAL EXAM: Vitals: 12/27/24 0811 BP: 113/68 Pulse: 76 Resp: 16 Temp: (!) 35.8 C (96.4 F) SpO2: 94% No intake/output data recorded. CONSTITUTIONAL: awake, alert, cooperative, no apparent distress NECK: Supple, symmetrical, trachea midline, no adenopathy LUNGS: No increased work of breathing, good air exchange CARDIOVASCULAR: Regular rate and rhythm ABDOMEN: Soft, non-distended, non-tender, no rebound, no guarding, no masses palpated, CHEST: Mild tenderness palpation over right posterior lateral Pleurx catheter, noted erythema around insertion site, no active purulent drainage, 1 cm smooth rubbery mass just superior to catheter insertion site without fluctuance, mildly tender to palpation GENITAL/URINARY: Not examined MUSCULOSKELETAL: There is no redness, warmth, or swelling of the joints. Full range of motion noted. NEUROLOGIC: Awake, alert, oriented to name, place and time. SKIN: normal skin color, texture, no redness, warmth, or swelling DATA: CBC: Lab Results Component Value Date WBC 14.4 (H) 12/27/2024 RBC 2.65 (L) 12/27/2024 HGB 7.7 (L) 12/27/2024 HCT 22.8 (L) 12/27/2024 MCV 86.0 12/27/2024 MCH 29.1 12/27/2024 MCHC 33.8 12/27/2024 RDW 15.8 (H) 12/27/2024 PLT 402 12/27/2024 MPV 8.6 (L) 12/27/2024 BMP: Lab Results Component Value Date NA 132 (L) 12/27/2024 K 3.7 12/27/2024 CL 104 12/27/2024 CO2 22 12/27/2024 BUN 10 12/27/2024 CREATININE 0.84 12/27/2024 CALCIUM 7.6 (L) 12/27/2024 GLUCOSE 112 (H) 12/27/2024 Hepatic Function Panel: Lab Results Component Value Date ALKPHOS 91 12/27/2024 ALT 7 12/27/2024 AST 17 12/27/2024 PROT 5.4 (L) 12/27/2024 BILITOT 0.3 12/27/2024 PT/INR: No results found for: PROTIME, INR Troponin: No results found for: TROPONINI LIPASE: No results found for: LIPASE IMAGING: XR chest 1 view Narrative: Patient Name: CISCO CARPENTER : 1975 [id number] Exam Date/Time: 12/15/2024 06:34 Procedure: XR CHEST 1 VIEW Ordering Provider: NAIDU JOSHUA Reason For Exam: R ct in place CLINICAL INFORMATION: Shortness of breath. Right-sided chest tube. Portable view of the chest at 0635 hours is provided and compared to a previous study dated December 14, 2024. FINDINGS: A right IJ line is in place. The distal tip is in the superior vena cava. The cardiac silhouette and mediastinum are otherwise unremarkable. There is a mild infiltrate in the right lung base. Right-sided chest tube is in place. There is no pneumothorax. Impression: 1. Mild right lower lobe infiltrate. 2. Right-sided chest tube without pneumothorax. Report Dictated on Electronically Signed By: Travon Payton MD Electronically Signed Date/Time: 12/15/2024 7:52 AM EDT ASSESSMENT AND PLAN: This is a 49 y.o. male with diffuse B-cell lymphoma and recurrent right-sided pleural effusion status post Pleurx placement now with concern for infection - No acute surgical intervention - CT chest with IV contrast - Pleural fluid aerobic and anaerobic culture, LDH, protein - Recommend holding Eliquis at this time given possibility of IR exchange and/or surgical procedure - Agree with empiric antibiotics - Rest of care per primary - Cardiothoracic surgery to follow Patient discussed with attending, Dr. Hurd. Reagan Garcia MD General Surgery Resident 12/27/24 8:51 AM This note may have been dictated using [employer] Edition 2.6 and/or [employer] Voice Recognition Feature. The document was proofread; however, unrecognized voice recognition airfield manager errors may be present. [1] Past Medical History: Diagnosis Date DVT, lower extremity (HCC) Hypertension [2] Past Surgical History: Procedure Laterality Date APPENDECTOMY EXCISION/BIOPSY [3] Current Facility-Administered Medications Medication Dose Route Frequency Provider Last Rate Last Admin acetaminophen (Tylenol) tablet 650 mg 650 mg Oral q6h PRN Oumou Arias MD Or acetaminophen (Tylenol) suppository 650 mg 650 mg Rectal q6h PRN Oumou Arias MD albuterol 108 (90 Base) MCG/ACT inhaler 2 puff 2 puff Inhalation q6h PRN Oumou Arias MD allopurinol (Zyloprim) tablet 150 mg 150 mg Oral Daily Oumou Arias MD 150 mg at 12/27/24 0843 [Held by provider] apixaban (Eliquis) tablet 5 mg 5 mg Oral BID Oumou Arias MD HYDROmorphone (Dilaudid) injection 0.5 mg 0.5 mg IntraVENous q6h PRN Oumou Arias MD melatonin tablet 3 mg 3 mg Oral Nightly PRN Oumou Arias MD naloxone (Narcan) injection 0.4 mg 0.4 mg IntraVENous q5 min PRN Oumou Arias MD ondansetron ODT (Zofran-ODT) disintegrating tablet 4 mg 4 mg Oral q8h PRN Oumou Arias MD Or ondansetron (Zofran) injection 4 mg 4 mg IntraVENous q6h PRN Oumou Arias MD oxyCODONE (Roxicodone) immediate release tablet 5 mg 5 mg Oral q6h PRN Oumou Arias MD Or oxyCODONE (Roxicodone) immediate release tablet 10 mg 10 mg Oral q6h PRN Oumou Arias MD piperacillin-tazobactam (Zosyn) 4,500 mg in sodium chloride 0.9 % 100 mL IVPB Mini-Bag Plus 4,500 mg IntraVENous q6h Oumou Arias MD 33.3 mL/hr at 12/27/24 0623 4,500 mg at 12/27/24 0623 polyethylene glycol (PEG) 3350 (Miralax) packet 17 g 17 g Oral Daily PRN Oumou Arias MD senna-docusate sodium (Senokot-S) 8.6-50 MG tablet 1 tablet 1 tablet Oral Daily Oumou Arias MD 1 tablet at 12/27/24 0843 sodium chloride 0.9 % infusion 5-250 mL/hr IntraVENous PRN Oumou Arias MD sodium chloride 0.9% (NS) flush 5-40 mL 5-40 mL IntraVENous q12h Oumou Arias MD 10 mL at 12/27/24 0616 sodium chloride 0.9% (NS) flush 5-40 mL 5-40 mL IntraVENous PRN Oumou Arias MD [4] Social History Socioeconomic History Marital status: Single Tobacco Use Smoking status: Former Current packs/day: 0.00 Types: Cigarettes Quit date: 1993 Years since quittin.4 Substance and Sexual Activity Alcohol use: Not Currently Drug use: Never Social Drivers of Health Food Insecurity: Patient Declined (12/27/2024) Hunger Vital Sign Worried About Running Out of Food in the Last Year: Patient declined Ran Out of Food in the Last Year: Patient declined Transportation Needs: Patient Declined (12/27/2024) PRAPARE - Transportation Lack of Transportation (Medical): Patient declined Lack of Transportation (Non-Medical): Patient declined Intimate Partner Violence: Patient Declined (12/27/2024) Humiliation, Afraid, Rape, and Kick questionnaire Fear of Current or Ex-Partner: Patient declined Emotionally Abused: Patient declined Physically Abused: Patient declined Sexually Abused: Patient declined Housing Stability: Patient Declined (12/27/2024) Housing Stability Vital Sign Unable to Pay for Housing in the Last Year: Patient declined Number of Times Moved in the Last Year: 0 Homeless in the Last Year: Patient declined [5] No family history on file. Cosigned by Hernan Hurd MD at 12/27/2024 9:37 AM EDT Associated attestation - Hernan Hurd MD - 12/27/2024 9:37 AM EDT Attending Note I have reviewed the documentation above obtained and documented by the Resident. The following comments revise or confirm relevant molina components. Patient seen and examined on 12/27/24. Agree with Resident note unless otherwise noted below. As below, 49M with diffuse B-cell lymphoma with recurrent pleural effusions s/p pleurx placement presenting back with concern for pleurx infection. Apparently the HH nurse notice purulent drainage from the catheter site and the patient has been having pain around the site as well. WBC 14, Hg 7.7. -recommend CT chest with IV constrast and culture of the pleurx drainage, further recommendations to follow. STAFF PHYSICIAN: Hernan Hurd MD DATE OF SERVICE: December 27, 2024 TIME OF SERVICE: 9:35 AM documented in this encounter [facility] 12-28-2024 Consult note Associated Order (s): IP CONSULT TO PULMONOLOGY Images from the original note were not included. [facility] [place] [address] [place] [address] [facility] - [facility] - [id number] - 1975 Date of Admission - 12/27/2024 4:10 AM Date of Evaluation - 12/28/2024 Room - H[facility]/[address] Hospital Day - 1 Consulting - Harinder Negron MD PCP - No primary care provider on file. Reason for Consult Infection of pleurx drain History of Present Illness Cisco Carpenter is a 49 y.o. male admitted for concern for infected pleurx drain. Patient was diagnosed with diffuse large B Cell lymphoma and was started on R-CHOP December 11, 2024. During that hospital stay patient had over 1 liter thoracentesis, and had a chest tube placed for recurrent effusion a few days later. Patient with minimal drainage from pleurx catheter in the intervening days. Patient presents due to concern for local infection at pleurx site that was noticed by his home healthcare aide. Patient endorses some discomfort at the site and reports there was some drainage. Denies fever, chills, cough, shortness of breath. Otherwise reports he feels well. Patient had pleurx catheter removed earlier today. Works in a scrap yard. Denies family history of lung disease, mother had some type of cancer, not sure which. Reformed smoker with 20 pack year history, quit in 2010. Patient has a past medical history of: - diffuse large B cell lymphoma - pleural effusion s/p plerux catheter placement - HTN - DVT on [facility] Problem List Problem List[1] Medical History Past Medical History Medical History[2] Past Surgical History Surgical History[3] Social History Social History Socioeconomic History Marital status: Single Spouse name: Not on file Number of children: Not on file Years of education: Not on file Highest education level: Not on file Occupational History Not on file Tobacco Use Smoking status: Former Current packs/day: 0.00 Types: Cigarettes Quit date: 1993 Years since quittin.4 Smokeless tobacco: Not on file Substance and Sexual Activity Alcohol use: Not Currently Drug use: Never Sexual activity: Not on file Other Topics Concern Not on file Social History Narrative Not on file Social Drivers of Health Financial Resource Strain: Not on file Food Insecurity: Patient Declined (12/27/2024) Hunger Vital Sign Worried About Running Out of Food in the Last Year: Patient declined Ran Out of Food in the Last Year: Patient declined Transportation Needs: Patient Declined (12/27/2024) PRAPARE - Transportation Lack of Transportation (Medical): Patient declined Lack of Transportation (Non-Medical): Patient declined Physical Activity: Not on file Stress: Not on file Social Connections: Not on file Intimate Partner Violence: Patient Declined (12/27/2024) Humiliation, Afraid, Rape, and Kick questionnaire Fear of Current or Ex-Partner: Patient declined Emotionally Abused: Patient declined Physically Abused: Patient declined Sexually Abused: Patient declined Housing Stability: Patient Declined (12/27/2024) Housing Stability Vital Sign Unable to Pay for Housing in the Last Year: Patient declined Number of Times Moved in the Last Year: 0 Homeless in the Last Year: Patient declined Family History Family History[4] Immunization History There is no immunization history on file for this patient. Medications Current Medications Scheduled Meds[5] PRN Mediations PRN Meds[6] IV Drips/Infusions Continuous Meds[7] Home Medications Current Outpatient Medications Medication Instructions albuterol 108 (90 Base) MCG/ACT inhaler 2 puffs, Inhalation, Every 15 min PRN allopurinol (ZYLOPRIM) 150 mg, Oral, Daily apixaban (ELIQUIS) 5 mg, 2 times daily ondansetron (ZOFRAN) 8 mg, Oral, 2 times daily PRN predniSONE (Deltasone) 50 MG tablet Prednisone 100 mg oral daily on days 1-5 of chemotherapy treatments every 3 weeks senna-docusate sodium (Senokot-S) 8.6-50 MG tablet 1 tablet, Oral, Daily Allergies Allergies[8] Review of Systems General Denies any fever or chills HEENT Denies any diplopia, tinnitus or vertigo Resp See HPI Cardiac Denies any chest pain, palpitations, claudication or edema GI Denies any melena, hematochezia, hematemesis or pyrosis patient with bilateral percutaneous nephrostomy tubes Heme Denies bruising or bleeding easily Neuro Denies any focal motor or sensory deficits Psychiatric Denies anxiety, depression, suicidal ideation Skin Denies rashes, itching, open sores Vitals height is 6' 3 (1.905 m) and weight is 242 lb 9.6 oz (110 kg). His temporal temperature is 36.8 C (98.2 F). His blood pressure is 120/73 and his pulse is 79. His respiration is 35 (abnormal) and oxygen saturation is 100%. Body mass index is 30.32 kg/m . 24 Hour intake and output Intake/Output Summary (Last 24 hours) at 12/28/2024 1153 Last data filed at 12/28/2024 0716 Gross per 24 hour Intake 2246 ml Output 150 ml Net 2096 ml Wt Readings from Last 3 Encounters: 12/27/24 242 lb 9.6 oz (110 kg) 12/21/24 242 lb 12.8 oz (110 kg) 12/13/24 274 lb 3.2 oz (124 kg) Physical Exam General appearance: Awake, alert, no acute distress. On RA. HEENT: Normocephalic, atraumatic. External ear normal, conjunctivae normal, negative for scleral icterus. No congestion. Neck: ROM normal, supple, trachea midline. No lymphadenopathy Cardiovascular: Regular rate and rhythm. Heart sounds normal. Negative for murmur, friction rub, or gallop. Pulmonary: Effort normal, no respiratory distress. Decreased aeration in right sided lung abbott. Dressing over prior drain site. Abdomen: Soft, non distended, non tender, bowel sounds normal. No palpable masses. No hepatomegaly Musculoskeletal: ROM normal, Negative for swelling, tenderness or deformity. Skin: Warm, dry. Faint erythematous rash over torso and abdomen. Extremities: No clubbing, cyanosis, or extremity edema Neurological: No focal deficits. Alert and oriented x 4. Lymphatics: No cervical lymphadenopathy Psychiatric: Mood, behavior, thought content normal. Cooperative with exam. Labs CBC Results from last 7 days Lab Units 12/28/24 0439 WBC AUTO 10*3/uL 12.2* HEMOGLOBIN g/dL 7.9* HEMATOCRIT % 22.8* PLATELETS 10*3/uL 390 BMP: Results from last 7 days Lab Units 12/28/24 0439 12/27/24 0622 SODIUM mmol/L 132* 132* POTASSIUM mmol/L 3.6 3.7 CHLORIDE mmol/L 105 104 CO2 mmol/L 23 22 BUN mg/dL 8* 10 CREATININE mg/dL 0.93 0.84 GLUCOSE mg/dL 99 112* CALCIUM mg/dL 7.8* 7.6* ABG: LIVER PROFILE Results from last 7 days Lab Units 12/28/24 0439 12/27/24 0622 ALK PHOS U/L 99 91 BILIRUBIN TOTAL mg/dL 0.3 0.3 PROTEIN TOTAL g/dL 5.7* 5.4* ALT U/L 7 7 AST U/L 15 17 INR Results from last 7 days Lab Units 12/28/24 0749 INR 1.1 PTT No results found for: PTT Cultures Culture of cath tip from pleurx pending Cultures from right pleural cavity pending Pulmonary function tests (PFT's) PFT (n/a) Sleep History N/a Radiology All relevant/recent imaging was personally reviewed by me. Please see official radiology report for details. CT chest personally reviewed and interpreted, demonstrates moderate right sided pleural effusion with consolidation/infiltrate in the right sided lung abbott. There is atelectasis vs infiltrate in the right lower lung. Small bore chest tube in place. Assessment Concern for infected pleural catheter Concern for right sided pneumonia Diffuse large B cell lympoma, s/p one cycle of R-CHOP Recurrent right sided pleural effusion Recommendations Patient resting comfortably on room air. S/p pleurx removal, cultures of pleural fluid and catheter tip pending. On vancomycin and zosyn, pending cultures, appreciate ID recs. Will monitor fluid accumulation with drain out at this time. Given concern for local infection, recommend against pleurx use at this time. Recommend PRN thoras for symptoms. Continue chemo per oncology Pulmonary service will sign off, please call with questions. Thank you for allowing me to participate in the care of this patient, please feel free to reach out with any questions. [1] Patient Active Problem List Diagnosis Neck mass Hypercalcemia of malignancy 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) Fluid in chest cavity associated with lung infection [2] Past Medical History: Diagnosis Date DVT, lower extremity (HCC) Hypertension [3] Past Surgical History: Procedure Laterality Date APPENDECTOMY EXCISION/BIOPSY [4] No family history on file. [5] allopurinol, 150 mg, Oral, Daily [Held by provider] apixaban, 5 mg, Oral, BID piperacillin-tazobactam, 4,500 mg, IntraVENous, q6h senna-docusate sodium, 1 tablet, Oral, Daily sodium chloride 0.9%, 5-40 mL, IntraVENous, q12h vancomycin, 1,750 mg, IntraVENous, q12h [6] PRN medications: acetaminophen OR acetaminophen, albuterol, HYDROmorphone, melatonin, naloxone, ondansetron ODT OR ondansetron, oxyCODONE OR oxyCODONE, polyethylene glycol (PEG) 3350, sodium chloride, sodium chloride 0.9% [7] [8] No Known Allergies Cosigned by Tyrell Alavrado MD at 12/28/2024 3:10 PM EDT Associated attestation - Tyrell Alvarado MD - 12/28/2024 3:10 PM EDT I have personally performed a [id number] diagnostic evaluation on this patient on date of service 12/28/24. History, labs, imaging studies, and electronic medical record have been reviewed by me. This note documented by Omar Patiño DO reflects my history, exam, and medical decision making. I have reviewed and agree with the care plan. Changes were made in the orders as necessary. ROS documentation was reviewed and negative unless otherwise stated in HPI. Chief Complaint/Reason for consult: Infection of pleurx drain Additional pertinent interval history, ROS, and physical exam findings: Cisco Carpenter is a 49 year old male with History notable for recent diagnosis of B-cell lymphoma, hypertension, history of DVT on Eliquis, recent history of left pleural effusion status post Pleurx catheter placement 12/14/2024. The patient was discharged home on 12/15/2024. On 12/21/2024 he followed up with cardiothoracic surgery clinic Pleurx catheter was drained during that visit on only 50 cc of serous output was reported. For the lymphoma, the patient was started on R-CHOP on December 11, 2024. He received zoledronic acid on 04/08/2025 An respiratory case on 914 An December 12. Today, the patient was seen sitting up in bed. On room air. No acute distress. He notes soreness at the site of swelling in his back near the pleur-x insertion site. No cough, dysphea, wheezing, sputum, hemoptysis. The patient was already seen by CT surgery and IR and the pleur-X was removed. Additionally soft tissue swelling/collection was aspirated and sent for culture. Pleural fluid studies from 12/27/2024: LDH 444, protein 3.5, cultures on process. Gram stain with PMNs but no organisms seen. the patient has been afebrile. There was a single reading of relative hypothermia at 35.8 C. Leukocytosis to 14.4. Anemia 7.7. Normal renal function. Normal coags. Assessment/Plan: Right pleural effusion Indwelling pleural catheter - now removed Skin/soft tissue infection at pleural catheter insertion site Possible pleural space infection/empyema DLBCL s/p first cycle of RCHOP Exudative pleural fluid based on 12/27 studies. Cell count/diff not sent. Gram stain without organisms. Follow up cultures. Cath tip cultures in process Also with skin/soft tissue infection at insertion site. Agree with broad spectrum abx. ID on board to guide further Would not insert another indwelling pleural catheter at this time. If pleural fluid cultures are positive, a pigtail catheter placement for complete drainage of empyema by guidelines may be considered but given the overlying skin/soft tissue infection, would defer this as well and treat with abx. Given the slow rate of accumulation since pleur-X insertion, would suggest intermittent thoracentesis moving forward if the effusion is recurrent. Hopefully with the treatment of the underlying lymphoma, effusion won't reaccumulate Electronically signed by Tyrell Alvarado MD [facility] 12-28-2024 Nurse Note Patient arrived to Ultrasound department for right posterior chest fluid collection. History, medications and allergies reviewed. Susanne Santos PA-C in to discuss procedure and informed consent obtained. Patient assisted to left lateral decubitus position. Right upper back scanned, marked and prepped in sterile fashion. Unable to aspirate any fluid from area. Vaseline guaze dressing applied. Patient tolerated procedure well. Pt transported to [facility]. [facility] 12-28-2024 Note Formatting of this n ote is different from the original. Care Management Progress Note Discharge plan home with mom-active with [facility]- liaison aware- ID consult pending [facility] 12-28-2024 Note Formatting of this n ote is different from the original. Care Management Progress Note Discharge plan home with mom-active with [facility]- liaison aware- ID consult pending [facility] 12-28-2024 Note Care Management Prog ress Note Discharge plan home with mom-active with [facility]- liaison aware- ID consult pending [facility] 12-28-2024 Nurse Note Bilateral nephrostomy dressings changed per order. Sites benign. Transfer pt to . [facility] 12-28-2024 Note Conscious sedation w as administered. Vital signs were monitored throughout the procedure. Patient tolerated the procedure well. Transfer to H6 following the procedure. [facility] 12-28-2024 Nurse Note Conscious sedation was administered. Vital signs were monitored throughout the procedure. Patient tolerated the procedure well. Transfer to H6 following the procedure. T [facility] 12-28-2024 Nurse Note Patient arrived from for right pleurx catheter removal. Dr. Figueroa in to speak with the patient regarding the procedure, and consent was obtained. Patient's lab values and allergies were reviewed. Patient was placed in a left lateral decubitus position on exam table, prepped and draped in sterile fashion. Telemetry monitors were placed. T [facility] 12-27-2024 Plan of care note Fluid sent to lab from Pleural tube. ID being consulted. More labs and test ordered. Possible may need a new chest tube. [facility] 12-27-2024 Note Formatting of this n ote might be different from the original. Care Management Progress Note introduced self to patient- from home staying with mom-active with [facility] liaison aware- (bilat neph tubes and pleurx cath prior to adm) [facility] 12-27-2024 Note Formatting of this n ote might be different from the original. Care Management Progress Note introduced self to patient- from home staying with mom-active with [facility]- liaison aware- (bilat neph tubes and pleurx cath prior to adm) [facility] 12-27-2024 Note Care Management Prog ress Note introduced self to patient- from home staying with mom-active with [facility] liaison aware- (bilat neph tubes and pleurx cath prior to adm) [facility] 12-27-2024 Consult note Associated Order (s): IP CONSULT TO CARDIOTHORACIC SURGERY Images from the original note were not included. Department of General Surgery Surgical Service - CTS Resident Consult Note 12/27/2024 CHIEF COMPLAINT: No chief complaint on file. Reason for Consult: Concern for Pleurx infection HISTORY OF PRESENT ILLNESS: Cisco Carpenter is a 49 y.o. male with significant past medical history of HTN, DVT on Eliquis, diffuse B-cell lymphoma with recurring pleural effusion status post Pleurx placement who presents with concerns of Pleurx infection. Surgery was consulted for evaluation of catheter infection. Patient states he was urged to be evaluated in the ER after home health nurse noted purulent drainage from catheter site. Patient also notes 2-day history of pain around catheter site. Patient reports there is been difficulty draining Pleurx catheter, he remembers drainage being somewhat yellow in color. Patient otherwise denies fevers, chills, nausea, vomiting. Patient has had no prior thoracic surgery. Patient denies smoking, alcohol, illicit drug use. Patient takes Eliquis at home. On evaluation patient was afebrile and hemodynamically stable on room air. Labs reviewed significant for: WBC 14.4, Hgb 7.7, creatinine 0.84. No relevant imaging to review at this time. Medical History[1] Surgical History[2] Medications Prior to Admission: Medications Ordered Prior to Encounter[3] Allergies: Patient has no known allergies. Social History[4] Family History[5] REVIEW OF SYSTEMS: 11 point review of systems obtained, and negative unless otherwise mentioned in HPI PHYSICAL EXAM: Vitals: 12/27/24 0811 BP: 113/68 Pulse: 76 Resp: 16 Temp: (!) 35.8 C (96.4 F) SpO2: 94% No intake/output data recorded. CONSTITUTIONAL: awake, alert, cooperative, no apparent distress NECK: Supple, symmetrical, trachea midline, no adenopathy LUNGS: No increased work of breathing, good air exchange CARDIOVASCULAR: Regular rate and rhythm ABDOMEN: Soft, non-distended, non-tender, no rebound, no guarding, no masses palpated, CHEST: Mild tenderness palpation over right posterior lateral Pleurx catheter, noted erythema around insertion site, no active purulent drainage, 1 cm smooth rubbery mass just superior to catheter insertion site without fluctuance, mildly tender to palpation GENITAL/URINARY: Not examined MUSCULOSKELETAL: There is no redness, warmth, or swelling of the joints. Full range of motion noted. NEUROLOGIC: Awake, alert, oriented to name, place and time. SKIN: normal skin color, texture, no redness, warmth, or swelling DATA: CBC: Lab Results Component Value Date WBC 14.4 (H) 12/27/2024 RBC 2.65 (L) 12/27/2024 HGB 7.7 (L) 12/27/2024 HCT 22.8 (L) 12/27/2024 MCV 86.0 12/27/2024 MCH 29.1 12/27/2024 MCHC 33.8 12/27/2024 RDW 15.8 (H) 12/27/2024 PLT 402 12/27/2024 MPV 8.6 (L) 12/27/2024 BMP: Lab Results Component Value Date NA 132 (L) 12/27/2024 K 3.7 12/27/2024 CL 104 12/27/2024 CO2 22 12/27/2024 BUN 10 12/27/2024 CREATININE 0.84 12/27/2024 CALCIUM 7.6 (L) 12/27/2024 GLUCOSE 112 (H) 12/27/2024 Hepatic Function Panel: Lab Results Component Value Date ALKPHOS 91 12/27/2024 ALT 7 12/27/2024 AST 17 12/27/2024 PROT 5.4 (L) 12/27/2024 BILITOT 0.3 12/27/2024 PT/INR: No results found for: PROTIME, INR Troponin: No results found for: TROPONINI LIPASE: No results found for: LIPASE IMAGING: XR chest 1 view Narrative: Patient Name: CISCO CARPENTER : 1975 Exam Date/Time: 12/15/2024 06:34 Procedure: XR CHEST 1 VIEW Ordering Provider: NAIDU JOSHUA Reason For Exam: R ct in place CLINICAL INFORMATION: Shortness of breath. Right-sided chest tube. Portable view of the chest at 0635 hours is provided and compared to a previous study dated December 14, 2024. FINDINGS: A right IJ line is in place. The distal tip is in the superior vena cava. The cardiac silhouette and mediastinum are otherwise unremarkable. There is a mild infiltrate in the right lung base. Right-sided chest tube is in place. There is no pneumothorax. Impression: 1. Mild right lower lobe infiltrate. 2. Right-sided chest tube without pneumothorax. Report Dictated on Electronically Signed By: Travon Payton MD Electronically Signed Date/Time: 12/15/2024 7:52 AM EDT ASSESSMENT AND PLAN: This is a 49 y.o. male with diffuse B-cell lymphoma and recurrent right-sided pleural effusion status post Pleurx placement now with concern for infection - No acute surgical intervention - CT chest with IV contrast - Pleural fluid aerobic and anaerobic culture, LDH, protein - Recommend holding Eliquis at this time given possibility of IR exchange and/or surgical procedure - Agree with empiric antibiotics - Rest of care per primary - Cardiothoracic surgery to follow Patient discussed with attending, Dr. Hurd. Reagan Garcia MD General Surgery Resident 12/27/24 8:51 AM This note may have been dictated using [employer] Edition 2.6 and/or [employer] Voice Recognition Feature. The document was proofread; however, unrecognized voice recognition airfield manager errors may be present. [1] Past Medical History: Diagnosis Date DVT, lower extremity (HCC) Hypertension [2] Past Surgical History: Procedure Laterality Date APPENDECTOMY EXCISION/BIOPSY [3] Current Facility-Administered Medications Medication Dose Route Frequency Provider Last Rate Last Admin acetaminophen (Tylenol) tablet 650 mg 650 mg Oral q6h PRN Oumou Arias MD Or acetaminophen (Tylenol) suppository 650 mg 650 mg Rectal q6h PRN Oumou Arias MD albuterol 108 (90 Base) MCG/ACT inhaler 2 puff 2 puff Inhalation q6h PRN Oumou Arias MD allopurinol (Zyloprim) tablet 150 mg 150 mg Oral Daily Oumou Arias MD 150 mg at 12/27/24 0843 [Held by provider] apixaban (Eliquis) tablet 5 mg 5 mg Oral BID Oumou Arias MD HYDROmorphone (Dilaudid) injection 0.5 mg 0.5 mg IntraVENous q6h PRN Oumou Arias MD melatonin tablet 3 mg 3 mg Oral Nightly PRN Oumou Arias MD naloxone (Narcan) injection 0.4 mg 0.4 mg IntraVENous q5 min PRN Oumou Arias MD ondansetron ODT (Zofran-ODT) disintegrating tablet 4 mg 4 mg Oral q8h PRN Oumou Arias MD Or ondansetron (Zofran) injection 4 mg 4 mg IntraVENous q6h PRN Oumou Arias MD oxyCODONE (Roxicodone) immediate release tablet 5 mg 5 mg Oral q6h PRN Oumou Arias MD Or oxyCODONE (Roxicodone) immediate release tablet 10 mg 10 mg Oral q6h PRN Oumou Arias MD piperacillin-tazobactam (Zosyn) 4,500 mg in sodium chloride 0.9 % 100 mL IVPB Mini-Bag Plus 4,500 mg IntraVENous q6h Oumou Arias MD 33.3 mL/hr at 12/27/24 0623 4,500 mg at 12/27/24 0623 polyethylene glycol (PEG) 3350 (Miralax) packet 17 g 17 g Oral Daily PRN Oumou Arias MD senna-docusate sodium (Senokot-S) 8.6-50 MG tablet 1 tablet 1 tablet Oral Daily Oumou Arias MD 1 tablet at 12/27/24 0843 sodium chloride 0.9 % infusion 5-250 mL/hr IntraVENous PRN Oumou Arias MD sodium chloride 0.9% (NS) flush 5-40 mL 5-40 mL IntraVENous q12h Oumou Arias MD 10 mL at 12/27/24 0616 sodium chloride 0.9% (NS) flush 5-40 mL 5-40 mL IntraVENous PRN Oumou Arias MD [4] Social History Socioeconomic History Marital status: Single Tobacco Use Smoking status: Former Current packs/day: 0.00 Types: Cigarettes Quit date: 1993 Years since quittin.4 Substance and Sexual Activity Alcohol use: Not Currently Drug use: Never Social Drivers of Health Food Insecurity: Patient Declined (12/27/2024) Hunger Vital Sign Worried About Running Out of Food in the Last Year: Patient declined Ran Out of Food in the Last Year: Patient declined Transportation Needs: Patient Declined (12/27/2024) PRAPARE - Transportation Lack of Transportation (Medical): Patient declined Lack of Transportation (Non-Medical): Patient declined Intimate Partner Violence: Patient Declined (12/27/2024) Humiliation, Afraid, Rape, and Kick questionnaire Fear of Current or Ex-Partner: Patient declined Emotionally Abused: Patient declined Physically Abused: Patient declined Sexually Abused: Patient declined Housing Stability: Patient Declined (12/27/2024) Housing Stability Vital Sign Unable to Pay for Housing in the Last Year: Patient declined Number of Times Moved in the Last Year: 0 Homeless in the Last Year: Patient declined [5] No family history on file. Cosigned by Hernan Hurd MD at 12/27/2024 9:37 AM EDT Associated attestation - Hernan Hurd MD - 12/27/2024 9:37 AM EDT Attending Note I have reviewed the documentation above obtained and documented by the Resident. The following comments revise or confirm relevant molina components. Patient seen and examined on 12/27/24. Agree with Resident note unless otherwise noted below. As below, 49M with diffuse B-cell lymphoma with recurrent pleural effusions s/p pleurx placement presenting back with concern for pleurx infection. Apparently the HH nurse notice purulent drainage from the catheter site and the patient has been having pain around the site as well. WBC 14, Hg 7.7. -recommend CT chest with IV constrast and culture of the pleurx drainage, further recommendations to follow. STAFF PHYSICIAN: Hernan Hurd MD DATE OF SERVICE: December 27, 2024 TIME OF SERVICE: 9:35 AM [facility] 12-27-2024 Note Formatting of this n ote might be different from the original. Patient is currently active with [facility]. The patients current certification period will on 02/13/25. The patient is currently receiving SN services through the agency. [employer]ist to continue to follow. [facility] 12-27-2024 Note Formatting of this n ote might be different from the original. Patient is currently active with [facility]. The patients current certification period will on 02/13/25. The patient is currently receiving SN services through the agency. [employer]ist to continue to follow. [facility] 12-27-2024 Note Problem: Pain - Adul t Goal: Verbalizes/displays adequate comfort level or baseline comfort level Outcome: Progressing Problem: Safety - Adult Goal: Free from fall injury Outcome: Progressing [facility] 12-27-2024 Plan of care note Problem: Pain - Adult Goal: Verbalizes/displays adequate comfort level or baseline comfort level Outcome: Progressing Problem: Safety - Adult Goal: Free from fall injury Outcome: Progressing [facility] 12-27-2024 History and physical note Attending History and Physical Admit Date: 12/27/2024 PCP: No primary care provider on file. CHIEF COMPLAINT: Purulent discharge from Pleurx cath site Reason for Admission: Same as above History Obtained From: patient, EMR HISTORY OF PRESENT ILLNESS: Cisco is a 49 y.o. male with past medical history below who presents with concern for purulent discharge from Pleurx catheter site. Patient history includes B-cell lymphoma, HTN, DVT on Eliquis. Recent inpatient admission at this facility 12/04 for concern of left-sided neck mass-further workup noted retroperitoneal mass consistent with malignancy, patient was diagnosed with B-cell lymphoma and started chemotherapy. During admission noted recurrent pleural effusion-cardiothoracic specialty was consulted with placement of right chest tube, then Pleurx catheter on right side. Patient states has home health nurse visit him, became concerned when they noted purulent drainage on the dressing surrounding the catheter. Initial ED workup noted WBCs elevated at 16.4. Sodium of 131. Lactic acid <1.0. Vital signs noted low normal blood pressures-101/84. HR 77, SpO2 99% on room air. Patient is afebrile. Patient received empiric vancomycin/Zosyn, transferred to [facility] for cardiothoracic evaluation and further antibiotic administration. Will admit for further evaluation and management. -Review of prior documentation notes recent outpatient visit to cardiothoracic specialty 12/21. At that time noted only serous output, estimated at 50 mL -Radiologist chest CT impression, obtained at [facility]: - Decreased right pleural effusion which is now loculated - Right lower lobe density likely representing some component of atelectasis but superimposed infection or neoplastic process cannot be excluded - Decreased mediastinal lymphadenopathy Past Medical History: Past Medical History: Diagnosis Date DVT, lower extremity (HCC) Hypertension Past Surgical History: Surgical History[1] Social History: Social History Socioeconomic History Marital status: Single Spouse name: Not on file Number of children: Not on file Years of education: Not on file Highest education level: Not on file Occupational History Not on file Tobacco Use Smoking status: Former Current packs/day: 0.00 Types: Cigarettes Quit date: 1993 Years since quittin.4 Smokeless tobacco: Not on file Substance and Sexual Activity Alcohol use: Not Currently Drug use: Never Sexual activity: Not on file Other Topics Concern Not on file Social History Narrative Not on file Social Drivers of Health Financial Resource Strain: Not on file Food Insecurity: Patient Declined (12/27/2024) Hunger Vital Sign Worried About Running Out of Food in the Last Year: Patient declined Ran Out of Food in the Last Year: Patient declined Transportation Needs: Patient Declined (12/27/2024) PRAPARE - Transportation Lack of Transportation (Medical): Patient declined Lack of Transportation (Non-Medical): Patient declined Physical Activity: Not on file Stress: Not on file Social Connections: Not on file Intimate Partner Violence: Patient Declined (12/27/2024) Humiliation, Afraid, Rape, and Kick questionnaire Fear of Current or Ex-Partner: Patient declined Emotionally Abused: Patient declined Physically Abused: Patient declined Sexually Abused: Patient declined Housing Stability: Patient Declined (12/27/2024) Housing Stability Vital Sign Unable to Pay for Housing in the Last Year: Patient declined Number of Times Moved in the Last Year: 0 Homeless in the Last Year: Patient declined Family History: Family History[2] Medications Reconciliation: Medications were reviewed in chart but unable to verify accurate with patient Allergies: Allergies[3] REVIEW OF SYSTEMS: 10 point ROS obtained, as per HPI, otherwise NEG Vitals: BP 124/74 (BP Location: Right arm, Patient Position: Lying) Pulse 79 Temp 36.7 C (98 F) (Oral) Resp 18 Ht 6' 3 (1.905 m) Wt 242 lb 9.6 oz (110 kg) SpO2 94% BMI 30.32 kg/m BMI Classification: Obese (BMI 30.0-39.9) Pulse Ox: SpO2 Av % Min: 94 % Max: 94 % Supplemental O2: PHYSICAL EXAM: Physical Exam Constitutional: General: He is sleeping. HENT: Head: Normocephalic and atraumatic. Eyes: General: Vision grossly intact. Extraocular Movements: Extraocular movements intact. Cardiovascular: Rate and Rhythm: Normal rate and regular rhythm. Pulmonary: Breath sounds: Examination of the right-lower field reveals decreased breath sounds. Decreased breath sounds present. No rhonchi or rales. Skin: General: Skin is warm and dry. Neurological: General: No focal deficit present. Cranial Nerves: Cranial nerves 2-12 are intact. Psychiatric: Behavior: Behavior is cooperative. DATA: CBC: No results for input(s): WBC, RBC, HGB, HCT, MCV, RDW, PLT in the last 72 hours. BMP:No results for input(s): NA, K, CL, CO2, BUN, CREATININE, GLUCOSE, CALCIUM, ANIONGAP in the last 72 hours. LIVER PROFILE:No results for input(s): AST, ALT, BILITOT, ALKPHOS, PROT in the last 72 hours. No lab exists for component: LABALBU PT/INR: No results for input(s): PROTIME, INR in the last 72 hours. CARDIAC ENZYMES: No results for input(s): TROPONINI in the last 72 hours. Procalcitonin: No results found for: PROCAL Urine Culture: No results found for this or any previous visit. COVID-19 PCR: No results for input(s): COVID19 in the last 72 hours. I reviewed: [x] laboratory results [x] radiographic results At the time of today's encounter. Pt was advised of the results. Data: Assessment Discussed management with the ED provider and agree with hospitalization. Acute, acute on chronic, unstable/uncontrolled chronic problems/diagnoses: Concern for infection, Pleurx cath site - Imaging notes new loculations - Cardiothoracic surgical specialty consulted for a.m. assessment - Continue empiric vancomycin/Zosyn as needed analgesia - Incentive spirometry, as needed albuterol Stable chronic problems affecting care, new non-acute diagnoses: History of gout -Allopurinol 150 mg 2. History of DVT -Eliquis 5 mg-held on admission pending CT surgical specialty Plan As a result of the above findings & factors, the following mgmt was pursued: - am labs, replace lytes prn - PT/OT/CM/SW - delirium precautions: increase activity and limit nighttime disturbances - DVT prophylaxis: encourage ambulation and already anticoagulated Complexity: Chronic illness with mild to moderate exacerbation, progression, or side effect of tx (MOD). Acute illness with systemic symptoms (MOD). Risk: Use/consideration of therapy requiring intensive monitoring: parenteral nephrotoxic antibiotics, ex: gentamycin, vancomycin (anaphylaxis, KARAN/ATN, renal failure); BMP, trough levels (HIGH). Admission to hospital-level care was considered or occurred (HIGH). Advance Directive: Full code Anticipated Discharge - Date -12/29 - Location -TBD Total time spent (which include face to face and non face to face encounters) : 75 minutes. Extended Emergency Contact Information Primary Emergency Contact: Charissa Carpenter Mobile Relation: Mother Oumou Arias MD Division of Hospital Medicine [place] [place]] Past Surgical History: Procedure Laterality Date APPENDECTOMY EXCISION/BIOPSY [2] No family history on file. [3] No Known Allergies [facility] 12-27-[address] [facility] 12-27-2024 History and physical note Attending History and Physical Admit Date: 12/27/2024 PCP: No primary care provider on file. CHIEF COMPLAINT: Purulent discharge from Pleurx cath site Reason for Admission: Same as above History Obtained From: patient, EMR HISTORY OF PRESENT ILLNESS: Cisco is a 49 y.o. male with past medical history below who presents with concern for purulent discharge from Pleurx catheter site. Patient history includes B-cell lymphoma, HTN, DVT on Eliquis. Recent inpatient admission at this facility 12/04 for concern of left-sided neck mass-further workup noted retroperitoneal mass consistent with malignancy, patient was diagnosed with B-cell lymphoma and started chemotherapy. During admission noted recurrent pleural effusion-cardiothoracic specialty was consulted with placement of right chest tube, then Pleurx catheter on right side. Patient states has home health nurse visit him, became concerned when they noted purulent drainage on the dressing surrounding the catheter. Initial ED workup noted WBCs elevated at 16.4. Sodium of 131. Lactic acid <1.0. Vital signs noted low normal blood pressures-101/84. HR 77, SpO2 99% on room air. Patient is afebrile. Patient received empiric vancomycin/Zosyn, transferred to [facility] for cardiothoracic evaluation and further antibiotic administration. Will admit for further evaluation and management. -Review of prior documentation notes recent outpatient visit to cardiothoracic specialty 12/21. At that time noted only serous output, estimated at 50 mL -Radiologist chest CT impression, obtained at [facility] system: - Decreased right pleural effusion which is now loculated - Right lower lobe density likely representing some component of atelectasis but superimposed infection or neoplastic process cannot be excluded - Decreased mediastinal lymphadenopathy Past Medical History: Past Medical History: Diagnosis Date DVT, lower extremity (HCC) Hypertension Past Surgical History: Surgical History[1] Social History: Social History Socioeconomic History Marital status: Single Spouse name: Not on file Number of children: Not on file Years of education: Not on file Highest education level: Not on file Occupational History Not on file Tobacco Use Smoking status: Former Current packs/day: 0.00 Types: Cigarettes Quit date: 1993 Years since quittin.4 Smokeless tobacco: Not on file Substance and Sexual Activity Alcohol use: Not Currently Drug use: Never Sexual activity: Not on file Other Topics Concern Not on file Social History Narrative Not on file Social Drivers of Health Financial Resource Strain: Not on file Food Insecurity: Patient Declined (12/27/2024) Hunger Vital Sign Worried About Running Out of Food in the Last Year: Patient declined Ran Out of Food in the Last Year: Patient declined Transportation Needs: Patient Declined (12/27/2024) PRAPARE - Transportation Lack of Transportation (Medical): Patient declined Lack of Transportation (Non-Medical): Patient declined Physical Activity: Not on file Stress: Not on file Social Connections: Not on file Intimate Partner Violence: Patient Declined (12/27/2024) Humiliation, Afraid, Rape, and Kick questionnaire Fear of Current or Ex-Partner: Patient declined Emotionally Abused: Patient declined Physically Abused: Patient declined Sexually Abused: Patient declined Housing Stability: Patient Declined (12/27/2024) Housing Stability Vital Sign Unable to Pay for Housing in the Last Year: Patient declined Number of Times Moved in the Last Year: 0 Homeless in the Last Year: Patient declined Family History: Family History[2] Medications Reconciliation: Medications were reviewed in chart but unable to verify accurate with patient Allergies: Allergies[3] REVIEW OF SYSTEMS: 10 point ROS obtained, as per HPI, otherwise NEG Vitals: BP 124/74 (BP Location: Right arm, Patient Position: Lying) Pulse 79 Temp 36.7 C (98 F) (Oral) Resp 18 Ht 6' 3 (1.905 m) Wt 242 lb 9.6 oz (110 kg) SpO2 94% BMI 30.32 kg/m BMI Classification: Obese (BMI 30.0-39.9) Pulse Ox: SpO2 Av % Min: 94 % Max: 94 % Supplemental O2: PHYSICAL EXAM: Physical Exam Constitutional: General: He is sleeping. HENT: Head: Normocephalic and atraumatic. Eyes: General: Vision grossly intact. Extraocular Movements: Extraocular movements intact. Cardiovascular: Rate and Rhythm: Normal rate and regular rhythm. Pulmonary: Breath sounds: Examination of the right-lower field reveals decreased breath sounds. Decreased breath sounds present. No rhonchi or rales. Skin: General: Skin is warm and dry. Neurological: General: No focal deficit present. Cranial Nerves: Cranial nerves 2-12 are intact. Psychiatric: Behavior: Behavior is cooperative. DATA: CBC: No results for input(s): WBC, RBC, HGB, HCT, MCV, RDW, PLT in the last 72 hours. BMP:No results for input(s): NA, K, CL, CO2, BUN, CREATININE, GLUCOSE, CALCIUM, ANIONGAP in the last 72 hours. LIVER PROFILE:No results for input(s): AST, ALT, BILITOT, ALKPHOS, PROT in the last 72 hours. No lab exists for component: LABALBU PT/INR: No results for input(s): PROTIME, INR in the last 72 hours. CARDIAC ENZYMES: No results for input(s): TROPONINI in the last 72 hours. Procalcitonin: No results found for: PROCAL Urine Culture: No results found for this or any previous visit. COVID-19 PCR: No results for input(s): COVID19 in the last 72 hours. I reviewed: [x] laboratory results [x] radiographic results At the time of today's encounter. Pt was advised of the results. Data: Assessment Discussed management with the ED provider and agree with hospitalization. Acute, acute on chronic, unstable/uncontrolled chronic problems/diagnoses: Concern for infection, Pleurx cath site - Imaging notes new loculations - Cardiothoracic surgical specialty consulted for a.m. assessment - Continue empiric vancomycin/Zosyn as needed analgesia - Incentive spirometry, as needed albuterol Stable chronic problems affecting care, new non-acute diagnoses: History of gout -Allopurinol 150 mg 2. History of DVT -Eliquis 5 mg-held on admission pending CT surgical specialty Plan As a result of the above findings & factors, the following mgmt was pursued: - am labs, replace lytes prn - PT/OT/CM/SW - delirium precautions: increase activity and limit nighttime disturbances - DVT prophylaxis: encourage ambulation and already anticoagulated Complexity: Chronic illness with mild to moderate exacerbation, progression, or side effect of tx (MOD). Acute illness with systemic symptoms (MOD). Risk: Use/consideration of therapy requiring intensive monitoring: parenteral nephrotoxic antibiotics, ex: gentamycin, vancomycin (anaphylaxis, KARAN/ATN, renal failure); BMP, trough levels (HIGH). Admission to hospital-level care was considered or occurred (HIGH). Advance Directive: Full code Anticipated Discharge - Date -12/29 - Location -TBD Total time spent (which include face to face and non face to face encounters) : 75 minutes. Extended Emergency Contact Information Primary Emergency Contact: Charissa Carpenter Mobile Relation: Mother Oumou Arias MD Division of Hospital Medicine [place] [place]] Past Surgical History: Procedure Laterality Date APPENDECTOMY EXCISION/BIOPSY [2] No family history on file. [3] No Known Allergies documented in this encounter [facility] 12-27-2024 Discharge summary Note Date/Time December 26, 2024 11:58pm [facility] Medical Records Department [address] [place] [address] Emergency Department Summary 12/26/24 MR#: [id number] Acct: [id number] Name: CISCO CARPENTER Rep #:[id number] : 1975 49 From: Bernardino Burnette MD PCP: Care Physician,No Primary Status :REG ER Location: ED HPI History of Present Illness Chief Complaint: Shortness of Breath Narrative Narrative: 49-year-old male presents with his mother because of drainage around the Pleurx catheter in his right posterior back. He relates history that around Mother's Day, approximately 3 to 4 weeks ago, he was at [facility] admitted for 11 days. He has history of blood clots on apixaban, he states he had a mass on his neck and they found a nodule or mass in his left lung, and he was found to have fluid on his right lung as well. Initially they drained his right blood which I assume was from thoracentesis and he states they got a liter off. They initially inserted tube, and reportedly were able to get 3 L of fluid off his lung. They put in a small catheter which they could draw fluid off of every so often. He states he last had it drained last Thursday where they only took 50 mL. The home health nurse was supposed to drain it again today, but she noticedpurulent drainage on the dressing surrounding the catheter. Of note, he also has bilateral nephrostomy tubes. He and his mother states that he is supposed to be at [facility] tomorrow to get a Mediport placed. [facility] Medical History HTN (hypertension) DVT (deep venous thrombosis) Home Medications ?Medication ?Instructions ?Recorded ?Last Taken ?Type apixaban 5 mg tablet (Eliquis) 5 mg PO BID 12/04/24 History lisinopril 20 mg tablet 20 mg PO DAILY 12/04/2411/24 History allopurinol 300 mg tablet PO 12/26/24 Unknown History prednisone 50 mg tablet PO 12/26/24 Unknown History Allergy/AdvReac Type Severity Reaction Status Date / Time No Known Allergies Allergy Verified 12/26/24 18:26 Social History Smoking Status: Former smoker ROS ROS ED ROS Narrative Review of systems positive for drainage around Pleurx catheter, purulent. No fevers or chills, no nausea or vomiting, no shortness of breath. EXAM Physical Exam Narrative Exam Narrative: Afebrile. Vital signs noted. Nontoxic-appearing. Cardiovascular examination reveals a regular rate and rhythm. Lungs are clear to auscultation bilaterally. The abdomen is soft and nontender with positive bowel sounds. Inspection of the nephrostomy tubes shows no evidence of surrounding erythema. There is a scant amount of purulent drainage around the right posterior Pleurx catheter. There is a larger lump more caudal to this which is the area he states he had prior drainage of the prior tube. Const Vital Signs: 12/26/24 16:53 12/26/24 16:53 12/26/24 18:22 Temperature 98 F Temperature Source Oral Oral Pulse Rate 77 Respiratory Rate 18 22 H Respiratory Effort Respiratory Depth Respiratory Pattern Blood Pressure 120/60 Blood Pressure Mean 80 Pulse Ox 98 100 Oxygen Delivery Method Room Air 12/26/24 18:23 12/26/24 18:24 12/26/24 19:08 Temperature 98 F Temperature Source Temporal Pulse Rate 77 98 Respiratory Rate 22 H 19 H Respiratory Effort Non-Labored Respiratory Depth Normal Respiratory Pattern Normal Blood Pressure 101/84 H Blood Pressure Mean 89 Pulse Ox 100 99 Oxygen Delivery Method Room Air 12/26/24 21:00 Temperature Temperature Source Pulse Rate 93 Respiratory Rate 21 H Respiratory Effort Respiratory Depth Respiratory Pattern Blood Pressure 116/72 Blood Pressure Mean 86 Pulse Ox 100 Oxygen Delivery Method MDM MDM MDM Narrative Medical decision making narrative: Differential diagnosis includes but not limited to infection of Pleurx catheter versus pneumonia versus lung abscess versus subcutaneous abscess with tracking. Initial laboratories have been entered per protocol. Although chest x-ray was obtained per protocol, I do feel he needs a CT of the chest with IV contrast. I reviewed his laboratory work and he has elevated white count of 16.4 with hemoglobin 9.3, platelet count slightly elevated at 477. Sodium is low at 131 with chloride 97, potassium 3.9. Glucose low at 122, lactic acid less than 1.0. I doubt sepsis. On my independent interpretation of the protocol of chest x-ray, there is a moderate to large pleural effusion on the right. Reviewed the radiology report of the CT of the chest with IV contrast and although it is decreased, there is a loculated pleural effusion, and there is a right lower lobe density noted as well. Concern would be for infectious process versus neoplastic. Given the amount of purulent drainage around the catheter on his Pleurx catheter, he was started on vancomycin and Zosyn because of the elevated white count as well. I do feel that he will require transfer. Patient initially discussed with the [facility] transfer line and is pending acceptance and further discussion with the provider. If needed, patient will be signed out to the oncoming physician to ensure transfer. Patient is in stable condition. History & Record Review Discussion w/independent historian: Patient and Family (Mother) Lab Data Attestation: I reviewed the patient's lab results. Labs: Laboratory Results - last 24 hr 12/26/24 12/26/24 18:16 19:24 WBC 16.4 H RBC 3.18 L Hgb 9.3 L Hct 27.7 L MCV 87.1 MCH 29.2 MCHC 33.6 RDW Std Deviation 47.7 H RDW Coeff of Sunil 15.5 H Plt Count 477 H MPV 8.5 Neut % (Auto) Not Reportable Absolute Neuts (auto) 12.8 H Absolute Lymphs (auto) 0.49 L Total Counted 100 Neutrophils % (Manual) 77 H Band Neutrophils % 1 Lymphocytes % (Manual) 3 L Monocytes % (Manual) 5 Eosinophils % (Manual) 2 Metamyelocytes % 3 H Myelocytes % 5 H Promyelocytes % 1 H Blast Cells % 3 H* Diff Path Review May foll Platelet Estimate SLT INC Polychromasia 1+ Sodium 131 L Potassium 3.9 Chloride 97 L Carbon Dioxide 21.4 Anion Gap 13 BUN 12 Creatinine 1.05 Est GFR (MDRD) Non-Af 86 BUN/Creatinine Ratio 11.7 Glucose 122 H Lactic Acid < 1.0 Calcium 8.6 Radiography Chest X-Ray - ED: 1 View, Read by ED Physician and Read by Radiologist Diagnostic Testing: Clinical Impression(s) from Imaging Studies Chest X-Ray 12/26/24 18:40 IMPRESSION: [id number] right pleural effusion, similar to recent CT. Reading Location: [id number] Chest CT 12/26/24 19:15 IMPRESSION: Decreased right pleural effusion which is now loculated. Right lower lobe density likely representing some component of atelectasis but superimposed infection or neoplastic process can not be excluded. Decreased mediastinal lymphadenopathy. Reading Location: [id number] Discharge Plan Triage Chief Complaint: Shortness of Breath ED Provider: Bernardino Burnette Dx/Rx/DC Orders Clinical Impression: Infection associated with catheter, Pleural effusion, Large B-cell lymphoma Prescriptions: No Action Eliquis 5 mg tablet 5 mg PO BID lisinopril 20 mg tablet 20 mg PO DAILY prednisone 50 mg tablet PO allopurinol 300 mg tablet PO Primary Care Provider: Care Physician,No Primary Referrals: RODOLFO SMITH [Other] Print Language: Icelandic Disposition Disposition: Acute Care Hospital Discharge Location: [facility] What to do if you have Problems For any increased pain, shortness of breath, bleeding, nausea or vomiting, chest pain, or any unexpected problems, contact your Primary Care Provider. Call [facility] ([phone]) or report to the closest Emergency Room. Call 911 if necessary. 12/26/24 [id number] <Electronically signed by Bernardino Burnette MD> Cosigner Signature (if applicable): CC: No Primary Care Physician ~ Signed [facility] Work Phone: [phone] 583-772506-02-2025 Discharge summary [facility] Medical Records Department [address] [place] [id number] Emergency Department Summary 12/26/24 MR#: [id number] Acct: [id number] Name: CISCO CARPENTER Rep #:[id number] : 1975 49 From: Bernardino Burnette MD PCP: Care Physician,No Primary Status :REG ER Location: ED HPI History of Present Illness Chief Complaint: Shortness of Breath Narrative Narrative: 49-year-old male presents with his mother because of drainage around the Pleurx catheter in his right posterior back. He relates history that around Mother's Day, approximately 3 to 4 weeks ago, he was at [facility] admitted for 11 days. He has history of blood clots on apixaban, he stateshe had a mass on his neck and they found a nodule or mass in his left lung, and he was found to have fluid on his right lung as well. Initially they drained his right blood which I assume was from thoracentesis and he states they got a liter off. They initially inserted tube, and reportedly were able to get 3 L of fluid off his lung. They put in a small catheter which they could draw fluid off ofevery so often. He states he last had it drained last Thursday where they only took 50 mL. The home health nurse was supposed to drain it again today, but she noticedpurulent drainage on the dressing surrounding the catheter. Of note, he also has bilateral nephrostomy tubes. He and his mother states that he is supposed to be at [facility] tomorrow to get a Mediport placed. [facility] Medical History HTN (hypertension) DVT (deep venous thrombosis) Home Medications ?Medication ?Instructions ?Recorded ?Last Taken ?Type apixaban 5 mg tablet (Eliquis) 5 mg PO BID 12/04/24 History lisinopril 20 mg tablet 20 mg PO DAILY 12/04/2411/24 History allopurinol 300 mg tablet PO 12/26/24 Unknown History prednisone 50 mg tablet PO 12/26/24 Unknown History Allergy/AdvReac Type Severity Reaction Status Date / Time No Known Allergies Allergy Verified 12/26/24 18:26 Social History Smoking Status: Former smoker ROS ROS ED ROS Narrative Review of systems positive for drainage around Pleurx catheter, purulent. No fevers or chills, no nausea or vomiting, no shortness of breath. EXAM Physical Exam Narrative Exam Narrative: Afebrile. Vital signs noted. Nontoxic-appearing. Cardiovascular examination reveals a regular rate and rhythm. Lungs are clear to auscultation bilaterally. The abdomen is soft and nontender with positive bowel sounds. Inspection of the nephrostomy tubes shows no evidence of surrounding erythema. There is a scant amount of purulent drainage around the right posterior Pleurx catheter. There is a larger lump more caudal to this which is the area he states he had prior drainage of the prior tube. Const Vital Signs: 12/26/24 16:53 12/26/24 16:53 12/26/24 18:22 Temperature 98 F Temperature Source Oral Oral Pulse Rate 77 Respiratory Rate 18 22 H Respiratory Effort Respiratory Depth Respiratory Pattern Blood Pressure 120/60 Blood Pressure Mean 80 Pulse Ox 98 100 Oxygen Delivery Method Room Air 12/26/24 18:23 12/26/24 18:24 12/26/24 19:08 Temperature 98 F Temperature Source Temporal Pulse Rate 77 98 Respiratory Rate 22 H 19 H Respiratory Effort Non-Labored Respiratory Depth Normal Respiratory Pattern Normal Blood Pressure 101/84 H Blood Pressure Mean 89 Pulse Ox 100 99 Oxygen Delivery Method Room Air 12/26/24 21:00 Temperature Temperature Source Pulse Rate 93 Respiratory Rate 21 H Respiratory Effort Respiratory Depth Respiratory Pattern Blood Pressure 116/72 Blood Pressure Mean 86 Pulse Ox 100 Oxygen Delivery Method MDM MDM MDM Narrative Medical decision making narrative: Differential diagnosis includes but not limited to infection of Pleurx catheter versus pneumonia versus lung abscess versus subcutaneous abscess with tracking. Initial laboratories have been entered per protocol. Although chest x-ray was obtained per protocol, I do feel he needs a CT of the chest with IV contrast. I reviewed his laboratory work and he has elevated white count of 16.4 with hemoglobin 9.3, platelet count slightly elevated at 477. Sodium is low at 131 with chloride 97, potassium 3.9. Glucose low at 122, lactic acid less than 1.0. I doubt sepsis. On my independent interpretation of the protocol of chest x-ray, there is a moderate to large pleural effusion on the right. Reviewed the radiology report of the CT of the chest with IV contrast and although it is decreased, there is a loculated pleural effusion, and there is a right lower lobe density noted as well. Concern would be for infectious process versus neoplastic. Given the amount of purulent drainage around the catheter on his Pleurxcatheter, he was started on vancomycin and Zosyn because of the elevated white count as well. I do feel that he will require transfer. Patient initially discussed with the [facility] transfer line and is pending acceptance and further discussion with the provider. If needed, patient will be signed out to the oncoming physician to ensure transfer. Patient is in stable condition. History & Record Review Discussion w/independent historian: Patient and Family (Mother) Lab Data Attestation: I reviewed the patient's lab results. Labs: Laboratory Results - last 24 hr 12/26/24 12/26/24 18:16 19:24 WBC 16.4 H RBC 3.18 L Hgb 9.3 L Hct 27.7 L MCV 87.1 MCH 29.2 MCHC 33.6 RDW Std Deviation 47.7 H RDW Coeff of Sunil 15.5 H Plt Count 477 H MPV 8.5 Neut % (Auto) Not Reportable Absolute Neuts (auto) 12.8 H Absolute Lymphs (auto) 0.49 L Total Counted 100 Neutrophils % (Manual) 77 H Band Neutrophils % 1 Lymphocytes % (Manual) 3 L Monocytes % (Manual) 5 Eosinophils % (Manual) 2 Metamyelocytes % 3 H Myelocytes % 5 H Promyelocytes % 1 H Blast Cells % 3 H* Diff Path Review May foll Platelet Estimate SLT INC Polychromasia 1+ Sodium 131 L Potassium 3.9 Chloride 97 L Carbon Dioxide 21.4 Anion Gap 13 BUN 12 Creatinine 1.05 Est GFR (MDRD) Non-Af 86 BUN/Creatinine Ratio 11.7 Glucose 122 H Lactic Acid < 1.0 Calcium 8.6 Radiography Chest X-Ray - ED: 1 View, Read by ED Physician and Read by Radiologist Diagnostic Testing: Clinical Impression(s) from Imaging Studies Chest X-Ray 12/26/24 18:40 IMPRESSION: [id number] right pleural effusion, similar to recent CT. Reading Location: [facility] Chest CT 12/26/24 19:15 IMPRESSION: Decreased right pleural effusion which is now loculated. Right lower lobe density likely representing some component of atelectasis but superimposed infection or neoplastic process can not be excluded. Decreased mediastinal lymphadenopathy. Reading Location: [id number] Discharge Plan Triage Chief Complaint: Shortness of Breath ED Provider: Bernardino Burnette Dx/Rx/DC Orders Clinical Impression: Infection associated with catheter, Pleural effusion, Large B-cell lymphoma Prescriptions: No Action Eliquis 5 mg tablet 5 mg PO BID lisinopril 20 mg tablet 20 mg PO DAILY prednisone 50 mg tablet PO allopurinol 300 mg tablet PO Primary Care Provider: Care Physician,No Primary Referrals: RYBCHAK,RODOLFO [Other] Print Language: Icelandic Disposition Disposition: Acute Care Hospital Discharge Location: [facility] What to do if you have Problems For any increased pain, shortness of breath, bleeding, nausea or vomiting, chest pain, or any unexpected problems, contact your Primary Care Provider. Call [facility] ([phone]) or report to the closest Emergency Room. Call 911 if necessary. 12/26/24 2542 Cosigner Signature (if applicable): CC: No Primary Care Physician ~ Signed [facility]06-02-2025 Radiology Diagnostic study note [facility] Imaging Services [address] [place] [address] Chest WITH Contrast MR#: [id number] Acct: [id number] Name: CISCO CARPENTER Rep #: [id number] : 1975 M 49 From: Adan Ko MD PCP: Care Physician,No Primary Status: REG ER Study:Chest WITH Contrast Date of Exam: 12/26/24 Exam# [id number] Ordering Dr: Bernardino Burnette MD PROCEDURE: CHEST WITH CONTRAST 12/26/2024 REASON FOR EXAM: ABSCESS, DRAINAGE AROUND PLEURX CATHETER, RIGHT TECHNIQUE: Prone and supine chest CT with intravenous contrast, high resolution CT (HRCT) protocol. Coronal and Sagittal reconstruction series were provided. CONTRAST: Isovue 370 VOLUME: 98 mL. One or more dose reduction techniques were used (e.g., Automated exposure control, adjustment of the mA and/or kV according to patient size, use of iterative reconstruction technique). RADIATION DOSE SUMMARY: CTDlvol: 13.30+ 17.90 mGy DLP: 570.33 mGycm COMPARISON: 12/04/2024. FINDINGS: Loculated right pleural fluid which is markedly decreased in size since the prior CT. Right lower lobe density with attenuation similar to paraspinal muscular some of which may represent atelectasis but the attenuation suggestssome may be infected or represent a neoplastic process. Left lower lobe linear atelectasis. Intervallydecreased size of mediastinal lymph nodes. Left lower neck soft tissue mass is not included in the volume of these images. Coronary artery calcifications. The peripheral soft tissues are unremarkable. No acute osseous abnormalities. CT/Chest WITH Contrast IMPRESSION: Decreased right pleural effusion which is now loculated. Right lower lobe density likely representing some component of atelectasis but superimposed infection or neoplastic process can not be excluded. Decreased mediastinal lymphadenopathy. Reading Location: [id number] CC: Dr. Bernardino Burnette MD; No Primary Care Physician ~ Level Vial Marker: Signed [facility]06-02-2025 Radiology Diagnostic study note [facility] Imaging Services [address] [place] [address] Chest 1 View (Portable) MR#: [id number] Acct: [id number] Name: CISCO CARPENTER Rep #: [id number] : 1975 M 49 From: Alina Sanchez MD PCP: Care Physician,No Primary Status: REG ER Study:Chest 1 View (Portable) Date of Exam: 12/26/24 Exam# [id number] Ordering Dr: Bernardino Burnette MD PROCEDURE: CHEST 1 VIEW (PORTABLE) 12/26/2024 REASON FOR EXAM: SOB TECHNIQUE: Frontal view of the chest. COMPARISON: CT chest 12/04/2024 FINDINGS: Hardware: None Heart: Cardiac and mediastinal contours are stable. Lungs: Moderate to large right pleural effusion, similar to CT on 12/04/2024. Lung volumes are low and otherwise predominantly clear. Bones: The bones are unchanged. RAD/Chest 1 View (Portable) IMPRESSION: Zfvmbvrk-rn-lbvqy right pleural effusion, similar to recent CT. Reading Location: [id number] CC: Dr. Bernardino Burnette MD; No Primary Care Physician ~ Level Vial Marker: Signed [facility]2025 History of Present illness Narrative* Lenora Chua RN - 12/22/2024 9:36 AM EDT 12/22/24 0935 Transitions Post-Discharge Call - Initial Reviewed patients discharge instructions? Yes Was patient able to steel pickler new prescriptions? Yes Medication reconciliation complete? Yes Does patient have any questions about medications? No Verified that new DME was delivered? N/A - No DME Ordered Was HHC ordered? Yes If yes, which agency? [facility] Was HHC initiated if ordered? Yes Does patient have all necessary follow up appointments scheduled? Yes (12/27 Radiology, Dr. Lucio (hem/onc), Dr. Abel (urology), 01/02 Infusion, 01/05 Yumiko Zimmerman NP (CT surg)) Does patient have transportation to and from appointments? Yes Does the patient have any questions/concerns at this time? No Educational and general instructions provided: Medication Adherence;Provider Follow Up;When to callMD Has this patient been identified for ongoing CM/SW/Health assistant track and field coach needs? To Be Determined At Next Outreach Are you able to complete routine daily activities? Yes Any ED, urgent care, or admissions since D/C? No Chart reviewed, phone call to patient for transitional outreach today. Spoke with Cisco today and introduced myself and role as a nurse on [facility]'s transitions team. Cisco tells me that he is doing pretty good overall and is happy to be home and out of the hospital. He notes that overall he is feelingwell and denies any pain or discomfort. He tells me that the only time he feels pain is if he accidentally lays on one of his drainage tubes. He verifies that he has all of his medications and is taking them as ordered. He denies any questions about medications today. He verifies that home care hasbeen out to see him and he is expecting another visit from them tomorrow. He is aware of his upcoming appts and plans to attend. At this time he denies any other questions or needs from me today. He is appreciative of the outreach today and is aware that we will be reaching out to check on him again. Reviewed that it would either be myself or my co-worker [facility] and he states understanding. Will follow up with patient as scheduled and continue to provide education to prevent readmission. Will send to [facility] for outreach nextweek. Plan to follow up on: -still feeling okay? -still no pain? -how was follow up appts? documented in this [facility]05-28-2025 History of Present illness Narrative* Yumiko Cason, BILLET CHECKER - AUTOMOTIVE SERVICE TECHNICIAN - 12/21/2024 12:00 PM EDT Images from the original note were not included. [facility]: [facility] [employer] [facility] [address] [facility] [address] Dept: [phone] Dept Loc: [phone] Visit type: Established patient Reason for Visit: Follow-up Assessment and Plan 1. Pleural effusion - Pleurx cath drained- only 50ml of serous output - Spoke with [facility]- they report they do have order for pleurx cath management. Recommend this be drained at least weekly. If drainage remains low over the next 2-3 weeks we can possibly remove. Patientis agreeable to this. - F/U VV in 2 weeks Patient initially tachycardic when VS taken, after resting HR in 80-90. As he was leaving the office he became light headed and needed to sit down. VS: BP 122/78, HR 87, 97% on RA Encouraged patient to drink water and retook vitals after waiting approx 20 minutes and having a full cup of water. VSS. Encouraged patient to increase fluid intake and go to ER if he continues to feel lightheaded/dizzy. Disposition: F/U in 2 weeks with VV Patient verbalized understanding of plan and stated they would call if any questions or concerns arise. Treatment Team: PCP: No primary care provider on file. Subjective HPI: 49-year-old male with past medical history of hypertension, DVT on Eliquis who presented from outside ER with a neck mass. Reports that he been having a 1 month history of left-sided neck mass that is increased in size. CT of the neck revealed a mass in CT abdomen pelvis showed large retroperitoneal mass which encases the aorta and oblique arteries consistent with malignancy. There was also significant mass effect on the bilateral ureters causing moderate hydronephrosis. The patient underwent biopsy of the cervical lymph node on 12/08 and part of nephrology came back as diffuse large B-cell lymphoma. The patient was started on R-CHOP therapy while in the hospital and received first cycle on 12/11. He had thoracentesis with 1 L removed but follow-up imaging showed recurrence. Patient was seen by CT surgery and had a right chest tube placed which was eventually switched to Pleurx catheter. 12/21/24: patient seen for follow up of Pleurx catheter which was placed by IR. He was discharged on 12/15/2024 and has not had Pleurx drained since. He was seen once by [facility] who changed his dressings but did not drain pleurx. He denies SOB or chest pain. Review of Systems Constitutional: Positive for activity change and appetite change. Respiratory: Negative for cough and shortness of breath. Cardiovascular: Negative for chest pain and palpitations. Gastrointestinal: Negative for abdominal distention and abdominal pain. Skin: Negative for rash. Neurological: Positive for dizziness and light-headedness. Allergies[1] Current Medications[2] Medical History[3] Objective Patient reported: Failed to redirect to the Timeline version of the [employer] Smart[employer]. Vitals: 12/21/24 1209 BP: (!) 107/95 Pulse: (!) 142 Wt Readings from Last 3 Encounters: 12/21/24 242 lb 12.8 oz (110 kg) 12/13/24 274 lb 3.2 oz (124 kg) Physical Exam Cardiovascular: Rate and Rhythm: Normal rate and regular rhythm. Heart sounds: Normal heart sounds. Pulmonary: Effort: Pulmonary effort is normal. Breath sounds: Normal breath sounds. No decreased breath sounds. Comments: Bilateral nephrostomy tubes R Pleurx cath- clean/dry dressing placed Skin: General: Skin is warm and dry. Neurological: Mental Status: He is alert and oriented to person, place, and time. Data Reviewed and Summarized Labs/Imaging/Testing: reviewed EMR, see A&P for pertinent diagnostic results related to office visit CORINA Perez CNP [1] No Known Allergies [2] Current Outpatient Medications: albuterol 108 (90 Base) MCG/ACT inhaler, Inhale 2 puffs every 15 minutes as needed for wheezing or shortness of breath., Disp: 18 g, Rfl: 0 allopurinol (Zyloprim) 300 MG tablet, Take 0.5 tablets (150 mg) by mouth daily for 25 doses., Disp:13 tablet, Rfl: 0 apixaban (Eliquis) 5 MG tablet, Take 5 mg by mouth 2 times daily., Disp: , Rfl: ondansetron (Zofran) 8 MG tablet, Take 1 tablet (8 mg) by mouth 2 times daily as needed for nausea., Disp: 30 tablet, Rfl: 1 predniSONE (Deltasone) 50 MG tablet, Prednisone 100 mg oral daily on days 1-5 of chemotherapy treatments every 3 weeks, Disp: 60 tablet, Rfl: 1 senna-docusate sodium (Senokot-S) 8.6-50 MG tablet, Take 1 tablet by mouth daily., Disp: 30 tablet,Rfl: 0 [3] Past Medical History: Diagnosis Date DVT, lower extremity (HCC) Hypertension documented in this [facility]05-22-2025 [facility] 12-10-2024 [facility]05-17-2025 [facility] 12-08-2024 [facility]05-14-2025 NoteCare Management Progress Note Discharge plan to stay with [facility]- plan for biopsy 12/08 large retroperitoneal mass - bilat neph tube placed- TCC will follow [facility]05-11-2025 [facility]05-11-2025 Discharge summary [facility] Medical Records Department [address] [place] [id number] Emergency Department Summary 12/04/24 MR#: [id number] Acct: [id number] Name: CISCO CARPENTER Rep #:[id number] : 1975 49 From: Hayden Dutta DO PCP: RODOLFO SMITH Status:REG ER Location: ED HPI History of Present Illness Chief Complaint: Nausea/Vomiting Narrative Narrative: Patient is a 49-year-old male past medical history of bilateral lower extremity DVTs on Eliquis notmissing any doses, hypertension, alcohol use, tobacco use quit in 2011 who presents to the emergency department with a chief complaint of nausea and vomiting. Patient states that for the last 3 weeksshe has had nausea vomiting and had been difficulty keeping food down. He states that he will eat and then few hours later he will immediately vomits. Patient denies any weight loss. He does complainof a lump on the left side of his neck he states that it has been there for a few weeks he states that originally was so small he followed up with a doctor and noted that this was likely a lymph nodeat that point in time. Patient states that he has not seen physician since it has increased in size. Patient's family member at bedside states that he has been extremely sleepy lately as well which is abnormal for him. Patient also noted that he is unsure of why he exactly developed blood clots in his legs and he states that he was seen at an outside facility for this. [facility] Medical History (Reviewed 12/04/24 @ 11: by Dr. Hayden Dutta, ) HTN (hypertension) DVT (deep venous thrombosis) Home Medications ?Medication ?Instructions ?Recorded ?Last Taken ?Type apixaban 5 mg tablet (Eliquis) 5 mg PO BID 12/04/24 History lisinopril 20 mg tablet 20 mg PO DAILY 12/04/2411/24 History Allergy/AdvReac Type Severity Reaction Status Date / Time No Known Allergies Allergy Verified 12/04/24 11:11 Social History (Reviewed 12/04/24 @ 11: by Dr. Hayden Dutta, ) Smoking Status: Former smoker ROS ROS ED ROS Narrative Constitutional: Denies headache, lightness, disease confusion, chills Eyes: Denies change in vision double vision blurry vision Neck: Complains of masses noted above Cardiovascular: Denies chest pain or palpitations Respiratory: Denies cough wheezing shortness of breath Abdomen: Complains of nausea and vomiting : Denies urinary symptoms Neurological: Denies numbness, weakness, tingling Musculoskeletal: Denies back pain Skin: Denies rashes or lesions EXAM Physical Exam Narrative Exam Narrative: General: Patient lying in bed rest comfortably did not appear to be acute distress Head: Atraumatic, normocephalic Eyes: PERRL bilaterally, EOMI bilaterally, no conjunctival injection noted Neck: Soft, supple, trachea midline, patient does have a soft tissue mass noted just above his clavicle/lower neck region Cardiovascular: Regular rate and rhythm Respiratory: Clear to auscultation bilaterally Abdomen: Soft, nondistended, nontender to palpation Extremities: +5/5 strength noted in the bilateral upper and lower extremities Neurological: Patient following commands knew that he was at [facility] year is 2024 Skin: Warm, dry, intact no rashes or lesions noted Const Vital Signs: 12/04/24 11:09 12/04/24 13:09 12/04/24 15:00 Temperature 98.3 F Temperature Source Oral Pulse Rate 98 85 86 Respiratory Rate 18 14 14 Blood Pressure 130/118 H 150/78 H 157/88 H Blood Pressure Mean 122 102 111 Pulse Ox 98 94 96 Oxygen Delivery Method Room Air MDM MDM MDM Narrative Medical decision making narrative: Patient is a 49-year-old male who presented to the emergency department the chief complaint of nausea vomiting, soft tissue mass in the left side of his lower neck. On the differential diagnosis includes but not limited to hypothyroidism, thyroid cancer, cancer with metastases. Once workup is obtain edreviewed he will be reevaluated. Patient be given Zofran for nausea. Patient's CBC was reviewed and showed a white blood count of 6.8, hemoglobin stable at 11, plateletcount was noted to be 285. Patient sodium normal 133, potassium normal at 5, creatinine was elevated 2.27 indicating acute kidney injury, calcium elevated at 13.9 patient was given IV fluids. PatientTSH normal at 1.97, free T4 and T3 normal at 1.40 [address] head and brain without contrast was reviewed and showed no acute intracranial processes. Patient's CT soft tissue neck reviewed and showed a 5.5 x 7.7 x 7.3 cm left carotid space and inferior neck soft tissue mass. The mass encases the left common carotid and the left ventricle retromandibular vein. Mass effect onthe adjacent internal jugular vein and the left common carotid artery. The massalso anteriorly displaced the sternocleidomastoid muscle. Multiple prominent mildly enlarged neck node suspicious for metastases noted. Patient CT chest wasreviewed and showed occlusion of the right lower lobe bronchus suggestive of underlying mass or mucous plugging. Evaluation is limited by large right pleural effusion recommending repeat CT after resolution/thoracentesis of the effusion. PET?CT may also be considered. Multiple enlarged mediastinal lymph nodes. Patient CT abdomen pelvis with IV contrast showed extensive and confluence retroperitoneal soft tissue mass as well as mesenteric adenopathy highly concerning for a lymphoproliferative process such as lymphoma. Delayed bilateral nephrograms and bilateralhydroureteronephrosis secondary to obstruction of the distal ureters from mass effect of the retroperitoneal mass/node. Soft tissue mass nearly completely encases the IVC and aorta as wellas bilateral common iliac arteries. Extensive adenopathy is noted throughout the abdomen and bilateral externaliliac chains. Findings highly suggestive of lymphoproliferative process. At this point in time do not have urology on-call and do believe the patient will benefit from transfer. Patient would prefer to go to [facility]. Discussed the case with Dr. Perez from [facility] who accept patient for transfer admission. Patient and for members at bedside were notified are agreeable this plan all question concerns answered.He will be transferred in stable condition Lab Data Labs: Laboratory Results - last 24 hr 12/04/24 11:35 WBC 6.8 RBC 3.69 L Hgb 11.0 L Hct 33.5 L MCV 90.8 MCH 29.8 MCHC 32.8 RDW Std Deviation 47.6 H RDW Coeff of Sunil 14.3 Plt Count 285 MPV 9.5 Immature Gran % (Auto) 0.700 Neut % (Auto) 73.3 H Lymph % (Auto) 9.[address] [place] % (Auto) 14.1 H Eos % (Auto) 1.9 Baso % (Auto) 1.0 Absolute Neuts (auto) 5.0 Absolute Lymphs (auto) 0.61 L Nucleated RBC % 0 Sodium 133 Potassium 5.0 Chloride 96 L Carbon Dioxide 23.7 Anion Gap 13 BUN 32 H Creatinine 2.27 H Estim Creat Clear Calc 54.57 Est GFR (MDRD) Non-Af 34 L BUN/Creatinine Ratio 14.3 Glucose 114 H Calcium 13.9 H* Total Bilirubin 0.85 AST 44 H ALT 26 Alkaline Phosphatase 65 Total Protein 6.7 Albumin 3.6 Globulin 3.1 Albumin/Globulin Ratio 1.1 Lipase 25 TSH 1.970 Free T4 1.40 Free T3 pg/dL 2.2 Radiography Diagnostic Testing: Clinical Impression(s) from Imaging Studies Abdomen/Pelvis CT 12/04/24 11:21 IMPRESSION: 1. Extensive and confluence retroperitoneal soft tissue mass as well as mesenteric adenopathy as described above, highly concerning for lymphoproliferative process, such as lymphoma. 2. Delayed bilateral nephrograms and bilateral hydroureteronephrosis secondary to obstruction of the distal ureters from mass effect of the retroperitoneal mass/node 3. Splenomegaly and a 4 x 3.2 cm upper pole enhancing mass, also likely secondary to lymphomatous involvement. Reading [facility] 12/04/24 11:21 IMPRESSION: Occlusion of the right lower lobe bronchus, suggestive of an underlying mass or mucous plugging. Evaluation is limited by large right pleural effusion. Recommend repeat CT after resolution/thoracentesis of the effusion. PET-CT may also be considered. Multiple enlarged mediastinal lymph nodes. Findings suggestive of a lymphoproliferative process, ormetastasis, given the partially imaged left lower neck soft tissue mass. Reading Location: [facility] Soft Tissue Neck CT 12/04/24 11:21 IMPRESSION: 5.5 x 7.7 x 7.3 cm left carotid space and inferior neck soft tissue mass spleen the left IJ, retromandibular vein as well as the common carotid artery, with mass effect as described above. Differential considerations for this mass include a paraganglioma, metastatic mass or large adenopathy. Multiple prominent-mildly enlarged neck nodes, suspicious for metastasis. Reading Location[facility] Brain CT 12/04/24 11:23 IMPRESSION: No acute intracranial process. Reading Location: [facility] Discharge Plan Triage Chief Complaint: Nausea/Vomiting ED Provider: Hayden Dutta Dx/Rx/DC Orders Clinical Impression: Pleural effusion, right, Mass in neck, Nausea & vomiting, Acute kidney injury, Abnormal computed tomography of abdomen and pelvis Prescriptions: No Action Eliquis 5 mg tablet 5 mg PO BID lisinopril 20 mg tablet 20 mg PO DAILY Primary Care Provider: RODOLFO SMITH Referrals: Bk Raphael MD [Med Staff - Active Staff] - Print Language: Icelandic Disposition Disposition: DC/Tx to Another Type of HCF What to do if you have Problems For any increased pain, shortness of breath, bleeding, nausea or vomiting, chestpain, or any unexpected problems, contact your Primary Care Provider. Call [facility] ([phone]) or report tothe closest Emergency Room. Call 911 if necessary. 12/04/24 1748 Cosigner Signature (if applicable): CC: RODOLFO LELENETTIEKARLOS ~ Signed [facility]05-11-2025 Radiology Diagnostic study note [facility] Imaging Services [address] [place] [address] Abdomen/Pelvis W IV Cont ONLY MR#: [id number] Acct: [id number] Name: CISCO CARPENTER Rep #: [id number] : 1975 M 49 From: Olga Chen MD PCP: RODOLFO SMITH Status: REG ER Study:Abdomen/Pelvis W IV Cont ONLY Date of E xam: 12/04/24 Exam# [id number] Ordering Dr: Natasha Dutta DO PROCEDURE: ABDOMEN/PELVIS W IV CONT ONLY 12/04/2024 REASON FOR EXAM: N/V GETTING WORSE LAST 3 WKS TECHNIQUE: Abdomen and pelvis CT with intravenous contrast. Coronal and Sagittal reconstruction series were provided. PATIENT PREPARATION: Per protocol ORAL CONTRAST TYPE: None. AMOUNT: mL CONTRAST: Omnipaque 350 VOLUME: 100 mL Not Provided Gauge IV One or more dose reduction techniques were used (e.g., Automated exposure control, adjustment of the mA and/or kV according to patient size, use of iterative reconstruction technique. COMPARISON: None FINDINGS: Lung bases: Please see the same-day CT of the abdomen and pelvis report. Liver: Normal size. No mass. Gallbladder: Unremarkable. Spleen: Splenomegaly, craniocaudal length 14.4 cm. 4 x 3.2 cm enhancing mass within the upper pole,(series 610 image 96, series 7 image 38). Pancreas: Normal size without evidence of mass surrounding inflammation or ductal dilation. Adrenals: Unremarkable. Kidneys: Delete bilateral nephrogram. Findings slightly worse on the right. Bilateral hydroureteronephrosis. Limited visualization of the distal ureter due to confluence with retroperitoneal mass. Bladder: Urinary bladder is unremarkable. Reproductive Organs: No pelvic mass. Bowel: No bowel dilation. Appendix: The appendix is not identified. There is no inflammatory process identified in the right lower quadrant to suggest appendicitis. Lymph nodes: Extensive retroperitoneal adenopathy, with areas of confluence masslike lymph nodes. For example (series 7, image 71). There is a 5.2 x 3.3 cm left para-aortic node and a 5.3 x 2.9 cm aortocaval node (series 7, image 70). Confluent soft-tissue mass nearly completely encases the IVC and aorta as well as bilateral common iliac arteries. Extensive adenopathy is noted throughout the abdomen and bilateral external iliac chains. Findings are highly suggestive ofa lymphoproliferative process. Vasculature: Mild diffuse atherosclerotic calcifications are noted. Peritoneum / Retroperitoneum: Diffuse mesenteric soft tissue stranding and nodularity. No pneumoperitoneum. No ascites. Bones: No suspicious osseous lesions. Soft tissue: Diffuse subcutaneous soft tissue stranding. CT/Abdomen/Pelvis W IV Cont ONLY IMPRESSION: 1. Extensive and confluence retroperitoneal soft tissue mass as well as mesenteric adenopathy as described above, highly concerning for lymphoproliferative process, such as lymphoma. 2. Delayed bilateral nephrograms and bilateral hydroureteronephrosis secondary to obstruction of the distal ureters from mass effect of the retroperitoneal mass/node 3. Splenomegaly and a 4 x 3.2 cm upper pole enhancing mass, also likely secondary to lymphomatous involvement. Reading Location: [facility] CC: RODOLFO SMITH; Dr. Hayden Dutta DO ~ Level Vial Marker: Signed [facility]05-11-2025 Radiology Diagnostic study note [facility] Imaging Services [address] [place], [place] [id number] Chest WITH Contrast MR#: [id number] Acct: [id number] Name: CISCO CARPENTER Rep #: [id number] : 1975 M 49 From: Olga Chen MD PCP: RODOLFO SMITH Status: REG ER Study:Chest WITH Contrast Date of Exam: 12/04/24 Exam# [id number] Ordering Dr: Natasha Dutta DO PROCEDURE: CHEST WITH CONTRAST 12/04/2024 REASON FOR EXAM: NECK MASS, N/V TECHNIQUE: Prone and supine chest CT with intravenous contrast, high resolution CT (HRCT) protocol. Coronal and Sagittal reconstruction series were provided. CONTRAST: Omnipaque 350 VOLUME: 100 mL Not Provided Gauge IV One or more dose reduction techniques were used (e.g., Automated exposure control, adjustment of the mA and/or kV according to patient size, use of iterative reconstruction technique). COMPARISON: None FINDINGS: Hardware: None Lymph nodes: Multiple enlarged predominantly mediastinal lymph nodes are noted. For example a 16 mmright upper paratracheal lymph node (series 5 image 43); multiple cluster of subcarinal node, with the largest measuring 16 mm. Heart and Vasculature: Normal heart size. No pericardial effusion. Thoracic aorta and pulmonary arteries are unremarkable. Lungs and Airways: Trachea is patent. There is abrupt cutoff of the right lowerlobe bronchus, with resultant right lower lobe atelectasis. Large right pleural effusion. Scattered ground-glass opacities right upper lobe, likely infectious/inflammatory etiology. No suspicious pulmonary nodule. No pneumothorax. Upper Abdomen: Please see the same-day CT abdomen and pelvis. Bones: Bone windows are unremarkable. Chest wall and mediastinum: Thyroid gland is unremarkable. Partially imaged soft tissue mass left lower neck. Please see the same day CT neck report. Esophagus is nondilated. CT/Chest WITH Contrast IMPRESSION: Occlusion of the right lower lobe bronchus, suggestive of an underlying mass or mucous plugging. Evaluation is limited by large right pleural effusion. Recommend repeat CT after resolution/thoracentesis of the effusion. PET-CT may also be considered. Multiple enlarged mediastinal lymph nodes. Findings suggestive of a lymphoproliferative process, ormetastasis, given the partially imaged left lower neck soft tissue mass. Reading Location: [facility] CC: RODOLFO SMITH; Dr. Hayden Dutta DO ~ Level Vial Marker: Signed [facility]05-11-2025 Radiology Diagnostic study note [facility] Imaging Services [address] [place] [address] Soft Tissue Neck WITH Contrast MR#: [id number] Acct: [id number] Name: CISCO CARPENTER Rep #: [id number] : 1975 M 49 From: Olga Chen MD PCP: RODOLFO SMITH Status: [facility] Study:Soft Tissue Neck WITH Contrast Date of Exam: 12/04/24 Exam# [id number] Ordering Dr: Natasha Dutta DO PROCEDURE: SOFT TISSUE NECK WITH CONTRAST 12/04/2024 REASON FOR EXAM: LEFT NECK MASS TECHNIQUE: CT of the soft tissues of the neck from the orbits to the upper mediastinum withintravenous contrast. CONTRAST: Omnipaque 350 VOLUME: 100 mL Not Provided Gauge IV One or more dose reduction techniques were used (e.g., Automated exposure control, adjustment of the mA and/or kV according to patient size, use of iterative reconstruction technique). COMPARISON: None FINDINGS: Lymph nodes: Multiple prominent-mildly enlarged bilateral jugulodigastric, level3-level 5 lymph nodes. For example 2.0 left and 2.1 cm right level 2A node. Multiple other enlarged nodes are noted within the neck. small nonspecific lymph nodes are scattered throughout the neck. Soft tissue: Within the left lower neck, at the level of the carotid space, there is a 5.5 x 7.7 x 7.3 cm soft tissue mass (series 6, image 35, series 608, image 55). The mass splays the left common carotid and the left ventricle retromandibular vein. There is mass effect on the adjacent internal jugular vein and left common carotid artery. The massalso anteriorly displaced the sternocleidomastoid muscle. Aerodigestive tract: The oral cavity is partially obscured by artifact from dental amalgam. The nasal cavities, naso-oropharynx, pharyngeal mucosal space, laryngeal structures and infraglottictrachea are within normal limits. Major salivary glands: Within normal limits. Thyroid gland: Within normal limits. Carotid space: Patent bilateral extracranial carotid and jugular systems. Intracranial contents: Imaged portions within normal limits. Paranasal sinuses, middle ears, mastoids: Clear. Orbits: Within normal limits. Bones: No suspicious osseous lesions in the imaged calvarium, skull base and spine. Normal cervicothoracic alignment. No significant spondylotic changes. Temporomandibular joints are maintained. Lungs: Partially imaged large right pleural effusion.. CT/Soft Tissue Neck WITH Contrast IMPRESSION: 5.5 x 7.7 x 7.3 cm left carotid space and inferior neck soft tissue mass spleen the left IJ, retromandibular vein as well as the common carotid artery, with mass effect as described above. Differential considerations for this mass include a paraganglioma, metastatic mass or large adenopathy. Multiple prominent-mildly enlarged neck nodes, suspicious for metastasis. Reading Location: [facility] CC: RODOLFO SMITH; Dr. Hayden Dutta DO ~ Level Vial Marker: Signed [facility]05-11-2025 Discharge summary Author Hayden Dutta [facility] Note Date/Time December 04, 2024 5:48p m [facility] Medical Records Department [address] [place] [address] Emergency Department Summary 12/04/24 MR#: [id number] Acct: [id number] Name: CISCO CARPENTER Rep #:[id number] : 1975 49 From: Hayden Dutta DO PCP: RODOLFO SMITH Status:REG ER Location: ED HPI History of Present Illness Chief Complaint: Nausea/Vomiting Narrative Narrative: Patient is a 49-year-old male past medical history of bilateral lower extremity DVTs on Eliquis not missing any doses, hypertension, alcohol use, tobacco use quit in 2011 who presents to the emergency department with a chief complaint of nausea and vomiting. Patient states that for the last 3 weeks she has had nausea vomiting and had been difficulty keeping food down. He states that he will eat and then few hours later he will immediately vomits. Patient denies any weight loss. He does complain of a lump on the left side of his neck he states that it has been there for a few weeks he states that originally was so small he followed up with a doctor and noted that this was likely a lymph node at that point in time. Patient states that he has not seen physician since it has increased in size. Patient's family member at bedside states that he has been extremely sleepy lately as well which is abnormal for him. Patient also noted that he is unsure of why he exactly developed blood clots in his legs and he states that he was seen at an outside facility for this. [facility] Medical History HTN (hypertension) DVT (deep venous thrombosis) Home Medications ?Medication ?Instructions ?Recorded ?Last Taken ?Type apixaban 5 mg tablet (Eliquis) 5 mg PO BID 12/04/24 History lisinopril 20 mg tablet 20 mg PO DAILY 12/04/2411/24 History Allergy/AdvReac Type Severity Reaction Status Date / Time No Known Allergies Allergy Verified 12/04/24 11:11 Social History Smoking Status: Former smoker ROS ROS ED ROS Narrative Constitutional: Denies headache, lightness, disease confusion, chills Eyes: Denies change in vision double vision blurry vision Neck: Complains of masses noted above Cardiovascular: Denies chest pain or palpitations Respiratory: Denies cough wheezing shortness of breath Abdomen: Complains of nausea and vomiting : Denies urinary symptoms Neurological: Denies numbness, weakness, tingling Musculoskeletal: Denies back pain Skin: Denies rashes or lesions EXAM Physical Exam Narrative Exam Narrative: General: Patient lying in bed rest comfortably did not appear to be acute distress Head: Atraumatic, normocephalic Eyes: PERRL bilaterally, EOMI bilaterally, no conjunctival injection noted Neck: Soft, supple, trachea midline, patient does have a soft tissue mass noted just above his clavicle/lower neck region Cardiovascular: Regular rate and rhythm Respiratory: Clear to auscultation bilaterally Abdomen: Soft, nondistended, nontender to palpation Extremities: +5/5 strength noted in the bilateral upper and lower extremities Neurological: Patient following commands knew that he was at [facility] year is 2024 Skin: Warm, dry, intact no rashes or lesions noted Const Vital Signs: 12/04/24 11:09 12/04/24 13:09 12/04/24 15:00 Temperature 98.3 F Temperature Source Oral Pulse Rate 98 85 86 Respiratory Rate 18 14 14 Blood Pressure 130/118 H 150/78 H 157/88 H Blood Pressure Mean 122 102 111 Pulse Ox 98 94 96 Oxygen Delivery Method Room Air MDM MDM MDM Narrative Medical decision making narrative: Patient is a 49-year-old male who presented to the emergency department the chief complaint of nausea vomiting, soft tissue mass in the left side of his lower neck. On the differential diagnosis includes but not limited to hypothyroidism, thyroid cancer, cancer with metastases. Once workup is obtainedreviewed he will be reevaluated. Patient be given Zofran for nausea. Patient's CBC was reviewed and showed a white blood count of 6.8, hemoglobin stable at 11, platelet count was noted to be 285. Patient sodium normal 133, potassium normal at 5, creatinine was elevated 2.27 indicating acute kidney injury, calcium elevated at 13.9 patient was given IV fluids. Patient TSH normal at 1.97, free T4 and T3 normal at 1.40 and [address] head and brain without contrast was reviewed and showed no acute intracranial processes. Patient's CT soft tissue neck reviewed and showed a 5.5 x 7.7 x 7.3 cm left carotid space and inferior neck soft tissue mass. The mass encases the left common carotid and the left ventricle retromandibular vein. Mass effect onthe adjacent internal jugular vein and the left common carotid artery. The massalso anteriorly displaced the sternocleidomastoid muscle. Multiple prominent mildly enlarged neck node suspicious for metastases noted. Patient CT chest wasreviewed and showed occlusion of the right lower lobe bronchus suggestive of underlying mass or mucous plugging. Evaluation is limited by large right pleural effusion recommending repeat CT after resolution/thoracentesis of the effusion. PET?CT may also be considered. Multiple enlarged mediastinal lymph nodes. Patient CT abdomen pelvis with IV contrast showed extensive and confluence retroperitoneal soft tissue mass as well as mesenteric adenopathy highly concerning for a lymphoproliferative process such as lymphoma. Delayed bilateral nephrograms and bilateral hydroureteronephrosis secondary to obstruction of the distal ureters from mass effect of the retroperitoneal mass/node. Soft tissue mass nearly completely encases the IVC and aorta as wellas bilateral common iliac arteries. Extensive adenopathy is noted throughout the abdomen and bilateral external iliac chains. Findings highly suggestive of lymphoproliferative process. At this point in time do not have urology on-call and do believe the patient will benefit from transfer. Patient would prefer to go to [facility]. Discussed the case with Dr. Perez from [facility] who accept patient for transfer admission. Patient and for members at bedside were notified are agreeable this plan all question concerns answered. He will be transferred in stable condition Lab Data Labs: Laboratory Results - last 24 hr 12/04/24 11:35 WBC 6.8 RBC 3.69 L Hgb 11.0 L Hct 33.5 L MCV 90.8 MCH 29.8 MCHC 32.8 RDW Std Deviation 47.6 H RDW Coeff of Sunil 14.3 Plt Count 285 MPV 9.5 Immature Gran % (Auto) 0.700 Neut % (Auto) 73.3 H Lymph % (Auto) 9.[address] [place] % (Auto) 14.1 H Eos % (Auto) 1.9 Baso % (Auto) 1.0 Absolute Neuts (auto) 5.0 Absolute Lymphs (auto) 0.61 L Nucleated RBC % 0 Sodium 133 Potassium 5.0 Chloride 96 L Carbon Dioxide 23.7 Anion Gap 13 BUN 32 H Creatinine 2.27 H Estim Creat Clear Calc 54.57 Est GFR (MDRD) Non-Af 34 L BUN/Creatinine Ratio 14.3 Glucose 114 H Calcium 13.9 H* Total Bilirubin 0.85 AST 44 H ALT 26 Alkaline Phosphatase 65 Total Protein 6.7 Albumin 3.6 Globulin 3.1 Albumin/Globulin Ratio 1.1 Lipase 25 TSH 1.970 Free T4 1.40 Free T3 pg/dL 2.2 Radiography Diagnostic Testing: Clinical Impression(s) from Imaging Studies Abdomen/Pelvis CT 12/04/24 11:21 IMPRESSION: 1. Extensive and confluence retroperitoneal soft tissue mass as well as mesenteric adenopathy as described above, highly concerning for lymphoproliferative process, such as lymphoma. 2. Delayed bilateral nephrograms and bilateral hydroureteronephrosis secondary to obstruction of the distal ureters from mass effect of the retroperitoneal mass/node 3. Splenomegaly and a 4 x 3.2 cm upper pole enhancing mass, also likely secondary to lymphomatous involvement. Reading Location: [facility] Chest CT 12/04/24 11:21 IMPRESSION: Occlusion of the right lower lobe bronchus, suggestive of an underlying mass or mucous plugging. Evaluation is limited by large right pleural effusion. Recommend repeat CT after resolution/thoracentesis of the effusion. PET-CT may also be considered. Multiple enlarged mediastinal lymph nodes. Findings suggestive of a lymphoproliferative process, or metastasis, given the partially imaged left lower neck soft tissue mass. Reading Location: [facility] Soft Tissue Neck CT 12/04/24 11:21 IMPRESSION: 5.5 x 7.7 x 7.3 cm left carotid space and inferior neck soft tissue mass spleen the left IJ, retromandibular vein as well as the common carotid artery, with mass effect as described above. Differential considerations for this mass include a paraganglioma, metastatic mass or large adenopathy. Multiple prominent-mildly enlarged neck nodes, suspicious for metastasis. Reading Location: [facility] Brain CT 12/04/24 11:23 IMPRESSION: No acute intracranial process. Reading Location: [facility] Discharge Plan Triage Chief Complaint: Nausea/Vomiting ED Provider: Hayden Dutta Dx/Rx/DC Orders Clinical Impression: Pleural effusion, right, Mass in neck, Nausea & vomiting, Acute kidney injury, Abnormal computed tomography of abdomen and pelvis Prescriptions: No Action Eliquis 5 mg tablet 5 mg PO BID lisinopril 20 mg tablet 20 mg PO DAILY Primary Care Provider: RODOLFO SMITH Referrals: Bk Raphael MD [Med Staff - Active Staff] - Print Language: Icelandic Disposition Disposition: DC/Tx to Another Type of HCF What to do if you have Problems For any increased pain, shortness of breath, bleeding, nausea or vomiting, chestpain, or any unexpected problems, contact your Primary Care Provider. Call [facility] ([phone]) or report to the closest Emergency Room. Call 911 if necessary. 12/04/24 1748 <Electronically signed by Hayden Dutta DO> Cosigner Signature (if applicable): CC: RODOLFO SMITH ~ Signed [facility] Work Phone: [phone]) 529-961005-11-2025 Radiology Diagnostic study note [facility] Imaging Services [address], [place] [address] Brain/Head without Contrast MR#: [id number] Acct: [id number] Name: CISCO CARPENTER Rep #: [id number] : 1975 M 49 From: Keya Graham MD PCP: RODOLFO SMITH Status: REG ER Study:Brain/Head without Contrast Date of Exa m: 12/04/24 Exam# [id number] Ordering Dr: Natasha Dutta DO PROCEDURE: BRAIN/HEAD WITHOUT CONTRAST 12/04/2024 REASON FOR EXAM: NECK MASS/ N/V TECHNIQUE: Head CT without intravenous contrast. Coronal and Sagittal reconstruction serieswere provided. One or more dose reduction techniques were used (e.g., Automated exposure control, adjustment of the mA and/or kV according to patient size, use of iterative reconstruction technique. RADIATION DOSE SUMMARY: DLP: 830 mGycm COMPARISON: none FINDINGS: There is no acute infarct, intracranial hemorrhage, or mass effect. There is no hydrocephalus or significant midline shift. No acute, depressed calvarial fractures. No large scalp hematomas. Retention cyst within the right maxillary sinus. CT/Brain/Head without Contrast IMPRESSION: No acute intracranial process. Reading Location: [facility] CC: RODOLFO SMITH; Dr. Hayden Dutta DO ~ Level Vial Marker: Signed [facility] noteNo assessment information available [facility] Work Phone: Evaluation note* Diagnosis Pleural effusion- Primary Unspecified pleural effusion Encounter for preprocedural laboratory examination- Primary documented in this encounter [facility] note* Diagnosis Fluid in chest cavity associated with lung infection- Primary Fluid in chest cavity associated with lung infection intermediate frame tender (current) use of antibiotics documented in this encounter [facility] note* Diagnosis 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 documented in this encounter [facility] note* Diagnosis 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)- Primary documented in this encounter [facility] note* Diagnosis 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)- Primary documented in this encounter [facility] note* Diagnosis 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)- Primary documented in this encounter [facility] note* Diagnosis 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 Oumou Arias MD [address] [place] [address] Phone: tel: fax: [facility] Surgical Progressive Care Unit [address] [place] [address] Phone: tel: Referral ID Status Reason Start Date Expiration Date Visits Re quested Visits Authorized [id number] [address] 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 Chief Complaint and Reason for Visit Reason for Visit RIGHT LEG PAIN Chief Complaint Admit Date nausea December 04, 2024 11:08 am Chief Complaint Admit Date nausea December 04, 2024 11:08 am sob December 26, 2024 4:51p m Advance Directives Advance Directive Response Recorded Date/ Time Advanced Directive: N November 08, 2024 1:18pm Organ Donation Card: Y November 08, 2024 1:18pm Advance Directive Response Recorded Date/ Time Do you have a Healthcare Power of Hotel Night Auditor? No December 04, 2024 11:19am Date Activated Date Inactivated Comments 12/04/2024 9:04 PM 12/15/2024 8:56 PM Advance Directive Response Recorded Date/ Time Do you have a Healthcare Power of Hotel Night Auditor? No December 04, 2024 11:19am Do you have a Healthcare Power of Hotel Night Auditor? No December 26, 2024 6:24pm Date Activated Date Inactivated Comments 12/27/2024 5:45 AM 12/30/2024 8:25 PM Date Activated Date Inactivated Comments 12/04/2024 9:04 PM 12/15/2024 8:56 PM Date Activated Date Inactivated Comments 12/27/2024 5:45 AM 12/30/2024 8:25 PM Date Activated Date Inactivated Comments 12/04/2024 9:04 PM 12/15/2024 8:56 PM Summary Purpose Family History No Family History Records FoundNo Family History Records FoundNo Family History Records Found Additional Source Comments Care Teams (unrecognized sec tion and content) Team Status: Active Member Role Status Dates None primary care physician Active Start : November 08, 2024 Reji Oshea MD EMERGENCY Active Start: 2024 None FAMILY Active Start: November 082024 CHARISSA CARPENTER Next of Kin Active Start: October 252024 CISCO CARPENTER Guarantor Active Start: November 082024 Team Status: Active Member Role Status Dates RODOLFO SMITH Primary Care Provider Active Team Status: Inactive Member Role Status Dates Dr. Hayden Dutta DO Emergency Provider Active Start: December 04, 2024 End: December 04, 2024 BRETT LEVY Primary Care Provider Active Sta rt: December 04, 2024 End: December 04, 2024 Manager Managed Backup Services Relationship Specialty Start Date End Date Gary Lucio MD [address] [place] [address] Medical Oncology 12/10/24 Lenora Chua, RN Registered Nurse Client Services Analyst Manager 12/20/24 Manager Managed Backup Services Relationship Specialty Start Date End Date Gary Lucio MD [address] [place] [address] Medical Oncology 12/10/24 Lenora Chua, RN Registered Nurse Client Services Analyst Manager 12/20/24 Team Status: Active Member Role Status Dates No Primary Care Physician Primary Care Provider Active Team Status: Inactive Member Role Status Dates Dr. Hayden Dutta DO Attending Provider Active Start: December 04, 2024 End: December 04, 2024 Dr. Hayden Dutta DO Emergency Provider Active Start: December 04, 2024 End: December 04, 2024 BRETT LEVY Primary Care Provider Active Sta rt: December 04, 2024 End: December 04, 2024 Team Status: Inactive Member Role Status Dates Bernardino Burnette MD Emergency Provider Active Star t: December 26, 2024 End: December 27, 2024 No Primary Care Physician Primary Care Provider Active Start: December 26, 2024 End: December 27, 2024 Manager Managed Backup Services Relationship Specialty Start Date End Date Gary Lucio MD [address] [place] [address] Medical Oncology 12/10/24 Lenora Chua RN Registered Nurse Client Services Analyst Manager 12/20/24 Gary Lucio MD [address] [place] [address] Medical Oncology 12/30/24 Manager Managed Backup Services Relationship Specialty Start Date End Date Gary Lucio MD [address] [place] [address] Medical Oncology 12/10/24 Lenora Chua RN Registered Nurse Client Services Analyst Manager 12/20/24 Gary Lucio MD [address] [place] [address] Medical Oncology 12/30/24 Manager Managed Backup Services Relationship Specialty Start Date End Date Gary Lucio MD [address] [place] [address] Medical Oncology 12/10/24 Lenora Chua RN Registered Nurse Client Services Analyst Manager 12/20/24 Gary Lucio MD [address] [place] [address] Medical Oncology 12/30/24 Manager Managed Backup Services Relationship Specialty Start Date End Date Gary Lucio MD [address] [place] [address] Medical Oncology 12/10/24 Lenora Chua RN Registered Nurse Client Services Analyst Manager 12/20/24 Gary Lucio MD [address] [place] [address] Medical Oncology 12/30/24 Manager Managed Backup Services Relationship Specialty Start Date End Date Gary Lucio MD [address] [place] [address] Medical Oncology 12/10/24 Lenora Chua RN Registered Nurse Client Services Analyst Manager 12/20/24 Gary Lucio MD [address] [place] [address] Medical Oncology 12/30/24 Manager Managed Backup Services Relationship Specialty Start Date End Date Gary Lucio MD [address] [place] [address] Medical Oncology 12/10/24 Lenora Chua RN Registered Nurse Client Services Analyst Manager 12/20/24 Gary Lucio MD [address] [place] [address] Medical Oncology 12/30/24 Manager [employer] Relationship Specialty Start Date End Date Gary Lucio MD [address] [place] [address] Medical Oncology 12/10/24 Harshil, Lenora, RN Registered Nurse Client Services Analyst Manager 12/20/24 Gary Lucio MD [address] [place] [address] Medical Oncology 12/30/24 Manager [employer] Relationship Specialty Start Date End Date Gary Lucio MD [address] [place] [address] Medical Oncology 12/10/24 Lenora Chua RN Registered Nurse Client Services Analyst Manager 12/20/24 Gary Lucio MD [address] [place] [address] Medical Oncology 12/30/24 Manager [employer] Relationship Specialty Start Date End Date Gary Lucio MD [address] [place] [address] Medical Oncology 12/10/24 Lenora Chua RN Registered Nurse Client Services Analyst Manager 12/20/24 Gary Lucio MD [address] [place] [address] Medical Oncology 12/30/24 Manager [employer] Relationship Specialty Start Date End Date Gary Lucio MD [address] [place] [address] Medical Oncology 12/10/24 Lenora Chua, RN Registered Nurse Client Services Analyst Manager 12/20/24 Gary Lucio MD [address] [place] [address] Medical Oncology 12/30/24 Gary Abel MD [address] [place] [id number] Surgeon Urology 01/09/25 Goals (unrecognized section and content) Goals may be documented in a n alternate sectionGoals may be documented in an alternate sectionGoals may be documented in an alternate sectionGoals may be documented in an alternate section Reason for Visit (unrecogniz ed section and content) Reason Comments Follow-up Reason Onset Date Comments Transitional Care Management Outreach 12/22/2024 Neck Mass 12/22/2024 KARAN (acute kidney injury) 12/22/2024 Hydronephrosis 12/22/2024 Lymphoma 12/22/2024 Reason Comments Social Work Reason Comments Injections Specialty Diagnoses / Procedures Referred By Contac t Referred To Contact Diagnoses 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) Gary Lucio MD [address] [address] Phone: tel: fax: Gary Lucio MD [address] [facility] [address] [place] [address] Phone: tel: fax: Referral ID Status Reason Start Date Expiration Date V isits Requested Visits Authorized [id number] Pending Review 12/10/2024 12/05/2025 1 1 Reason Onset Date Comments Transitional Care Management Outreach 01/05/2025 Pneumonia 01/05/2025 Infection 01/05/2025 MSSA--PICC line antibiotics Reason Onset Date Comments Request For Order(s) 01/03/2025 Follow Up After Procedure 01/03/2025 Scheduled Active and Recently Administ ered Medications (unrecognized section and content) Medication Order 12/28/2024 12/29/2024 12/30/2024 allopurinol (Zyloprim) tablet 150 mg 150 mg, Oral, Daily, First dose on Thu12/27/24 at 0900 0744 (Given - Provider: Nikky Edwards RN) 0842 (Given - Provider: Nikky Edwards RN) 0902 (Given - Provider: Apple Ramsey RN) apixaban (Eliquis) tablet 5 mg 5 mg, Oral, 2 times daily, First dose on Thu12/27/24 at 0900, Anticoagulant 0900 (Dose Auto Held)2100 (Dose Auto Held) 0900 (Dose Auto Held)1508 (Unheld by provider - Provider: Harinder Negron MD)2003 (Given - Provider: Maribel Beal, RUFINO) 901 (Given - Provider: Apple Ramsey, RN) ceFAZolin (Ancef) 2,000 mg in sodium chloride 0.9 % 100 mL IVPB 2,000 mg, IntraVENous, at 200 mL/hr, Administer over 30 Minutes, Every 8 hours, First dose on Thu12/30/24 at 1400, Mini-Bag Plus bag, Suspected Indication (Select all that apply): Pneumonia (CAP) 1719 (New Bag - Provider: Apple Ramsey, RN)1749 (Due: Stopped - Provider: Apple Ramsey, RN) chlorhexidine (Hibiclens) 4 % solution Topical, Daily, First dose on Thu12/31/24 at 1400 piperacillin-tazobactam (Zosyn) 4,500 mg in sodium chloride 0.9 % 100 mL IVPB Mini-Bag Plus (CANCELED) 4,500 mg, IntraVENous, at 33.3 mL/hr, Administer over 3 Hours, Every 6 hours, First dose on Thu12/27/24 at 0600, Mini-Bag Plus bag, Suspected Indication (Select all that apply): Pneumonia (HAP) 0005 (New Bag - Provider: Jaylen Barba RN)0305 (Stopped - Provider: Jaylen Barba RN)0500 (New Bag - Provider: Jaylen Barba RN)1150 (Stopped - Provider: Nikky Edwards RN)1435 (New Bag - Provider: Nikky Edwards RN)1733 (Stopped - Provider: Nikky Edwards RN)1801 (New Bag - Provider: Nikky Edwards, RUFINO)2231 (Stopped - Provider: Antonella Chavez RN)2335 (New Bag - Provider: Antonella Chavez RN) 0307 (Stopped - Provider: Antonella Chavez RN)0630 (New Bag - Provider: Antonella Chavez RN)1024 (Stopped - Provider: Nikky Edwards RN)1315 (New Bag - Provider: Nikky Edwards RN)1629 (Stopped - Provider: Nikky Edwards, RUFINO)1827 (New Bag - Provider: Nikky Edwards RN)2047 (Stopped - Provider: Maribel Beal RN) 0058 (New Bag - Provider: Maribel Beal RN)0323 (Stopped - Provider: Maribel Beal RN)0519 (New Bag - Provider: Maribel Beal RN)0902 (Stopped - Provider: Apple Ramsey RN)1253 (New Bag - Provider: Apple Ramsey RN)1719 (Stopped - Provider: Apple Ramsey RN) senna-docusate sodium (Senokot-S) 8.6-50 MG tablet 1 tablet 1 tablet, Oral, Daily, First dose on Thu12/27/24 at 0900 0744 (Given - Provider: Nikky Edwards RN) 0842 (Given - Provider: Nikky Edwards RN) 0902 (Given - Provider: Apple Ramsey RN) sodium chloride 0.9% (NS) flush 10 mL 10 mL, IntraCATHeter, Every 12 hours, First dose on Thu12/30/24 at 1300, Administer to each lumen. Line Care. Use 10 mL or larger syringe. 1720 (Given - Provider: Apple Ramsey RN) sodium chloride 0.9% (NS) flush 5-40 mL 5-40 mL, IntraVENous, Every 12 hours, First dose on Thu12/27/24 at 0600, For Line Patency: Peripheral IV = 5 mL; Midline or Central Line = 10 mL/lumen. If following IV push medication, administer flush at same rate as the IV push. Flush volume is determined by type of infusion therapy being given. For non-viscous solutions use: Peripheral IV = 5 mL Midline or Central Line = 10 mL/lumen For viscous solutions (i.e. blood components, parenteral nutrition, contrast media, or after obtaining blood sample) use: Peripheral IV = 10 mL Midline or Central Line = 20 mL/lumen 0440 (Not Given - Provider: Jaylen Barba RN - Reason: IV Fluids Infusing)1808 (Not Given - Provider: Nikky Edwards RN - Reason: IV Fluids Infusing) 0629 (Not Given - Provider: Antonella Chavez RN - Reason: IV Fluids Infusing)1719 (Not Given - Provider: Nikky Edwards RN - Reason: IV Fluids Infusing) 0519 (Not Given - Provider: Maribel Pupino, RN - Reason: IV Fluids Infusing)1800 (Canceled Entry - Provider: Automatic Discharge Provider - Comment: Automatically canceled at discontinue of medication order) vancomycin (Vancocin) 1750 mg in NS 500 mL IVPB (premix) (CANCELED)(Linked Group 1) 1,750 mg, IntraVENous, at 250 mL/hr, Administer over 120 Minutes, Every 12 hours, First dose (after last modification) on Thu12/28/24 at 1100, premix bag, Suspected Indication (Select all that apply): Pneumonia (HAP) 1206 (New Bag - Provider: Nikky Edwards, RN)1435 (Stopped - Provider: Nikky Edwards, RN)2334 (New Bag - Provider: Antonella Chavez, RN) 0307 (Stopped - Provider: Antonella Chavez RN)1119 (New Bag - Provider: Nikky Edwards, RN)1721 (Stopped - Provider: Nikky Edwards, RN)2244 (New Bag - Provider: Maribel Beal RN) 0057 (Stopped - Provider: Maribel Beal RN)1252 (New Bag - Provider: Apple Ramsey, RUFINO)1433 (Stopped - Provider: Apple Ramsey, RUFINO) PRN Medication Order 12/28/2024 12/29/2024 12/30/2024 acetaminophen (Tylenol) suppository 650 mg(Linked Group 2) 650 mg, Rectal, Every 6 hours PRN, fever, For temp greater than 100.4 F (38 C), Starting on Thu12/27/24 at 0542, Administer if oral route cannot be used. Maximum dose of acetaminophen is 4000 mg from all sources in 24 hours. acetaminophen (Tylenol) tablet 650 mg(Linked Group 2) 650 mg, Oral, Every 6 hours PRN, mild pain (1-3), fever, For temp greater than 100.4 F (38 C), Starting on Thu12/27/24 at 0542, Maximum dose of acetaminophen is 4000 mg from all sources in 24 hours. albuterol 108 (90 Base) MCG/ACT inhaler 2 puff 2 puff, Inhalation, Every 6 hours PRN, wheezing, shortness of breath, Starting on Thu12/27/24 at 0544, Administer using an inhaler spacer. fentaNYL (Sublimaze) injection (COMPLETED) IntraVENous, As needed, Starting on Thu12/28/24 at 0830, Intraprocedure 0830 (Given - Provider: Esther Davis, RN) HYDROmorphone (Dilaudid) injection 0.5 mg 0.5 mg, IntraVENous, Every 4 hours PRN, severe pain (7-10), 2nd line for breakthrough pain, Starting on Thu12/27/24 at 1340, If oral and IV narcotics ordered, use oral first and only use IV if oral is ineffective or cannot take oral. Do Not give oral and IV within 1 hour of each other unless specifically ordered. melatonin tablet 3 mg 3 mg, Oral, Nightly PRN, sleep, Starting on Thu12/27/24 at 0545 midazolam (Versed) injection (COMPLETED) IntraVENous, As needed, Starting on Thu12/28/24 at 0830, Intraprocedure 0830 (Given - Provider: Esther Davis, RN) naloxone (Narcan) injection 0.4 mg 0.4 mg, IntraVENous, Every 5 min PRN, opioid reversal, respiratory depression, Starting on Thu12/27/24 at 0546, +++ For RR <10, pinpoint pupils, over sedation for opioid reversal - MUST notify combination window installer provider immediately after first dose, may give IM or SQ if no IV access +++ ondansetron (Zofran) injection 4 mg(Linked Group 3) 4 mg, IntraVENous, Every 6 hours PRN, nausea, vomiting, Starting on Thu12/27/24 at 0542, 1st Line. Give IV if patient is unable to take orally. If inadequate response within 60 minutes, proceed to next-line agent or contact provider if no further options ordered. ondansetron ODT (Zofran-ODT) disintegrating tablet 4 mg(Linked Group 3) 4 mg, Oral, Every 8 hours PRN, nausea, vomiting, Starting on Thu12/27/24 at 0542, 1st Line. If inadequate response within 60 minutes, proceed to next-line agent or contact provider if no further options ordered. Patient should allow tablet to dissolve on tongue. Do not remove from blister pack until just before administering. oxyCODONE (Roxicodone) immediate release tablet 10 mg(Linked Group 4) 10 mg, Oral, Every 4 hours PRN, severe pain (7-10), Starting on Thu12/27/24 at 1340 oxyCODONE (Roxicodone) immediate release tablet 5 mg(Linked Group 4) 5 mg, Oral, Every 4 hours PRN, moderate pain (4-6), Starting on Thu12/27/24 at 1340 polyethylene glycol (PEG) 3350 (Miralax) packet 17 g 17 g, Oral, Daily PRN, constipation, Starting on Thu12/27/24 at 0542, 1st line for treatment of constipation - give scheduled if no bowel movement in past 24 hours. sodium chloride 0.9 % infusion 5-250 mL/hr, IntraVENous, PRN, if patient receiving piggyback infusions and maintenance fluids are not ordered OR KVO fluids to protect IV site / prevent frequent line interruptions / long duration, Starting on Thu12/27/24 at 0542, For piggyback infusion, administer at same rate as piggyback for a total of 25 mL. Enter 25 mL into dose field and piggyback rate into rate field of order. If piggyback is infusing at a rate less than 100 mL/hr, enter 25 mL into dose field and 100 mL/hr into rate field of order. For KVO fluids, enter rate of 20 mL/hr or less into rate field of order. sodium chloride 0.9% (NS) flush 10 mL 10 mL, IntraCATHeter, PRN, line care, before blood draws, before and after infusion or medication administration, Starting on Thu12/30/24 at 1258, Use 10 mL or larger syringe. sodium chloride 0.9% (NS) flush 5-40 mL 5-40 mL, IntraVENous, PRN, line care, After every IV line use, Starting on Thu12/27/24 at 0542, For Line Patency: Peripheral IV = 5 mL; Midline or Central Line = 10 mL/lumen. If following IV push medication, administer flush at same rate as the IV push. Flush volume is determined by type of infusion therapy being given. For non-viscous solutions use: Peripheral IV = 5 mL Midline or Central Line = 10 mL/lumen For viscous solutions (i.e. blood components, parenteral nutrition, contrast media, or after obtaining blood sample) use: Peripheral IV = 10 mL Midline or Central Line = 20 mL/lumen Linked Groups Order Group 1: vancomycin (Vancocin) 1750 mg in NS 500 mL IVPB (premix) (CANCELED)Jump to med 1,750 mg, IntraVENous, at 250 mL/hr, Administer over 120 Minutes, Every 12 hours, First dose (after last modification) on Thu12/28/24 at 1100, premix bag, Suspected Indication (Select all that apply): Pneumonia (HAP) Group 2: acetaminophen (Tylenol) tablet 650 mgJump to med 650 mg, Oral, Every 6 hours PRN, mild pain (1-3), fever, For temp greater than 100.4 F (38 C), Starting on Thu12/27/24 at 0542, Maximum dose of acetaminophen is 4000 mg from all sources in 24 hours. Or acetaminophen (Tylenol) suppository 650 mgJump to med 650 mg, Rectal, Every 6 hours PRN, fever, For temp greater than 100.4 F (38 C), Starting on Thu12/27/24 at 0542, Administer if oral route cannot be used. Maximum dose of acetaminophen is 4000 mg from all sources in 24 hours. Group 3: ondansetron ODT (Zofran-ODT) disintegrating tablet 4 mgJump to med 4 mg, Oral, Every 8 hours PRN, nausea, vomiting, Starting on Thu12/27/24 at 0542, 1st Line. If inadequate response within 60 minutes, proceed to next-line agent or contact provider if no further options ordered. Patient should allow tablet to dissolve on tongue. Do not remove from blister pack until just before administering. Or ondansetron (Zofran) injection 4 mgJump to med 4 mg, IntraVENous, Every 6 hours PRN, nausea, vomiting, Starting on Thu12/27/24 at 0542, 1st Line. Give IV if patient is unable to take orally. If inadequate response within 60 minutes, proceed to next-line agent or contact provider if no further options ordered. Group 4: oxyCODONE (Roxicodone) immediate release tablet 5 mgJump to med 5 mg, Oral, Every 4 hours PRN, moderate pain (4-6), Starting on Thu12/27/24 at 1340 Or oxyCODONE (Roxicodone) immediate release tablet 10 mgJump to med 10 mg, Oral, Every 4 hours PRN, severe pain (7-10), Starting on Thu12/27/24 at 1340 (unrecognized sect ion and content) No Status Records FoundNo Status Records FoundNo Status Records Found INFORMATION SOURCE (unrecogn ized section and content) DATE CREATED AUTHOR [facility]/08/2025 [facility] DATE CREATED AUTHOR AUTHOR'S ORGANIZ ATION 01/09/2025 [facility] DATE CREATED AUTHOR AUTHOR'S ORGANIZ ATION 01/10/2025 [facility] FOR RECORDS PERTAINING TO PATIENTS WHO ARE OR HAVE BEEN ENROLLED IN A CHEMICAL DEPENDENCY/SUBSTANCEABUSE PROGRAM, SOME INFORMATION MAY BE OMITTED. This clinical summary was aggregated from multiple sources. Caution should be exercised in using it in the provision of clinical care. This summary normalizes information from multiple sources, and as a consequence, information in this document may materially change the coding, format and clinical context of patient data. In addition, data may be omitted in some cases. CLINICAL DECISIONS SHOULD BE BASED ON THE PRIMARY CLINICAL RECORDS. [employer] provides no warranty or guarantee of the accuracy or completeness of information in this document.
[2025-01-11 01:06] LABS: Differential Indicated SCAN CRITERIA MET; White Blood Count 0.6 K/mm3 (4.4-11.0)
[2025-01-11 01:09] LABS: AST(SGOT) 39 U/L (<=37); Alanine Aminotransfer ALT/SGPT 8 U/L (<=46); Alkaline Phosphatase 192 U/L (40-129); Anion Gap 13 (5-15); BUN 16 mg/dL (4-19); BUN/Creat Ratio 11.3 RATIO (10-20); Calcium,Total 7.3 mg/dL (7.6-11.0); Carbon Dioxide 18.8 mmol/L (21.0-32.0); Chloride 90 mmol/L (98-108); Creatinine, Serum 1.42 mg/dL (0.70-1.20); EST Glomerular Filtration Rate 60 (>60); Estimated Creatinine Clearance 80.07 ml/min (50-250); Globulin 2.9 g/dL (2.2-4.2); Glucose 154 mg/dL (70-99); Lactic Acid 1.6 mmol/L (0.0-2.0); Lipase 10 U/L (13-75); Magnesium 1.4 mg/dL (1.5-2.2); Potassium 4.4 mmol/L (3.3-5.1); Protein, Total 5.9 g/dL (5.9-8.4); Sodium Level 123 mmol/L (133-145); Total Bilirubin 0.74 mg/dL (0.00-1.30)
--- NOTE | 2025-01-11 01:18 | EDS_ITS ---
HPI History of Present Illness Chief Complaint: Nausea/Vomiting Informant: patient Narrative Narrative: Patient is a 49-year-old male with history of Hodgkin's lymphoma (just received the second dose of chemotherapy 8 days ago) presenting with 3 days nausea vomiti ng. I has not been able to keep much down as had not had much appetite. Does have a PICC line in his left arm. His oncologist is Dr. Lucio through [facility] and he also sees urology Dr. Beard as he has bilateral nephrostomy tubes. States he had a normal bowel movement yesterday. Denies any fevers or chills. Denies any change in the color of his urine but notes he has had decreased urine output. Is having associate lightheadedness. Denies any chest pain or difficulty breathing. Denies associate abdominal pain. Came in for further evaluation. Did not call his oncologist yet for the symptoms. Notes he did not have the symptoms with his first round of chemotherapy. PFSH [facility] Medical History Hx of non-Hodgkin's lymphoma PICC (peripherally inserted central catheter) in place HTN (hypertension) DVT (deep venous thrombosis) Home Medications ?Medication ?Instructions ?Recorded ?Last Taken ?Type prednisone 50 mg tablet 100 mg PO DAILY 12/26/24 Unk nown History albuterol sulfate 90 mcg/actuation 2 inh inhalation Q4 H PRN 01/11/25 Unknown History aerosol inhaler (Ventolin HFA) apixaban 5 mg (74 tabs) tablets in 5 mg PO Q12H Unknown History a dose pack ([employer] DVT-PE Treat 30D Start) cefazolin 1 gram solution for 2 g IV Q8H 01/11/25 Unkn own History injection ondansetron HCl 8 mg tablet 8 mg PO Q12H PRN nausea an d 01/11/25 Unknown History vomiting sennosides 8.6 mg-docusate sodium 1 tab-cap PO DAILY 0 01/11/25 Unknown History 50 mg tablet (Senna Plus) Allergy/AdvReac Type Severity Reaction Status Date / Time No Known Allergies Allergy Verified 01/11/25 00:00 Surgical History Hx of nephrostomy Social History Smoking Status: Former smoker ROS ROS ED Constitutional Constitutional ED: Denies chills or fever(s) Cardiovascular Cardiovascular: Denies chest pain Respiratory/Chest Respiratory/Chest: Denies cough or dyspnea Gastrointestinal Gastrointestinal: Reports nausea and vomiting; Denies abdominal pain, constipation or diarrhea Genitourinary Genitourinary ED: Reports other Details: Mildly decreased urine output. Bilateral nephrostomy tubes present. Continues to urinate as well. ; Denies dysuria or hematuria Musculoskeletal Musculoskeletal: Reports other Details: Generalized weakness Integumentary Reports other Details: PICC line in the left upper extremity Neurologic Neurologic: Reports weakness; Denies paresthesias Hematologic/Lymphatic Hematologic/Lymphatic: Reports easy bleeding, easy bruising and other Details: On Eliquis EXAM Physical Exam Const Vital Signs: 01/11/25 00:00 01/11/25 00:04 01/11/25 01:00 Temperature 98.7 F 98.7 F 98.7 F Temperature Source Oral Oral Oral Pulse Rate 118 H 112 H 108 H Respiratory Rate 18 18 18 Blood Pressure 103/59 L 103/59 L 106/80 Blood Pressure Mean 73 73 88 Pulse Ox 100 99 100 Oxygen Delivery Method Room Air Room Air Room Air 01/11/25 01:04 01/11/25 02:00 01/11/25 03:00 Temperature 98.7 F 102.9 F H 102.7 F H Temperature Source Oral Oral Oral Pulse Rate 72 111 H 107 H Respiratory Rate 24 H 18 20 H Blood Pressure 128/85 H 94/65 101/70 Blood Pressure Mean 99 74 80 Pulse Ox 97 98 98 Oxygen Delivery Method Room Air Room Air Room Air 01/11/25 04:00 01/11/25 04:30 Temperature 98.7 F Temperature Source Oral Pulse Rate 67 98 Respiratory Rate 20 H 18 Blood Pressure 89/54 L 106/64 Blood Pressure Mean 65 78 Pulse Ox 98 99 Oxygen Delivery Method Room Air Room Air Constitutional Narrative: Chronically ill-appearing General Appearance ED: NAD HEENT Reports dry mucous membranes Mouth ED: Yes dry mucous membranes Mouth: dry mucous membranes Eyes PERRL Neck supple and no JVD Chest Wall inspection of chest normal and palpation of chest normal Resp clear to auscultation bilaterally Resp Narrative: Tachypneic Auscultation: Negative for rhonchi, wheezes or diminished lung sounds Cardio regular rhythm and no murmurs Rate: tachycardic GI non-tender and non-distended Auscultation: hypoactive bowel sounds Palpation: soft Back/Spine Back/Spine Narrative: Bilateral nephrostomy tubes in place, no surrounding erythema Extremity normal to inspection General Extremety ED: Negative for edema General Extremity: Negative for edema Neuro oriented x3 Sensorium / Orientation: alert Motor Exam: general weakness Psych mental status grossly normal Skin no rashes or lesions noted and no wounds Skin Narrative: PICC line in place in the left upper arm MDM MDM MDM Narrative Medical decision making narrative: Patient presented for generalized weakness, nausea and vomiting. He received second round of chemotherapy. Denies any fevers. Is afebrile upon arrival but is mildly tachycardic and has a soft blood pressure. Does not have abdominal pain but given medical history will obtain workup including CBC, CMP, lactate, lipase and CT abdomen pelvis. CBC does show pancytopenia with white blood cell count of 0.6 and absolute neutrophil count of 0.1. His hemoglobin is 6.4 and his platelets are 126. Patient is given IV fluids and Compazine for symptoms. Notified at approximately 2:30 AM that patient is not febrile with a temperature of 103 ?F. Because of his neutropenia we will initiate neutropenic fever orders including IV antibiotics and cefepime. Urinalysis added on looking for source of infection. CT on my review shows questionable malposition of the right nephrostomy tube and constipation. Waiting on full read at this time. Will reach out to patient's oncologist, Dr. Lucio at [facility]. CT does show decrease of bilateral hydroureteronephrosis which slightly remains mild on the right and the right percutaneous nephrostomy tube is in the right renal parenchyma but needs to be advanced 2 cm. There is constipation. There is bilateral urethral thickening suggestive of ascending urinary tract infecti on. I spoke with Dr. Bourgeois, oncology on-call. He recommends transfer. He states the patient would require irradiated blood but states he can wait until the patient is transferred. I then spoke with hospitalist, Dr. Busch who accepts the patient. As patient has transfer coming imminently we will hold off and irradiated blood is did not excellently wasted as he cannot have it in transport. Fever does break with Tylenol. Cultures are pending at this time. Patient remains hemodynamically stable. Is given further IV fluids for his hyponatremia. Urine dip does show positive nitrates, suspect urine is the source. Lab Data Attestation: I reviewed the patient's lab results. Labs: Laboratory Results - last 24 hr 01/11/25 01/11/25 00:39 02:57 WBC 0.6 L* RBC 2.21 L Hgb 6.4 L Hct 18.0 L MCV 81.4 MCH 29.0 MCHC 35.6 RDW Std Deviation 44.9 H RDW Coeff of Sunil 15.5 H Plt Count 126 L MPV 9.7 Immature Gran % (Auto) 0.000 Neut % (Auto) 23.7 L Lymph % (Auto) 10.9 L [place] % (Auto) 63.6 H Eos % (Auto) 0.0 Baso % (Auto) 1.8 H Absolute Neuts (auto) 0.1 L Absolute Lymphs (auto) 0.06 L Nucleated RBC % 0 Differential Comment SCANNED Diff Path Review November foll Sodium 123 L Potassium 4.4 Chloride 90 L Carbon Dioxide 18.8 L Anion Gap 13 BUN 16 Creatinine 1.42 H Estim Creat Clear Calc 80.07 Est GFR (MDRD) Non-Af 60 BUN/Creatinine Ratio 11.3 Glucose 154 H Lactic Acid 1.6 Calcium 7.3 L Magnesium 1.4 L Total Bilirubin 0.74 AST 39 H ALT 8 Alkaline Phosphatase 192 H Total Protein 5.9 Albumin 3.0 L Globulin 2.9 Albumin/Globulin Ratio 1.0 Lipase 10 L Blood Type A POSITIVE Antibody Screen NEGATIVE Radiography Diagnostic Testing: Clinical Impression(s) from Imaging Studies Abdomen/Pelvis CT 01/11/25 00:28 IMPRESSION: 1. Significant decrease in right pleural effusion. 2. Minimal residual right pleural effusion with passive atelectatic airspace disease of the right lower lobe. 3. Mild residual atelectatic airspace disease of the left lower lobe. 4. Diffuse thickening of the fluid-filled stomach suggestive of gastritis. 5. Moderate amount of fecal residue in the large bowels suggestive of constipation. 6. Left percutaneous nephrostomy tube is in good position with its tip in the left renal pelvis. 7. The tip of the right percutaneous nephrostomy tube is in the right renal parenchyma. It needs to be advanced 2 cm. 8. Decreased bilateral hydroureteronephrosis which remains slightly mild on the right side. 9. Bilateral urothelial thickening suggestive of an ascending urinary tract infection. 10. Diffusely thickened bladder suggestive of cystitis. 11. Significant decrease of the previously described retroperitoneal lymphadenopathy. 12. The largest lymph node on the current exam is a necrotic lymph node in the right iliac chain measuring 2.5 cm in its short axis. 13. Decrease in the size of the previously described splenic mass measuring 1.5 cm. 14. Decreased hepatomegaly. 15. Improved compression of the right iliac vein. 16. Fluid-filled proximal colon, probably secondary to diarrhea/enterocolitis. Reading Location: [place] [address] Rhythm Strip Rhythm Strip: Sinus Tach Rate: 109 Ectopy: None EKG Initial EKG: Attestation: I personally reviewed and interpreted this EKG as follows: Interpretation: Sinus Tachycardia Comments: Sinus tachycardia rate 109 bpm Normal axis Normal intervals No ST segment Management Discussion w/another healthcare provider: Taffy Puller (Oncology) and Other ([facility]'s, Dr. Kinney) Discharge Plan Triage Chief Complaint: Nausea/Vomiting ED Provider: Lucita Prado Dx/Rx/DC Orders Clinical Impression: Neutropenic fever, Acute hyponatremia, Displacement of nephrostomy tube, Nausea & vomiting, Non Hodgkin's lymphoma, Pancytopenia, KARAN (acute kidney injury), Complicated urinary tract infection Prescriptions: No Action prednisone 50 mg tablet 100 mg PO DAILY cefazolin 1 gram recon soln 2 g IV Q8H ondansetron HCl 8 mg tablet 8 mg PO Q12H PRN (Reason: nausea and vomiting) albuterol sulfate [Ventolin HFA] 90 mcg/actuation HFA aerosol inhaler 2 inh inhalation Q4H PRN sennosides-docusate sodium [Senna Plus] 8.6-50 mg tablet 1 tab-cap PO DAILY Eliquis DVT-PE Treat 30D Start 5 mg (74 tabs) tablets,dose pack 5 mg PO Q12H Primary Care Provider: Care Physician,No Primary Referrals: Care Physician,No Primary [Primary Care Provider] - Print Language: Chadian Disposition Disposition: Acute Care Hospital Discharge Location: [facility]
[2025-01-11 01:41] LABS: Differential Comment SCANNED; Pathologist Review May foll
[2025-01-11] MEDS: Acetaminophen 325 MG Tablet 650 MG PO (02:36)
[2025-01-11] MEDS: Cefepime HCl 2 GM in 0.9% Normal Saline (100mL MB+) 100 ML IV (02:58)
[2025-01-11 04:50] LABS: Color, Urine Yellow (Yellow); Glucose, Dipstick Normal (Normal); Ketone-Dipstick Negative (Negative); Leukocyte Esterase-Dipstick 100 /ul (Negative); Mucous, Urine 0 SEEN /hpf (<or=2+); Nitrite-Dipstick Positive (Negative); Occult Blood-Urine 150 /ul (Negative); Protein-Dipstick 100 mg/dl (Negative); Specific Gravity, Urine 1.005 (1.002-1.030); Urine Bilirubin Dipstick Negative (Negative); Urine Clarity Cloudy (Clear); Urine Urobilinogen Normal (Normal)
[2025-01-11] MEDS: 0.9% Normal Saline (1000mL) 1,000 ML 150 ML IV (04:59)
[2025-01-11 05:00] LABS: Bacteria 2+ /hpf (None Seen); Red Blood Cells-Urine 0-5 SEEN /hpf (0-5); Squamous Epithelial Cells - UA 0-5 SEEN /hpf (0-5); White Blood Cells 10-25 SEEN /hpf (0-5)
== END 2025-01-11 06:59 | disposition short-term general hospital (02) ==
PROVIDERS: Emergency Provider Emergency Medicine; Visit Provider Emergency Medicine
DX: D70.9 Neutropenia, unspecified (principal); C85.90 Non-Hodgkin lymphoma, unspecified, unspecified site; R50.81 Fever presenting with conditions classified elsewhere; N17.9 Acute kidney failure, unspecified; T83.022A Displacement of nephrostomy catheter, initial encounter; N39.0 Urinary tract infection, site not specified; R11.2 Nausea with vomiting, unspecified; K59.00 Constipation, unspecified; E87.1 Hypo-osmolality and hyponatremia; Z95.9 Presence of cardiac and vascular implant and graft, unspecified; Z79.01 Long term (current) use of anticoagulants; Z86.718 Personal history of other venous thrombosis and embolism; Z79.899 Other long term (current) drug therapy; Z87.891 Personal history of nicotine dependence
CPT/HCPCS: 36592; 74177; 80053; 81001; 83605; 83690; 83735; 85025; 86850; 86900; 86901; 87040; 87077; 87086; 87088; 87186; 93005; 96361; 96365; 96375; 99283; Q9967; A4216